=== PATIENT | female | born 1995 | race Caucasian/White ===

== ENCOUNTER 2020-07-16 14:51 | Emergency (ER) | payer MEDICAID, SELFPAY ==
[2020-07-16 16:51] VITALS: BP 130/84; PULSE 66; RESP 14; TEMP 36.6; O2SAT 100; BMI 34.9
--- NOTE | 2020-07-16 17:16 | ED.NEUROSD ---
HPI - Neuro Symptoms/Deficit General Chief Complaint: Neuro Symptoms/Deficit Stated Complaint: right facial numbness Time Seen by Provider: 07/16/20 16:30 Source: patient Mode of arrival: ambulatory Limitations: language barrier History of Present Illness HPI Narrative: patient with no significant past medical history except for migraines noticed headache on the right side for last 3 days with tingling and numbness feeling of left upper lip without any facial droop or focal weakness. Patient denied any nausea/ vomiting /fever no COVID exposure Onset (ago): day(s) (3) Related Data Allergies Allergy/AdvReac Type Severity Reaction Status Date / Time No Known Allergies Allergy Unverified 06/07/20 19:33 [No Known Allergies*] Review of Systems Review of Systems: REVIEW OF SYSTEMS: Pertinent positives and negatives are stated above in the history. GEN: no fevers, chills, fatigue HEENT: no nasal congestion, sore throat, ear pain NEURO: no dizziness, focal weakness PULM: no cough, shortness of breath CV: no chest pain, palpitations, LE edema ABD: no abdominal pain, nausea, vomiting, diarrhea : no dysuria, urgency, frequency SKIN: no rash ROS otherwise negative x 10 [facility] Past Medical History Medical History Kidney calculus Surgical History History of appendectomy Social History Social History Alcohol intake: never Smoking Status: Never smoker Smoked in Last 30 Days: No Use of substances other than those prescribed or required for medical reasons: No Physical Exam Vital Signs: Vital Signs: Vital Signs Temp Pulse Resp BP Pulse Ox 07/16/20 16:51 97.8 F 66 14 130/84 100 Body Mass Index 34.9 Appearance: Alert. Oriented X3. No acute distress. Eyes: Pupils equal, round and reactive to light. ENT: Pharynx normal. Neck: Normal inspection. Neck supple. CVS: Normal heart rate and rhythm. Pulses normal. Respiratory: No respiratory distress. Breath sounds normal. Abdomen: Soft and nontender. Skin: Skin warm and dry. Normal skin color. Normal skin turgor. Extremities: No lower extremity edema. Good range of movement Neuro: Oriented X 3. No motor deficit. No sensory deficit. Course Course Course Narrative: patient's symptoms likely from migraine feels better after Imitrex headache is almost gone will discharge patient home on Fioricet
--- NOTE | 2020-07-16 17:29 | PC.NURSE ---
pt was seen and medicated as charted for headache and associated sxs she is no outward distress and neuros are all intact at this time
== END 2020-07-16 18:45 | disposition home or self-care (01) ==
LOC: HO.ED 18:20
PROVIDERS: Emergency Provider Internal Medicine; PCP Student in an Organized Health Care Education/Training Program
DX: R20.0 Anesthesia of skin (principal)
CPT/HCPCS: 96372; 99283; 99284; J3030

== ENCOUNTER 2020-12-01 01:58 | Emergency (ER) | payer MEDICAID, SELFPAY ==
--- NOTE | ~2020-12-01 | CT_ITS ---
EXAMINATION: CT ABDOMEN AND PELVIS WITHOUT CONTRAST CLINICAL INFORMATION: Left flank pain COMPARISON: 07/12/2018 TECHNIQUE: Multidetector volumetric imaging was performed from the superior aspect of the liver through the pubic symphysis. Sagittal and coronal reformatted images were obtained on the technologist's workstation. This CT examination was performed using dose optimization techniques as appropriate, variously including the following: *Automated exposure control *Adjustment of mA and/or kV according to patient size (this includes techniques or standardized protocols for targeted exams where dose is matched to indication/reason for exam; i.e. extremities or head) *Use of iterative reconstruction technique DLP: 673 mGy-cm FINDINGS: LUNG BASES: The visualized lung bases are unremarkable. LIVER, GALLBLADDER, AND BILIARY TREE: The liver is normal in size, shape, and attenuation. No focal hepatic lesion or biliary ductal dilatation is identified. The gallbladder appears contracted. PANCREAS: Unremarkable. SPLEEN: Unremarkable. ADRENAL GLANDS: Unremarkable. KIDNEYS AND URETERS: There is a 9 mm calculus in the proximal left ureter with associated moderate hydronephrosis. There are a few calculi in the lower left kidney, some of which are faint, measuring up to approximately 5 mm. No right-sided hydronephrosis or calculus. BLADDER: Unremarkable. GASTROINTESTINAL TRACT: The small and large bowel are unremarkable. No free air is seen. ABDOMINAL WALL: No significant hernia is appreciated. LYMPH NODES: Normal. VASCULAR: Unremarkable. PELVIC VISCERA: Unremarkable. Trace free fluid is noted. OSSEOUS STRUCTURES: Unremarkable. CT/CT abdomen pelvis wo con IMPRESSION: 1. Proximal left ureteral calculus measuring 9 mm with moderate hydronephrosis. 2. Additional left lower pole renal calculi. 3. Trace nonspecific pelvic free fluid, which may be physiologic.
[2020-12-01 02:17] VITALS: BP 120/78; PULSE 79; RESP 16; TEMP 36.7; O2SAT 100; BMI 34.2
--- NOTE | 2020-12-01 02:25 | ED_ITS ---
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 This has been associated with nausea but no vomiting and chills but no fevers. She denies any history of constipation and states her last bowel movement was just prior to presentation. She has been trying to take ibuprofen and states she tries to avoid taking her Percocet. Otherwise, she denies any urinary pain/burning/frequency and her LMP-10/30/2020. Related Data Previous Rx's Medication Instructions Recorded nxatcyjdiw-djfvmbumeguql-lwnb 1 cap PO Q6H PRN #20 cap 07/16/20 [Fioricet] ketorolac 10 mg PO Q6H PRN 5 Days #20 tab 12/01/20 prednisone 20 mg PO DAILY 3 Days #3 tab 12/01/20 tamsulosin [Flomax] 0.4 mg PO BEDTIME 3 Days #3 cap 12/01/20 Allergies Allergy/AdvReac Type Severity Reaction Status Date / Time No Known Allergies Allergy Verified 12/01/20 02:17 [No Known Allergies*] Review of Systems Review of Systems: Pertinent positives and negatives as stated in HPI and 10 point review of systems is otherwise negative. [facility] Past Medical History Source: nursing notes reviewed Medical History Kidney calculus Surgical History History of appendectomy Social History Social History Alcohol intake: never Smoking Status: Never smoker Advance Directives: No Advance Directives Information Provided: No Physical Exam Vital Signs: Vital Signs: Last Vital Signs Temp 98.0 F 12/01/20 02:17 Pulse 82 12/01/20 04:31 Resp 16 12/01/20 04:31 BP 124/69 12/01/20 04:31 Pulse Ox 100 12/01/20 02:17 Body Mass Index 34.2 VITAL SIGNS: Reviewed. GENERAL: Well developed, well nourished, in no acute distress. OROPHARYNX: no oral lesions noted, posterior pharynx clear NECK: Supple, no adenopathy LUNGS: Normal breath sounds. No adventitious sounds or accessory muscle use. SpO2<100> CARDIOVASCULAR: Regular rate and rhythm without noted murmurs ABDOMEN: Soft, non-tender, non-distended with bowel sounds, no CVA tenderness SKIN: Inspection of the skin reveals no rashes NEUROLOGIC: Alert and oriented x 4. Course Course Course Narrative: This is a 25-year-old female with history and clinical presentation suggestive of musculoskeletal, constipation but will rule out renal colic or infection. Review of all investigations demonstrates 9 mm proximal renal stone with noted increase in creatinine from 0.58-1.19. On re-evaluation patient has received good pain relief from Tylenol/Toradol combination and case was discussed with Urology who will plan for surgery on Thursday and recommends discharge with Flomax and prednisone. All results and findings were discussed with patient at bedside and she was also informed of the plan for intervention on Thursday. MDM - Female Genitourinary Lab Data Result diagrams: 12/01/20 02:53 12/01/20 02:53 Labs: Lab Results 12/01/20 12/01/20 12/01/20 Range/Units 02:53 02:53 02:53 WBC 9.2 (4.8-10.8) X10*3/uL RBC 4.32 (4.20-5.50) X10*6/uL Hgb 12.4 (12.0-16.0) g/dl Hct 37.2 (37-47) % MCV 86.1 (80-98) fL MCH 28.7 (27.0-33.0) pg MCHC 33.3 (31.0-35.0) g/dl RDW 12.7 (11.0-16.0) % Plt Count 175 (160-400) X10*3/uL MPV 9.6 (9.4-12.3) fL Immature Gran % (Auto) 0.2 (0.0-0.4) % Neut % (Auto) 78.5 H (45-73) % Lymph % (Auto) 12.1 L (20-40) % [place] % (Auto) 7.5 (2-11) % Eos % (Auto) 1.5 (0-4) % Baso % (Auto) 0.2 (0-2) % Lymph # (Auto) 1.1 L (1.2-4.9) X10*3/uL [place] # (Auto) 0.7 (0.1-1.2) X10*3/uL Eos # (Auto) 0.1 (0.0-0.4) X10*3/uL Baso # (Auto) 0.0 (0.0-0.2) X10*3/uL Abs Immat Gran (auto) 0.02 (0.00-0.03) X10*3/uL Absolute Neuts (auto) 7.3 (2.0-8.3) X10*3/uL Absolute Nucleated RBC 0.000 (0.0-0.012) X10*3/uL Nucleated RBC % (auto) 0.0 (0.0-0.2) /100WBC Sodium 136 (135-145) mmol/L Potassium 4.7 (3.3-5.1) mmol/L Chloride 105 (96-108) mmol/L Carbon Dioxide 25 (22-29) mmol/L Anion Gap 11 L (12-20) BUN 14 (9-16) mg/dL Creatinine 1.19 (0.5-1.4) mg/dL Estim Creat Clear Calc 66.8 Estimated GFR 55 Random Glucose 106 (60-115) mg/dL Calcium 8.6 (8.4-10.2) mg/dL Total Bilirubin 0.3 (0.0-1.0) mg/dL AST 14 (5-31) U/L ALT 14 (0-31) U/L Alkaline Phosphatase 105 (39-117) U/L Total Protein 6.7 (6.5-8.0) g/dL Albumin 4.1 (3.5-5.0) g/dL Lipase 16 (8-78) U/L Urine Color YELLOW Urine Appearance CLEAR Urine pH 6.5 (5.0-8.0) Ur Specific [place] 1.020 (1.005-1.025) Urine Protein NEG (NEG-TRACE) MG/DL Urine Glucose (UA) NEG (NEG) MG/DL Urine Ketones 5 (NEG) MG/DL Urine Blood TRACE (NEG) Urine Nitrite NEG (NEG) Ur Leukocyte Esterase NEG (NEG) Urine RBC 1-4 (0) /HPF Urine WBC 1-4 (0-4) /HPF Ur Squamous Epith Cells TRACE /LPF Urine Bacteria TRACE /LPF Urine Mucus TRACE /LPF Urine Test (NEGATIVE) COVID-19 (JOHANA) (Negative) COVID-19 Clin Com 12/01/20 12/01/20 Range/Units 02:53 04:49 WBC (4.8-10.8) X10*3/uL RBC (4.20-5.50) X10*6/uL Hgb (12.0-16.0) g/dl Hct (37-47) % MCV (80-98) fL MCH (27.0-33.0) pg MCHC (31.0-35.0) g/dl RDW (11.0-16.0) % Plt Count (160-400) X10*3/uL MPV (9.4-12.3) fL Immature Gran % (Auto) (0.0-0.4) % Neut % (Auto) (45-73) % Lymph % (Auto) (20-40) % [place] % (Auto) (2-11) % Eos % (Auto) (0-4) % Baso % (Auto) (0-2) % Lymph # (Auto) (1.2-4.9) X10*3/uL [place] # (Auto) (0.1-1.2) X10*3/uL Eos # (Auto) (0.0-0.4) X10*3/uL Baso # (Auto) (0.0-0.2) X10*3/uL Abs Immat Gran (auto) (0.00-0.03) X10*3/uL Absolute Neuts (auto) (2.0-8.3) X10*3/uL Absolute Nucleated RBC (0.0-0.012) X10*3/uL Nucleated RBC % (auto) (0.0-0.2) /100WBC Sodium (135-145) mmol/L Potassium (3.3-5.1) mmol/L Chloride (96-108) mmol/L Carbon Dioxide (22-29) mmol/L Anion Gap (12-20) BUN (9-16) mg/dL Creatinine (0.5-1.4) mg/dL Estim Creat Clear Calc Estimated GFR Random Glucose (60-115) mg/dL Calcium (8.4-10.2) mg/dL Total Bilirubin (0.0-1.0) mg/dL AST (5-31) U/L ALT (0-31) U/L Alkaline Phosphatase (39-117) U/L Total Protein (6.5-8.0) g/dL Albumin (3.5-5.0) g/dL Lipase (8-78) U/L Urine Color Urine Appearance Urine pH (5.0-8.0) Ur Specific [place] (1.005-1.025) Urine Protein (NEG-TRACE) MG/DL Urine Glucose (UA) (NEG) MG/DL Urine Ketones (NEG) MG/DL Urine Blood (NEG) Urine Nitrite (NEG) Ur Leukocyte Esterase (NEG) Urine RBC (0) /HPF Urine WBC (0-4) /HPF Ur Squamous Epith Cells /LPF Urine Bacteria /LPF Urine Mucus /LPF Urine Test NEGATIVE (NEGATIVE) COVID-19 (JOHANA) Negative (Negative) COVID-19 Clin Com See Note Discharge Plan Discharge Clinical Impression: Ureterolithiasis Patient Disposition: Home, Self-Care Instructions: Ureteral Stones (ED) Additional Instructions: 1. Tylenol 1000 mg, por v?a oral, cada 6 horas seg?n sea necesario para controlar el dolor. No exceda los 4000 mg en 24 horas. 2. Incrementar la hidrataci?n de los fluidos especialmente con agua. 3. Tiene programada olivier intervenci?n quir?rgica el lunes por la ma?lilian y debe permanecer sin nada para comer o beber despu?s de la medianoche del lesli. Alguien lo llamar? el lunes por la ma?lilian, as? que debe contestar skelton tel?fono para recibir cualquiera de esas llamadas telef?nicas. No dude en volver al servicio de urgencias por cualquier empeoramiento iliana de delores s?ntomas. Prescriptions: New prednisone 20 mg tablet 20 mg PO DAILY 3 Days Qty: 3 RF: 0 tamsulosin [Flomax] 0.4 mg capsule 0.4 mg PO BEDTIME 3 Days Qty: 3 RF: 0 ketorolac 10 mg tablet 10 mg PO Q6H PRN (Reason: pain) 5 Days Qty: 20 RF: 0 No Action llkeqqnton-jyugnzqqetair-kffs [Fioricet] 50-300-40 mg capsule 1 cap PO Q6H PRN (Reason: pain) Qty: 20 RF: 0 Referrals: Ehsan Thakkar MD [Physician] - 2 days (Evaluation and intervention for 9 mm left ureteral stone.) Print Language: Irish
[2020-12-01 03:00] LABS: MANUAL DIFF FLAG NO
[2020-12-01 03:01] LABS: Basophils Percent Auto 0.2 % (0-2); Eosinophils Absolute Auto 0.1 X10*3/uL (0.0-0.4); Eosinophils Percent Auto 1.5 % (0-4); Hematocrit 37.2 % (37-47); Hemoglobin 12.4 g/dl (12.0-16.0); Imm Gran Abs Auto 0.02 X10*3/uL (0.00-0.03); Imm Gran Pct Auto 0.2 % (0.0-0.4); Lymphocytes Absolute Auto 1.1 X10*3/uL (1.2-4.9); Lymphocytes Percent Auto 12.1 % (20-40); Mean Corpuscular HGB Conc 33.3 g/dl (31.0-35.0); Mean Corpuscular Hemoglobin 28.7 pg (27.0-33.0); Mean Corpuscular Volume 86.1 fL (80-98); Mean Platelet Volume 9.6 fL (9.4-12.3); Monocytes Absolute Auto 0.7 X10*3/uL (0.1-1.2); Monocytes Percent Auto 7.5 % (2-11); Neutrophils Absolute Auto 7.3 X10*3/uL (2.0-8.3); Neutrophils Percent Auto 78.5 % (45-73); Platelet Count 175 X10*3/uL (160-400); Red Blood Count 4.32 X10*6/uL (4.20-5.50); Red Cell Distribution Width 12.7 % (11.0-16.0); White Blood Count 9.2 X10*3/uL (4.8-10.8)
[2020-12-01 03:07] LABS: Glucose Urine UA NEG (NEG); Leukocyte Esterase Urine NEG (NEG); Nitrite Urine NEG (NEG); PH 6.5 (5.0-8.0); Urine Blood TRACE (NEG); Urine Ketones 5 MG/DL (NEG); Urine Protein NEG (NEG-TRACE)
[2020-12-01 03:10] LABS: Appearance Urine CLEAR; Color Urine YELLOW
[2020-12-01 03:27] LABS: Alanine Aminotransferase 14 U/L (0-31); Albumin Level 4.1 g/dL (3.5-5.0); Alkaline Phosphatase 105 U/L (39-117); Anion Gap 11 (12-20); Aspartate Amino Transferase 14 U/L (5-31); Bilirubin Total 0.3 mg/dL (0.0-1.0); Blood Urea Nitrogen 14 mg/dL (9-16); Calcium 8.6 mg/dL (8.4-10.2); Carbon Dioxide 25 mmol/L (22-29); Chloride 105 mmol/L (96-108); Creatinine Clr Calc Pharmacy 66.8; Estimated Glomerular Filt Rate 55; Glucose Random 106 mg/dL (60-115); Lipase 16 U/L (8-78); Potassium 4.7 mmol/L (3.3-5.1); Sodium 136 mmol/L (135-145); Total Protein 6.7 g/dL (6.5-8.0)
[2020-12-01 03:46] LABS: UPreg QC Valid YES; Urine Pregnancy NEGATIVE (NEGATIVE)
[2020-12-01 03:50] LABS: Bacteria Urine TRACE /LPF; Mucus Urine TRACE /LPF; Squamous Epithelial Cell Urine TRACE /LPF
[2020-12-01 04:31] VITALS: BP 124/69; PULSE 82; RESP 16
[2020-12-01] MEDS: Ketorolac Tromethamine 15 MG/ML VIAL IVPUSH (04:45)
[2020-12-01] MEDS: Acetaminophen 325 MG TABLET 975 MG PO (04:46)
[2020-12-01] MEDS: 0.9 % Sodium Chloride 1,000 ML 999 ML IV (04:47)
[2020-12-01 05:20] LABS: COVID-19 Test Negative (Negative)
== END 2020-12-01 06:20 | disposition home or self-care (01) ==
PROVIDERS: Emergency Provider Student in an Organized Health Care Education/Training Program; PCP Student in an Organized Health Care Education/Training Program
DX: N13.2 Hydronephrosis with renal and ureteral calculous obstruction (principal); Z20.822 Contact with and (suspected) exposure to COVID-19; Z87.442 Personal history of urinary calculi
CPT/HCPCS: 36415; 74176; 80053; 81001; 81003; 81025; 83690; 85025; 87635; 96361; 96372; 96374; 99284; J1885

== ENCOUNTER 2020-12-03 14:56 | Day surgery (SDC) | payer MEDICAID, SELFPAY ==
[2020-12-03 15:10] VITALS: BMI 34.2
[2020-12-03 15:19] VITALS: BP 131/83; PULSE 77; RESP 16; TEMP 36.5; O2SAT 99
[2020-12-03] MEDS: Lactated Ringers 1,000 ML 100 ML IVCONT (15:27)
[2020-12-03 15:58] LABS: UPreg QC Valid YES; Urine Pregnancy NEGATIVE (NEGATIVE)
[2020-12-03] MEDS: levoFLOXacin 500 MG TABLET PO (17:07)
--- NOTE | 2020-12-03 17:16 | HO.ANESPROP2 ---
HPI - Anesthesia Eval Consult details Narrative: 25yo female patient for cysto, stent Left ureter PMFSH Family History Family history of problems with anesthesia: No Surgical History Surgical History (Updated 12/03/20 @ 17:52 by Sadaf Larose) History of appendectomy Kidney calculus History of Problems with Anesthesia: No Social History Social History Alcohol intake: never Smoking Status: Never smoker Use of substances other than those prescribed or required for medical reasons: No Advance Directives: No Advance Directives Information Provided: Yes Meds Allergies Allergy/AdvReac Type Severity Reaction Status Date / Time No Known Allergies Allergy Verified 12/01/20 02:17 [No Known Allergies*] Active Medications: Current Medications Generic Name Dose Route Start Last Admin Trade Name Freq PRN Reason Stop Dose Admin Lactated Ringer's 1,000 mls @ 100 mls/hr 12/03/20 15:30 12/03/20 15:27 Lr IVCONT 100 mls/hr .Q10H ROSANNA Administration Exam Exam Date and Time: December 03, 2020 1716 Height,Weight and Vital Signs: Height 5 ft Weight 79.379 kg Last Vital Signs Temp 97.7 F 12/03/20 15:19 Pulse 77 12/03/20 15:19 Resp 16 12/03/20 15:19 BP 131/83 12/03/20 15:19 Pulse Ox 99 12/03/20 15:19 Pertinent Lab Results Pertinent Lab Results: Laboratory Tests 12/03/20 15:35 Urine Test NEGATIVE Airway Mallampati Class: II TM Dist: >3cm Neck ROM: Full Heart: RRR Lungs: CTAB Assessment and Plan Assessment Anesthesia Assessment: Anesthesia Plan Discussed and Chart Reviewed Final Anesthetic Review NPO: Yes ASA Class: II Final Preanesthetic Review: No Changes in Pt Med Stat, Meds/Allgs Chart Reviewed, Consent Obtained/Reviewed and Anes Risks/Benef Reviewed Patient Risk: Low Procedure Risk: Low Assessment/Block/Sedation in SS: Assess/Block/Sedation-SS Anesthetic Plan Anesthetic Plan: MAC: (General backup) and Other Disposition: Standard PACU
--- NOTE | 2020-12-03 17:33 | HO.ANESPROP2 ---
[facility] Past Medical History Medical History Kidney calculus Surgical History Surgical History History of appendectomy Social History Social History Alcohol intake: never Smoking Status: Never smoker Use of substances other than those prescribed or required for medical reasons: No Advance Directives: No Advance Directives Information Provided: Yes Meds Allergies Allergy/AdvReac Type Severity Reaction Status Date / Time No Known Allergies Allergy Verified 12/01/20 02:17 [No Known Allergies*] Active Medications: Current Medications Generic Name Dose Route Start Last Admin Trade Name Freq PRN Reason Stop Dose Admin Lactated Ringer's 1,000 mls @ 100 mls/hr 12/03/20 15:30 12/03/20 15:27 Lr IVCONT 100 mls/hr .Q10H ROSANNA Administration Exam Exam Date and Time: December 03, 2020 1733 Height,Weight and Vital Signs: Height 5 ft Weight 79.379 kg Last Vital Signs Temp 97.7 F 12/03/20 15:19 Pulse 77 12/03/20 15:19 Resp 16 12/03/20 15:19 BP 131/83 12/03/20 15:19 Pulse Ox 99 12/03/20 15:19 Pertinent Lab Results Pertinent Lab Results: Laboratory Tests 12/03/20 15:35 Urine Test NEGATIVE Airway Mallampati Class: III TM Dist: >3cm Neck ROM: Full Heart: RRR Lungs: CTA
--- NOTE | 2020-12-03 18:02 | MHC.SHP ---
Pre-Procedural Eval Section B Chief Complaint: calculus of ureter Details of Present Illness: Seen at emergency room on Thursday evening Has 8 mm left UPJ stone Was tolerating oral medications and sent home Is still having some pain on the left side Plan was for retrograde with stent placement today and definitive stone procedure to follow Relevant Family History (Specify if Yes): No Relevant Social History: None Present Medications: see Short Stay Collaborative assessment Medical History: No relevant PMH History of Previous Operations: No relevant previous surgery Allergies: Allergies Allergy/AdvReac Type Severity Reaction Status Date / Time No Known Allergies Allergy Verified 12/01/20 02:17 [No Known Allergies*] Review of Systems Sugical H&P ROS: Negative: Constitution, Cardiovascular, Respiratory, Neurological, Psychiatric, Hem-Onc, Allergic/Immunologic, Gastrointestinal, Genitourinary, Musculoskeletal, Integumentary, Endocrine and Eyes/Ears/Nose/Throat Exam Surgical H&P Exam: Normal: HEENT, Normal: Heart, Normal: Lungs, Normal: Extremities, Normal: Abdomen, Normal: Skin and Normal: Neurological Plan Diagnosis/Plan: Unchanged (Left retrograde stent) I have reviewed the history and physical and performed a pertinent physical examination on my patient. No changes have occurred unless specified.
--- NOTE | 2020-12-03 18:05 | P.BOP_ITS ---
Brief Operative Note Date of Service: 12/03/20 Pre-op diagnosis: Left UPJ stone Post-op diagnosis: same Procedure: 1. Cystoscopy with left retrograde 2. left stent placement Implants: Six Romanian by 22 cm double-J stent left side Surgeon: Ehsan Thakkar MD Anesthesia: MAC Estimated blood loss (mL): 0 Pathology: none sent Condition: stable Disposition: same day
--- NOTE | 2020-12-03 18:05 | W.PM.OPN ---
Operative Note Operative Note Date of Service: 12/03/20 Narrative: PreOperative Diagnosis: Left UPJ stone Post Operative Diagnosis: Left UPJ stone Procedure: Left retrograde, left stent placement Surgeon: Dr Ehsan Thakkar Anesthesia: Sedation Indications for procedure: 25-year-old female. Seen in emergency room 2 nights ago. Was able to tolerate orals. Had stone on CT scanning 8 mm at left UPJ. Presents today for retrograde stent. Will be followed up with ESWL. Procedure: After informed consent was verified the patient was brought to the operating room and placed in a supine position. Anesthesia was administered per protocol. Patient was placed in modified dorsal lithotomy position and prepped and draped in a sterile fashion. Safety pause time-out performed. Antibiotics have been given. Twenty-two [place] cystoscope inserted per urethra. Left retrograde examination performed. Dye narrowing at UPJ suggestive UPJ obstruction. Sensor guidewire placed into renal pelvis without difficulty. Six [place] by 22 cm stent placed without difficulty. Good coil in renal pelvis and bladder. Bladder was emptied. Patient tolerated procedure well was extubated in the operating room transferred in stable condition to the recovery area Will plan on follow-up ESWL for stone management Pathology: None Drains: As above
[2020-12-03 18:15] VITALS: BP 112/80; PULSE 70; RESP 16; TEMP 36.4; O2SAT 98
[2020-12-03 18:20] VITALS: BP 125/82; PULSE 72; RESP 17; O2SAT 98
[2020-12-03 18:25] VITALS: BP 119/84; PULSE 69; RESP 16; O2SAT 99
[2020-12-03 18:30] VITALS: BP 118/77; PULSE 64; RESP 17; O2SAT 99
[2020-12-03] MEDS: Phenazopyridine HCL 100 MG TABLET PO (18:40)
[2020-12-03 18:44] VITALS: BP 119/82; RESP 16; TEMP 36.6; O2SAT 99
--- NOTE | 2020-12-03 19:24 | HO.POSTANES ---
Post Anesthesia Evaluation Post Anesthesia Evaluation Vital Signs: Vital Signs Temp Pulse Resp BP Pulse Ox 12/03/20 18:44 97.8 F 16 119/82 99 12/03/20 18:30 64 17 118/77 99 12/03/20 18:25 69 16 119/84 99 12/03/20 18:20 72 17 125/82 98 12/03/20 18:15 97.5 F 70 16 112/80 98 12/03/20 15:19 97.7 F 77 16 131/83 99 Anesthesia: General Mental Status: Awake Pain Control: Satisfactory Nausea/Vomiting: None Hydration: Adequate Anesthesia-Related Issues: No Anes. Related Issues
== END 2020-12-03 19:11 | disposition home or self-care (01) ==
PROVIDERS: Anesthesiology; PCP Student in an Organized Health Care Education/Training Program; Visit Provider Urology
PROC: (CPT 52332; principal; 2020-12-03 15:30)
DX: N20.1 Calculus of ureter (principal); Z87.442 Personal history of urinary calculi
CPT/HCPCS: 52332; 81025; C1758; C1769; C2617; J2250; J2405; J3010; Q9967

== ENCOUNTER 2020-12-26 07:27 | Day surgery (SDC) | payer MEDICAID, SELFPAY ==
--- NOTE | 2020-12-25 11:08 | P.CONAN_ITS ---
Documented by User: Dorothy Mckeon 12/25/20 11:09 HPI - Anesthesia Eval Consult details Narrative: 25yo F for L ESWL No prev ESWL on record. s/p ureteroscopy with GA-LMA 12/03/20 [facility] Active Problems Active Problems: All Active Problems (Updated 12/20/20 @ 13:07 by Kristina Castano) Kidney calculus (Acute) Past Medical History Medical History Hx of migraines Kidney stones Surgical History Surgical History History of appendectomy Kidney calculus S/P cystoscopy with ureteral stent placement Social History Social History Alcohol intake: never Smoking Status: Former smoker Use of substances other than those prescribed or required for medical reasons: No Advance Directives: No Advance Directives Information Provided: Yes Meds Allergies Allergy/AdvReac Type Severity Reaction Status Date / Time No Known Allergies Allergy Verified 12/20/20 13:07 [No Known Allergies*] Exam Exam Date and Time: December 25, 2020 1108 Assessment and Plan Assessment Anesthesia Assessment: Chart Reviewed Documented by User: Paula Gould 12/26/20 09:45 [facility] Past Medical History Medical History Hx of migraines Kidney stones Surgical History Surgical History History of appendectomy Kidney calculus S/P cystoscopy with ureteral stent placement Social History Social History Alcohol intake: never Smoking Status: Former smoker Use of substances other than those prescribed or required for medical reasons: No Advance Directives: No Advance Directives Information Provided: Yes Meds Allergies Allergy/AdvReac Type Severity Reaction Status Date / Time No Known Allergies Allergy Verified 12/20/20 13:07 [No Known Allergies*] Exam Airway Mallampati Class: II TM Dist: >3cm Neck ROM: Full Assessment and Plan Assessment Anesthesia Assessment: Anesthesia Plan Discussed and Chart Reviewed Final Anesthetic Review NPO: Yes ASA Class: II Final Preanesthetic Review: No Changes in Pt Med Stat, Meds/Allgs Chart Reviewed, Consent Obtained/Reviewed and Anes Risks/Benef Reviewed Patient Risk: Low Procedure Risk: Low Assessment/Block/Sedation in SS: Assess/Block/Sedation-SS Anesthetic Plan Anesthetic Plan: MAC: Disposition: Standard PACU
--- NOTE | ~2020-12-26 | XR_ITS ---
EXAMINATION: XR ABDOMEN KUB CLINICAL INDICATION: Stones COMPARISON: CT 12/01/2020 TECHNIQUE: AP view of the abdomen. FINDINGS: There is a left ureteral stent in place. 0.8 cm calcification overlying the lower pole of the left kidney, corresponding to the appearance on prior CT. No calcification seen along the course of the stent. Nonobstructive bowel gas pattern. The lung bases are clear. XR/XR KUB IMPRESSION: 0.8 cm left lower pole calculus. Left ureteral stent in place.
[2020-12-26 07:54] VITALS: BP 118/83; PULSE 89; RESP 16; TEMP 36.5; O2SAT 98; BMI 33.5
[2020-12-26 07:54] LABS: UPreg QC Valid YES; Urine Pregnancy NEGATIVE (NEGATIVE)
[2020-12-26] MEDS: levoFLOXacin 500 MG TABLET PO (07:57)
[2020-12-26] MEDS: Lactated Ringers 1,000 ML 100 ML IVCONT (08:11)
--- NOTE | 2020-12-26 10:15 | MHC.SHP ---
Pre-Procedural Eval Section B Chief Complaint: stone Details of Present Illness: left renal stone with stent Relevant Family History (Specify if Yes): No Relevant Social History: None Present Medications: see Short Stay Collaborative assessment Medical History: Significant History History of Previous Operations: Relevant previous surgery/procedure and date(s) Allergies: Allergies Allergy/AdvReac Type Severity Reaction Status Date / Time No Known Allergies Allergy Verified 12/20/20 13:07 [No Known Allergies*] Review of Systems Sugical H&P ROS: Negative: Constitution, Cardiovascular, Respiratory, Neurological, Psychiatric, Hem-Onc, Allergic/Immunologic, Gastrointestinal, Genitourinary, Musculoskeletal, Integumentary, Endocrine and Eyes/Ears/Nose/Throat Exam Surgical H&P Exam: Normal: HEENT, Normal: Heart, Normal: Lungs, Normal: Extremities, Normal: Abdomen, Normal: Skin and Normal: Neurological Plan Diagnosis/Plan: Unchanged (Left ESWL with cysto and stent removal) I have reviewed the history and physical and performed a pertinent physical examination on my patient. No changes have occurred unless specified.
--- NOTE | 2020-12-26 10:55 | W.PM.OPN ---
Operative Note Operative Note Date of Service: 12/26/20 Narrative: PreOperative Diagnosis: Left Renal stones Post Operative Diagnosis: Renal stones Procedure: Left ESWL - cysto and stent removal Surgeon: Dr Ehsan Thakkar Anesthesia: mac/sedation Indications for procedure: They understand ESWL may be a staged procedure and subsequent intervention may be required based on imaging after ESWL. They also understand there is a risk of bleeding, infection, damage to adjacent organs. Left 9mm lower pole stone Procedure: After informed consent was verified the patient was brought to the operating room and placed in a supine position. Anesthesia was performed per protocol. Safety pause time-out was performed. Imaging was in the room and laterality confirmed. ESWL was performed. The 1st 500 shocks were performed at 60 hertz. These were performed with increasing power. Once maximum power was reached the rate was increased to 180 hertz. A total of 2500 shocks were given. Fluoroscopy showed stone disintegration. After ESWL completed cystoscopy performed. Normal bladder. Stent seen, grasped and removed from left side. They tolerated procedure well and was transferred to the recovery area upon completion.
[2020-12-26 11:15] VITALS: BP 109/72; PULSE 90; RESP 16; TEMP 36.3; O2SAT 92
[2020-12-26 11:30] VITALS: BP 113/68; PULSE 71; RESP 13; O2SAT 100
[2020-12-26] MEDS: Phenazopyridine HCL 100 MG TABLET PO (11:41)
[2020-12-26] MEDS: Acetaminophen 325 MG TABLET 650 MG PO (11:41)
[2020-12-26 11:45] VITALS: BP 114/70; PULSE 72; RESP 20; TEMP 36.3; O2SAT 100
== END 2020-12-26 12:40 | disposition home or self-care (01) ==
PROVIDERS: Nurse Practitioner; PCP Student in an Organized Health Care Education/Training Program; Visit Provider Urology
PROC: (CPT 50590; principal; 2020-12-26 09:00)
DX: N20.0 Calculus of kidney (principal); Z87.442 Personal history of urinary calculi; Z46.6 Encounter for fitting and adjustment of urinary device; Z96.0 Presence of urogenital implants
CPT/HCPCS: 50590; 52310; 74018; 81025; J1885; J2405; J3010

== ENCOUNTER 2021-07-11 20:04 | Emergency (ER) | payer MEDICAID, SELFPAY ==
[2021-07-11 20:21] VITALS: BP 127/91; PULSE 84; RESP 16; TEMP 36.5; O2SAT 99; BMI 35.2
[2021-07-11 21:33] LABS: MANUAL DIFF FLAG NO
[2021-07-11 21:35] LABS: Basophils Percent Auto 0.4 % (0-2); Eosinophils Absolute Auto 0.2 X10*3/uL (0.0-0.4); Eosinophils Percent Auto 1.6 % (0-4); Hematocrit 40.1 % (37-47); Hemoglobin 13.6 g/dl (12.0-16.0); Imm Gran Abs Auto 0.03 X10*3/uL (0.00-0.03); Imm Gran Pct Auto 0.3 % (0.0-0.4); Lymphocytes Absolute Auto 2.5 X10*3/uL (1.2-4.9); Lymphocytes Percent Auto 24.1 % (20-40); Mean Corpuscular HGB Conc 33.9 g/dl (31.0-35.0); Mean Corpuscular Hemoglobin 28.8 pg (27.0-33.0); Mean Platelet Volume 9.4 fL (9.4-12.3); Monocytes Absolute Auto 0.7 X10*3/uL (0.1-1.2); Monocytes Percent Auto 6.3 % (2-11); Neutrophils Absolute Auto 6.9 X10*3/uL (2.0-8.3); Neutrophils Percent Auto 67.3 % (45-73); Platelet Count 224 X10*3/uL (160-400); Red Blood Count 4.72 X10*6/uL (4.20-5.50); Red Cell Distribution Width 12.8 % (11.0-16.0); White Blood Count 10.3 X10*3/uL (4.8-10.8)
[2021-07-11 21:51] LABS: Anion Gap 12 (12-20); Blood Urea Nitrogen 11 mg/dL (9-16); Calcium 10.1 mg/dL (8.4-10.2); Carbon Dioxide 26 mmol/L (22-29); Chloride 105 mmol/L (96-108); Estimated Glomerular Filt Rate > 60; Glucose Random 96 mg/dL (60-115); Potassium 4.4 mmol/L (3.3-5.1); Sodium 139 mmol/L (135-145)
--- NOTE | 2021-07-11 22:38 | ED.GENADULT ---
HPI - General Adult General Chief complaint: General Medical Stated complaint: High Blood pressure Time Seen by Provider: 07/11/21 22:28 Source: patient Mode of arrival: ambulatory Limitations: no limitations History of Present Illness HPI narrative: Patient comes to emergency room complaining of high blood pressure. Patient states this to a headache for 2 days. Patient has a wrist monitor at home which showed a blood pressure of 151/108. Patient states she has not taking any medication for the headache including Tylenol or ibuprofen. Patient denies nausea vomiting, no neck pain, no chest pain Related Data Previous Rx's Medication Instructions Recorded neksqxxefl-ualrtnpbpinyi-ppmcjfvz 1 cap PO Q6H PRN #20 cap 07/16/20 50 mg-300 mg-40 mg capsule (Fioricet) ketorolac 10 mg tablet 10 mg PO Q6H PRN 5 Days #20 tab 12/01/20 phenazopyridine 100 mg tablet 100 mg PO TID PRN 4 Days #12 tab 12/03/20 (Pyridium) tamsulosin 0.4 mg capsule 0.4 mg PO BEDTIME #14 cap 12/03/20 tamsulosin 0.4 mg capsule 0.4 mg PO BEDTIME 14 Days #14 cap 12/26/20 tramadol 50 mg tablet 50 mg PO Q6H PRN #14 tab 12/26/20 Allergies Allergy/AdvReac Type Severity Reaction Status Date / Time No Known Allergies Allergy Verified 12/20/20 13:07 [No Known Allergies*] Review of Systems Review of Systems: Constitutional : No Weight loss, No Fever, No Chills, No Night Sweats, No Fatigue, No Malaise ENT/Mouth : No Hearing loss, No Ear Pain, No Nasal Congestion, No Sinus Pain, No Hoarseness, No sore throat, No Rhinorrhea, No Swallowing Difficulty Eyes: No Eye Pain, No Swelling, No Redness, No Foreign Body, No Discharge, No Vision Changes Cardiovascular : No Chest Pain, No SOB, No Dyspnea on Exertion, No Orthopnea, No Edema, No Palpitations Respiratory : No Cough, No Sputum, No Wheezing, No Smoke Exposure, No Dyspnea Gastrointestinal : No Nausea, No Vomiting, No Diarrhea, No Constipation, No abdominal Pain, No Hematochezia, No Melena Genitourinary : no irregular bleeding, No Dysuria, No Urinary Frequency, No Hematuria, No Urinary Incontinence, No Urgency, No Flank Pain, No Urinary Flow Changes, No Hesitancy Musculoskeletal : No joint pain, No Myalgias, No Joint Swelling Skin : No Skin Lesions, No rash Neuro : No Weakness, No Numbness, No Paresthesias, No Loss of Consciousness, No Dizziness, complaining of a headache Psych : No Anxiety/Panic, No Depression, No SI/HI/AH/VH, No Social Issues, Heme/Lymph: No Bruising, No Bleeding,No Lymphadenopathy Endocrine : No Polyuria, No Polydipsia, No Temperature Intolerance [facility] Past Medical History Medical History Hx of migraines Kidney stones Surgical History History of appendectomy Kidney calculus S/P cystoscopy with ureteral stent placement Social History Social History Alcohol intake: never Advance Directives: No Advance Directives Information Provided: No Patient : No Physical Exam Vital Signs: Vital Signs: Last Vital Signs Temp 98.3 F 07/11/21 22:39 Pulse 84 07/11/21 22:39 Resp 16 07/11/21 22:39 BP 119/75 07/11/21 22:39 Pulse Ox 99 07/11/21 22:39 Body Mass Index 35.2 Const: Other: Appearance: Alert. Oriented X3. No acute distress. Well-appearing Eyes: Pupils equal, round and reactive to light. No photophobia ENT: Pharynx normal. Neck: Normal inspection. Neck supple. No lymph nodes noted. No crepitus CVS: Normal heart rate and rhythm. Pulses normal. Normal S1 and S2 Respiratory: No respiratory distress. Breath sounds normal. No Wheezing. No rales Abdomen: Soft and nontender. No rigidity. No distention. good BS x4 Skin: Skin warm and dry. Normal skin color. Normal skin turgor. Extremities: No lower extremity edema. No Lacerations. No Rash Neuro: Oriented X 3. No motor deficit. No sensory deficit. Moving all extermities. No slurred speech. Course Course Course Narrative: Patient's blood pressure in the emergency room 119/75. I discussed with the patient that she needs to have several blood pressure checks in different settings including her primary care physician's office. I recommended to the patient to check her blood pressure in a [facility] and to keep a log of her blood pressure. At this time, we will not start blood pressure medication, not indicated. I also discussed with the patient that blood pressure monitors that are applied in the wrist are not accurate. For headache, patient requested an injection, IM Toradol given. Patient declined any prescription for home. Medical Decision Making Lab Data Result diagrams: 07/11/21 21:28 07/11/21 21:28 Labs: Lab Results 07/11/21 07/11/21 Range/Units 21: 21:28 WBC 10.3 (4.8-10.8) X10*3/uL RBC 4.72 (4.20-5.50) X10*6/uL Hgb 13.6 (12.0-16.0) g/dl Hct 40.1 (37-47) % MCV 85.0 (80-98) fL MCH 28.8 (27.0-33.0) pg MCHC 33.9 (31.0-35.0) g/dl RDW 12.8 (11.0-16.0) % Plt Count 224 D (160-400) X10*3/uL MPV 9.4 (9.4-12.3) fL Immature Gran % (Auto) 0.3 (0.0-0.4) % Neut % (Auto) 67.3 (45-73) % Lymph % (Auto) 24.1 (20-40) % [place] % (Auto) 6.3 (2-11) % Eos % (Auto) 1.6 (0-4) % Baso % (Auto) 0.4 (0-2) % Lymph # (Auto) 2.5 (1.2-4.9) X10*3/uL [place] # (Auto) 0.7 (0.1-1.2) X10*3/uL Eos # (Auto) 0.2 (0.0-0.4) X10*3/uL Baso # (Auto) 0.0 (0.0-0.2) X10*3/uL Abs Immat Gran (auto) 0.03 (0.00-0.03) X10*3/uL Absolute Neuts (auto) 6.9 (2.0-8.3) X10*3/uL Absolute Nucleated RBC 0.000 (0.0-0.012) X10*3/uL Nucleated RBC % (auto) 0.0 (0.0-0.2) /100WBC Sodium 139 (135-145) mmol/L Potassium 4.4 (3.3-5.1) mmol/L Chloride 105 (96-108) mmol/L Carbon Dioxide 26 (22-29) mmol/L Anion Gap 12 (12-20) BUN 11 (9-16) mg/dL Creatinine 0.80 (0.5-1.4) mg/dL Estim Creat Clear Calc 100.0 Estimated GFR > 60 Random Glucose 96 (60-115) mg/dL Calcium 10.1 D (8.4-10.2) mg/dL Discharge Plan Discharge Clinical Impression: Headache Patient Disposition: Home, Self-Care Instructions: Acute Headache (ED) Additional Instructions: Please follow-up with your primary care physician tomorrow. If you have any worsening or new symptoms, please return to the emergency room or call 911 Prescriptions: No Action phenazopyridine [Pyridium] 100 mg tablet 100 mg PO TID PRN (Reason: spasm) 4 Days Qty: 12 RF: 0 tamsulosin 0.4 mg capsule 0.4 mg PO BEDTIME Qty: 14 RF: 0 tramadol 50 mg tablet 50 mg PO Q6H PRN (Reason: pain (scale score 4-6)) Qty: 14 RF: 0 tamsulosin 0.4 mg capsule 0.4 mg PO BEDTIME 14 Days Qty: 14 RF: 0 ginisyioye-pmomydyukolwy-npop [Fioricet] 50-300-40 mg capsule 1 cap PO Q6H PRN (Reason: pain) Qty: 20 RF: 0 ketorolac 10 mg tablet 10 mg PO Q6H PRN (Reason: pain) 5 Days Qty: 20 RF: 0
[2021-07-11 22:39] VITALS: BP 119/75; PULSE 84; RESP 16; TEMP 36.8; O2SAT 99
[2021-07-11] MEDS: Metoclopramide HCl 10 MG TABLET 5 MG PO (22:49)
[2021-07-11] MEDS: Ketorolac Tromethamine 60 MG/2 ML VIAL IM (22:49)
== END 2021-07-11 22:55 | disposition home or self-care (01) ==
PROVIDERS: Emergency Provider Emergency Medicine; PCP Student in an Organized Health Care Education/Training Program
DX: R51.9 Headache, unspecified (principal); Z79.899 Other long term (current) drug therapy
CPT/HCPCS: 36415; 80048; 85025; 96372; 99284; J1885

== ENCOUNTER 2022-02-05 14:30 | Outpatient (REF) | payer MEDICAID, SELFPAY ==
[2022-02-06 01:21] LABS: CT PCR NOT DETECTED (Not Detect.); NG PCR NOT DETECTED (Not Detect.)
[2022-02-06 09:19] LABS: BV Int Neg Control Negative (Negative); BV Int Pos Control Positive (Positive)
== END 2022-02-05 14:31 | disposition home or self-care (01) ==
LOC: HO.LAB 14:30
PROVIDERS: Visit Provider Advanced Practice Midwife
DX: Z01.411 Encounter for gynecological examination (general) (routine) with abnormal findings (principal); L29.2 Pruritus vulvae; R10.2 Pelvic and perineal pain; Z20.2 Contact with and (suspected) exposure to infections with a predominantly sexual mode of transmission; R32 Unspecified urinary incontinence; N92.6 Irregular menstruation, unspecified
CPT/HCPCS: 81003; 81025; 87480; 87491; 87510; 87591; 87660; 88142

== ENCOUNTER 2022-03-13 13:32 | Outpatient (REF) | payer MEDICAID, SELFPAY ==
--- NOTE | ~2022-03-13 | US_ITS ---
EXAMINATION: US PELVIS CLINICAL INFORMATION: Pelvic and perineal pain. COMPARISON: None TECHNIQUE: Ultrasound of the pelvis is performed using both transabdominal and transvaginal transducers along with Doppler. Transvaginal imaging is performed due to inadequate visualization transabdominally. FINDINGS: UTERUS: The uterus is retroverted, retroflexed and measures 7.0 cm in length, 3.9 mL in AP and 5.5 cm in transverse dimension. The double wall endometrial thickness is 1.2 cm. The uterus is smooth in contour and has normal myometrial echogenicity. No visible fibroid. ADNEXA: Both ovaries are visualized. There is normal color flow to the adnexa. There is no ovarian torsion. There is no pelvic ascites or fluid collection. Right ovary measures 2.8 x 2.4 x 2.0 cm and volume 7.0 mL. There is an anechoic corpus luteal cyst measuring 1.6 x 1.3 x 1.1 cm. Previously right ovary measured 2.6 x 2.8 x 2.3 cm. Left ovary measures 3.3 x 1.7 x 2.1 cm and volume 6.2 mL. The ovary appears unremarkable. Previously left ovary measured 2.4 x 2.6 x 2.1 cm. US/US pelvic and transvaginal IMPRESSION: Unremarkable retroverted uterus. Small corpus luteal cyst right ovary. Left ovary is unremarkable.
== END 2022-03-13 13:33 | disposition home or self-care (01) ==
LOC: HO.US 13:32
PROVIDERS: Visit Provider Obstetrics & Gynecology
DX: R10.2 Pelvic and perineal pain (principal)
CPT/HCPCS: 76830; 76856

== ENCOUNTER 2022-04-07 14:35 | Outpatient (REF) | payer MEDICAID, SELFPAY | END 2022-04-07 14:36 | disposition home or self-care (01) | LOC: HO.LAB 14:35 | PROVIDERS: Visit Provider Advanced Practice Midwife | DX: L29.2 Pruritus vulvae (principal); R10.2 Pelvic and perineal pain; N83.11 Corpus luteum cyst of right ovary; Z71.2 Person consulting for explanation of examination or test findings | CPT/HCPCS: 56605; 88305; 88312; 99212 ==

== ENCOUNTER → 2022-04-21 10:55 | Outpatient (BNVA) | payer MEDICAID, SELFPAY | PROVIDERS: Visit Provider Advanced Practice Midwife | DX: Z71.2 Person consulting for explanation of examination or test findings (principal); L28.0 Lichen simplex chronicus | CPT/HCPCS: 99212 ==

== ENCOUNTER 2022-08-22 14:30 | Outpatient (REF) | payer MEDICAID, SELFPAY ==
[2022-08-22 15:11] LABS: COVID-19 Test Positive (Negative)
== END 2022-08-22 14:31 | disposition home or self-care (01) ==
LOC: HO.LAB 14:30
PROVIDERS: Visit Provider Internal Medicine
DX: Z20.822 Contact with and (suspected) exposure to COVID-19 (principal)
CPT/HCPCS: 87635; C9803

== ENCOUNTER 2022-08-25 14:23 | Outpatient (REF) | payer MEDICAID, SELFPAY ==
[2022-08-26 02:27] LABS: COVID-19 Test Positive (Negative)
== END 2022-08-25 14:24 | disposition home or self-care (01) ==
LOC: HO.LAB 14:23
PROVIDERS: Visit Provider Internal Medicine
DX: Z20.822 Contact with and (suspected) exposure to COVID-19 (principal)
CPT/HCPCS: 87635; C9803

== ENCOUNTER 2022-11-18 05:11 | Emergency (ER) | payer MEDICAID, SELFPAY ==
--- NOTE | ~2022-11-18 | CT_ITS ---
EXAMINATION: CT ABDOMEN AND PELVIS WITHOUT CONTRAST CLINICAL INFORMATION: Left flank pain, question stone COMPARISON: 12/01/2020 TECHNIQUE: Multidetector volumetric imaging was performed from the superior aspect of the liver through the pubic symphysis. Sagittal and coronal reformatted images were obtained on the technologist's workstation. This CT examination was performed using dose optimization techniques as appropriate, variously including the following: *Automated exposure control *Adjustment of mA and/or kV according to patient size (this includes techniques or standardized protocols for targeted exams where dose is matched to indication/reason for exam; i.e. extremities or head) *Use of iterative reconstruction technique DLP: 648 mGy-cm FINDINGS: LUNG BASES: The visualized lung bases are unremarkable. LIVER, GALLBLADDER, AND BILIARY TREE: The liver is normal in size, shape, and attenuation. No focal hepatic lesion or biliary ductal dilatation is identified. The gallbladder is unremarkable. PANCREAS: Unremarkable. SPLEEN: Unremarkable. ADRENAL GLANDS: Unremarkable. KIDNEYS AND URETERS: There is a 6 mm calculus in the proximal left ureter with mild hydronephrosis. No right hydronephrosis. BLADDER: Mildly distended and grossly unremarkable. GASTROINTESTINAL TRACT: No evidence of bowel obstruction or significant wall thickening. No free fluid or free air is seen. ABDOMINAL WALL: No significant hernia is appreciated. LYMPH NODES: Normal. VASCULAR: Unremarkable. PELVIC VISCERA: Unremarkable. OSSEOUS STRUCTURES: Unremarkable. CT/CT abdomen pelvis wo IV con IMPRESSION: Proximal left ureteral calculus measuring 6 mm with mild hydronephrosis.
[2022-11-18 05:18] VITALS: BP 113/81; PULSE 84; RESP 16; TEMP 36.7; O2SAT 99; BMI 34.3
[2022-11-18 05:41] LABS: MANUAL DIFF FLAG NO
[2022-11-18 05:42] LABS: Basophils Percent Auto 0.3 % (0-2); Eosinophils Absolute Auto 0.2 X10*3/uL (0.0-0.4); Hematocrit 40.4 % (37.0-47.0); Hemoglobin 13.8 g/dl (12.0-16.0); Imm Gran Abs Auto 0.03 X10*3/uL (0.00-0.03); Imm Gran Pct Auto 0.3 % (0.0-0.4); Lymphocytes Absolute Auto 1.9 X10*3/uL (1.2-4.9); Lymphocytes Percent Auto 20.5 % (20-40); Mean Corpuscular HGB Conc 34.2 g/dl (31.0-35.0); Mean Corpuscular Hemoglobin 28.7 pg (27.0-33.0); Mean Platelet Volume 9.5 fL (9.4-12.3); Monocytes Absolute Auto 0.8 X10*3/uL (0.1-1.2); Monocytes Percent Auto 8.7 % (2-11); Neutrophils Absolute Auto 6.2 x10*3/uL (2.0-8.3); Neutrophils Percent Auto 68.2 % (45-73); Platelet Count 195 X10*3/uL (160-400); Red Blood Count 4.81 X10*6/uL (4.20-5.50); Red Cell Distribution Width 12.9 % (11.0-16.0)
[2022-11-18 05:44] LABS: Appearance Urine Clear; Color Urine Yellow; Glucose Urine UA Negative (Negative); Leukocyte Esterase Urine Negative (Negative); Nitrite Urine Negative (Negative); Specific Gravity - Urine 1.015 (1.005-1.025); UMIC TRIGGER UACC YES; Urine Blood Large (3+) (Negative); Urine Ketones Negative (Negative); Urine Protein Trace mg/dL (Neg-Trace)
[2022-11-18 05:45] LABS: UPreg QC Valid YES; Urine Pregnancy NEGATIVE (NEGATIVE)
[2022-11-18 05:46] LABS: Bacteria Urine None Seen (None Seen); Hyaline Casts Urine 0-2 /LPF (0-2); RBC Urine >20 /HPF (0-2); Squamous Epithelial Cell Urine 0-2 /HPF (0-2); WBC Urine 0-5 /HPF (0-5)
--- NOTE | 2022-11-18 05:49 | ED.ABDPAIN ---
HPI - Abdominal Pain General Chief Complaint: Abdominal Pain Stated Complaint: ? Kidney Stones Time Seen by Provider: 11/18/22 05:42 Source: patient Mode of arrival: ambulatory Limitations: no limitations History of Present Illness HPI narrative: Patient with history of kidney stone workup at 01:30 with left flank pain in left lower abdomen with that in the past no hematuria no fever no urinary symptoms patient feel nauseated . Related Data Previous Rx's Medication Instructions Recorded cppaafmpfo-nxuwobdnpbsit-exswstmp 1 cap PO Q6H PRN pain #20 caps 07/16/20 50 mg-300 mg-40 mg capsule (Fioricet) hydrocortisone valerate 0.2 % 1 appl topical BID 7 days #45 grams 04/21/22 topical cream oxycodone 5 mg tablet 5 mg PO Q6H PRN pain #20 tabs 11/18/22 tamsulosin 0.4 mg capsule (Flomax) 0.4 mg PO DAILY #10 caps 11/18/22 Allergies Allergy/AdvReac Type Severity Reaction Status Date / Time No Known Allergies Allergy Verified 10/09/22 10:09 [No Known Allergies*] Review of Systems Review of Systems Yes all other systems are reviewed and are negative [facility] Past Medical History Medical History Hx of migraines Kidney stones Surgical History History of appendectomy Kidney calculus S/P cystoscopy with ureteral stent placement Social History Social History Household Members: Spouse Household Members Other:: daughter Housing: Apartment Alcohol intake: never Patient Tobacco Use Status: Never used Tobacco Smoked in Last 30 Days: No Use of substances other than those prescribed or required for medical reasons: No Advance Directives: No Patient : No Sexual orientation: Straight/Heterosexual Gender identity: Female Physical Exam ED Vital Signs: Vital Signs - 24 hr 11/18/22 05:18 11/18/22 06:23 11/18/22 07:12 Temperature 98.0 F 98.0 F 98.0 F Pulse Rate 84 84 67 Respiratory Rate 16 16 16 Blood Pressure 113/81 113/81 125/70 Pulse Oximetry 99 99 100 Oxygen Delivery Method Room Air Room Air Room Air 11/18/22 07:21 Temperature Pulse Rate Respiratory Rate 16 Blood Pressure Pulse Oximetry Oxygen Delivery Method BMI result Body Mass Index 34.3 Appearance: Alert. Oriented X3. In moderate distress. Eyes: PERRLA, No Nystagmus ENT: Pharynx normal. Oral Mucosa moist Neck: Normal inspection. Neck supple. CVS: Normal heart rate and rhythm. Pulses normal. Respiratory: No respiratory distress. Equal air entry bilateral, no wheezing/rales/rhonchi Abdomen: Soft and nontender. Bowel sounds are present, no mass palpable, L CVA tenderness Skin: Skin warm and dry. Normal skin color. Normal skin turgor. Extremities: No lower extremity edema. No calf tenderness Neuro: Oriented X 3. No motor deficit. Medical Decision Making Medical Decision Making [facility] Narrative: Patient with 6 mm left proximal obstructive stone feeling much better after IV fluids and IV morphine and Toradol discussed with Dr. Thakkar will see the patient as outpatient Lab Data [facility] Lab Attestation statement: I reviewed the patient's lab results. 11/18/22 05:36 11/18/22 05:36 Labs: Lab Results 11/18/22 11/18/22 11/18/22 Range/Units 05:36 05:36 05:36 WBC 9.0 (4.8-10.8) X10*3/uL RBC 4.81 (4.20-5.50) X10*6/uL Hgb 13.8 (12.0-16.0) g/dl Hct 40.4 (37.0-47.0) % MCV 84.0 (80.0-98.0) fL MCH 28.7 (27.0-33.0) pg MCHC 34.2 (31.0-35.0) g/dl RDW 12.9 (11.0-16.0) % Plt Count 195 (160-400) X10*3/uL MPV 9.5 (9.4-12.3) fL Immature Gran % (Auto) 0.3 (0.0-0.4) % Neut % (Auto) 68.2 (45-73) % Lymph % (Auto) 20.5 (20-40) % [place] % (Auto) 8.7 (2-11) % Eos % (Auto) 2.0 (0-4) % Baso % (Auto) 0.3 (0-2) % Lymph # (Auto) 1.9 (1.2-4.9) X10*3/uL [place] # (Auto) 0.8 (0.1-1.2) X10*3/uL Eos # (Auto) 0.2 (0.0-0.4) X10*3/uL Baso # (Auto) 0.0 (0.0-0.2) X10*3/uL Abs Immat Gran (auto) 0.03 (0.00-0.03) X10*3/uL Absolute Neuts (auto) 6.2 (2.0-8.3) x10*3/uL Absolute Nucleated RBC 0.000 (0.0-0.012) X10*3/uL Nucleated RBC % (auto) 0.0 (0.0-0.2) /100WBC Sodium 137 (135-145) mmol/L Potassium 4.3 (3.3-5.1) mmol/L Chloride 107 (96-108) mmol/L Carbon Dioxide 23 (22-29) mmol/L Anion Gap 11 L (12-20) BUN 14 (9-16) mg/dL Creatinine 0.99 (0.5-1.4) mg/dL Estim Creat Clear Calc 79.1 Estimated GFR > 60 Random Glucose 89 (60-115) mg/dL Calcium 9.3 D (8.4-10.2) mg/dL Urine Color Yellow Urine Appearance Clear Urine pH 6.0 (5.0-9.0) Ur Specific [place] 1.015 (1.005-1.025) Urine Protein Trace (Neg-Trace) mg/dL Urine Glucose (UA) Negative (Negative) mg/dL Urine Ketones Negative (Negative) mg/dL Urine Blood Large (3+) H (Negative) Urine Nitrite Negative (Negative) Ur Leukocyte Esterase Negative (Negative) Urine RBC >20 H (0-2) /HPF Urine WBC 0-5 (0-5) /HPF Ur Squamous Epith Cells 0-2 (0-2) /HPF Urine Bacteria None Seen (None Seen) Hyaline Casts 0-2 (0-2) /LPF Urine Test (NEGATIVE) 11/18/22 Range/Units 05:36 WBC (4.8-10.8) X10*3/uL RBC (4.20-5.50) X10*6/uL Hgb (12.0-16.0) g/dl Hct (37.0-47.0) % MCV (80.0-98.0) fL MCH (27.0-33.0) pg MCHC (31.0-35.0) g/dl RDW (11.0-16.0) % Plt Count (160-400) X10*3/uL MPV (9.4-12.3) fL Immature Gran % (Auto) (0.0-0.4) % Neut % (Auto) (45-73) % Lymph % (Auto) (20-40) % [place] % (Auto) (2-11) % Eos % (Auto) (0-4) % Baso % (Auto) (0-2) % Lymph # (Auto) (1.2-4.9) X10*3/uL [place] # (Auto) (0.1-1.2) X10*3/uL Eos # (Auto) (0.0-0.4) X10*3/uL Baso # (Auto) (0.0-0.2) X10*3/uL Abs Immat Gran (auto) (0.00-0.03) X10*3/uL Absolute Neuts (auto) (2.0-8.3) x10*3/uL Absolute Nucleated RBC (0.0-0.012) X10*3/uL Nucleated RBC % (auto) (0.0-0.2) /100WBC Sodium (135-145) mmol/L Potassium (3.3-5.1) mmol/L Chloride (96-108) mmol/L Carbon Dioxide (22-29) mmol/L Anion Gap (12-20) BUN (9-16) mg/dL Creatinine (0.5-1.4) mg/dL Estim Creat Clear Calc Estimated GFR Random Glucose (60-115) mg/dL Calcium (8.4-10.2) mg/dL Urine Color Urine Appearance Urine pH (5.0-9.0) Ur Specific [place] (1.005-1.025) Urine Protein (Neg-Trace) mg/dL Urine Glucose (UA) (Negative) mg/dL Urine Ketones (Negative) mg/dL Urine Blood (Negative) Urine Nitrite (Negative) Ur Leukocyte Esterase (Negative) Urine RBC (0-2) /HPF Urine WBC (0-5) /HPF Ur Squamous Epith Cells (0-2) /HPF Urine Bacteria (None Seen) Hyaline Casts (0-2) /LPF Urine Test NEGATIVE (NEGATIVE) Medications Administered Discontinued Medications Generic Name Dose Route Start Last Admin Trade Name Freq PRN Reason Stop Dose Admin Sodium Chloride 1,000 mls @ 999 mls/hr 11/18/22 05:56 11/18/22 06:09 Ns IV 11/18/22 06:56 999 mls/hr .Q1H1M ONE Administration Ketorolac Tromethamine 30 mg 11/18/22 05:56 11/18/22 06:08 Ketorolac Tromethamine 30 Mg/Ml Vial IVPUSH 11/18/22 05:57 30 mg ONCE ONE Administration Morphine Sulfate 4 mg 11/18/22 05:56 11/18/22 06:08 Morphine Sulfate 4 Mg/Ml Cartridge IVPUSH 11/18/22 05:57 4 mg ONCE ONE Administration Protocol Morphine Sulfate 2 mg 11/18/22 06:50 11/18/22 07:21 Morphine Sulfate 2 Mg/Ml Cartridge IVPUSH 11/18/22 06:51 2 mg ONCE ONE Administration Protocol Ondansetron HCl 4 mg 11/18/22 05:56 11/18/22 06:08 Ondansetron Hcl 4 Mg/2 Ml Vial IVPUSH 11/18/22 05:57 4 mg ONCE ONE Administration Tamsulosin HCl 0.4 mg 11/18/22 06:45 11/18/22 07:21 Tamsulosin Hcl 0.4 Mg Capsule PO 11/18/22 06:46 0.4 mg ONCE ONE Administration Discharge Plan Discharge Clinical Impression: Kidney stone on left side Patient Disposition: Home, Self-Care Instructions: Renal Colic (ED) Additional Instructions: Drink plenty of fluids Pain medication as prescribed See urologist in 1-2 days for further management Prescriptions: New tamsulosin [Flomax] 0.4 mg capsule 0.4 mg PO DAILY Qty: 10 0RF oxycodone 5 mg tablet 5 mg PO Q6H PRN (Reason: pain) Qty: 20 0RF Rx Instructions: Partial Fill upon patient request. No Action fwtcysmpxy-rsyikmafadran-oefm [Fioricet] 50-300-40 mg capsule 1 cap PO Q6H PRN (Reason: pain) Qty: 20 0RF hydrocortisone valerate 0.2 % cream 1 appl topical BID 7 Days Qty: 45 0RF Rx Instructions: apply a thin coat to area Referrals: Drea Smith MD [Physician] - 1 day
--- NOTE | 2022-11-18 05:56 | PC.NURSE ---
Pt presenting to ER with flank and lower abdominal pain. Pt has hx of kidney stones and states this feels similar to previous episodes. Pt complaining of 6/10 pain at this time. 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 A&Ox4, GCS 15, no apparent distress or shortness of breath.
[2022-11-18 05:59] LABS: Anion Gap 11 (12-20); Blood Urea Nitrogen 14 mg/dL (9-16); Calcium 9.3 mg/dL (8.4-10.2); Carbon Dioxide 23 mmol/L (22-29); Chloride 107 mmol/L (96-108); Creatinine Clr Calc Pharmacy 79.1; Estimated Glomerular Filt Rate > 60; Glucose Random 89 mg/dL (60-115); Potassium 4.3 mmol/L (3.3-5.1); Sodium 137 mmol/L (135-145)
[2022-11-18] MEDS: Ketorolac Tromethamine 30 MG/ML VIAL IVPUSH (06:08)
[2022-11-18] MEDS: ondansetron HCL 4 MG/2 ML VIAL IVPUSH (06:08)
[2022-11-18] MEDS: Morphine Sulfate 4 MG/ML CARTRIDGE IVPUSH (06:08)
[2022-11-18] MEDS: 0.9 % Sodium Chloride 1,000 ML 999 ML IV (06:09)
[2022-11-18 06:23] VITALS: BP 113/81; PULSE 84; RESP 16; TEMP 36.7; O2SAT 99
[2022-11-18 07:12] VITALS: BP 125/70; PULSE 67; RESP 16; TEMP 36.7; O2SAT 100
[2022-11-18 07:21] VITALS: RESP 16
[2022-11-18] MEDS: Morphine Sulfate 2 MG/ML CARTRIDGE IVPUSH (07:21)
[2022-11-18] MEDS: Tamsulosin HCL 0.4 MG CAPSULE PO (07:21)
== END 2022-11-18 08:31 | disposition home or self-care (01) ==
PROVIDERS: Emergency Provider Internal Medicine; PCP Student in an Organized Health Care Education/Training Program
DX: N20.0 Calculus of kidney (principal); Z79.899 Other long term (current) drug therapy
CPT/HCPCS: 36415; 74176; 80048; 81001; 81025; 85025; 96374; 96375; 99284; 99285; J1885; J2270; J2405

== ENCOUNTER 2022-11-19 09:42 | Day surgery (SDC) | payer MEDICAID, SELFPAY ==
--- NOTE | ~2022-11-19 | XR_ITS ---
EXAMINATION: XR ABDOMEN KUB CLINICAL INDICATION: Pre-ESWL. COMPARISON: CT abdomen and pelvis dated 11/18/2022; KUB dated 12/26/2020. TECHNIQUE: 2 AP views of the abdomen and pelvis are submitted. FINDINGS: The bowel gas pattern is normal, with no evidence of ileus or obstruction. Again seen in the expected vicinity of the left ureteropelvic junction is a 6 mm calculus. No further urinary calculus is appreciated. The bones are unremarkable. XR/XR KUB IMPRESSION: A 6 mm calculus is redemonstrated at the left ureteropelvic junction. No further urinary calculus is presently appreciated.
[2022-11-19 10:12] VITALS: BMI 34.3
[2022-11-19 10:19] VITALS: BP 123/79; PULSE 85; RESP 16; TEMP 36.2; O2SAT 99
[2022-11-19 10:30] LABS: UPreg QC Valid YES; Urine Pregnancy NEGATIVE (NEGATIVE)
[2022-11-19] MEDS: Lactated Ringers 1,000 ML 999 ML IV (10:39)
--- NOTE | 2022-11-19 11:14 | MHC.SHP ---
Pre-Procedural Eval Section A Date of Service: 11/19/22 The History & Physical has been completed within 30 days and I have reviewed it.: Yes Section B Chief Complaint: Calculus of kidney, left Allergies: Allergies Allergy/AdvReac Type Severity Reaction Status Date / Time No Known Allergies Allergy Verified 11/18/22 14:49 [No Known Allergies*] Plan Diagnosis/Plan: Unchanged I have reviewed the history and physical and performed a pertinent physical examination on my patient. No changes have occurred unless specified. Left ESWL. Discussed risks to include but not limited to, blood in the urine, bruising to the skin, kidney hematoma, possible need for another procedure if a stone fragment obstructs the ureter while passing, possible need to repeat procedure if stone is not completely fragmented. Time Spent With Patient Time: Total time managing care of this patient today ____ minutes.
--- NOTE | 2022-11-19 11:19 | HO.ANESPROP2 ---
HPI - Anesthesia Eval Consult details Narrative: Left ESWL PMFSH Active Problems Active Problems: All Active Problems (Updated 12/20/20 @ 13:07 by Kristina Castano RN) Calculus of proximal left ureter (Acute) Lichen simplex chronicus (Acute) Kidney calculus (Acute) Past Medical History Medical History Hx of migraines Kidney stones Patient : No Family History Family history of problems with anesthesia: No Surgical History Surgical History History of appendectomy Kidney calculus S/P cystoscopy with ureteral stent placement History of Problems with Anesthesia: No Social History Social History Household Members: Spouse Household Members Other:: daughter Housing: Apartment Alcohol intake: never Patient Tobacco Use Status: Never used Tobacco Use of substances other than those prescribed or required for medical reasons: No Are you DNR?: No Advance Directives: No Advance Directives Information Provided: Yes Recently lost weight without trying: No Nutrition Risks: No Nutritional Risk Patient : No Sexual orientation: Straight/Heterosexual Gender identity: Female Meds Allergies Allergy/AdvReac Type Severity Reaction Status Date / Time No Known Allergies Allergy Verified 11/18/22 14:49 [No Known Allergies*] Active Medications: Current Medications Lactated Ringer's (Lr) 1,000 mls @ 999 mls/hr IV .Q1H1M ROSANNA Stop: 11/19/22 12:00 Last Admin: 11/19/22 10:39 Dose: 999 mls/hr Exam Exam Date and Time: November 19, 2022 1119 Height,Weight and Vital Signs: Height 5 ft Weight 79.832 kg Last Vital Signs Temp 97.1 F 11/19/22 10:19 Pulse 85 11/19/22 10:19 Resp 16 11/19/22 10:19 BP 123/79 11/19/22 10:19 Pulse Ox 99 11/19/22 10:19 O2 Del Method 11/19/22 10:19 Pertinent Lab Results Pertinent Lab Results: Laboratory Tests 11/19/22 10:05 Urine Test NEGATIVE Airway Mallampati Class: I TM Dist: <=3cm Neck ROM: Full Heart: ok Lungs: ok Assessment and Plan Assessment Anesthesia Assessment: Anesthesia Plan Discussed and Chart Reviewed Final Anesthetic Review Family History of Problems with Anesthesia: No History of Problems with Anesthesia: No NPO: Yes ASA Class: II Final Preanesthetic Review: No Changes in Pt Med Stat, Meds/Allgs Chart Reviewed, Consent Obtained/Reviewed and Anes Risks/Benef Reviewed Patient Risk: Low Procedure Risk: Low Anesthetic Plan Anesthetic Plan: GA and Agree w/ Assess. and Plan Disposition: Standard PACU
[2022-11-19 12:31] VITALS: BP 91/52; PULSE 86; RESP 16; TEMP 36.6; O2SAT 97
--- NOTE | 2022-11-19 12:33 | W.PM.OPN ---
Operative Note Operative Note Date of Service: 11/19/22 Narrative: PreOperative Diagnosis:? ? Left proximal ureteral/UPJ stone Post Operative Diagnosis:?Left proximal ureteral/UPJ stone Procedure:?Left? ESWL Surgeon:?Dr Drea Smith Anesthesia:? General Indications for procedure: The patient understands ESWL may be a staged procedure and subsequent intervention may be required based on imaging after ESWL.? They also understand? there is a risk of bleeding to the kidney, infection, damage to adjacent organs, and stone migration following the procedure. - Imaging KUB 8 mm Left UPJ/proximal ureteral stone Procedure: After informed consent was verified the patient was brought to the operating room and placed in a supine position.? Anesthesia was performed per protocol. Safety pause time-out was performed. Imaging was displayed in the room and laterality confirmed. ESWL was performed.?The stone was visualized on both fluoroscopy and ultrasound.? Shockwave lithotripsy was performed, the first 300 shocks at 60 hertz.? A pause for 3 minutes.? A total of 2500 shocks to a maximum of power of 18 with a maximum rate of 120 hertz.? Some fragmentation of the stone was appreciated. The patient tolerated the procedure well and was transferred to the recovery area upon completion. Complications: None
[2022-11-19 12:36] VITALS: BP 116/72; PULSE 70; RESP 18; O2SAT 98
[2022-11-19 12:41] VITALS: BP 119/78; PULSE 66; RESP 16; O2SAT 99
[2022-11-19 12:46] VITALS: BP 117/75; PULSE 70; RESP 17; TEMP 36.6; O2SAT 98
== END 2022-11-19 13:40 | disposition home or self-care (01) ==
PROVIDERS: Anesthesiology; PCP Student in an Organized Health Care Education/Training Program; Visit Provider Urology
PROC: (CPT 50590; principal; 2022-11-19 11:00)
DX: N20.1 Calculus of ureter (principal); Z87.442 Personal history of urinary calculi; Z79.899 Other long term (current) drug therapy
CPT/HCPCS: 50590; 74018; 81025; J0690; J1940; J2405; J3010

== ENCOUNTER 2022-12-31 16:42 | Outpatient (REF) | payer MEDICAID, SELFPAY ==
--- NOTE | ~2022-12-31 | XR_ITS ---
EXAMINATION: XR ABDOMEN KUB CLINICAL INDICATION: Calculus of kidney COMPARISON: KUB 11/19/[address] abdomen 11/10/2022 TECHNIQUE: AP view of the abdomen. FINDINGS: Previously noted 6 mm radiopaque calculi in the left kidney UPJ junction has moved into the lower pole calyx left kidney. No additional radiopaque calculi seen. There is mild to moderate stool in colon. No gross bony abnormality. No organomegaly. XR/XR KUB IMPRESSION: 6 mm radiopaque calculi in the left UV junction and the previous KUB has migrated into the lower pole calyx left kidney.
== END 2022-12-31 16:43 | disposition home or self-care (01) ==
LOC: HO.XRAY 16:42
PROVIDERS: PCP Student in an Organized Health Care Education/Training Program; Visit Provider Nurse Practitioner Family
DX: N20.0 Calculus of kidney (principal)
CPT/HCPCS: 74018

== ENCOUNTER → 2023-01-01 08:35 | Outpatient (BNVA) | payer MEDICAID, SELFPAY | PROVIDERS: PCP Student in an Organized Health Care Education/Training Program; Visit Provider Nurse Practitioner Family | DX: N20.0 Calculus of kidney (principal) | CPT/HCPCS: 99212 ==

== ENCOUNTER 2023-03-02 08:48 | Day surgery (SDC) | payer MEDICAID, SELFPAY ==
[2023-02-26 10:14] VITALS: BMI 34.4
--- NOTE | 2023-02-27 10:48 | HO.ANESPROP2 ---
Documented by User: Dorothy Mckeon NP 02/27/23 10:50 HPI - Anesthesia Eval Consult details Narrative: 27yo F for Left Cystoscopy, Ureteroroscopy, Retro, Laser possible stent PMFSH Active Problems Active Problems: All Active Problems (Updated 02/26/23 @ 10:09 by Marlin Hawthorne RN) Lichen simplex chronicus (Acute) Calculus of proximal left ureter (Acute) Kidney calculus (Acute) Past Medical History Medical History Hx of migraines Kidney stones Family History Family history of problems with anesthesia: No Surgical History Surgical History History of appendectomy Hx of lithotripsy Hx of lithotripsy Kidney calculus S/P cystoscopy with ureteral stent placement History of Problems with Anesthesia: No Social History Social History Household Members: Spouse Household Members Other:: daughter Housing: Apartment Alcohol intake: never Patient Tobacco Use Status: Never used Tobacco Use of substances other than those prescribed or required for medical reasons: No Are you DNR?: No Advance Directives: No Advance Directives Information Provided: Yes Sexual orientation: Straight/Heterosexual Gender identity: Female Meds Allergies Allergy/AdvReac Type Severity Reaction Status Date / Time No Known Allergies Allergy Verified 03/02/23 09:30 [No Known Allergies*] Exam Exam Date and Time: February 27, 2023 1048 Height,Weight and Vital Signs: Height 5 ft Weight 79.832 kg Pertinent Lab Results Pertinent Lab Results: Laboratory Tests 11/18/22 11/18/22 05:36 05:36 WBC 9.0 Hgb 13.8 Hct 40.4 Plt Count 195 Sodium 137 Potassium 4.3 Chloride 107 Carbon Dioxide 23 BUN 14 Creatinine 0.99 Assessment and Plan Assessment Anesthesia Assessment: Chart Reviewed Final Anesthetic Review Family History of Problems with Anesthesia: No History of Problems with Anesthesia: No Documented by User: Dinaa Noble MD 03/02/23 10:02 PMFSH Past Medical History Medical History Hx of migraines Kidney stones Surgical History Surgical History History of appendectomy Hx of lithotripsy Hx of lithotripsy Kidney calculus S/P cystoscopy with ureteral stent placement Social History Social History Household Members: Spouse Household Members Other:: daughter Housing: Apartment Alcohol intake: never Patient Tobacco Use Status: Never used Tobacco Use of substances other than those prescribed or required for medical reasons: No Are you DNR?: No Advance Directives: No Advance Directives Information Provided: Yes Sexual orientation: Straight/Heterosexual Gender identity: Female Meds Allergies Allergy/AdvReac Type Severity Reaction Status Date / Time No Known Allergies Allergy Verified 03/02/23 09:30 [No Known Allergies*] Exam Airway Mallampati Class: II TM Dist: >3cm Neck ROM: Full Heart: rrr Lungs: ctab Assessment and Plan Assessment Anesthesia Assessment: Anesthesia Plan Discussed Final Anesthetic Review NPO: Yes ASA Class: II Final Preanesthetic Review: No Changes in Pt Med Stat, Meds/Allgs Chart Reviewed, Consent Obtained/Reviewed and Anes Risks/Benef Reviewed Patient Risk: Low Procedure Risk: Low Anesthetic Plan Anesthetic Plan: GA Disposition: Standard PACU
[2023-03-02] VITALS (7 sets, daily range): BP systolic 119–142; BP diastolic 75–88; PULSE 69–89; RESP 15–16; TEMP 36.1–36.8; O2SAT 98–100; BMI 35.2
--- NOTE | ~2023-03-02 | FL_ITS ---
EXAMINATION: XR FLUOROSCOPY WITH IMAGES CLINICAL INFORMATION: Left retrograde. COMPARISON: None available. TECHNIQUE: FLUOROSCOPY SUPERVISED BY: Dr. Ehsan Thakkar. FLUOROSCOPIC IMAGES: 1. FINDINGS: Single image demonstrates the distal end of a presumed left ureteral stent. A small amount of contrast is present in the bladder. FL/FL guidance in OR IMPRESSION: Fluoroscopy provided for left retrograde pyelogram. Please see Dr. Ehsan Thakkar's procedure note for details.
[2023-03-02 09:37] LABS: UPreg QC Valid YES; Urine Pregnancy NEGATIVE (NEGATIVE)
[2023-03-02] MEDS: Lactated Ringers 1,000 ML 100 ML IVCONT (09:43)
--- NOTE | 2023-03-02 11:26 | MHC.SHP ---
Pre-Procedural Eval Section A Date of Service: 03/02/23 The patient is an INPATIENT: No Changes since office visit: No Cold of Flu in the past 2 weeks, No New Medical Problems, No Changes in Medication and No Patient answered all questions The History & Physical has been completed within 30 days and I have reviewed it.: Yes Section B Chief Complaint: Calculus of kidney Details of Present Illness: left renal stone Relevant Family History (Specify if Yes): No Relevant Social History: None Present Medications: see Short Stay Collaborative assessment Medical History: No relevant PMH History of Previous Operations: Relevant previous surgery/procedure and date(s) Allergies: Allergies Allergy/AdvReac Type Severity Reaction Status Date / Time No Known Allergies Allergy Verified 03/02/23 09:30 [No Known Allergies*] Review of Systems Sugical H&P ROS: Negative: Constitution, Cardiovascular, Respiratory, Neurological, Psychiatric, Hem-Onc, Allergic/Immunologic, Gastrointestinal, Genitourinary, Musculoskeletal, Integumentary, Endocrine and Eyes/Ears/Nose/Throat Exam Surgical H&P Exam: Normal: HEENT, Normal: Heart, Normal: Lungs, Normal: Extremities, Normal: Abdomen, Normal: Skin and Normal: Neurological Plan Diagnosis/Plan: Unchanged ( cystoscopy, left retrograde, left ureteroscopy with laser lithotripsy in stent placed) I have reviewed the history and physical and performed a pertinent physical examination on my patient. No changes have occurred unless specified. Time Spent With Patient Time: Total time managing care of this patient today ____ minutes.
--- NOTE | 2023-03-02 12:22 | P.OP_ITS ---
Operative Note Operative Note Date of Service: 03/02/23 Narrative: PreOperative Diagnosis: left lower pole stone Post Operative Diagnosis: left lower pole stone Procedure: - cystoscopy, left retrograde - left dilatation of ureteric orifice under fluoroscopy - left ureteroscopy, laser lithotripsy, stone basketing - left stent placement Surgeon: Dr Ehsan Thakkar Anesthesia: General Indications for procedure: prior ESWL for 8 mm stone. 6 mm fragment left lower pole causing pain. Recommendation for ureteroscopy Procedure: After informed consent was verified patient was brought to the operating placed in supine position. Anesthesia was administered per protocol. Patient was placed in modified dorsal lithotomy position and prepped and draped in a sterile fashion. Safety pause time-out and side of surgery confirmed. Antibiotics confirmed. 22 [place] cystoscope was inserted per urethra. Bladder was normal in its entirety. Both ureteric orifices were in normal position. The left ureteric orifice was cannulated and a retrograde examination was performed. no filling defects seen within ureteral or renal pelvis. A Sensor guidewire was placed up to the level of the renal pelvis under fluoroscopy. The rigid cystoscope was removed and the inner cannula of ureteric access sheath was used under fluoroscopy to dilate the ureteric orifice. The ureteric access sheath was placed and the inner cannula with access wire removed. The digital flexible ureteral scope was placed. in the renal pelvis was examined. The initial ureteral scope was not able to fully flex. Replacement ureteral scope was used. On full flexion stone was found in the bottom the lower pole. Using a ZeroTip basket the stone was grasped and moved placed in the upper pole for access. Using a 274 micron holmium laser fiber the stone was dusted in broken into 3 small fragments. The Zero tip basket was then used to remove fragments. At the completion of the stone procedure a Sensor wire was placed back into the renal pelvis. A 6 [place] by 22 cm double-J stent was placed into the renal pelvis and kelley dder under a combination of fluoroscopy and direct visualization. The symphisis pubis was used as a radiographic marker to release the stent and good coil was seen within the bladder confirming position The bladder was emptied. The patient tolerated the procedure well and was extubated in the operating room, and transferred in stable condition to the recovery area. Pathology: stones Drains: stent as above
[2023-03-02] MEDS: Phenazopyridine HCL 100 MG TABLET PO (12:48)
[2023-03-02] MEDS: oxyCODONE HCl Immed Release 5 MG TABLET PO (12:49)
--- NOTE | 2023-03-02 13:14 | PC.NURSE ---
discharge instructions completed with data sme servicesElizabeth.
[2023-03-05 20:53] LABS: Stone Source KIDNEY STONE
== END 2023-03-02 13:29 | disposition home or self-care (01) ==
PROVIDERS: Anesthesiology; PCP Student in an Organized Health Care Education/Training Program; Visit Provider Urology
PROC: (CPT 52356; principal; 2023-03-02 10:50)
DX: N20.0 Calculus of kidney (principal); Z87.442 Personal history of urinary calculi; G43.909 Migraine, unspecified, not intractable, without status migrainosus; Z79.899 Other long term (current) drug therapy
CPT/HCPCS: 52356; 81025; 82365; 88300; C1758; C1769; C1894; C2617; J0131; J1100; J1885; J1956; J2405; J3010; Q9967

== ENCOUNTER 2023-03-03 18:19 | Emergency (ER) | payer MEDICAID, SELFPAY ==
--- NOTE | ~2023-03-03 | CT_ITS ---
EXAMINATION: CT ABDOMEN AND PELVIS WITHOUT CONTRAST CLINICAL INFORMATION: Left-sided pain. History of stones and left stent placement yesterday COMPARISON: Previous CT of the abdomen and pelvis October 2022, KUB December 2022 and fluoroscopic exam from yesterday TECHNIQUE: Multidetector volumetric imaging was performed from the superior aspect of the liver through the pubic symphysis. Sagittal and coronal reformatted images were obtained on the technologist's workstation. This CT examination was performed using dose optimization techniques as appropriate, variously including the following: *Automated exposure control *Adjustment of mA and/or kV according to patient size (this includes techniques or standardized protocols for targeted exams where dose is matched to indication/reason for exam; i.e. extremities or head) *Use of iterative reconstruction technique DLP: 643 mGy-cm FINDINGS: LUNG BASES: The visualized lung bases are unremarkable. LIVER, GALLBLADDER, AND BILIARY TREE: The liver is normal in size, shape, and attenuation. No focal hepatic lesion or biliary ductal dilatation is present. The gallbladder is unremarkable with no evidence of radiopaque gallstones, gallbladder wall thickening, or obvious pericholecystic inflammatory changes. PANCREAS: Unremarkable. SPLEEN: Unremarkable. ADRENAL GLANDS: Unremarkable. KIDNEYS AND URETERS: Left: There are 4 small renal stones, largest measuring 3 mm. There is mild left hydronephrosis. There is a left internal ureteral stent. Proximal pigtail is in the left proximal ureter. Distal pigtail is in the bladder. No ureteral stone seen. No perinephric collection. The right kidney is normal. BLADDER: Not optimally distended. There may be mild diffuse bladder wall thickening. GASTROINTESTINAL TRACT: The small and large bowel are unremarkable. The appendix is not seen. No inflammatory changes in the right lower quadrant. ABDOMINAL WALL: No significant hernia is appreciated. LYMPH NODES: Normal. VASCULAR: Unremarkable. PELVIC VISCERA: Unremarkable. OSSEOUS STRUCTURES: Unremarkable. CT/CT abdomen pelvis wo IV con IMPRESSION: Left internal ureteral stent. Proximal pigtail is in the left proximal ureter and distal pigtail is in the bladder. Small left renal stones, largest measuring 3 mm. Mild left hydronephrosis. Fleischner guidelines were followed.
--- NOTE | 2023-03-03 19:09 | ED_ITS ---
HPI - Abdominal Pain General Chief Complaint: Abdominal Pain Stated Complaint: surgery here yesterday, pain from stent? 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 Patient reports that she had an outpatient procedure for a left radial stand yesterday with Dr. Thakkar Patient states that she was sent home with naproxen and tramadol but the pain has been 9/10 to the left flank pain Denies any fevers or chills She states her urologist was supposed to change her tramadol to oxycodone but has not done so Patient reports some blood in the urine No diarrhea, nausea or vomiting Related Data Previous Rx's Medication Instructions Recorded [id number] 1 cap PO Q6H PRN pain #20 caps 07/16/20 50 mg-300 mg-40 mg capsule (Fioricet) hydrocortisone valerate 0.2 % 1 appl topical BID 7 days #45 grams 04/21/22 topical cream pyridoxine (vitamin B6) 100 mg 100 mg PO DAILY 90 days #90 tabs 01/01/23 tablet naproxen 500 mg tablet 500 mg PO BID PRN pain 7 days #14 03/02/23 tabs phenazopyridine 100 mg tablet 100 mg PO TID PRN Spasm 4 days #12 03/02/23 (Pyridium) tabs tramadol 50 mg tablet 50 mg PO Q6H PRN pain (scale score 03/02/23 1-3) #8 tabs oxycodone 5 mg tablet 5 mg PO Q6H PRN severe pain (scale 03/03/23 score 7-10) #12 tabs tamsulosin 0.4 mg capsule 0.4 mg PO BEDTIME #90 caps 03/03/23 Allergies Allergy/AdvReac Type Severity Reaction Status Date / Time No Known Allergies Allergy Verified 03/02/23 09:30 [No Known Allergies*] Review of Systems Constitutional: Reports as per HPI, Denies chills, Denies fatigue, Denies fever(s) and Denies headache(s) Denies headache(s) Cardiovascular: Denies chest pain and Denies dyspnea Respiratory: Denies cough and Denies dyspnea Gastrointestinal: Reports abdominal pain, Denies constipation and Denies vomiting Genitourinary: Reports difficulty voiding and Reports flank pain Denies headache(s) and Denies focal weakness Endocrine: Denies fatigue PMFSH Past Medical History Medical History (Updated 03/03/23 @ 23:43 by Dc Ch) Hx of migraines Kidney stones Surgical History History of appendectomy Hx of lithotripsy Hx of lithotripsy Kidney calculus S/P cystoscopy with ureteral stent placement Social History Social History Household Members: Spouse Household Members Other:: daughter Housing: Apartment Alcohol intake: never Patient Tobacco Use Status: Never used Tobacco Smoked in Last 30 Days: No Use of substances other than those prescribed or required for medical reasons: No Advance Directives: No Advance Directives Information Provided: No Patient : No Sexual orientation: Straight/Heterosexual Gender identity: Female Physical Exam ED Vital Signs: Vital Signs - 24 hr 03/03/23 19:11 03/03/23 22:45 Temperature 98.8 F 99.2 F Pulse Rate 82 84 Respiratory Rate 16 17 Blood Pressure 125/73 121/63 Pulse Oximetry 99 98 Oxygen Delivery Method Room Air Room Air BMI result Body Mass Index 36.1 Const General: healthy appearing, comfortable, no acute distress, alert and awake Nutritional Appearance: well nourished Orientation/consciousness: patient oriented x3 HENMT Head: Yes normocephalic and Yes atraumatic Eyes Eyelids: Yes eyelids normal Conjunctivae: conjunctivae normal Sclerae: sclerae normal Corneas: corneas normal Pupils: Equal, round and reactive pupils present EOM: EOMs intact bilaterally Neck Neck: Yes full ROM Resp Effort & Inspection: normal respiratory effort, able to speak in complete sentences and not labored Cardio Rate: regular rate Rhythm: regular rhythm GI Inspection: No distended Palpation (GI): Soft to palpation, not firm, Tenderness to palpation present (GI) (Left flank) in the LLQ, no guarding and not rigid Auscultation: normoactive bowel sounds Skin General skin exam: no rashes or lesions noted and elasticity normal Neuro General: patient oriented x3 Cranial nerves: Yes Equal, round and reactive pupils present and Yes Bilaterally intact EOM present Cognition (Neuro): normal cognition Extrem Other: Moving all extremities well without any obvious deformities Course Course Course Narrative: RME: 27yo F w/PMHx renal stones S/P stent placement yesterday c/o L flank pain radiating to lower abdomen and dysuria. Denies fever, chills, nausea/vomiting Labs, CT, UA ordered Full HPI, ROS and PE to be performed by primary ED provider. Reevaluation(s) Reevaluation #1: CT scan shows proper placement of the ureteral stent. Still awaiting UA. Time: 22:59 Reevaluation #2: Patient's UA significant for protein and blood likely related to the recent surgery but no evidence of infection. Medical Decision Making Medical Decision Making MDM Narrative: Patient's pain may be related to postop pain from the stent. Triage provider ordered a CT scan of the abdomen pelvis to evaluate for continued hydronephrosis with the patient's renal function within normal limits. UA to evaluate for infection/pyelonephritis. Patient is nontoxic appearing and vital signs are stable. Will treat her pain with oxycodone Differential Diagnosis Postop pain Obstructive uropathy Pyelonephritis Flank pain Lab Data [facility] Lab Attestation statement: I reviewed the patient's lab results. 03/03/23 20:11 03/03/23 20:11 Labs: Lab Results 03/03/23 03/03/23 03/03/23 Range/Units 20:11 20:11 20:11 WBC 11.3 H (4.8-10.8) X10*3/uL RBC 4.65 (4.20-5.50) X10*6/uL Hgb 13.3 (12.0-16.0) g/dl Hct 40.0 (37.0-47.0) % MCV 86.0 (80.0-98.0) fL MCH 28.6 (27.0-33.0) pg MCHC 33.3 (31.0-35.0) g/dl RDW 13.2 (11.0-16.0) % Plt Count 210 (160-400) X10*3/uL MPV 9.2 L (9.4-12.3) fL Immature Gran % (Auto) 0.4 (0.0-0.4) % Neut % (Auto) 65.6 (45-73) % Lymph % (Auto) 27.3 (20-40) % [place] % (Auto) 5.8 (2-11) % Eos % (Auto) 0.6 (0-4) % Baso % (Auto) 0.3 (0-2) % Lymph # (Auto) 3.1 (1.2-4.9) X10*3/uL [place] # (Auto) 0.7 (0.1-1.2) X10*3/uL Eos # (Auto) 0.1 (0.0-0.4) X10*3/uL Baso # (Auto) 0.0 (0.0-0.2) X10*3/uL Abs Immat Gran (auto) 0.04 H (0.00-0.03) X10*3/uL Absolute Neuts (auto) 7.4 (2.0-8.3) x10*3/uL Absolute Nucleated RBC 0.000 (0.0-0.012) X10*3/uL Nucleated RBC % (auto) 0.0 (0.0-0.2) /100WBC PT 12.5 (10.0-13.1) SEC INR 1.1 (0.9-1.1) Sodium 140 (135-145) mmol/L Potassium 4.4 (3.3-5.1) mmol/L Chloride 109 H (96-108) mmol/L Carbon Dioxide 25 (22-29) mmol/L Anion Gap 10 L (12-20) BUN 11 (9-16) mg/dL Creatinine 0.79 (0.5-1.4) mg/dL Estim Creat Clear Calc 101.8 Estimated GFR > 60 Random Glucose 87 (60-115) mg/dL Calcium 9.3 (8.4-10.2) mg/dL Total Bilirubin 0.3 (0.0-1.0) mg/dL Direct Bilirubin 0.1 (0.0-0.5) mg/dL AST 15 (5-31) U/L ALT 14 (0-31) U/L Alkaline Phosphatase 78 (39-117) U/L Total Protein 7.1 (6.5-8.0) g/dL Albumin 4.1 (3.5-5.0) g/dL Lipase 21 (8-78) U/L Beta HCG, Quant mIU/mL Urine Color Urine Appearance Urine pH (5.0-9.0) Ur Specific [place] (1.005-1.025) Urine Protein (Neg-Trace) mg/dL Urine Glucose (UA) (Negative) mg/dL Urine Ketones (Negative) mg/dL Urine Blood (Negative) Urine Nitrite (Negative) Ur Leukocyte Esterase (Negative) Urine RBC (0-2) /HPF Urine WBC (0-5) /HPF Ur Squamous Epith Cells (0-2) /HPF Urine Bacteria (None Seen) Hyaline Casts (0-2) /LPF 03/03/23 03/03/23 Range/Units 20:11 22:47 WBC (4.8-10.8) X10*3/uL RBC (4.20-5.50) X10*6/uL Hgb (12.0-16.0) g/dl Hct (37.0-47.0) % MCV (80.0-98.0) fL MCH (27.0-33.0) pg MCHC (31.0-35.0) g/dl RDW (11.0-16.0) % Plt Count (160-400) X10*3/uL MPV (9.4-12.3) fL Immature Gran % (Auto) (0.0-0.4) % Neut % (Auto) (45-73) % Lymph % (Auto) (20-40) % [place] % (Auto) (2-11) % Eos % (Auto) (0-4) % Baso % (Auto) (0-2) % Lymph # (Auto) (1.2-4.9) X10*3/uL [place] # (Auto) (0.1-1.2) X10*3/uL Eos # (Auto) (0.0-0.4) X10*3/uL Baso # (Auto) (0.0-0.2) X10*3/uL Abs Immat Gran (auto) (0.00-0.03) X10*3/uL Absolute Neuts (auto) (2.0-8.3) x10*3/uL Absolute Nucleated RBC (0.0-0.012) X10*3/uL Nucleated RBC % (auto) (0.0-0.2) /100WBC PT (10.0-13.1) SEC INR (0.9-1.1) Sodium (135-145) mmol/L Potassium (3.3-5.1) mmol/L Chloride (96-108) mmol/L Carbon Dioxide (22-29) mmol/L Anion Gap (12-20) BUN (9-16) mg/dL Creatinine (0.5-1.4) mg/dL Estim Creat Clear Calc Estimated GFR Random Glucose (60-115) mg/dL Calcium (8.4-10.2) mg/dL Total Bilirubin (0.0-1.0) mg/dL Direct Bilirubin (0.0-0.5) mg/dL AST (5-31) U/L ALT (0-31) U/L Alkaline Phosphatase (39-117) U/L Total Protein (6.5-8.0) g/dL Albumin (3.5-5.0) g/dL Lipase (8-78) U/L Beta HCG, Quant < 2 mIU/mL Urine Color Red A Urine Appearance Cloudy Urine pH 6.5 (5.0-9.0) Ur Specific [place] 1.025 (1.005-1.025) Urine Protein 300 (3+) H (Neg-Trace) mg/dL Urine Glucose (UA) Negative (Negative) mg/dL Urine Ketones Negative (Negative) mg/dL Urine Blood Large (3+) H (Negative) Urine Nitrite See Note (Negative) Ur Leukocyte Esterase See Note (Negative) Urine RBC >20 H (0-2) /HPF Urine WBC 0-5 (0-5) /HPF Ur Squamous Epith Cells 0-2 (0-2) /HPF Urine Bacteria None Seen (None Seen) Hyaline Casts 0-2 (0-2) /LPF Medications Administered Discontinued Medications Generic Name Dose Route Start Last Admin Trade Name Freq PRN Reason Stop Dose Admin Oxycodone HCl 5 mg 03/03/23 22:44 03/03/23 22:57 Oxycodone Hcl Immed Release 5 Mg Tablet PO 03/03/23 22:45 5 mg ONCE ONE Administration Discharge Plan Discharge Clinical Impression: Left flank pain Patient Disposition: Home, Self-Care Instructions: Flank Pain (ED) Additional Instructions: Your blood work was reassuring. Your renal function was within normal limits By CT scan showed that your stent is in the appropriate place Take the oxycodone as needed for severe breakthrough pain Do not take this medication with tramadol Call Dr. Thakkar's office tomorrow Prescriptions: New oxycodone 5 mg tablet 5 mg PO Q6H PRN (Reason: severe pain (scale score 7-10)) Qty: 12 0RF Rx Instructions: Partial Fill upon patient request. No Action tamsulosin 0.4 mg capsule 0.4 mg PO BEDTIME Qty: 90 0RF Rx Instructions: per insurance 3 month supply needed [id number] [Fioricet] 50-300-40 mg capsule 1 cap PO Q6H PRN (Reason: pain) Qty: 20 0RF tramadol 50 mg tablet 50 mg PO Q6H PRN (Reason: pain (scale score 1-3)) Qty: 8 0RF phenazopyridine [Pyridium] 100 mg tablet 100 mg PO TID PRN (Reason: Spasm) 4 Days Qty: 12 0RF naproxen 500 mg tablet 500 mg PO BID PRN (Reason: pain) 7 Days Qty: 14 0RF hydrocortisone valerate 0.2 % cream 1 appl topical BID 7 Days Qty: 45 0RF Rx Instructions: apply a thin coat to area pyridoxine (vitamin B6) 100 mg tablet 100 mg PO DAILY 90 Days Qty: 90 1RF Referrals: Ehsan Thakkar MD [Physician] -
[2023-03-03 19:11] VITALS: BP 125/73; PULSE 82; RESP 16; TEMP 37.1; O2SAT 99; BMI 36.1
[2023-03-03 20:17] LABS: MANUAL DIFF FLAG NO
[2023-03-03 20:19] LABS: Basophils Percent Auto 0.3 % (0-2); Eosinophils Absolute Auto 0.1 X10*3/uL (0.0-0.4); Eosinophils Percent Auto 0.6 % (0-4); Hemoglobin 13.3 g/dl (12.0-16.0); Imm Gran Abs Auto 0.04 X10*3/uL (0.00-0.03); Imm Gran Pct Auto 0.4 % (0.0-0.4); Lymphocytes Absolute Auto 3.1 X10*3/uL (1.2-4.9); Lymphocytes Percent Auto 27.3 % (20-40); Mean Corpuscular HGB Conc 33.3 g/dl (31.0-35.0); Mean Corpuscular Hemoglobin 28.6 pg (27.0-33.0); Mean Platelet Volume 9.2 fL (9.4-12.3); Monocytes Absolute Auto 0.7 X10*3/uL (0.1-1.2); Monocytes Percent Auto 5.8 % (2-11); Neutrophils Absolute Auto 7.4 x10*3/uL (2.0-8.3); Neutrophils Percent Auto 65.6 % (45-73); Platelet Count 210 X10*3/uL (160-400); Red Blood Count 4.65 X10*6/uL (4.20-5.50); Red Cell Distribution Width 13.2 % (11.0-16.0); White Blood Count 11.3 X10*3/uL (4.8-10.8)
[2023-03-03 20:26] LABS: INTERNATIONAL NORM RATIO 1.1 (0.9-1.1); Prothrombin Time 12.5 SEC (10.0-13.1)
[2023-03-03 20:45] LABS: Alanine Aminotransferase 14 U/L (0-31); Albumin Level 4.1 g/dL (3.5-5.0); Alkaline Phosphatase 78 U/L (39-117); Anion Gap 10 (12-20); Aspartate Amino Transferase 15 U/L (5-31); Bilirubin Direct 0.1 mg/dL (0.0-0.5); Bilirubin Total 0.3 mg/dL (0.0-1.0); Blood Urea Nitrogen 11 mg/dL (9-16); Calcium 9.3 mg/dL (8.4-10.2); Carbon Dioxide 25 mmol/L (22-29); Chloride 109 mmol/L (96-108); Creatinine Clr Calc Pharmacy 101.8; Estimated Glomerular Filt Rate > 60; Glucose Random 87 mg/dL (60-115); Lipase 21 U/L (8-78); Potassium 4.4 mmol/L (3.3-5.1); Sodium 140 mmol/L (135-145); Total Protein 7.1 g/dL (6.5-8.0)
[2023-03-03 20:54] LABS: HCG Quantitative < 2 mIU/mL
[2023-03-03 22:45] VITALS: BP 121/63; PULSE 84; RESP 17; TEMP 37.3; O2SAT 98
[2023-03-03] MEDS: oxyCODONE HCl Immed Release 5 MG TABLET PO (22:57)
[2023-03-03 23:01] LABS: Appearance Urine Cloudy; Color Urine Red; PH 6.5 (5.0-9.0); Urine Protein 300 (3+) mg/dL (Neg-Trace)
[2023-03-03 23:02] LABS: Glucose Urine UA Negative (Negative); Specific Gravity - Urine 1.025 (1.005-1.025); Urine Blood Large (3+) (Negative); Urine Ketones Negative (Negative)
--- NOTE | 2023-03-03 23:04 | PC.NURSE ---
medicated with 5mg of oxycodone po
[2023-03-03 23:05] LABS: UMIC TRIGGER UACC YES
[2023-03-03 23:06] LABS: RBC Urine >20 /HPF (0-2); WBC Urine 0-5 /HPF (0-5)
[2023-03-03 23:07] LABS: Bacteria Urine None Seen (None Seen); Hyaline Casts Urine 0-2 /LPF (0-2); Squamous Epithelial Cell Urine 0-2 /HPF (0-2)
--- NOTE | 2023-03-03 23:53 | PC.NURSE ---
pt reassessed after to administration of pain medication, reported minimal relief
== END 2023-03-03 23:54 | disposition home or self-care (01) ==
PROVIDERS: Physician Assistant; Emergency Provider Emergency Medicine; PCP Student in an Organized Health Care Education/Training Program
DX: R10.9 Unspecified abdominal pain (principal); Z79.899 Other long term (current) drug therapy
CPT/HCPCS: 36415; 74176; 80048; 80076; 81001; 81003; 83690; 84702; 85025; 85610; 99284

== ENCOUNTER 2023-03-10 13:01 | Outpatient (AMB) | payer MEDICAID, SELFPAY ==
--- NOTE | 2023-03-10 13:09 | A.OFFVIS_ITS ---
Intake Intake Visit Reasons: stent removal Intake Note: Patient presents today for a CYSTO & Stent removal. * Meds: Vitamin B6, Tamsulosin * Antibiotic: None * Blood Thinner: None * Urinalysis test clear for Cysto Disposible Uro-G Cystoscope Cannula: * Lot: [id number] * Exp: 02/12/2025 Hospice Manager Required: Yes Hospice Manager Language: Belgian Accompanied by: Self / Same As Patient Allergies No Known Allergies [No Known Allergies*] Allergy (Verified 03/10/23 13:11) HPI HPI Comments History of Present Illness Details Stacia is a pleasant female. She is a patient of Dr. Hartman. She seen for the following urologic conditions - nephrolithiasis Belgian speaker Here for cystoscopy stent removal Will follow for stone evaluation Nephrolithiasis Imaging - 03/13 CT left stones Intervention - 03/13 left ureteroscopy Stone composition - 03/13 Calcium Monohydrogen Phosphate Di hydrate (Brushite) 80% Therapeutic plan - encourage fluids - minimize salt - surveillance imaging PFSH Medical History Hx of migraines Kidney stones Surgical History History of appendectomy Hx of lithotripsy Hx of lithotripsy Kidney calculus S/P cystoscopy with ureteral stent placement Social History Household Members: Spouse Household Members Other:: daughter Housing: Apartment Alcohol intake: never Patient Tobacco Use Status: Never used Tobacco Sexual orientation: Straight/Heterosexual Gender identity: Female Female Reproductive History Menstrual Age of Menarche: 11 Review of Systems Const Denies chills and Denies fever(s) Card Reports no additional complaints and Denies syncope Resp Denies cough GI Denies abdominal pain and Denies heartburn Reports as per HPI and Denies change in libido Neuro Denies syncope Psych Denies change in libido Endo Denies change in libido Physical Exam Const General: cooperative, healthy appearing, comfortable and no acute distress Orientation/consciousness: patient oriented x3 HEENT Face and sinus: Yes normal facial exam Mouth: moist mucous membranes Neck Neck: Yes normal visual inspection, Yes full ROM and Yes trachea midline Chest Chest palpation & inspection: normal inspection of the chest Resp Effort & Inspection: normal respiratory effort, able to speak in complete sentences and no respiratory distress GI Inspection: Yes normal to inspection Back/Spine/Pelvis Cervical Spine: normal cervical lordosis Thoracic/Lumbar Spine: thoracic and lumbar spine normal to inspection Skin General skin exam: no rashes or lesions noted Neuro General: patient oriented x3, gait normal, tone normal and moves all extremities Extrem General: Yes normal to inspection and Yes capillary refill normal Office Procedures Cystoscopy Consent Discussed risk and benefit or proposed procedure with the patient. Information consent for procedure given to the patient. Discussed technical aspects, risks, benefits and alternatives in full. Addressed all of the patient's questions and concerns regarding the procedure. The patient demonstrated knowledge and understanding. They wish to proceed with this procedure. Preparation The patient was prepped in the usual manner. A clinical research management associate was present and in the room. Genitalia was prepped with betadine solution in a sterile manner. Lidocaine Jelly 2% was placed into the urethra and 16Fr flexible Olympus cystoscope was inserted into the meatus after adequate lubrication. [id number] with stent removal Procedure code (CPT) selection complete Office Meds lidocaine HCl 2 % mucosal jelly in applicator Performing Provider: Ehsan Thakkar MD Performing Location: [facility] Administered by: Oralia Morrison RN on 03/10/23 13:28 Dose Route Admin Location Dispensed Lot Number Expiration Date [facility] Finance Consultant 10 mL intra-urethral 10 mL nitrofurantoin monohydrate/macrocrystals 100 mg capsule Performing Provider: Ehsan Thakkar MD Performing Location: [facility] Administered by: Oralia Morrison RN on 03/10/23 13:28 Dose Route Admin Location Dispensed Lot Number Expiration Date [facility] Finance Consultant 100 mg PO 1 cap naproxen 500 mg tablet Performing Provider: Ehsan Thakkar MD Performing Location: [facility] Administered by: Oralia Morrison RN on 03/10/23 13:28 Dose Route Admin Location Dispensed Lot Number Expiration Date [employer]ant 500 mg PO 1 tab Results AMB Urinalysis, Automated UA Leukoctes 70 Russell/uL Last Edit by CHANEL Fortune on 03/10/23 13:27 UA Nitrite Negative Last Edit by Christina Novoa January on 03/10/23 13:27 UA Urobilinogen 0.2 mg/dL Last Edit by CHAENL Fortune on 03/10/23 13:2 7 UA Protein 100 mg/dL Last Edit by Christina Novoa [facility] on 03/10/23 13:27 UA pH 6.0 Last Edit by Christina Novoa January on 03/10/23 13:27 UA Blood 200 Cory/uL Last Edit by Christina Novoa January on 03/10/23 13:27 3+ Christina Novoa 03/10/23 13:27 UA Specific [place] 1.025 Last Edit by CHANEL Forutne on 03/10/23 13: 27 UA Ketone Negative Last Edit by Christina Novoa [facility] on 03/10/23 13:27 UA Bilirubin 0 mg/dL Last Edit by Christina Novoa January on 03/10/23 13:27 UA Glucose 0 mg/dL Last Edit by Christina Novoa [facility] on 03/10/23 13:27 Results Reviewed Results Reviewed: Laboratory Last Values Urine pH (Auto) 6.0 03/10/23 13:24 Specific [place] (Auto) 1.025 03/10/23 13:24 Urine Protein (Auto) 100 mg/dL 03/10/23 13:24 Glucose (UA)(Auto) 0 mg/dL 03/10/23 13:24 Urine Ketones (Auto) Negative 03/10/23 13:24 Urine Blood (Auto) 200 Cory/uL 03/10/23 13:24 Urine Nitrite (Auto) Negative 03/10/23 13:24 Urine Bilirubin (Auto) 0 mg/dL 03/10/23 13:24 Urine Urobilinogen (Auto) 0.2 mg/dL 03/10/23 13:24 Leukocyte Esterase (Auto) 70 Russell/uL 03/10/23 13:24 Assessment & Plan Assessment & Plan (1) Kidney calculus: Code(s): N20.0 - Calculus of kidney Plan Imaging surveillance Orders: Orders AMB Cystoscopy 03/10/23 N20.0 - Calculus of kidney AMB Urinalysis Automated 03/10/23 Z13.9 - Encounter for screening, unspecified US renal BI 3 Months N20.0 - Calculus of kidney Patient Instructions: Imaging studies, laboratory and physical exam results were discussed and reviewed in detail. No major barriers to patient understanding were identified. An opportunity to ask questions regarding the treatment plan was provided. All questions were answered. The patient expressed understanding and agreement with the above treatment plan. The patient is aware they should contact our office by phone for worsening of their current condition or the appearance of new urologic symptoms. Compliance is encouraged with any medications and followup testing that is ordered. It is a privilege to participate in the urologic care of your patient. If you have any questions or concerns regarding treatment for the above conditions, or other urologic issues, please do not hesitate to contact me. The office telephone contact is [phone]. This note is constructed using voice recognition software. While every effort has been made to ensure accuracy desktop administrator errors may have been included. Yours sincerely, Dr Ehsan Thakkar MD, [facility] - Urology Providers of Expert, Compassionate Care for the Genitourinary System Coding Level of Care Code Est Pt Level 3 (35642) Diagnoses Kidney calculus N20.0 CPT Codes Cystoscopy - CPT: 59835-[id number] with stent removal ([id number])
== END 2023-03-10 14:10 | disposition home or self-care (01) ==
LOC: HO.HUSH 13:01
PROVIDERS: PCP Student in an Organized Health Care Education/Training Program; Visit Provider Urology
DX: N20.0 Calculus of kidney (principal); Z96.0 Presence of urogenital implants
CPT/HCPCS: 52310; 99213

== ENCOUNTER → 2023-03-10 13:01 | Outpatient (BNVA) | payer MEDICAID, SELFPAY | PROVIDERS: PCP Student in an Organized Health Care Education/Training Program; Visit Provider Urology | DX: Z48.816 Encounter for surgical aftercare following surgery on the genitourinary system (principal); N20.1 Calculus of ureter | CPT/HCPCS: 52310; 99212 ==

== ENCOUNTER 2023-05-22 11:32 | Outpatient (REF) | payer MEDICAID, SELFPAY ==
--- NOTE | ~2023-05-22 | US_ITS ---
EXAMINATION: US RETROPERITONEAL LIMITED (RENAL ONLY) CLINICAL INFORMATION: Calculus of kidney. COMPARISON: CT abdomen and pelvis 03/03/2023. TECHNIQUE: Real-time imaging of the kidneys. FINDINGS: RIGHT KIDNEY: 9.0 x 4.1 x 5.3 cm (SAG x AP x TRV). The kidney is normal in size, contour, and echogenicity. Renal cortical thickness is normal. No calculi or focal parenchymal lesions. No hydronephrosis. LEFT KIDNEY: 10.2 x 3.6 x 5.3 cm (SAG x AP x TRV). The kidney is normal in size, contour, and echogenicity. Renal cortical thickness is normal. No calculi or focal parenchymal lesions. No hydronephrosis. US/US renal BI IMPRESSION: No renal calculi or renal collecting system obstructive change.
== END 2023-05-22 11:33 | disposition home or self-care (01) ==
LOC: HO.US 11:32
PROVIDERS: PCP Student in an Organized Health Care Education/Training Program; Visit Provider Urology
DX: N20.0 Calculus of kidney (principal)
CPT/HCPCS: 76775

== ENCOUNTER 2023-06-09 21:42 | Emergency (ER) | payer MEDICAID, SELFPAY ==
[2023-06-09 21:51] VITALS: BP 121/84; PULSE 82; RESP 18; TEMP 36.6; O2SAT 98; BMI 35.2
--- NOTE | 2023-06-09 23:58 | ED_ITS ---
HPI - Allergic Reaction General Chief complaint: Allergic Reaction Stated complaint: Allergic reaction on left eye Time Seen by Provider: 06/09/23 23:53 Source: patient Mode of arrival: ambulatory Limitations: no limitations History of Present Illness HPI narrative: Patient with no history of any allergic reaction in the past noticed hives all over the body since yesterday no lip swelling or tongue swelling no difficulty breathing no wheezing Related Data Previous Rx's Medication Instructions Recorded icdvfwehhs-idyomheruqsem-kotzwpgl 1 cap PO Q6H PRN pain #20 caps 07/16/20 50 mg-300 mg-40 mg capsule (Fioricet) hydrocortisone valerate 0.2 % 1 appl topical BID 7 days #45 grams 04/21/22 topical cream pyridoxine (vitamin B6) 100 mg 100 mg PO DAILY 90 days #90 tabs 01/01/23 tablet naproxen 500 mg tablet 500 mg PO BID PRN pain 7 days #14 03/02/23 tabs phenazopyridine 100 mg tablet 100 mg PO TID PRN Spasm 4 days #12 03/02/23 (Pyridium) tabs tramadol 50 mg tablet 50 mg PO Q6H PRN pain (scale score 03/02/23 1-3) #8 tabs oxycodone 5 mg tablet 5 mg PO Q6H PRN severe pain (scale 03/03/23 score 7-10) #12 tabs tamsulosin 0.4 mg capsule 0.4 mg PO BEDTIME #90 caps 03/03/23 oxybutynin chloride 5 mg 5 mg PO DAILY #30 tabs 03/04/23 tablet,extended release 24 hr diphenhydramine HCl 25 mg capsule 50 mg (2 x 25 mg) PO TID PRN 06/10/23 (Benadryl) allergic reaction #30 caps prednisone 20 mg tablet 40 mg (2 x 20 mg) PO DAILY #10 tabs 06/10/23 Allergies Allergy/AdvReac Type Severity Reaction Status Date / Time No Known Allergies Allergy Verified 03/10/23 13:11 [No Known Allergies*] Review of Systems Review of Systems: Yes all other systems are reviewed and are negative PMFSH Past Medical History Medical History Hx of migraines Kidney stones Surgical History Hx of lithotripsy Hx of lithotripsy S/P cystoscopy with ureteral stent placement Kidney calculus History of appendectomy Social History Social History Household Members: Spouse Household Members Other:: daughter Housing: Apartment Alcohol intake: never Patient Tobacco Use Status: Never used Tobacco Smoked in Last 30 Days: No Use of substances other than those prescribed or required for medical reasons: No Advance Directives: No Advance Directives Information Provided: No Patient : No Sexual orientation: Straight/Heterosexual Gender identity: Female Physical Exam ED Vital Signs: Vital Signs - 24 hr 06/09/23 21:51 06/10/23 00:09 Temperature 97.9 F 98.2 F Pulse Rate 82 79 Respiratory Rate 18 18 Blood Pressure 121/84 132/79 Pulse Oximetry 98 97 Oxygen Delivery Method Room Air Room Air BMI result Body Mass Index 35.2 Appearance: Alert. Oriented X3. No acute distress. Eyes: PERRLA, No Nystagmus ENT: Pharynx normal. Oral Mucosa moist Neck: Normal inspection. Neck supple. No stridor CVS: Normal heart rate and rhythm. Pulses normal. Respiratory: No respiratory distress. Equal air entry bilateral, no wheezing/rales/rhonchi Abdomen: Soft and nontender. Bowel sounds are present, Skin: Skin warm and dry. Normal skin color. Normal skin turgor. Hives all over the upper extremities and lower extremity Extremities: No lower extremity edema. No calf tenderness Neuro: Oriented X 3. Medical Decision Making Medical Decision Making MDM Narrative: Patient with mild generalized allergic reaction to unknown agent will give her prednisone and Benadryl advised to follow-up with PCP Discharge Plan Discharge Clinical Impression: Allergic reaction Patient Disposition: Home, Self-Care Instructions: General Allergic Reaction (ED) Additional Instructions: Cause of allergic reaction is not clear Take Benadryl and prednisone as prescribed Follow-up with your PCP for further management La causa de la reacci?n al?rgica no est? mouna. [place] Benadryl y prednisona seg?n lo prescrito Raul un seguimiento con [facility] PCP para un control adicional Prescriptions: New diphenhydramine HCl [Benadryl] 25 mg capsule 50 mg PO TID PRN (Reason: allergic reaction) Qty: 30 0RF prednisone 20 mg tablet 40 mg PO DAILY Qty: 10 0RF No Action tamsulosin 0.4 mg capsule 0.4 mg PO BEDTIME Qty: 90 0RF Rx Instructions: per insurance 3 month supply needed oxybutynin chloride 5 mg tablet extended release 24hr 5 mg PO DAILY Qty: 30 0RF dvjwirztfn-uzttdzryjtuik-nhgz [Fioricet] 50-300-40 mg capsule 1 cap PO Q6H PRN (Reason: pain) Qty: 20 0RF tramadol 50 mg tablet 50 mg PO Q6H PRN (Reason: pain (scale score 1-3)) Qty: 8 0RF phenazopyridine [Pyridium] 100 mg tablet 100 mg PO TID PRN (Reason: Spasm) 4 Days Qty: 12 0RF naproxen 500 mg tablet 500 mg PO BID PRN (Reason: pain) 7 Days Qty: 14 0RF oxycodone 5 mg tablet 5 mg PO Q6H PRN (Reason: severe pain (scale score 7-10)) Qty: 12 0RF Rx Instructions: Partial Fill upon patient request. hydrocortisone valerate 0.2 % cream 1 appl topical BID 7 Days Qty: 45 0RF Rx Instructions: apply a thin coat to area pyridoxine (vitamin B6) 100 mg tablet 100 mg PO DAILY 90 Days Qty: 90 1RF Print Language: Cape Verdean
[2023-06-10 00:09] VITALS: BP 132/79; PULSE 79; RESP 18; TEMP 36.8; O2SAT 97
[2023-06-10] MEDS: diphenhydrAMINE HCL 25 MG CAPSULE 50 MG PO (00:20)
[2023-06-10] MEDS: predniSONE 20 MG TABLET 40 MG PO (00:21)
--- NOTE | 2023-06-10 00:29 | PC.NURSE ---
Reviewed discharge instructions with pt, pt verbalized understanding.no sign of distress.
== END 2023-06-10 00:30 | disposition home or self-care (01) ==
PROVIDERS: Emergency Provider Internal Medicine; PCP Student in an Organized Health Care Education/Training Program
DX: L50.9 Urticaria, unspecified (principal); T78.40XA Allergy, unspecified, initial encounter; X58.XXXA Exposure to other specified factors, initial encounter; Z79.899 Other long term (current) drug therapy
CPT/HCPCS: 99283; 99284

== ENCOUNTER 2024-02-23 15:58 | Outpatient (REF) | payer MEDICAID, SELFPAY | END 2024-02-23 15:59 | disposition home or self-care (01) | LOC: HO.HHCLNP 15:58 | PROVIDERS: Visit Provider Advanced Practice Midwife | DX: Z12.4 Encounter for screening for malignant neoplasm of cervix (principal) | CPT/HCPCS: 88142 ==

== ENCOUNTER 2024-03-08 09:29 | Outpatient (AMB) | payer MEDICAID, SELFPAY ==
[2024-03-08 09:32] VITALS: BP 118/74; BMI 36.8
--- NOTE | 2024-03-08 09:32 | MHC.OFFVIS ---
Vital Signs 03/08/24 09:32 Height 5 ft Weight 188 lb 6 oz BMI 36.8 BP 118/74 Blood Pressure Location Rt brachial Position Sitting Intake Visit Reasons: SEA[employer]ER annual exam/30mins Intake Note: Pt presents to the office today for her SE[employer] annual exam. Allergies No Known Allergies [No Known Allergies*] Allergy (Verified 03/08/24 09:34) Is last menstrual period known: Yes Last menstrual period: 03/03/24 HPI Comments Details: She is a premenopausal woman presenting for annual examination. Doing well with concerns: seen by [facility] at [facility] and had US at [facility], report not available, for the vaginal pain end of January, felt a mass in hervagina on the right, reports it's smaller now, occasional painful and pressure, no drainage. Pap was done-pending. Had US. She denies any abnormal discharge, fever flu-like symptoms, pelvic pain other than the localized area, or recent infections. She did have a history vaginal repair after her delivery. She tries to eat healthy and stays active with exercise. Regular monthly menses. Uses condoms for control Currently is sexually active. She denies vaginal itching and irritation. STI screening offered; she accepts. Denies family history of breast, ovarian or colon cancer. Last pap smear 2021, negative. [facility] Medical History (Updated 03/08/24 @ 10:12 by Sheryl Coburn CNM) Vaginal mass Hx of migraines Kidney stones Surgical History Hx of lithotripsy Hx of lithotripsy S/P cystoscopy with ureteral stent placement Kidney calculus History of appendectomy Social History Household Members: Spouse Household Members Other:: daughter Housing: Apartment Alcohol intake: never Patient Tobacco Use Status: Never used Tobacco Sexual orientation: Straight/Heterosexual Gender identity: Female Female Reproductive History Menstrual Age of Menarche: 11 Duration of menses: 6-7 days Date of last menstrual period: 03/03/24 control method: none Total pregnancies: 1 Full term: 1 Date of last pap smear: 02/24/24 History of abnormal pap smear: No History of STI: No Review of Systems Const All systems reviewed & are unremarkable except as noted in HPI and below Reports as per HPI Eyes Reports no additional complaints ENT Reports no additional complaints Card Reports no additional complaints Resp Reports no additional complaints GI Reports as per HPI and Reports no additional complaints Reports as per HPI Musc Reports no additional complaints Skin/Breast Reports as per HPI Neuro Reports no additional complaints Psych Reports no additional complaints Endo Reports no additional complaints Jax/Lymph Reports no additional complaints Aller/Immun Reports no additional complaints Physical Exam Vital Signs: Last Vital Signs BP 118/74 03/08/24 09:32 BMI result Body Mass Index 36.8 Const General: cooperative, healthy appearing, no acute distress, well developed and alert Orientation/consciousness: patient oriented x3 HEENT Head: Yes normal to inspection Eyes General: appearance normal, both eyes and all related structures Neck Neck: Yes normal visual inspection Thyroid: Thyroid normal Chest Chest palpation & inspection: normal inspection of the chest and other (no puckering, dimpling, peau de orange, retraction, discharge, masses) Breast/axilla inspection: normal inspection of the breasts Breast/axilla palpation: normal palpation of the breasts Resp Effort & Inspection: normal respiratory effort GI Inspection: Yes normal to inspection Palpation (GI): Soft to palpation Rectal Exam - Female: deferred General: Yes bladder normal to palpation External Female Exam: normal external appearance and normal appearance of the urethra Speculum Exam - Vagina: normal appearance of the vagina, normal palpation, normal vaginal discharge, mass (Right wall 3 cm X 1 cm, ropey, slightly tender. ) and other (Small rounded mass on left lateral vaginal wall) Speculum Exam - Cervix: normal appearance of the cervix and normal palpation Bimanual exam- vagina & uterus: normal bimanual exam, normal palpation, uterine size normal, bladder normal to palpation, normal palpation and non-tender Bimanual Exam- Adnexa, other: no masses Skin General skin exam: no rashes or lesions noted Rashes: no rashes Neuro General: patient oriented x3 Cognition (Neuro): normal cognition Extrem General: Yes normal to inspection Psych Attitude: cooperative Thought process: Normal thought process present Assessment & Plan Assessment & Plan (1) Encounter for well woman exam with routine gynecological exam: Code(s): Z01.419 - Encounter for gynecological examination (general) (routine) without abnormal findings Category: Medical (2) Vaginal mass: Code(s): N89.8 - Other specified noninflammatory disorders of vagina Plan Discussed: Current recommendations for pap smears per ASCCP guidelines. Breast awareness and periodic breast exams. Maintain a healthy lifestyle including a well balanced diet and routine exercise. Use condoms for STI and prevention. Sign a release read records from [facility] including notes ultrasounds, labs, Paps, [facility] ultrasound of the pelvis. Schedule MRI, we will need prior approval once approved will be able to schedule appointment, follow up in office for test results appointment. If pain increases, worsening symptoms to report to the office or ED immediately Patient verbalizes understanding and agrees to the plan of care. She was given opportunity to ask questions and all questions were answered to the best of my ability. RTO in one year for annual ob/gyn examination. This note is constructed using voice recognition software. While every effort has been made to ensure accuracy, quality process engineer errors may have been included. Orders: Orders Bacterial Vaginosis Panel Today Z01.419 - Encounter for gynecological examination (general) (routine) without abnormal findings MR pelvis wo/w con Today N89.8 - Other specified noninflammatory disorders of vagina CT NG by PCR Today Z01.419 - Encounter for gynecological examination (general) (routine) without abnormal findings Coding Level of Care Code Est Pt Prev Care 18-39y(47890) Diagnoses Encounter for well woman exam with routine gynecological exam Z01.419 Vaginal mass N89.8
== END 2024-03-08 10:13 | disposition home or self-care (01) ==
LOC: HO.HWS 09:29
PROVIDERS: PCP Student in an Organized Health Care Education/Training Program; Visit Provider Advanced Practice Midwife
DX: Z01.419 Encounter for gynecological examination (general) (routine) without abnormal findings (principal); N89.8 Other specified noninflammatory disorders of vagina
CPT/HCPCS: 99395

== ENCOUNTER 2024-03-08 09:29 | Outpatient (REF) | payer MEDICAID, SELFPAY ==
[2024-03-09 04:10] LABS: CT PCR NOT DETECTED (Not Detect.); NG PCR NOT DETECTED (Not Detect.)
[2024-03-09 09:00] LABS: Bacterial Vaginosis PCR NEGATIVE (Negative); Candida Group PCR NOT DETECTED (Not Detect); Candida glab krusei PCR NOT DETECTED (Not Detect); Trichomonas vaginalis PCR NOT DETECTED (Not Detect)
== END 2024-03-08 09:30 | disposition home or self-care (01) ==
LOC: HO.LNP 09:29
PROVIDERS: PCP Student in an Organized Health Care Education/Training Program; Visit Provider Advanced Practice Midwife
DX: Z01.419 Encounter for gynecological examination (general) (routine) without abnormal findings (principal); N89.8 Other specified noninflammatory disorders of vagina
CPT/HCPCS: 0352U; 0353U; 99395

== ENCOUNTER 2024-03-22 23:45 | Emergency (ER) | payer MEDICAID, SELFPAY ==
[2024-03-23 00:13] VITALS: BP 134/87; PULSE 79; RESP 16; TEMP 36.6; O2SAT 99; BMI 36.3
--- NOTE | 2024-03-23 02:44 | ED.LOWEXIN ---
HPI - Extremity Injury (Lower) General Chief Complaint: Extremity Injury, Lower Stated Complaint: Sliver in nail Time Seen by Provider: 03/23/24 02:47 Source: patient Mode of arrival: ambulatory Limitations: no limitations History of Present Illness ED Provider: Dr. Zina Tovar HPI Narrative: Patient comes to the emergency room complaining of a splinter that got embedded a few days ago under them 3rd finger beneath the fingernail. Patient denies any other injuries. Related Data Home Medications ?Medication ?Instructions ?Recorded ?Confirmed clobetasol 0.05 % topical ointment topical BID 03/08/24 omeprazole 20 mg capsule,delayed 20 mg PO DAILY 05/12/24 release advil PO 05/13/24 Allergies Allergy/AdvReac Type Severity Reaction Status Date / Time No Known Allergies Allergy Verified 05/12/24 14:22 [No Known Allergies*] Review of Systems Review of Systems: Constitutional : No Weight loss, No Fever, No Chills, No Night Sweats, No Fatigue, No Malaise ENT/Mouth : No Hearing loss, No Ear Pain, No Nasal Congestion, No Sinus Pain, No Hoarseness, No sore throat, No Rhinorrhea, No Swallowing Difficulty Eyes: No Eye Pain, No Swelling, No Redness, No Foreign Body, No Discharge, No Vision Changes Cardiovascular : No Chest Pain, No SOB, No Dyspnea on Exertion, No Orthopnea, No Edema, No Palpitations Respiratory : No Cough, No Sputum, No Wheezing, No Smoke Exposure, No Dyspnea Gastrointestinal : No Nausea, No Vomiting, No Diarrhea, No Constipation, No abdominal Pain, No Hematochezia, No Melena Genitourinary : no irregular bleeding, No Dysuria, No Urinary Frequency, No Hematuria, No Urinary Incontinence, No Urgency, No Flank Pain, No Urinary Flow Changes, No Hesitancy Musculoskeletal : No joint pain, No Myalgias, No Joint Swelling Skin : No Skin Lesions, No rash. Complaining of an embedded splinter under the 3rd fingernail of the right hand Neuro : No Weakness, No Numbness, No Paresthesias, No Loss of Consciousness, No Dizziness, No Headache Psych : No Anxiety/Panic, No Depression, No SI/HI/AH/VH, No Social Issues, Heme/Lymph: No Bruising, No Bleeding,No Lymphadenopathy Endocrine : No Polyuria, No Polydipsia, No Temperature Intolerance PMFSH Past Medical History Medical History Vaginal mass Hx of migraines Kidney stones Surgical History Hx of lithotripsy Hx of lithotripsy S/P cystoscopy with ureteral stent placement Kidney calculus History of appendectomy Family History Family History (Updated 05/12/24 @ 14:24 by Janet Figueroa [facility]) Mother Diabetes Father Hypertension Daughter No problems noted. Social History Social History (Reviewed 03/08/24 @ 09:35 by Izabella Celeste [facility]) Household Members: Spouse Household Members Other:: daughter Housing: Apartment Alcohol intake: never Patient Tobacco Use Status: Never used Tobacco Sexual orientation: Straight/Heterosexual Gender identity: Female Physical Exam Vital Signs: Vital Signs: Last Vital Signs Temp 97.6 F 03/23/24 03:52 Pulse 72 03/23/24 03:52 Resp 16 03/23/24 03:52 BP 120/68 03/23/24 03:52 Pulse Ox 99 03/23/24 03:52 O2 Del Method Room Air 03/23/24 03:52 BMI result Body Mass Index 36.3 Const: Other: Appearance: Alert. Oriented X3. No acute distress. Eyes: Pupils equal, round and reactive to light. ENT: Pharynx normal. Neck: Normal inspection. Neck supple. No lymph nodes noted. No crepitus CVS: Normal heart rate and rhythm. Pulses normal. Normal S1 and S2 Respiratory: No respiratory distress. Breath sounds normal. No Wheezing. No rales Abdomen: Soft and nontender. No rigidity. No distention. Skin: Skin warm and dry. Normal skin color. Normal skin turgor. Extremities: No lower extremity edema. No Lacerations. No Rash. Patient has a small splinter approximately 3 mm embedded ride under the fingernail on the 3rd finger on the right Neuro: Oriented X 3. No motor deficit. No sensory deficit. Moving all extremities. No slurred speech. CN 2 through 12 grossly intact Psych: calm, cooperative, normal affect Medications Administered Discontinued Medications Generic Name Dose Route Start Last Admin Trade Name Freq PRN Reason Stop Dose Admin Lidocaine HCl 5 ml 03/23/24 02:44 03/23/24 03:23 Lidocaine Hcl 1 % 20 Ml Vial INFILTRATI 03/23/24 02:45 5 ml ONCE ONE Administration Medical Decision Making Medical Decision Making [facility] Narrative: I discussed the physical exam with the patient, patient does have a splinter. -discussed with the patient that we will need to numb the finger, do a finger block to remove the splinter since it seems to be deep, patient agrees with plan. -entire finger was thoroughly cleaned/this infected with Betadine -patient received a digital block -with the tip of a 16 gauge syringe, the splinter was successfully removed Discharge Plan Discharge Clinical Impression: Splinter in skin Patient Disposition: Home, Self-Care Additional Instructions: Please follow-up with your primary care physician tomorrow. If you have any worsening or new symptoms, please return to the emergency room or call 911 Prescriptions: No Action clobetasol 0.05 % ointment topical BID omeprazole 20 mg capsule,delayed release(DR/EC) 20 mg PO DAILY advil PO Interventions: ED Discharge Assessment Last Done: 03/23/24 03:52 Discharge Date/Time: 03/23/24 03:53 Print Language: Urdu
[2024-03-23] MEDS: Lidocaine HCl 1 % 20 ML VIAL 5 ML INFILTRATI (03:23)
[2024-03-23 03:52] VITALS: BP 120/68; PULSE 72; RESP 16; TEMP 36.4; O2SAT 99
== END 2024-03-23 03:53 | disposition home or self-care (01) ==
PROVIDERS: Emergency Provider Emergency Medicine; PCP Student in an Organized Health Care Education/Training Program
DX: S60.452A Superficial foreign body of right middle finger, initial encounter (principal); W45.8XXA Other foreign body or object entering through skin, initial encounter; Y93.9 Activity, unspecified; Y92.9 Unspecified place or not applicable; Y99.9 Unspecified external cause status
CPT/HCPCS: 99284

== ENCOUNTER → 2024-05-12 13:46 | Outpatient (BNVA) | payer MEDICAID, SELFPAY | PROVIDERS: PCP Student in an Organized Health Care Education/Training Program; Visit Provider Physician Assistant Surgical ==

== ENCOUNTER 2024-05-28 13:50 | Outpatient (REF) | payer MEDICAID, SELFPAY ==
--- NOTE | ~2024-05-28 | MR_ITS ---
EXAMINATION: MRI PELVIS WITH AND WITHOUT CONTRAST CLINICAL INFORMATION: N89.8 - Other specified noninflammatory disorders of vagina COMPARISON: No pertinent priors currently available. TECHNIQUE: Multiple routine MRI sequences through the pelvis were obtained before and after the uneventful administration of 8 mL of Gadavist gadolinium-based IV contrast. FINDINGS: UTERUS: Anteverted and retroflexed uterus has a normal configuration and is normal in size. Endometrium is uniform and measures 0.6 cm in thickness. Junctional zone is normal in signal and thickness. No focal uterine mass seen. CERVIX: Unremarkable. VAGINA: Unremarkable. OVARIES: Ovaries are unremarkable. KIDNEYS AND VISUALIZED UPPER ABDOMEN: Two normally positioned kidneys are seen. No hydronephrosis. VISUALIZED GI TRACT: Unremarkable. BLADDER: Unremarkable. PELVIC FREE FLUID: Trace physiologic volume free fluid in the pelvis. LYMPH NODES: No pathologically enlarged lymph nodes. OSSEOUS STRUCTURES: No acute or suspicious osseous abnormalities. SOFT TISSUES: Unremarkable. MR/MR pelvis wo/w con IMPRESSION: Unremarkable MRI pelvis. Electronically signed by: Maday Kohli MD 06/13/2024 12:28 PM EDT
[2024-05-28] MEDS: gadobutroL 10 ML VIAL IVPUSH (14:27)
== END 2024-05-28 13:51 | disposition home or self-care (01) ==
LOC: HO.MRI 13:50
PROVIDERS: PCP Student in an Organized Health Care Education/Training Program; Visit Provider Advanced Practice Midwife
DX: N89.8 Other specified noninflammatory disorders of vagina (principal)
CPT/HCPCS: 72197; A9585

== ENCOUNTER 2024-06-24 13:31 | Outpatient (AMB) | payer MEDICAID, SELFPAY ==
--- NOTE | 2024-06-24 13:32 | MHC.OFFVIS ---
Vital Signs 06/24/24 13:34 BP 110/72 Intake Visit Reasons: MRI follow up Denial Management Representative Required: Yes Denial Management Representative Language: Lead Fire Protection Engineer Name: Janeth Information Interpreted: non-clinical & clinical Vamp Creaser: Vamp Creaser Present Allergies No Known Allergies [No Known Allergies*] Allergy (Verified 06/24/24 13:32) Is last menstrual period known: Yes Last menstrual period: 06/21/24 HPI Comments Details: Patient is here today for a follow up MRI results history of vaginal pain, she reports has resolved. PFSH Medical History Vaginal mass Hx of migraines Kidney stones Surgical History Hx of lithotripsy Hx of lithotripsy S/P cystoscopy with ureteral stent placement Kidney calculus History of appendectomy Family History (Updated 05/12/24 @ 14:24 by Janet Figueroa CMA) Mother Diabetes Father Hypertension Daughter No problems noted. Social History Household Members: Spouse Household Members Other:: daughter Housing: Apartment Alcohol intake: never Patient Tobacco Use Status: Never used Tobacco Sexual orientation: Straight/Heterosexual Gender identity: Female Female Reproductive History Menstrual Age of Menarche: 11 Date of last menstrual period: 06/21/24 Review of Systems Const All systems reviewed & are unremarkable except as noted in HPI and below Endo Reports no additional complaints Physical Exam Vital Signs: Last Vital Signs BP 110/72 06/24/24 13:34 Const General: cooperative, healthy appearing and no acute distress Psych Appearance: well kempt Attitude: cooperative Thought process: Normal thought process present Results Reviewed Results Reviewed: [address] [address] Magnetic Resonance Report Signed Patient: Stacia Agudelo MR#: [id number] : 1995 Acct:[id number] Age/Sex: 28 / F ADM Date: 05/28/24 Loc: HO.MRI Attending Dr: Sheryl Coburn CNM Ordering Physician: Sheryl Coburn CNM Date of Service: 05/28/24 Procedure(s): MR pelvis wo/w con Accession Number(s): [id number] cc: Sheryl Coburn CNM; Odalis Hartman MD~ EXAMINATION: MRI PELVIS WITH AND WITHOUT CONTRAST CLINICAL INFORMATION: N89.8 - Other specified noninflammatory disorders of vagina COMPARISON: No pertinent priors currently available. TECHNIQUE: Multiple routine MRI sequences through the pelvis were obtained before and after the uneventful administration of 8 mL of Gadavist gadolinium-based IV contrast. FINDINGS: UTERUS: Anteverted and retroflexed uterus has a normal configuration and is normal in size. Endometrium is uniform and measures 0.6 cm in thickness. Junctional zone is normal in signal and thickness. No focal uterine mass seen. CERVIX: Unremarkable. VAGINA: Unremarkable. OVARIES: Ovaries are unremarkable. KIDNEYS AND VISUALIZED UPPER ABDOMEN: Two normally positioned kidneys are seen. No hydronephrosis. VISUALIZED GI TRACT: Unremarkable. BLADDER: Unremarkable. PELVIC FREE FLUID: Trace physiologic volume free fluid in the pelvis. LYMPH NODES: No pathologically enlarged lymph nodes. OSSEOUS STRUCTURES: No acute or suspicious osseous abnormalities. SOFT TISSUES: Unremarkable. MR/MR pelvis wo/w con IMPRESSION: Unremarkable MRI pelvis. Electronically signed by: Maday Kohli MD 06/13/2024 12:28 PM EDT Dictated By: Maday Kohli MD Signed By: <Electronically signed by Maday Kohli MD in OV> 06/13/24 1228 DD/ 1409 TD/TT: 05/28/24 1428 Semiconductor Lab Technician: Assessment & Plan Assessment & Plan (1) Encounter to discuss test results: Code(s): Z71.2 - Person consulting for explanation of examination or test findings Plan Discussed: MRI results-unremarkable. If pain returns or has any concerns to call the office for sooner evaluation. All of her questions and concerns were addressed to the best of my ability and shared decision making. She is agreeable to the plan of care. Annual exam scheduled for 03/10/2025. This note is constructed using voice recognition software. While every effort has been made to ensure accuracy, weight loss counselor errors may have been included. Coding Level of Care Code Est Pt Level 3 (28598) Diagnoses Encounter to discuss test results Z71.2
[2024-06-24 13:34] VITALS: BP 110/72
== END 2024-06-24 13:53 | disposition home or self-care (01) ==
PROVIDERS: PCP Student in an Organized Health Care Education/Training Program; Visit Provider Advanced Practice Midwife
DX: Z71.2 Person consulting for explanation of examination or test findings (principal)
CPT/HCPCS: 99213

== ENCOUNTER → 2024-06-24 13:31 | Outpatient (BNVA) | payer MEDICAID, SELFPAY | PROVIDERS: PCP Student in an Organized Health Care Education/Training Program; Visit Provider Advanced Practice Midwife | DX: Z71.2 Person consulting for explanation of examination or test findings (principal); Z87.42 Personal history of other diseases of the female genital tract | CPT/HCPCS: 99212 ==

== ENCOUNTER 2024-11-03 11:59 | Outpatient (REF) | payer MEDICAID, SELFPAY ==
--- OUTSIDE RECORDS SUMMARY | 2024-11-03 12:21 | XMS_ITS | Encounter Summary ---
Demographics Address [address] [place] [address] [address] [place] [address] Home Phone Work Phone Email Address Preferred Language es Marital Status Latter Day Affiliation Unknown Race Other Race Ethnic Group or Author Organization [employer] Address [address] [place] [address] Care Team Providers Care Central Service Tech Name Role Phone Odalis Hartman MD Primary Care Provider [phone] Reason for Visit * Reason Onset Date Comments Nurse Triage 10/24/2024 Encounter Details Date Type Department Care Team ([facility] st Contact Info) Description 10/24/2024 Telephone [facility] [address] [place] [address] Odalis Hartman MD [address] [place] [address] Nurse Triage Social History Tobacco Use Types Packs/Day Years Used Date Smoking Tobacco: Never Smokeless Tobacco: Never Alcohol Use Standard Drinks/Week Comments Never 0 (1 standard drink = 0.6 oz pur e alcohol) Housing Stability Answer Date Recorded What is your housing situation today? I have michaelace durbin 04/12/[address] you li ve. Do you have problems with any of the following? None of the above 04/12/2024 Food Insecurity Answer Date Recorded Within the past 12 months, y ou worried that your food would run out before you got money to buy more: Never True 04/12/2024 Within the past 12 months,th e food you bought just didn't last and you didn't have enough money to get more: Never True Transportation Answer Date Recorded In the past 12 months, has l ack of transportation kept you from medical appts, meetings, work or from getting things needed for daily living? No 04/12/2024 Utilities Answer Date Recorded In the past 12 months, has t he electric, gas, oil or water company threatened to shut off services in your home? No 04/12/2024 Internet Access Answer Date Recorded Internet Access Q1 Yes 05/23/2024 Internet Access Q2 Not on file 05/23/2024 Comments No Sex and Gender Information Value Date Recorded Sex Assigned at Female 07/21/2022 10:34 AM EDT Legal Sex Female 10:34 AM EDT Gender Identity Female 07/21/2022 10:34 AM EDT Sexual Orientation Choose not to disclose 2021 10:34 AM EDT documented as of this encounter Miscellaneous Notes * Telephone Encounter - Sunita Salazar RN - 10/24/2024 4:26 PM EST [place] [id number] [place] [id number]. Pt reports episode of rapid heart beat/palpitations today. Pt reports HR was 178 at one time today and at rest HR is 105 at times. Pt denies any other symptoms of SOB, dizziness, weakness. Pt denies excess caffeine, energy drinks, stress or anxiety. Pt is not having palpitations at time of call. Pt is advised to make a diary of when these palpitations occur, HR number and any other sx felt at the time. Pt agrees to do this. Pt is advised if is concerned may come to [facility] open till 8pm this evening and provider can check heart rate and write any orders needed. Pt agrees to do this if needed. Home care is reviewed and Pt agreeswith disposition. Protocol Used: Heart Rate and Heartbeat Questions (Adult) Protocol-Based Disposition: Home Care Positive Triage Question: * Palpitations * All higher-acuity triage questions were negative Care Advice Discussed: * Reassurance and Education - Palpitations and Extra Heartbeats * Healthy Living Tips for People With Palpitations * Avoid Caffeine * Expected Course * Reasons To Call Back - Chest pain, lightheadedness or difficulty breathing occurs - Heart beating over 140 beats / minute - More than 3 extra or skipped beats / minute - You become worse * Telephone Encounter - Juanita Sands - 10/24/2024 2:48 PM EST Symptom: Heartbeat Symptoms (Fast, Slow, or Irregular) Outcome: Schedule an urgent appointment (within 1 hour) or talk to a nurse or provider soon Reason: Started within the past 3 days The caller accepted this outcome. documented in this encounter Plan of Treatment Not on file documented as of this encounter Visit Diagnoses Not on filedocumented in this encounter Care Teams Central Service Tech Relationship Specialty Start Date End Date Odalis Hartman MD [address] [place] [id number] PCP - General Family Medicine 07/06/18 documented as of this encounter
--- OUTSIDE RECORDS SUMMARY | 2024-11-03 12:21 | XMS_ITS | Encounter Summary ---
Author Organization [employer] Address [address] [place] [address] Care Team Providers Care Board Liner Operator Name Role Phone Odalis Hartman MD Primary Care Provider [phone] Reason for Visit * Reason Onset Date Comments Med Change Request 06/06/2024 Encounter Details Date Type Department Care Team ([facility] st Contact Info) Description 06/06/2024 Telephone [facility] [address] [place] [address] Odalis Hartman MD [address] [place] [address] Med Change Request Social History Tobacco Use Types Packs/Day Years Used Date Smoking Tobacco: Never Smokeless Tobacco: Never Alcohol Use Standard Drinks/Week Comments Never 0 (1 standard drink = 0.6 oz pur e alcohol) Housing Stability Answer Date Recorded What is your housing situation today? I have michael ramakrishna 04/12/[address] you li [...] t he electric, gas, oil or water [employer] threatened to shut off services in your [...] encounter Miscellaneous Notes * Telephone Encounter - Odalis Hartman MD - 06/14/2024 9:19 AM EDT SENT * Telephone Encounter - Natasha Camacho - 06/13/2024 1:16 PM EDT Tc from pt returning call regarding prior message. Contact pt at [phone] ([place]) * Telephone Encounter - Sukhjinder Mackenzie - 06/06/2024 12:07 PM EDT Tc from patient calling in regards to the Semaglutide-Weight Management (Wegovy) 0.25 MG/0.5ML solution auto-injector states it was suppose to be increased for .50 to .75 documented in this encounter Plan of Treatment Not on file documented as of this encounter Visit Diagnoses Not on filedocumented in this encounter Care Teams Board Liner Operator Relationship Specialty Start Date End Date Odalis Hartman MD [address] [place] [id number] PCP - General Family Medicine 07/06/18 documented as of this encounter
--- OUTSIDE RECORDS SUMMARY | 2024-11-03 12:21 | XMS_ITS | Clinical Summary ---
Author Organization [facility] it Address [address] [place] [address] Care Team Providers Care Buoy Tender Name Role Phone Unavailable Primary Care Provider Unavailabl e Surgical History Surgery Date Site/Laterality Comments APPENDECTOMY 2004 PROCEDURE: HISTORICAL APPENDECTOMY Medical History Medical History Date Comments History of kidney stones 2015 DX:Hist ory of kidney stones Family History Medical History Relation Name Comments Hypertension Father Nephrolithiasis Father Diabetes Maternal Grandmother No Known Problems Paternal Grandfather Stroke Paternal Grandmother Nephrolithiasis Sister Relation Name Status Comments Father Alive Maternal Grandfather Alive Maternal Grandmother Alive Mother Alive Paternal Grandfather Paternal Grandmother Alive Sister Alive Social History Tobacco Use Types Packs/Day Years Used Date Smoking Tobacco: Never Smokeless Tobacco: Never Alcohol Use Standard Drinks/Week Comments No 0 (1 standard drink = 0.6 oz pur e alcohol) Comments Unknown Sex and Gender Information Value Date Recorded Sex Assigned at Not on file Legal Sex Female 8:14 PM EST Gender Identity Not on file Sexual Orientation Not on file Obstetrics History Plan of Treatment Health Maintenance Due Date Last Done Comments DTaP,Tdap,and Td Vaccines (1 - Tdap) 2013 Hepatitis B Vaccines (1 of 3 - 19+ 3-dose series) 2013 Cervical Cancer Screening: P ap Smear 2015 COVID-19 Vaccine ( - 2023-2 5 season) 2024 Influenza Vaccine (#1) 2024 HIB Vaccines Aged Out No longer eligi ble based on patient's age to complete this topic HPV Vaccines Aged Out No longer eligi ble based on patient's age to complete this topic Hepatitis A Vaccines Aged Out No long er eligible based on patient's age to complete this topic IPV Vaccines Aged Out No longer eligi ble based on patient's age to complete this topic MMR Vaccines Aged Out No longer eligi ble based on patient's age to complete this topic Meningococcal ACWY Vaccine Aged Out N o longer eligible based on patient's age to complete this topic Meningococcal B Vacine Aged Out No lo nger eligible based on patient's age to complete this topic Pneumococcal Vaccine: Pediat rics (0 to 5 Years) and At-Risk Patients (6 to 64 Years) Aged Out No longer eligible b ased on patient's age to complete this topic RSV Immunization Patients Un kerry 20 months Aged Out No longer eligible b ased on patient's age to complete this topic Varicella Vaccines Aged Out No longer eligible based on patient's age to complete this topic
--- OUTSIDE RECORDS SUMMARY | 2024-11-03 12:21 | XMS_ITS | Encounter Summary ---
Author Organization [employer] Address [address] [place] [address] Care Team Providers Care Net Programmer Name Role Phone Odalis Hartman MD Primary Care Provider [phone] Reason for Visit * Reason Onset Date Comments Returning Call 04/12/2024 Encounter Details Date Type Department Care Team ([facility] st Contact Info) Description 04/12/2024 Telephone [facility] [address] [place] [address] Odalis Hartman MD [address] [place] [address] Returning Call Social History Tobacco Use Types Packs/Day Years [...] the past 12 months, has t he [employer], [employer], oil or water company threatened to shut off services in your home? No 04/12/2024 Comments No Sex and Gender Information Value Date Recorded Sex Assigned at Female 07/21/2022 10:34 AM EDT Legal Sex Female 10:34 AM EDT Gender Identity Female 07/21/2022 10:34 AM EDT Sexual Orientation Choose not to disclose 2021 10:34 AM EDT documented as of this encounter Miscellaneous Notes * Telephone Encounter - Gio Trell - 04/12/2024 1:12 PM EDT Tc from pt returning call regarding message below. CC Mayda Monet placed outbound call to patient to complete pre-visit planning. No answer at this time. Patient name and were not confirmed. CC left voicemail requesting return call. Direct contactinformation provided. documented in this encounter Plan of Treatment Not on file documented as of this encounter Visit Diagnoses Not on filedocumented in this encounter Care Teams Net Programmer Relationship Specialty Start Date End Date Odalis Hartman MD [address] [place] [id number] PCP - General Family Medicine 07/06/18 documented as of this encounter
--- OUTSIDE RECORDS SUMMARY | 2024-11-03 12:22 | XMS_ITS | Encounter Summary ---
Author Organization [employer] Address [address] [facility] [address] [facility] [address] [place] [address] Care Team Providers Care Outside Rigger Name Role Phone Oadlis Hartman MD Primary Care Provider [phone] Reason for Visit * Reason Onset Date Comments ER Follow-up 11/01/2024 Encounter Details Date Type Department Care Team ([facility] st Contact Info) Description 11/01/2024 Telephone C [facility] [address] [place] [address] Odalis Hartman MD [address] [place] [address] ER Follow-up Social History Tobacco Use Types Packs/Day Years Used Date Smoking Tobacco: Never Smokeless Tobacco: Never Alcohol Use Standard Drinks/Week Comments Never 0 (1 standard drink = 0.6 oz pur e alcohol) Housing Stability Answer Date Recorded What is your housing situation today? I have michael durbin 04/12/[address] you [...] t he electric, gas, oil or water [employer] threatened to shut off services in your [...] encounter Miscellaneous Notes * Telephone Encounter - Vale Desir RN - 11/01/2024 5:13 PM EST Images from the original note were not included. Per [facility] notes, all testing BW and EKG normal. Pt instructed to have PCP follow up for Holter Monitor Referral. Per patient last episode of palpitations yesterday. Per pt on watch had HR of 95 with irregular beats. Pt denies any CP, SOB , dizziness or COTTON. Pt advised of dispositoin, agrees to sick on site with team provider this week for follow up. Reviewed home care advise, ER precautions and reasons to callback. Protocol Used: Heart Rate and Heartbeat Questions (Adult) Protocol-Based Disposition: Callback or Video Visit by PCP Today Override (Final) Disposition: See in Office or Video Visit within 3 Days Override Reason: Already seen and questions Override Notes: Seen at [facility] [place] Future Appointments Date Time Provider Department Center 11/03/2024 11:30 AM Nikolas Carballo MD [facility] Insurance verified as active per Real Time Eligibility in [employer]. Positive Triage Question: * Heart rhythm alert (e.g., you have irregular heartbeat ) from personal wearable device (e.g., [employer] Watch) * All higher-acuity triage questions were negative Care Advice Discussed: * Reasons To Call Back - Chest pain, lightheadedness or difficulty breathing occurs - You become worse FW: Irregular pulse Received: Today Bárbara Stephens RN P [place] Triage Nurse Previous Messages Irregular pulse (Newest Message First) View All Conversations on this Encounter Bárbara Stephens RN routed conversation to [place] Triage Nurse6 hours ago (10:37 AM) Stacia Morales [facility] Med & Peds Nurses (supporting Odalis Hartman MD)6 hours ago(10:36 AM) XI Good morning. I use this medium because I can't contact hospital receptionist. Last week I spoke with a nurse regarding my high pulse and irregular pulse. I had a heartbeat of 178 and the blood pressure machine said it detected irregular heartbeats. She told me that they didn't have an appointment, I went to the emergency room. They did an echocardiogram but because of how short it is, they couldn't detect anything since it is not constant. The told me that I had to contact my doctor so they could sendme to a internet security specialist and put in a device that would monitor the heart for longer. I wanted to know how to contact you to talk about this. I appreciate your help in advance. documented in this encounter Plan of Treatment Not on file documented as of this encounter Visit Diagnoses Not on filedocumented in this encounter Care Teams Outside Rigger Relationship Specialty Start Date End Date Odalis Hartman MD [address] [place] [address] PCP - General Family Medicine 07/06/18 documented as of this encounter
--- OUTSIDE RECORDS SUMMARY | 2024-11-03 12:22 | XMS_ITS | Clinical Summary ---
Author Organization [email or web address] Address [address] [facility] 7t [place] [address] Care Team Providers Care Cashier Associate Name Role Phone Odalis Hartman MD Primary Care Provider [phone] Allergies No known active allergies Medications omeprazole OTC (PriLOSEC OTC) 20 MG EC tablet Take 1 tablet by mouth. 0 Active minocycline 100 MG capsuleIndicati ons:Perioral dermatitis TAKE 1 CAPSULE BY MOUTH TWICE A DAY 60 capsule 4 Active clobetasol (Temovate) 0.05 % ointment Apply topically 2 times daily. 30 g 4 Active omeprazole (PriLOSEC) [address] capsule TAKE 1 CAPSULE (20 MG) BY MOUTH ONCE PER DAY. DO NOT CRUSH OR CHEW. 90 capsule 4 Active Semaglutide-Ziyad ght Management (Wegovy) 0.5 MG/0.5ML solution auto-injector Inject 0.5 mg under the skin 1 (one) time per week. 0.5 mL 3 4 Active Tirzepatide-Ziyad ght Management (Zepbound) 2.5 MG/0.5ML solution auto-injector Inject 0.5 mL (2.5 mg) under the skin 1 (one) time per week. 2 mL 3 4 Active Active Problems Problem Noted Date Diagnosed Date Kidney stone 01/21/2023 Gastroesophageal reflux disease without esophagi tis 01/21/2023 Encounters Date Type Department Care Team Description 11/03/2024 11:30 AM EST Office Visit [facility] MED & PEDS [address] [place] [address] Nikolas Saleh MD Palpitation (Primary Dx) 11/03/2024 Travel 11/01/2024 Telephone [facility] CHC MED & PEDS [address] [place] [address] Odalis Hartman MD ER Follow-up 10/24/2024 Telephone [facility] MED & PEDS [address] [place], [place] [phone] Odalis Hartman MD Nurse Triage 09/07/2024 Orders Only [facility] MED & PEDS [address] [place], [place] [phone] Odalis Hartman MD 09/06/2024 Telephone [facility] MEDICINE [address] [place] [address] Odalis Hartman MD Medication Question from Last 3 Months Immunizations Name Administration Dates Next Due HPV 9-Valent 01/11/2018,09/23/2017,07/21/2017 Hep B, Unspecified 1994 MMR 1994 Social History Tobacco Use Types Packs/Day Years Used Date Smoking Tobacco: Never Smokeless Tobacco: Never Tobacco Cessation:Counseling Given: Not Answered Alcohol Use Standard Drinks/Week Comments Never 0 [...] not to disclose 2021 10:34 AM EDT Last Filed Vital Signs Vital Sign Reading Time Taken Comments Blood Pressure 112/70 11/03/2024 11:47 AM EST Pulse 70 11/03/2024 11:47 AM EST Temperature 37.1 ??C (98.7 ??F) 11/03/2024 11:[address] Respiratory Rate 16 11/03/2024 11:47 AM EST Oxygen Saturation 98% 04/19/2024 10:06 AM EDT Inhaled Oxygen Concentration - - Weight 75.3 kg (166 lb) 11/03/2024 11:47 AM EST Height 157.5 cm (5' 2 ) 11/03/2024 11:47 AM EST Body Mass Index 30.36 11/03/2024 11:47 AM EST Plan of Treatment Health Maintenance Due Date Last Done Comments Depression Screening 1994 HIV Screening 1994 Hepatitis B Vaccines (2 of 3 - 3-dose series) 1994 1994 Alcohol/Substance Use Screening 2006 DTaP/Tdap/Td Vaccines (1 - Tdap) 2013 COVID-19 Vaccine (3 - 2023-2 5 season) 2024 09/23/2021, 08/31/2021 Influenza Vaccine (#1) 2024 HPV/Cotest 2024 Family Planning (PISQ) 02/22/2025 02/23/2024 SDOH Screening 04/12/2025 04/12/2024 Tobacco Screening 04/19/2025 04/19/2024 Cervical Cancer Screening 02/22/2027 Pap Smear 02/22/2027 02/23/2024 Lipid Panel 01/22/2028 01/21/2023 Zoster Vaccines (1 of 2) 2044 RSV Patients and Patients Aged 60 years or older (1 - 1-dose 75+ series) 2069 HPV Vaccines Completed 01/11/2018, 09/23/2017, 07/21/2017 Hepatitis C Screening Completed 10/04/2019 HIB Vaccines Aged Out No longer eligi ble based on patient's age to complete this topic Hepatitis A Vaccines Aged Out No long er eligible based on patient's age to complete this topic IPV Vaccines Aged Out No longer eligi ble based on patient's age to complete this topic Meningococcal Vaccine Aged Out No shane florinda eligible based on patient's age to complete this topic Pneumococcal Vaccine: Pediatrics (0 to 5 Years) and At-Risk Patients (6 to 49) Years) Aged Out No longer eligible b ased on patient's age to complete this topic RSV under 20 months Aged Out No longe r eligible based on patient's age to complete this topic Rotavirus Vaccines Aged Out No longer eligible based on patient's age to complete this topic Procedures Procedure Name Priority Date/Time Associated Diagnosis Comments PAP SMEAR Routine 02/23/2024 1:44 PM EDT Cervical cancer screening LIPID PANEL, STANDARD Routine 01/21/2023 10:41 AM EDT Benign paroxysmal positional vertigo, unspecified laterality ZZZ HISTORICAL HEPATITIS C ANTIBODY Routine 10/04/2019 4:35 PM EST from Last 3 Months or Most Recently Relevant to Health Maintenance Results * Pap Smear (02/23/2024 1:44 PM EDT) Swab Cervix uteri structure / Unknown 02/23/2024 1:44 PM EDT 02/24/2024 9:15 AM EDT [facility] LABS - 03/20/2024 3:43 PM EDT ----- ------- Name: Stacia Agudelo ?Age/Sex: 28/F ? : 1995 Unit#: [id number] ?? Attend Dr: ENA LUNA CNM ?Re02/23/24 ?Status: DEP REF ? Location: HO.HHCLNP ? Disch: ? ----- ------- SPEC : [id number] ?RECD: 02/24/24 ? STATUS: ??SOUT ? REQ NUM: [id number] ? FERCHO: 02/23/24-9224 ? SUBM DR: ENA LUNA CNM ? ENTERED: ??02/24/24-1013 ?SP TYPE: Pap Smr ?OTHR DR: ? ORDERED: ??Pap Smear ? Interpretation ?? Satisfactory for evaluation. ?? Negative for intraepithelial lesion or malignancy. ?Clinical Information LMP: 01/25/2024 Previous PAP test: Unknown date/findings ? Material Received ?? ThinPrep-Cervical ----- ------- Signed (signature on file) Moon Sin Arvin 03/20/24 1543 ? ----- ------- ? END OF REPORT ? us Ena Luna [facility] LAB CYTOLOGY ORDERABLES F inal Result [facility] LABS [address] [place] [phone] * Lipid Panel, Standard (01/21/2023 10:41 AM EDT) Cholesterol, Total 158 <200 mg/dL [employer] [facility] HDL Cholesterol 58 > OR = 50 mg/dL [employer] [facility] Triglycerides 94 <150 mg/dL [employer] [facility] LDL Cholesterol 81 mg/dL (calc) [employer] [facility] Comment: Reference range: <100 Desirable range <100 mg/dL for primary prevention; ?? <70 mg/dL for patients with CHD or diabetic patients with > or = 2 CHD risk factors. LDL-C is now calculated using the Abelardo calculation, which is a validated novel method providing better accuracy than the Friedewald equation in the estimation of LDL-C. Edgar CRUZ et al. SUZANNE. 2013;310(19): 1895-0793 (http://education.[employer]/faq/SGB879) Chol/HDLC Ratio 2.7 <5.0 (calc) [employer] Non-HDL Cholesterol 100 <130 mg/dL (calc) [employer] Comment: For patients with diabetes plus 1 major ASCVD risk factor, treating to a non-HDL-C goal of <100 mg/dL (LDL-C of <70 mg/dL) is considered a therapeutic option. Blood Venous blood specimen / Unknown 01/21/2023 10:41 AM EDT 01/21/2023 10:42 AM EDT Narrative [facility] - 01/22/2023 7:34 AM EDT FASTING:YES FASTING: YES Odalis Hartman MD LAB BLOOD ORDERABLES Final Resul t Performing Organization Address [facility] [[email or web address]] de Phone Number [facility] [address], [facility] [place] [address] [employer] [facility] [address] [place] [address] * HEPATITIS C ANTIBODY (10/04/2019 4:35 PM EST) Pathologist [facility] HEPATITIS C ANTIBODY NONREACTIVE NONREACTIVE [facility] Comment: Antibodies to HCV not detected; does not exclude early acute HCV infection. 10/04/2019 4:35 PM EST us Sheryl Coburn HISTORICAL/NON ORDERABLE LABS Fi nal Result Performing Organization Address [facility]/ZIP Co de Phone Number [facility] [address] from Last 3 Months or Most Recently Relevant to Health Maintenance Insurance [facility] C3 Care Teams Cashier Associate Relationship Specialty Start Date End Date Odalis Hartman MD [address] [place] [phone] PCP - General Family Medicine 07/06/18
--- OUTSIDE RECORDS SUMMARY | 2024-11-03 12:22 | XMS_ITS | Encounter Summary ---
Author Organization [employer] Address [address] [facility] [place] [address] Care Team Providers Care Wire Cutter Name Role Phone Odalis Hartman MD Primary Care Provider [phone] Encounter Details Date Type Department Care Team (Latest Contact Info) Description 11/03/2024 Travel Social History Tobacco Use Types Packs/Day Years [...] AM EDT documented as of this encounter Plan of Treatment Not on file documented as of this encounter Visit Diagnoses Not on filedocumented in this encounter Care Teams Wire Cutter Relationship Specialty Start Date End Date Odalis Hartman MD [address] [place] [address] PCP - General Family Medicine 07/06/18 documented as of this encounter
--- OUTSIDE RECORDS SUMMARY | 2024-11-03 12:22 | XMS_ITS | Encounter Summary ---
Author Organization [employer] Address [address] [facility] 7t [place] [address] Care Team Providers Care Night Order Selector Name Role Phone Odalis Hartman MD Primary Care Provider [phone] Reason for Visit * Reason Comments Med Refill Encounter Details Date Type Department Care Team ([facility] Contact Info) Description 04/13/2023 Refill [facility] MED & PEDS [address] [place] [address] Marva Herrera MD [address] [place] [address] Perioral dermatitis Social History Tobacco Use Types Packs/Day Years Used Date Smoking Tobacco: Never Smokeless Tobacco: Never Alcohol Use Standard Drinks/Week Comments Never 0 (1 standard drink = 0.6 oz pur e alcohol) Comments No Sex and Gender Information Value Date Recorded Sex Assigned at Female 07/21/2022 10:34 AM EDT Legal Sex Female 10:34 AM EDT Gender Identity Female 07/21/2022 10:34 AM EDT Sexual Orientation Choose not to disclose 2021 10:34 AM EDT COVID-19 Exposure Response Date Recorded In the last 10 days, have yo u been in contact with someone who was confirmed or suspected to have Coronavirus/COVID-19? No / Unsure 03/17/2023 11:24 AM EDT documented as of this encounter Plan of Treatment Not on file documented as of this encounter Visit Diagnoses Diagnosis Perioral dermatitis Rosacea documented in this encounter Care Teams Night Order Selector Relationship Specialty Start Date End Date Odalis Hartman MD [address] [place] [address] PCP - General Family Medicine 07/06/18 documented as of this encounter
--- OUTSIDE RECORDS SUMMARY | 2024-11-03 12:22 | XMS_ITS | Encounter Summary ---
Demographics Address [address] [place] [address] [address] [place] [address] Home Phone Work Phone Email Address Preferred Language es Marital Status Protestant Affiliation Unknown Race Other Race Ethnic Group or Author Organization [employer] Address [address] [facility] [address] [place] [address] Care Team Providers Care It Project Coordinator Name Role Phone Odalis Hartman MD Primary Care Provider [phone] Encounter Details Date Type Department Care Team ([facility] st Contact Info) Description 11/03/2024 11:30 AM EST Office Visit [facility] MED & PEDS [address] [place], [place] [phone] Nikolas Saleh MD [address] [place] [address] Palpitation (Primary Dx) Social History Tobacco Use Types Packs/Day Years [...] the past 12 months, has t he [employer], gas, oil or water [employer] threatened to shut off services in your [...] AM EDT documented as of this encounter Last Filed Vital Signs Vital Sign Reading Time Taken Comments Blood Pressure 112/70 11/03/2024 11:47 AM EST Pulse 70 11/03/2024 11:47 AM EST Temperature 37.1 ??C (98.7 ??F) 11/03/2024 11:[address] Respiratory Rate 16 11/03/2024 11:47 AM EST Oxygen Saturation - - Inhaled Oxygen Concentration - - Weight 75.3 kg (166 lb) 11/03/2024 11:47 AM EST Height 157.5 cm (5' 2 ) 11/03/2024 11:47 AM EST Body Mass Index 30.36 11/03/2024 11:47 AM EST documented in this encounter Plan of Treatment Scheduled Orders Name Type Priority Associated Diagnoses Orde r Schedule TSH W/Reflex to FT4 Lab Routine Palpitation Expected: 11/03/2024 (Approximate), Expires: 11/03/2025 Basic Metabolic Panel Lab Routine Palpitation Expected: 11/03/2024 (Approximate), Expires: 11/03/2025 documented as of this encounter Visit Diagnoses Diagnosis Palpitation- Primary Palpitations documented in this encounter Care Teams It Project Coordinator Relationship Specialty Start Date End Date Odalis Hartman MD [address] [place] [address] PCP - General Family Medicine 07/06/18 documented as of this encounter
[2024-11-03 14:36] LABS: Anion Gap 9 (12-20); Blood Urea Nitrogen 9 mg/dL (9-16); Carbon Dioxide 25 mmol/L (22-29); Chloride 109 mmol/L (96-108); Estimated Glomerular Filt Rate > 60; Glucose Random 86 mg/dL (60-115); Potassium 3.9 mmol/L (3.3-5.1); Sodium 139 mmol/L (135-145)
[2024-11-03 14:54] LABS: TSH reflex Free T4 0.95 uIU/mL (0.32-4.0)
== END 2024-11-03 12:00 | disposition home or self-care (01) ==
LOC: HO.CHCLDS 11:59
PROVIDERS: Visit Provider Internal Medicine
DX: R00.2 Palpitations (principal)
CPT/HCPCS: 36415; 80048; 84443

== ENCOUNTER → 2024-11-08 11:04 | Outpatient (REF) | payer MEDICAID, SELFPAY ==
--- OUTSIDE RECORDS SUMMARY | 2024-11-08 12:14 | XMS_ITS | Clinical Summary ---
Author Organization [facility] it Address [address] [place] [address] Care Team Providers Care Learning Support Specialist Name Role Phone Unavailable Primary Care Provider [...]
--- OUTSIDE RECORDS SUMMARY | 2024-11-08 12:14 | XMS_ITS | Encounter Summary ---
Author Organization [employer] Address [address] [facility] [address] [place] [address] Care Team Providers Care Concrete Craftsman Name Role Phone Odalis Hartman MD Primary Care Provider [phone] Encounter Details Date Type Department Care Team [...] on filedocumented in this encounter Care Teams Concrete Craftsman Relationship Specialty Start Date End Date Odalis Hartman MD [address] [place] [address] PCP - General Family Medicine 07/06/18 documented as of this encounter
--- OUTSIDE RECORDS SUMMARY | 2024-11-08 12:14 | XMS_ITS | Encounter Summary ---
Author Organization [employer] Address [address] [facility] [address] [place] [address] Care Team Providers Care [place] Actor Name Role Phone Odalis Hartman MD Primary Care Provider [phone] Reason for Visit * Reason Onset Date Comments Returning Call 04/12/2024 Encounter Details Date Type Department Care Team ([facility] st Contact Info) Description 04/12/2024 Telephone [facility] MEDICINE [address] [place] [address] Odalis Hartman MD [address] [place] [address] Returning Call Social History Tobacco Use Types [...] the past 12 months, has t he [employer], [employer], oil or water company threatened to shut [...] on filedocumented in this encounter Care Teams [place] Actor Relationship Specialty Start Date End Date Odalis Hartman MD [address] [place] [address] PCP - General Family Medicine 07/06/18 documented as of this encounter
--- OUTSIDE RECORDS SUMMARY | 2024-11-08 12:14 | XMS_ITS | Encounter Summary ---
Demographics Address [address] [place] [address] [address] [place] [address] Home Phone Work Phone Email Address Preferred Language es Marital Status Nondenominational Affiliation Unknown Race Other Race Ethnic Group or Author Organization [employer] Address [address] [facility] [address] [place] [address] Care Team Providers Care Job Analyst Name Role Phone Odalis Hartman MD Primary Care Provider [phone] Reason for Visit * Reason Onset Date Comments Nurse Triage 10/24/2024 Encounter Details Date Type Department Care Team ([facility] st Contact Info) Description 10/24/2024 Telephone C [facility] [address] [place] [address] Odalis Hartman MD [address] [place] [address] Nurse Triage Social History Tobacco Use Types [...] 4:26 PM [place] [id number] [place] [id number]. Pt reports episode of rapid heart beat/palpitations [...] advised if is concerned may come to [facility] open till 8pm this evening and [...] on filedocumented in this encounter Care Teams Job Analyst Relationship Specialty Start Date End Date Odalis Hartman MD [address] [place] [phone] PCP - General Family Medicine 07/06/18 documented as of this encounter
--- OUTSIDE RECORDS SUMMARY | 2024-11-08 12:14 | XMS_ITS | Encounter Summary ---
Demographics Address [address] [place] [address] [address] [place] [address] Home Phone Work Phone Email Address Preferred Language es Marital Status Roman Catholic Affiliation Unknown Race Other Race Ethnic Group or Author Organization [employer] Address [address] [facility] 7t [place] [address] Care Team Providers Care Rn Procedure Name Role Phone Odalis Hartman MD Primary Care Provider [phone] Reason for Referral * Cardiology (Routine) - Authorized Specialty Diagnoses / Procedures Referred By Contac t Referred To Contact Cardiology Diagnoses Palpitation Procedures Holter monitor - 24 hour Nikolas Saleh MD [address] [place] [address] Phone: tel: fax: [address] Phone: tel: fax: Referral ID Status Reason Start Date Expiration Date V isits Requested Visits Authorized [id number] Authorized 11/03/2024 11/03/2025 1 1 Encounter Details Date Type Department Care Team (Late st Contact Info) Description 11/03/2024 11:30 AM EST Office Visit [facility] MED & PEDS [address] [place] [address] Nikolas Saleh MD [address] [place] [address] Palpitation (Primary Dx) Social History Tobacco Use [...] 11:47 AM EST documented in this encounter Progress Notes * Nikolas Carballo MD - 11/03/2024 11:30 AM EST Subjective Patient ID: Stacia Mackenzie is a 29 y.o. female who presents for No chief complaint on file.. Palpitations This is a chronic problem. Associated symptoms include an irregular heartbeat. Pertinent negatives include no coughing, malaise/fatigue, nausea or weakness. Review of Systems Constitutional: Negative for malaise/fatigue. Respiratory: Negative for cough. Cardiovascular: Positive for palpitations. Gastrointestinal: Negative for nausea. Neurological: Negative for weakness. Objective Physical Exam Constitutional: Appearance: Normal appearance. Cardiovascular: Rate and Rhythm: Normal rate and regular rhythm. Heart sounds: No murmur heard. Pulmonary: Effort: Pulmonary effort is normal. No respiratory distress. Breath sounds: No stridor. No wheezing or rhonchi. Neurological: General: No focal deficit present. Mental Status: She is alert and oriented to person, place, and time. Psychiatric: Mood and Affect: Mood normal. Behavior: Behavior normal. Assessment/Plan Problem List Items Addressed This Visit None Visit Diagnoses Palpitation - Primary Will order holter test and blood work to r/o secondary causes, also in the future will have to lookinto the possibility of zepbound causing her symptoms Relevant Orders TSH W/Reflex to FT4 Basic Metabolic Panel Holter monitor - 24 hour documented in this encounter Plan of Treatment Scheduled Orders Name Type Priority Associated Diagnoses Orde r Schedule Holter monitor - 24 hour Cardiac Services Routine Palpitation Expected: 11/03/2024 (Approximate), Expires: 11/03/2026 documented as of this encounter Procedures Procedure Name Priority Date/Time Associated Diagnosis Comments TSH W/REFLEX TO FT4 Routine 11/03/2024 1 2:02 PM EST Palpitation BASIC METABOLIC PANEL Routine 11/03/2024 12:02 PM EST Palpitation documented in this encounter Results * (ABNORMAL) Basic Metabolic Panel (11/03/2024 12:02 PM EST) Sodium 139 135 - 145 mmol/L [facility] Potassium 3.9 3.3 - 5.1 mmol/L [facility] Chloride 109(H) 96 - 108 mmol/L [facility] Carbon Dioxide 25 22 - 29 mmol/L [facility] Anion Gap 9(L) 12 - 20 [facility] Urea Nitrogen (BUN) 9 9 - 16 mg/dL [facility] Creatinine, Serum 0.75 0.5 - 1.4 mg/dL [facility] Estimated Glomerular Filt Rate >60 [facility] Comment:Chronic Kidney Disea se: Estimated GFR < 60 mL/min/1.55f6Ppgmer Kidney Disease: Estimated GFR < 15 mL/min/1.73m2 Glucose 86 60 - 115 mg/dL [facility] Calcium 9.0 8.4 - 10.2 mg/dL [facility] Blood Venous blood specimen / Unknown 11/03/2024 12:02 PM EST 11/03/2024 2:05 PM EST Nikolas Carballo MD LAB BLOOD ORDERABL ES Final Result Performing Organization Address [facility]/ZIP Co de Phone Number [facility] [address] [place] [phone] * TSH W/Reflex to FT4 (11/03/2024 12:02 PM EST) TSH reflex Free T4 0.95 0.32 - 4.0 uIU/mL [facility] Blood Venous blood specimen / Unknown 11/03/2024 12:02 PM EST 11/03/2024 2:05 PM EST us Nikolas Carballo MD LAB BLOOD ORDERABL ES Final Result Performing Organization Address [facility]/ZIP Co de Phone Number [facility] [address] [place] [phone] documented in this encounter Visit Diagnoses Diagnosis Palpitation- Primary Palpitations documented in this encounter Care Teams Rn Procedure Relationship Specialty Start Date End Date Odalis Hartman MD [address] [place] [phone] PCP - General Family Medicine 07/06/18 documented as of this encounter
--- OUTSIDE RECORDS SUMMARY | 2024-11-08 12:14 | XMS_ITS | Clinical Summary ---
Author Organization [employer] Address [address] [facility] 7t [place] [address] Care Team Providers Care Staining Machine Operator Name Role Phone Odalis Hartman MD Primary Care Provider [phone] Allergies No known active allergies Medications omeprazole [...] Description 11/03/2024 11:30 AM EST Office Visit [facility] MED & PEDS [address] [place] [address] Nikolas Saleh MD Palpitation (Primary Dx) 11/03/2024 Travel 11/01/2024 Telephone [facility] MED & PEDS [address] [place] [address] Odalis Hartman MD ER Follow-up 10/24/2024 Telephone [facility] MED & PEDS [address] [place], [place] [phone] Odalis Hartman MD Nurse Triage 09/07/2024 Orders Only [facility] MED & PEDS [address] [place], [place] [phone] Odalis Hartman MD 09/06/2024 Telephone [facility] MEDICINE [address] [place] [address] Odalis Hartman MD Medication Question from Last [...] Procedure Name Priority Date/Time Associated Diagnosis Comments BASIC METABOLIC PANEL Routine 11/03/2024 12:02 PM EST Palpitation TSH W/REFLEX TO FT4 Routine 11/03/2024 1 2:02 PM EST Palpitation PAP SMEAR Routine 02/23/2024 1:44 PM EDT Cervical cancer screening LIPID PANEL, STANDARD Routine 01/21/2023 10:41 AM EDT Benign paroxysmal positional vertigo, unspecified laterality ZZZ HISTORICAL HEPATITIS C ANTIBODY Routine 10/04/2019 4:35 PM EST from Last 3 Months or Most Recently Relevant to Health Maintenance Results * TSH W/Reflex to FT4 (11/03/2024 12:02 PM EST) TSH reflex Free T4 0.95 0.32 - 4.0 uIU/mL [facility] Blood Venous blood specimen / Unknown 11/03/2024 12:02 PM EST 11/03/2024 2:05 PM EST Nikolas Carballo MD LAB BLOOD ORDERABL ES Final Result [facility] [address] [place] [phone] [phone] * (ABNORMAL) Basic Metabolic Panel (11/03/2024 12:02 PM EST) Sodium 139 135 - 145 mmol/L [facility] Potassium 3.9 3.3 - 5.1 mmol/L [facility] Chloride 109(H) 96 - 108 mmol/L [facility] Carbon Dioxide 25 22 - 29 mmol/L [facility] Anion Gap 9(L) 12 - 20 [facility] Urea Nitrogen (BUN) 9 9 - 16 mg/dL [facility] Creatinine, Serum 0.75 0.5 - 1.4 mg/dL [facility] Estimated Glomerular Filt Rate >60 [facility] Comment:Chronic Kidney Disea se: Estimated GFR < 60 mL/min/1.33z3Gyhlvi Kidney Disease: Estimated GFR < 15 mL/min/1.73m2 Glucose 86 60 - 115 mg/dL [facility] Calcium 9.0 8.4 - 10.2 mg/dL [facility] Blood Venous blood specimen / Unknown 11/03/2024 12:02 PM EST 11/03/2024 2:05 PM EST us Nikolas Carballo MD LAB BLOOD ORDERABL ES Final Result Performing Organization Address [facility] de Phone Number [facility] [address] [place] [phone] * Pap Smear (02/23/2024 1:44 PM EDT) Swab Cervix uteri structure / Unknown 02/23/2024 1:44 PM EDT 02/24/2024 9:15 AM EDT Narrative [facility] - 03/20/2024 3:43 PM EDT ----- ------- Name: Stacia Agudelo ?Age/Sex: 28/F ? : 1995 Unit#: [id number] ?? Attend Dr: ENA LUNA CNM ?Re02/23/24 ?Status: DEP REF ? [facility] ? Disch: ? ----- ------- SPEC : [id number] ?RECD: 02/24/24 ? STATUS: ??SOUT ? REQ NUM: [id number] ? FERCHO: 02/23/24-1343 ? SUBM DR: ENA LUNA CNM ? ENTERED: ??02/24/24-1013 ?SP TYPE: Pap Smr ?OTHR : ? ORDERED: ??Pap Smear ? Interpretation ?? Satisfactory for evaluation. ?? Negative for intraepithelial lesion or malignancy. ?Clinical Information LMP: 01/25/2024 Previous PAP test: Unknown date/findings ? Material Received ?? ThinPrep-Cervical ----- ------- Signed (signature on file) Moon January Sheridan 03/20/24 1543 ? ----- ------- ? END OF REPORT ? us Ena Luna [facility] CYTOLOGY ORDERABLES F inal Result [facility] [address] [place] [address] [phone] * Lipid Panel, Standard (01/21/2023 10:41 AM EDT) Cholesterol, Total 158 <200 mg/dL [facility] HDL Cholesterol 58 > OR = 50 mg/dL [employer] [place] [facility] Triglycerides 94 <150 mg/dL [employer] [place] [facility] LDL Cholesterol 81 mg/dL (calc) [employer] [place] [facility] Comment: Reference range: <100 Desirable range <100 mg/dL for primary prevention; ?? <70 mg/dL for patients with CHD or diabetic patients with > or = 2 CHD risk factors. LDL-C is now calculated using the Abelardo calculation, which is a validated novel method providing better accuracy than the Friedewald equation in the estimation of LDL-C. Edgar CRUZ et al. SUZANNE. 2013;310(19): 3362-7151 (http://education.[employer]/faq/NXD885) Chol/HDLC Ratio 2.7 <5.0 (calc) [employer] [place] [facility] Non-HDL Cholesterol 100 <130 mg/dL (calc) [employer] [place] [facility] Comment: For patients with diabetes plus 1 major ASCVD risk factor, treating to a non-HDL-C goal of <100 mg/dL (LDL-C of <70 mg/dL) is considered a therapeutic option. Blood Venous blood specimen / Unknown 01/21/2023 10:41 AM EDT 01/21/2023 10:42 AM EDT Narrative [facility] - 01/22/2023 7:34 AM EDT FASTING:YES FASTING: YES Odalis Hartman MD LAB BLOOD ORDERABLES Final Resul t [facility] [address], [place] [phone] [employer] [place] [facility] [address] [place] [phone] * HEPATITIS C ANTIBODY (10/04/2019 4:35 PM EST) Pathologist [facility] HEPATITIS C ANTIBODY NONREACTIVE NONREACTIVE [facility] Comment: Antibodies to HCV not detected; does not exclude early acute HCV infection. 10/04/2019 4:35 PM EST Sheryl Coburn HISTORICAL/NON ORDERABLE LABS Fi nal Result [facility] [address] from Last 3 Months or Most Recently Relevant to Health Maintenance Insurance C3 Care Teams Staining Machine Operator Relationship Specialty Start Date End Date Odalis Hartman MD [address] [place] [address] PCP - General Family Medicine 07/06/18
--- OUTSIDE RECORDS SUMMARY | 2024-11-08 12:14 | XMS_ITS | Encounter Summary ---
Author Organization [employer] Address [address] 7t [place] [address] Care Team Providers Care Guard Entrance Registrar Name Role Phone Odalis Hartman MD Primary Care Provider [phone] Reason for Visit * Reason Onset Date Comments Med Change Request 06/06/2024 Encounter Details Date Type Department Care Team ([facility] st Contact Info) Description 06/06/2024 Telephone [facility] [address] [place] [address] Odalis Hartman MD [address] [place] [address] Med Change Request Social History Tobacco Use [...] t he electric, gas, oil or water [employer] threatened to shut off services in your [...] call regarding prior message. Contact pt at [phone] (kazakh) * Telephone Encounter - Sukhjinder Mackenzie - 06/06/2024 12:07 PM EDT Tc from patient calling in regards to the Semaglutide-Weight Management (Wegovy) 0.25 MG/0.5ML solution auto-injector states it was suppose to be increased for .50 to .75 documented in this encounter Plan of Treatment Not on file documented as of this encounter Visit Diagnoses Not on filedocumented in this encounter Care Teams Guard Entrance Registrar Relationship Specialty Start Date End Date Odalis Hartman MD [address] [place] [phone] PCP - General Family Medicine 07/06/18 documented as of this encounter
--- OUTSIDE RECORDS SUMMARY | 2024-11-08 12:14 | XMS_ITS | Encounter Summary ---
Author Organization [employer] Address [address] [facility] 7t [place] [address] Care Team Providers Care Chip Tester Name Role Phone Odalis Hartman MD Primary Care Provider Reason for Visit * Reason Comments Med Refill Encounter Details Date Type Department Care Team ([facility] Contact Info) Description 04/13/2023 Refill [facility] MED & PEDS [address] [place] [address] Marva Herrera MD [address] [place] [address] Perioral dermatitis Social History Tobacco Use Types [...] Rosacea documented in this encounter Care Teams Chip Tester Relationship Specialty Start Date End Date Odalis Hartman MD [address] [place] [phone] PCP - General Family Medicine 07/06/18 documented as of this encounter
--- OUTSIDE RECORDS SUMMARY | 2024-11-08 12:14 | XMS_ITS | Encounter Summary ---
Author Organization [employer] Address [address] [facility] [address] [facility] [address] 7[address] [place] [address] Care Team Providers Care Stitching Machine Setter Name Role Phone Odalis Hartman MD Primary Care Provider [phone] Reason for Visit * Reason Onset Date Comments ER Follow-up 11/01/2024 Encounter Details Date Type Department Care Team ([facility] st Contact Info) Description 11/01/2024 Telephone [facility] MED [facility] PEDS [address] [place] [address] Odalis Hartman MD [address] [place] [address] ER Follow-up Social History Tobacco Use Types [...] t he electric, gas, oil or water [employer] threatened to shut off services in your [...] the original note were not included. Per [facility] notes, all testing BW and EKG normal. [...] seen and questions Override Notes: Seen at [facility] ED Future Appointments Date Time Provider Department Center 11/03/2024 11:30 AM Nikolas Carballo MD [facility] Insurance verified as active per Real Time Eligibility in [employer]. Positive Triage Question: * Heart rhythm alert (e.g., you have irregular heartbeat ) from personal wearable device (e.g., [employer] Watch) * All higher-acuity triage questions were [...] Nurse6 hours ago (10:37 AM) Stacia Morales [facility] Med & Peds Nurses (supporting Odalis Hartman MD)6 hours ago(10:36 AM) XI Good morning. I use this medium because I can't contact outpatient receptionist. Last week I spoke with a [...] doctor so they could sendme to a unix system administrator and put in a device that would monitor the heart for longer. I wanted to know how to contact you to talk about this. I appreciate your help in advance. documented in this encounter Plan of Treatment Not on file documented as of this encounter Visit Diagnoses Not on filedocumented in this encounter Care Teams Stitching Machine Setter Relationship Specialty Start Date End Date Odalis Hartman MD [address] [place] [phone] PCP - General Family Medicine 07/06/18 documented as of this encounter
== END ==
LOC: HO.CARD 11:04
PROVIDERS: Visit Provider Internal Medicine
DX: R00.2 Palpitations (principal)
CPT/HCPCS: 93225

== ENCOUNTER → 2024-11-08 11:41 | Outpatient (BNV) | payer MEDICAID, SELFPAY | PROVIDERS: Visit Provider Internal Medicine | DX: R00.0 Tachycardia, unspecified (principal) | CPT/HCPCS: 93227 ==

== ENCOUNTER 2024-12-04 00:24 | Emergency (ER) | payer MEDICAID, SELFPAY ==
[2024-12-04 00:29] VITALS: BP 106/78; PULSE 126; RESP 16; TEMP 36.6; O2SAT 99; BMI 30.6
--- NOTE | 2024-12-04 00:34 | ECG_ITS ---
Test Reason : TACHY Blood Pressure : */* mmHG Vent. Rate : 122 BPM Atrial Rate : 122 BPM P-R Int : 130 ms QRS Dur : 64 ms QT Int : 276 ms P-R-T Axes : 69 67 -18 degrees QTcB Int : 393 ms Sinus tachycardia T wave abnormality, consider inferior ischemia Nonspecific ST and T wave abnormality Abnormal ECG No previous ECGs available Referred By: Generic ED Physician Electronically Signed By: TAYLOR ROMANO
[2024-12-04 00:54] LABS: Basophils Percent Auto 0.3 % (0-2); Eosinophils Absolute Auto 0.1 X10*3/uL (0.0-0.4); Eosinophils Percent Auto 0.5 % (0-4); Hematocrit 43.3 % (37.0-47.0); Hemoglobin 15.2 g/dl (12.0-16.0); Imm Gran Abs Auto 0.03 X10*3/uL (0.00-0.03); Imm Gran Pct Auto 0.3 % (0.0-0.4); Lymphocytes Absolute Auto 0.5 X10*3/uL (1.2-4.9); Lymphocytes Percent Auto 4.7 % (20-40); MANUAL DIFF FLAG NO; Mean Corpuscular HGB Conc 35.1 g/dl (31.0-35.0); Mean Corpuscular Volume 85.4 fL (80.0-98.0); Mean Platelet Volume 9.6 fL (9.4-12.3); Monocytes Absolute Auto 0.5 X10*3/uL (0.1-1.2); Monocytes Percent Auto 4.7 % (2-11); Neutrophils Absolute Auto 9.6 x10*3/uL (2.0-8.3); Neutrophils Percent Auto 89.5 % (45-73); Platelet Count 201 X10*3/uL (160-400); Red Blood Count 5.07 X10*6/uL (4.20-5.50); Red Cell Distribution Width 13.2 % (11.0-16.0); White Blood Count 10.7 X10*3/uL (4.8-10.8)
--- NOTE | 2024-12-04 00:55 | ED.ABDPAIN ---
HPI - Abdominal Pain General Chief Complaint: Abdominal Pain Stated Complaint: v/d/n Time Seen by Provider: 12/04/24 00:54 History of Present Illness ED Provider: Saman Minor MD HPI narrative: upper abd pain, n,v,d x 1 day. no sick contacts. Shes attributes sx to water she drank that was sitting out for a while. no fever, no gi bleeding. Related Data Home Medications ?Medication ?Instructions ?Recorded ?Confirmed clobetasol 0.05 % topical ointment topical BID 03/08/24 omeprazole 20 mg capsule,delayed 20 mg PO DAILY 05/12/24 release advil PO 05/13/24 Previous Rx's ?Medication ?Instructions ?Recorded ondansetron HCl 4 mg tablet 4 mg PO Q8H PRN nausea and 12/04/24 vomiting 3 days #7 tabs Allergies Allergy/AdvReac Type Severity Reaction Status Date / Time No Known Allergies Allergy Verified 12/04/24 00:31 [No Known Allergies*] PMFSH Past Medical History Medical History Vaginal mass Hx of migraines Kidney stones Surgical History Hx of lithotripsy Hx of lithotripsy S/P cystoscopy with ureteral stent placement Kidney calculus History of appendectomy Family History Family History (Updated 05/12/24 @ 14:24 by Janet Figueroa CMA) Mother Diabetes Father Hypertension Daughter No problems noted. Social History Social History Household Members: Spouse Household Members Other:: daughter Housing: Apartment Alcohol intake: never Patient Tobacco Use Status: Never used Tobacco Smoked in Last 30 Days: No Use of substances other than those prescribed or required for medical reasons: No Advance Directives: No Do you have a plan to hurt others: No Plan Patient : No Sexual orientation: Straight/Heterosexual Gender identity: Female Physical Exam ED Vital Signs: Vital Signs - 24 hr 12/04/24 00:29 12/04/24 02:00 12/04/24 02:00 Temperature 97.8 F 97.4 F 97.4 F Pulse Rate 126 H 104 H 104 H Respiratory Rate 16 18 18 Blood Pressure 106/78 108/67 108/67 Pulse Oximetry 99 99 99 Oxygen Delivery Method Room Air Room Air Room Air BMI result Body Mass Index 30.6 Const General: cooperative, healthy appearing, comfortable and no acute distress Resp Effort & Inspection: normal respiratory effort Auscultation: clear to auscultation bilaterally GI Inspection: Yes normal to inspection Percussion: Yes normal to percussion Auscultation: normal bowel sounds Const Constitutional General: cooperative, healthy appearing, comfortable and no acute distress Resp Effort & Inspection: normal respiratory effort Auscultation: clear to auscultation bilaterally GI Inspection (GI): normal to inspection Percussion: normal to percussion Auscultation: normal bowel sounds Medical Decision Making Medical Decision Making MDM Narrative: 29 F with non bloody nvd x <24 hrs. abd soft. no fever. no immunocompromise or recent abx. no indication for imaging. zofran, fluids, improved sx. suspect mild AGE poss viral. Lab Data 12/04/24 00:50 12/04/24 00:50 Labs: Lab Results 12/04/24 Range/Units 00:50 WBC 10.7 (4.8-10.8) X10*3/uL RBC 5.07 (4.20-5.50) X10*6/uL Hgb 15.2 (12.0-16.0) g/dl Hct 43.3 (37.0-47.0) % MCV 85.4 (80.0-98.0) fL MCH 30.0 (27.0-33.0) pg MCHC 35.1 H (31.0-35.0) g/dl RDW 13.2 (11.0-16.0) % Plt Count 201 (160-400) X10*3/uL MPV 9.6 (9.4-12.3) fL Immature Gran % (Auto) 0.3 (0.0-0.4) % Neut % (Auto) 89.5 H (45-73) % Lymph % (Auto) 4.7 L (20-40) % Mills % (Auto) 4.7 (2-11) % Eos % (Auto) 0.5 (0-4) % Baso % (Auto) 0.3 (0-2) % Lymph # (Auto) 0.5 L (1.2-4.9) X10*3/uL Mills # (Auto) 0.5 (0.1-1.2) X10*3/uL Eos # (Auto) 0.1 (0.0-0.4) X10*3/uL Baso # (Auto) 0.0 (0.0-0.2) X10*3/uL Abs Immat Gran (auto) 0.03 (0.00-0.03) X10*3/uL Absolute Neuts (auto) 9.6 H (2.0-8.3) x10*3/uL Absolute Nucleated RBC 0.000 (0.0-0.012) X10*3/uL Nucleated RBC % (auto) 0.0 (0.0-0.2) /100WBC Sodium 140 (135-145) mmol/L Potassium 4.2 (3.3-5.1) mmol/L Chloride 110 H (96-108) mmol/L Carbon Dioxide 21 L (22-29) mmol/L Anion Gap 13 (12-20) BUN 19 H (9-16) mg/dL Creatinine 0.82 (0.5-1.4) mg/dL Estim Creat Clear Calc 88.1 Estimated GFR > 60 Random Glucose 103 (60-115) mg/dL Calcium 9.4 (8.4-10.2) mg/dL Magnesium 1.8 (1.6-2.6) mg/dL Total Bilirubin 0.5 (0.0-1.0) mg/dL AST 26 (5-31) U/L ALT 21 (0-31) U/L Alkaline Phosphatase 63 (39-117) U/L Total Protein 8.1 H (6.5-8.0) g/dL Albumin 4.5 (3.5-5.0) g/dL Lipase 12 (8-78) U/L Medications Administered Discontinued Medications Generic Name Dose Route Start Last Admin Trade Name Freq PRN Reason Stop Dose Admin Dicyclomine HCl 10 mg 12/04/24 00:55 12/04/24 01:08 Dicyclomine Hcl 10 Mg Capsule PO 12/04/24 00:56 10 mg ONCE ONE Administration Sodium Chloride 1,000 mls @ 999 mls/hr 12/04/24 01:00 12/04/24 01:08 Ns IV 12/04/24 02:00 999 mls/hr .Q1H1M ROSANNA Administration Ondansetron HCl 4 mg 12/04/24 00:55 12/04/24 01:08 Ondansetron Hcl 4 Mg/2 Ml Vial IVPUSH 12/04/24 00:56 4 mg ONCE ONE Administration Discharge Plan Discharge Clinical Impression: Abdominal pain Patient Disposition: Home, Self-Care Instructions: Abdominal Pain (ED) Additional Instructions: DISCHARGE DIAGNOSES: Abdominal pain nausea vomiting and diarrhea of unclear cause HISTORY OF PRESENTATION: abdominal pain nausea vomiting diarrhea EMERGENCY DEPARTMENT COURSE,TESTS, TREATMENTS: While in the ED today you received intravenous fluid and intravenous nausea medicine, ondansetron. DISCHARGE MEDICATIONS: Ondansetron, nausea medicine prescribed your pharmacy FOLLOW-UP: Call your primary or general physician soon as possible to discuss your symptoms, your ED visit and to discuss follow up plans drink plenty of fluids avoid heavy spicy or greasy food for the next few days escalate your diet slowly start with things like soup or broth and toast INSTRUCTIONS & RETURN PRECAUTIONS: If any symptoms change first call your primary physician, if it is after-hours your primary doctors office should have a provider telephone interceptor operator you can speak with. If the symptoms are severe or very concerning to you then call 911 or return to the ED. Saman Minor MD Emergency Physician [facility] Prescriptions: New ondansetron HCl 4 mg tablet 4 mg PO Q8H PRN (Reason: nausea and vomiting) 3 Days Qty: 7 0RF No Action clobetasol 0.05 % ointment topical BID omeprazole 20 mg capsule,delayed release(DR/EC) 20 mg PO DAILY advil PO Interventions: ED Discharge Assessment Last Done: 12/04/24 02:00 Discharge Date/Time: 12/04/24 02:04 Print Language: Hebrew
[2024-12-04] MEDS: Dicyclomine HCl 10 MG CAPSULE PO (01:08)
[2024-12-04] MEDS: ondansetron HCL 4 MG/2 ML VIAL IVPUSH (01:08)
[2024-12-04] MEDS: 0.9 % Sodium Chloride 1,000 ML 999 ML IV (01:08)
[2024-12-04 01:10] LABS: Alanine Aminotransferase 21 U/L (0-31); Albumin Level 4.5 g/dL (3.5-5.0); Alkaline Phosphatase 63 U/L (39-117); Anion Gap 13 (12-20); Aspartate Amino Transferase 26 U/L (5-31); Bilirubin Total 0.5 mg/dL (0.0-1.0); Blood Urea Nitrogen 19 mg/dL (9-16); Calcium 9.4 mg/dL (8.4-10.2); Carbon Dioxide 21 mmol/L (22-29); Chloride 110 mmol/L (96-108); Creatinine Clr Calc Pharmacy 88.1; Estimated Glomerular Filt Rate > 60; Glucose Random 103 mg/dL (60-115); Lipase 12 U/L (8-78); Magnesium 1.8 mg/dL (1.6-2.6); Potassium 4.2 mmol/L (3.3-5.1); Sodium 140 mmol/L (135-145); Total Protein 8.1 g/dL (6.5-8.0)
--- NOTE | 2024-12-04 01:13 | PC.NURSE ---
Pt medicated per [facility] Plan of care ongoing.
[2024-12-04 02:00] VITALS: BP 108/67; PULSE 104; RESP 18; TEMP 36.3; O2SAT 99
== END 2024-12-04 02:04 | disposition home or self-care (01) ==
PROVIDERS: Emergency Provider Emergency Medicine; PCP Student in an Organized Health Care Education/Training Program
DX: R10.9 Unspecified abdominal pain (principal); R11.2 Nausea with vomiting, unspecified; R19.7 Diarrhea, unspecified; R00.0 Tachycardia, unspecified; Z79.899 Other long term (current) drug therapy
CPT/HCPCS: 36415; 80053; 83690; 83735; 85025; 93005; 96374; 99284; J2405

== ENCOUNTER → 2024-12-04 00:34 | Outpatient (BNV) | payer MEDICAID, SELFPAY | PROVIDERS: Emergency Provider Emergency Medicine; PCP Student in an Organized Health Care Education/Training Program; Visit Provider Internal Medicine | DX: R00.0 Tachycardia, unspecified (principal) | CPT/HCPCS: 93010 ==

== ENCOUNTER 2025-07-09 19:39 | Emergency (ER) | payer MEDICAID, SELFPAY ==
--- OUTSIDE RECORDS SUMMARY | 2025-07-04 10:45 | XMS_ITS | Encounter Summary ---
Author Organization [employer] Address [address] [facility] [address] [place] [address] Care Team Providers Care Road Sign Installer Name Role Phone Odalis Hartman MD Primary Care Provider [phone] Reason for Visit * Reason Comments Weight Check Encounter Details Date Type Department Care Team ([facility] Contact Info) Description 07/04/2025 10:45 AM EDT Telemedicine [facility] [address], [place] [id number] Odalis Hartman MD [address] [place] [address] Obesity without serious comorbidity in pediatric patient, unspecified obesity class, unspecified obesity type (Primary Dx) Social History Tobacco Use Types [...] Sign Reading Time Taken Comments Blood Pressure - - Pulse - - Temperature - - Respiratory Rate - - Oxygen Saturation - - Inhaled Oxygen Concentration - - Weight 59.9 kg (132 lb) 07/04/2025 10:21 AM EDT Height 152.4 cm (5') 07/04/2025 10:21 AM EDT Body Mass Index 25.78 07/04/2025 10:21 AM EDT documented in this encounter Progress Notes * Odalis Hartman MD - 07/04/2025 10:45 AM EDT Subjective Patient ID: Stacia Mackenzie is a 30 y.o. female who presents for Weight Check. Is here for weight follow up She is presently 132 lbs She is doing well No new Concenrns Review of Systems Constitutional: Negative. Respiratory: Negative. Negative for shortness of breath. Cardiovascular: Negative for chest pain and palpitations. Gastrointestinal: Negative. Genitourinary: Negative. Musculoskeletal: Negative for neck pain. Neurological: Negative for headaches. Objective Physical Exam Psychiatric: Mood and Affect: Mood normal. Behavior: Behavior normal. Thought Content: Thought content normal. Judgment: Judgment normal. Assessment/Plan Diagnoses and all orders for this visit: Obesity without serious comorbidity in pediatric patient, unspecified obesity class, unspecified obesity type Comments: Cont Zepbound at the same dose of 5mg Pt complaint with Vit D and Multivitamin intake Patient currently on pharmacotherapy to assist with management of her weight. Starting weight: 183 lb Current weight: 132 lb Review continue lifestyle modifications. Patient was titrated up to treatment dose. Tolerated titration well. Patient was transitioned to Zepbound given change in preferred agent by patient???s insurance and medication efficacy. Reviewed mechanism of action with patient. Discussed side effects with patient: nausea, vomiting, diarrhea & risk of pancreatitis. No contraindications identified: , hx of pancreatitis, hx of medullary thyroid cancer or MEN 2. Discussed calorie deficit, recommended reduction of 20-30% of maintenance calories; master control operator referral offered. Recommended to decrease soda and sugary beverage consumption. Recommended at least 20 g per meal of protein to assist with satiety. Recommended at least 150 min/week of moderate intensity exercise. Other orders - ibuprofen 800 MG tablet; Take 1 tablet (800 mg) by mouth 3 times daily. documented in this encounter Plan of Treatment Not on file documented as of this encounter Visit Diagnoses Diagnosis Obesity without serious comorbidity in pediatric patient, unspecified obesity class, unspecified obesity type- Primary documented in this encounter Care Teams Road Sign Installer Relationship Specialty Start Date End Date Odalis Hartman MD [address] [place] [id number] PCP - General Family Medicine 07/06/18 documented as of this encounter
--- NOTE | ~2025-07-09 | US_ITS ---
CLINICAL HISTORY: L sided pain; Free Pelvic Fluid on CT; R o Torsion US pelvis transabdominal and transvaginal with Doppler Comparison: None provided Findings: Transabdominal scanning performed for overall anatomy. Transvaginal scanning performed for additional detail. Retroverted uterus is 8 cm length. Normal myometrium. Endometrium 14 mm thickness. Right ovary 3.7 x 2 x 2.2 cm. Corpus luteal cyst measures up to 2.1 cm. Left ovary 3.1 x 1.8 x 2.4 cm. Normal color Doppler with arterial/venous spectral tracing of both ovaries. Moderate free fluid. IMPRESSION: 1. Unremarkable pelvic ultrasound with Doppler. No evidence of ovarian torsion. This document has been electronically signed by: Nixon Elkins MD, PHD on 07/10/2025 04:05:51
--- NOTE | ~2025-07-09 | CT_ITS ---
CLINICAL HISTORY: Left Flank Pain; Hx Kidney Stones CT abdomen and pelvis with contrast Comparison: CT/REG/SR - CT ABDOMEN PELVIS WITHOUT IV CONTRAST - 03/03/23 21:06 EDT Findings: The lung bases are clear. Asymmetric left breast tissue. There is a small accessory splenule. Liver, gallbladder, pancreas, and adrenal glands are within normal limits. No hydronephrosis. Symmetric contrast enhancement of the kidneys. No urolithiasis. No bowel obstruction, pneumoperitoneum, or pneumatosis. Appendix is not visualized. Mildly hyperdense fluid in the pelvis, possibly from a ruptured hemorrhagic ovarian cyst. Corpus luteum right ovary. Urinary bladder is underdistended. No acute fracture. IMPRESSION: Mildly hyperdense pelvic fluid, possibly from a ruptured hemorrhagic ovarian cyst. No hydronephrosis or urolithiasis. Asymmetric left breast tissue. Recommend mammogram for further evaluation. This document has been electronically signed by: Jeremie Lee MD on 07/10/2025 01:19:53
--- NOTE | 2025-07-09 19:43 | ED_ITS ---
HPI - General Adult General Chief complaint: Back Pain/Injury Stated complaint: Pain lt side back Time Seen by Provider: 07/09/25 22:05 Source: patient Mode of arrival: ambulatory Limitations: no limitations History of Present Illness ED Provider: Richard LOZADA HPI narrative: The patient is a 30-year-old female presenting to the ED for evaluation of left flank pain which began 10 days ago. Patient reports a extensive history of kidney stones, previously requiring lithotripsy and stenting. The patient reports no kidney stones in the past few years. Patient reports when the pain began it was not similar to her previous presentations of kidney stones, denies associated fever/chills, nausea, vomiting, dysuria, hematuria, hematochezia, melena, diarrhea, constipation, irregular vaginal bleeding, vaginal discharge, chest pain, shortness of breath, or cough. The patient denies any recent fall, car accident, or other blunt trauma, denies any recent sick contacts. The patient reports she attempted taking Motrin and Tylenol without relief, also took Flexeril to evaluate if it was possibly musculoskeletal in nature. Patient reports no improvement in symptoms, thus prompting ED evaluation. The patient reports history of appendectomy and previously described ureteral stents, denies other surgical abdominal history. Related Data Home Medications ?Medication ?Instructions ?Recorded ?Confirmed clobetasol 0.05 % topical ointment topical BID 4 omeprazole 20 mg capsule,delayed 20 mg PO DAILY release advil PO 05/13/24 Previous Rx's ?Medication ?Instructions ?Recorded ondansetron HCl 4 mg tablet 4 mg PO Q8H PRN nausea and 12/04/24 vomiting 3 days #7 tabs Allergies Allergy/AdvReac Type Severity Reaction Status Date / Time No Known Allergies (No Known Allergy Verified 07/09/25 19:46 Allergies*) Review of Systems 2 Review of Systems: Yes all other systems are reviewed and are negative PMFSH Past Medical History Medical History Vaginal mass Hx of migraines Kidney stones Surgical History Hx of lithotripsy Hx of lithotripsy S/P cystoscopy with ureteral stent placement Kidney calculus History of appendectomy Family History Family History (Updated 05/12/24 @ 14:24 by Janet Figueroa [facility]) Mother Diabetes Father Hypertension Daughter No problems noted. Social History Social History Household Members: Spouse Household Members Other:: daughter Housing: Apartment Alcohol intake: never Patient Tobacco Use Status: Never used Tobacco Advance Directives: No Advance Directives Information Provided: No Sexual orientation: Straight/Heterosexual Gender identity: Female Physical Exam ED Vital Signs: Vital Signs - 24 hr 07/09/25 19:44 07/10/25 03:04 Temperature 97.4 F 98.2 F Pulse Rate 82 71 Respiratory Rate 20 16 Blood Pressure 123/72 108/63 Pulse Oximetry 100 98 Oxygen Delivery Method Room Air Room Air BMI result Body Mass Index 25.8 CONSTITUTIONAL: The patient appears non-toxic, well nourished and in no acute distress. Vital signs as documented. HEAD: Atraumatic, normocephalic. EYES: EOMs grossly intact, pupils equal, conjunctiva clear, no exudate. ENT: Nares patent, no discharge. Airway patent, no audible stridor, visible mucosa is pink and moist without noted lesions. NECK: Trachea is midline, no obvious masses or gross abnormalities. CHEST: Symmetric movement, normal appearance. LUNGS: LS present and CTAB, no w/r/r. Non-labored work of breathing. CARDIAC: Regular Rhythm, S1/S2 appreciated, no murmurs, rubs or gallops. ABDOMEN: Abdomen soft x4 quadrants, there is mild tenderness to palpation of the left lower quadrant, negative rebound, negative guarding, no palpable masses or organomegaly. : Deferred. EXTREMITIES: Normal tone, moves all extremities spontaneously without reported pain. No obvious acute injury or deformity noted. NEURO: Alert and oriented x3, CN II-XII appear grossly intact. Cerebellar Functioning grossly intact. No obvious sensory or motor deficits. Speech clear and appropriate. PSYCH: normal affect, appropriate eye contact, fluid speech, with appropriate response to questioning. No reported suicidality or homicidality. SKIN: Warm, dry, color appropriate, normal turgor. No rashes noted. Course Course Course Narrative: This is a rapid medical exam performed by Víctor Toribio NP: Additional HPI, ROS, PE not included below will be deferred to primary provider. Patient is a 30y/o f presenting to the ED with c/o L back and flank pain for the past 10 days. Using ibuprofen, tylenol, flexeril without relief. Plan: labs, UA Medications Administered Discontinued Medications Generic Name Dose Route Start Last Admin Trade Name Basia PRN Reason Stop Dose Admin Acetaminophen 975 mg 07/10/25 03:05 07/10/25 03:31 Acetaminophen 325 Mg Tablet PO 07/10/25 03:06 975 mg ONCE ONE Administration Sodium Chloride 1,000 mls @ 999 mls/hr 07/09/25 23:30 07/10/25 00:56 Ns IV 07/10/25 00:30 Infused .Q1H1M ROSANNA Infusion Iohexol 100 ml 07/10/25 00:11 07/10/25 00:13 Iohexol 350 Mg/Ml 100 Ml Infus..Btl IV 07/10/25 00:12 85 ml ONCE ONE Administration Ketorolac Tromethamine 15 mg 07/09/25 23:30 07/09/25 23:59 Ketorolac Tromethamine 15 Mg/Ml Vial IVPUSH 07/09/25 23:31 15 mg ONCE ONE Administration Morphine Sulfate 4 mg 07/10/25 01:53 07/10/25 02:06 Morphine Sulfate 4 Mg/Ml Cartridge IVPUSH 07/10/25 01:54 4 mg ONCE ONE Administration Protocol Ondansetron HCl 4 mg 07/10/25 03:06 07/10/25 03:31 Ondansetron Hcl 4 Mg/2 Ml Vial IVPUSH 07/10/25 03:07 4 mg ONCE ONE Administration Medical Decision Making Medical Decision Making MDM Narrative: 11:35 PM 07/09/2025 (Tierney LOZADA): The patient is a 30-year-old female presenting to the ED for evaluation of left flank pain which began 10 days ago. Patient reports a extensive history of kidney stones, previously requiring lithotripsy and stenting. The patient reports no kidney stones in the past few years. Patient reports when the pain began it was not similar to her previous presentations of kidney stones, denies associated fever/chills, nausea, vomiting, dysuria, hematuria, hematochezia, melena, diarrhea, constipation, irregular vaginal bleeding, vaginal discharge, chest pain, shortness of breath, or cough. The patient denies any recent fall, car accident, or other blunt trauma, denies any recent sick contacts. The patient reports she attempted taking Motrin and Tylenol without relief, also took Flexeril to evaluate if it was possibly musculoskeletal in nature. Patient reports no improvement in symptoms, thus prompting ED evaluation. The patient reports history of appendectomy and previously described ureteral stents, denies other surgical abdominal history. The patient's exam reveals no CVAT, there is mild left lower quadrant tenderness without rebound or guarding. The patient's laboratory evaluation is reassuring, no leukocytosis, anemia, electrolyte abnormality, or YOVANA. The patient's LFTs are unremarkable. The patient's urinalysis shows no hematuria or infection. The patient's presentation does not appear consistent with her history of kidney stones, however given her tenderness we will obtain CT imaging to ensure no acute intra-abdominal pathology. Patient will be treated with IV fluid hydration and Toradol. Pending reassuring CT patient will be reassessed and we will likely be discharged with supportive care and outpatient follow up. 1:41 AM 07/10/2025 (Tierney LOZADA): The patient's CT has resulted and shows mildly hyperdense pelvic fluid possibly from a ruptured hemorrhagic ovarian cyst, there is no evidence of hydronephrosis or urolithiasis. There is also note made of asymmetric left breast tissue with the recommendation for nonemergent mammogram. We will send the patient for ultrasound to rule out ovarian pathology. 4:17 AM 07/10/2025 (Tierney LOZADA): Patient's ultrasound shows no evidence of ovarian torsion, no other acute pathology. The patient's pain over the past week is likely secondary to a ovarian cyst which recently ruptured causing increased pain. Admission/Observation Consideration of admission/observation: Escalation of care including admission/observation considered Lab Data MDM Lab Attestation statement: I reviewed the patient's lab results. 07/09/25 20:25 07/09/25 20:25 Labs: Lab Results 07/09/25 Range/Units 20:25 WBC 7.9 (4.8-10.8) X10*3/uL RBC 4.32 (4.20-5.50) X10*6/uL Hgb 12.6 (12.0-16.0) g/dl Hct 37.2 (37.0-47.0) % MCV 86.1 (80.0-98.0) fL MCH 29.2 (27.0-33.0) pg MCHC 33.9 (31.0-35.0) g/dl RDW 13.6 (11.0-16.0) % Plt Count 182 (160-400) X10*3/uL MPV 9.9 (9.4-12.3) fL Immature Gran % (Auto) 0.3 (0.0-0.4) % Neut % (Auto) 63.2 (45-73) % Lymph % (Auto) 27.3 (20-40) % [place] % (Auto) 5.8 (2-11) % Eos % (Auto) 3.0 (0-4) % Baso % (Auto) 0.4 (0-2) % Lymph # (Auto) 2.2 (1.2-4.9) X10*3/uL [place] # (Auto) 0.5 (0.1-1.2) X10*3/uL Eos # (Auto) 0.2 (0.0-0.4) X10*3/uL Baso # (Auto) 0.0 (0.0-0.2) X10*3/uL Abs Immat Gran (auto) 0.02 (0.00-0.03) X10*3/uL Absolute Neuts (auto) 5.0 (2.0-8.3) x10*3/uL Absolute Nucleated RBC 0.000 (0.0-0.012) X10*3/uL Nucleated RBC % (auto) 0.0 (0.0-0.2) /100WBC Sodium 138 (135-145) mmol/L Potassium 4.0 (3.3-5.1) mmol/L Chloride 110 H (96-108) mmol/L Carbon Dioxide 20 L (22-29) mmol/L Anion Gap 12 (12-20) BUN 7 L (9-16) mg/dL Creatinine 0.69 (0.5-1.4) mg/dL Estim Creat Clear Calc 95.5 Estimated GFR > 60 Random Glucose 92 (60-115) mg/dL Calcium 9.0 (8.4-10.2) mg/dL Total Bilirubin 0.3 (0.0-1.0) mg/dL AST 21 (5-31) U/L ALT 16 (0-31) U/L Alkaline Phosphatase 61 (39-117) U/L Total Protein 6.7 (6.5-8.0) g/dL Albumin 4.2 (3.5-5.0) g/dL Beta HCG, Quant < 2 mIU/mL Urine Color Yellow Urine Appearance Cloudy Urine pH 7.0 (5.0-9.0) Ur Specific [place] 1.020 (1.005-1.025) Urine Protein Negative (Neg-Trace) mg/dL Urine Glucose (UA) Negative (Negative) mg/dL Urine Ketones Negative (Negative) mg/dL Urine Blood Negative (Negative) Urine Nitrite Negative (Negative) Ur Leukocyte Esterase Negative (Negative) Radiology Impression Discussion of test interpretation with radiology: I have reviewed the radiologist's reading. Radiologist Impression: CT abdomen and pelvis with contrast Comparison: CT/REG/SR - CT ABDOMEN PELVIS WITHOUT IV CONTRAST - 03/03/23 21:06 EDT Findings: The lung bases are clear. Asymmetric left breast tissue. There is a small accessory splenule. Liver, gallbladder, pancreas, and adrenal glands are within normal limits. No hydronephrosis. Symmetric contrast enhancement of the kidneys. No urolithiasis. No bowel obstruction, pneumoperitoneum, or pneumatosis. Appendix is not visualized. Mildly hyperdense fluid in the pelvis, possibly from a ruptured hemorrhagic ovarian cyst. Corpus luteum right ovary. Urinary bladder is underdistended. No acute fracture. IMPRESSION: Mildly hyperdense pelvic fluid, possibly from a ruptured hemorrhagic ovarian cyst. No hydronephrosis or urolithiasis. Asymmetric left breast tissue. Recommend mammogram for further evaluation. This document has been electronically signed by: Jeremie Lee MD on 07/10/2025 01:19:53 US pelvis transabdominal and transvaginal with Doppler Comparison: None provided Findings: Transabdominal scanning performed for overall anatomy. Transvaginal scanning performed for additional detail. Retroverted uterus is 8 cm length. Normal myometrium. Endometrium 14 mm thickness. Right ovary 3.7 x 2 x 2.2 cm. Corpus luteal cyst measures up to 2.1 cm. Left ovary 3.1 x 1.8 x 2.4 cm. Normal color Doppler with arterial/venous spectral tracing of both ovaries. Moderate free fluid. IMPRESSION: 1. Unremarkable pelvic ultrasound with Doppler. No evidence of ovarian torsion. This document has been electronically signed by: Nixon Elkins MD, PHD on 07/10/2025 04:05:51 Prescription Management I considered prescription management with: Pain Medication and Antibiotic Discharge Plan Discharge Clinical Impression: Rupture of ovarian cyst Patient Disposition: Home, Self-Care Instructions: Ovarian Cyst (ED) Additional Instructions: Svitlana por elegir el Departamento de Urgencias del [facility] [place] para lombardi atenci?n m?dica hoy. Afortunadamente, lombardi evaluaci?n de laboratorio, tomograf?a computarizada, an?lisis de orina, ecograf?a y examen de hoy son tranquilizadores. En nisa momento, no hay indicaci?n de ingreso hospitalario ni de observaci?n continua en urgencias, y es seguro darle de terrance. Lombardi tomograf?a computarizada y an?lisis de orina no mostraron evidencia de c?lculos renales ni infecci?n renal o del tracto urinario. Lombardi evaluaci?n de laboratorio no muestra evidencia de infecci?n sist?brit. Lombardi ecograf?a no muestra evidencia de torsi?n ov?scar. Sin embargo, lombardi tomograf?a computarizada s? mostr? evidencia de l?quido en la pelvis, compatible con un quiste ov?rico probablemente roto recientemente. El dolor que flynn tenido jim la ?ltima semana podr?a deberse a un quiste ov?rico que se flynn roto recientemente y le flynn causado un aumento del dolor. El l?quido del quiste roto ser? reabsorbido por lombardi cuerpo en los pr?ximos d?as. Debe continuar tomando dosis alternas (escalonadas) de ibuprofeno 600 mg y Tylenol 1000 mg cada 4 horas seg?n sea necesario para cualquier dolor adicional. Mant?ngase sara hidratado y descanse lo suficiente. Consulte con lombardi m?dico de cabecera o ginec?logo para olivier reevaluaci?n, un manejo adicional de delores s?ntomas y atenci?n preventiva continua. Si no tiene un m?dico de cabecera, llame a [facility] al [phone] para asignarle un nuevo m?dico de cabecera. Mientras espera asignarle un nuevo m?dico de cabecera, puede llamar a nuestra Cl?chuck de Atenci?n Sin Erin Previa al [phone] para necesidades que no ana cristina de emergencia. Regrese al servicio de urgencias si presenta un cambio grave o repentino en delores s?ntomas, fiebre superior a 38 ?C que no mejora con Tylenol o ibuprofeno, v?mitos recurrentes o cualquier otro s?ntoma o inquietud nuevo o que empeore. Thank you for choosing [facility]'s Emergency Department for your care today. Thankfully your laboratory evaluation, CT, urinalysis, ultrasound, and exam today are reassuring. At this time there is no indication for admission to the hospital or continued ED observation, and it is safe to discharge you home. Your CT and urinalysis showed no evidence of a kidney stone or infection of your kidney/urinary tract. Your laboratory evaluation shows no evidence of a systemic infection. Your ultrasound shows no evidence of a ovarian torsion. Your CT did however show evidence of fluid in your pelvis consistent with a likely recently ruptured ovarian cyst. Your pain over the past week may have been due to a ovarian cyst which has recently ruptured and caused increased pain. The fluid from your ruptured cyst we will be reabsorbed by your body over the next few days. You should continue taking alternating (staggered) doses of ibuprofen 600mg and Tylenol 1000mg every 4 hours as needed for any additional pain. Please stay well hydrated and get plenty of rest. Please follow up with your primary care physician and/or OBGYN for re- evaluation, additional management of your symptoms, and continued preventative care. If you do not have a primary care physician, please call the [facility] at [phone] to establish a new primary care physician. While waiting to establish your new primary care physician, you can call our Walk-in Care [facility] at [phone] for non-emergency needs. Please return to the emergency department if you develop a severe or sudden change in your symptoms, a fever over 100.4 that does not improve with Tylenol or Ibuprofen, recurrent vomiting, or any other new or worsening symptoms or concerns. Prescriptions: No Action ondansetron HCl 4 mg tablet 4 mg PO Q8H PRN (Reason: nausea and vomiting) 3 Days Qty: 7 0RF clobetasol 0.05 % ointment topical BID omeprazole 20 mg capsule,delayed release(DR/EC) 20 mg PO DAILY advil PO Referrals: Odalis Hartman MD [Primary Care Provider, Internal Medicine] Clinical Impression: Rupture of ovarian cyst Stand Alone Forms: Work/School Release Print Language: Tajik
[2025-07-09 19:44] VITALS: BP 123/72; PULSE 82; RESP 20; TEMP 36.3; O2SAT 100; BMI 25.8
[2025-07-09 20:35] LABS: MANUAL DIFF FLAG NO
[2025-07-09 20:38] LABS: Appearance Urine Cloudy; Glucose Urine UA Negative (Negative); PH 7.0 (5.0-9.0); Specific Gravity - Urine 1.020 (1.005-1.025)
[2025-07-09 20:47] LABS: Hematocrit 37.2 % (37.0-47.0); Hemoglobin 12.6 g/dl (12.0-16.0); Imm Gran Abs Auto 0.02 X10*3/uL (0.00-0.03); Imm Gran Pct Auto 0.3 % (0.0-0.4); Lymphocytes Absolute Auto 2.2 X10*3/uL (1.2-4.9); Mean Corpuscular HGB Conc 33.9 g/dl (31.0-35.0); Mean Corpuscular Hemoglobin 29.2 pg (27.0-33.0); Mean Corpuscular Volume 86.1 fL (80.0-98.0); NRBC Abs Auto 0.000 X10*3/uL (0.0-0.012); NRBC Pct Auto 0.0 /100WBC (0.0-0.2); Platelet Count 182 X10*3/uL (160-400); Red Blood Count 4.32 X10*6/uL (4.20-5.50); White Blood Count 7.9 X10*3/uL (4.8-10.8)
--- OUTSIDE RECORDS SUMMARY | 2025-07-09 21:07 | XMS_ITS | Encounter Summary ---
Author Organization [employer] Address [address] [facility] [address] [place] [address] Care Team Providers Care Electrician Helper Automotive Name Role Phone Odalis Hartman MD Primary Care Provider Reason for Visit * Reason Onset Date Comments Nurse Triage 10/24/2024 Encounter Details Date Type Department Care Team ([facility] Contact Info) Description 10/24/2024 Telephone C [facility] [address] [place] [address] Odalis Hartman MD [address] [place] [address] Nurse Triage Social History Tobacco Use Types [...] t he electric, gas, oil or water [employer] [facility] threatened to shut off services in your [...] 4:26 PM [place] [id number] [place] [id number]. Pt reports episode of rapid heart beat/palpitations [...] advised if is concerned may come to [facility] open till 8pm this evening and [...] on filedocumented in this encounter Care Teams Electrician Helper Automotive Relationship Specialty Start Date End Date Odalis Hartman MD [address] [place] [id number] PCP - General Family Medicine 07/06/18 documented as of this encounter
--- OUTSIDE RECORDS SUMMARY | 2025-07-09 21:07 | XMS_ITS | Encounter Summary ---
Author Organization [email or web address] Address [address] [facility] [address] [place] [address] Care Team Providers Care Non Food Receiving Clerk Name Role Phone Odalis Hartman MD Primary Care Provider [phone] Reason for Visit * Reason Onset Date Comments PA 11/28/2024 Encounter Details Date Type Department Care Team ([facility] Contact Info) Description 11/28/2024 Telephone C [facility] [address] [place], [place] [phone] Odalis Hartman MD [address] [place] [address] PA Social History Tobacco Use Types Packs/Day Years [...] the past 12 months, has t he [email or web address], oil or water [employer] threatened to shut off services in your [...] encounter Miscellaneous Notes * Telephone Encounter - Juanita Sands - 11/28/2024 9:38 AM EDT Tc from pt calling to inform a PA is needed for medication Tirzepatide-Weight Management (Zepbound)2.5 MG/0.5ML solution auto-injector . Also would like to know if pcp can increase dose. documented in this encounter Plan of Treatment Not on file documented as of this encounter Visit Diagnoses Not on filedocumented in this encounter Care Teams Non Food Receiving Clerk Relationship Specialty Start Date End Date Odalis Hartman MD [address] [place] [id number] PCP - General Family Medicine 07/06/18 documented as of this encounter
--- OUTSIDE RECORDS SUMMARY | 2025-07-09 21:07 | XMS_ITS | Encounter Summary ---
Author Organization [employer] Address [address] [facility] [address] [place] [address] Care Team Providers Care Prepress Stripper Name Role Phone Odalis Hartman MD Primary Care Provider [phone] Reason for Visit * Reason Onset Date Comments Prior Authorization 06/28/2025 Encounter Details Date Type Department Care Team ([facility] st Contact Info) Description 06/28/2025 Telephone [facility] [address] [place] [address] Odalis Hartman MD [address] [place] [address] Prior Authorization Social History Tobacco Use Types Packs/Day Years [...] the past 12 months, has t he [employer], gas, oil or water company threatened to [...] encounter Miscellaneous Notes * Telephone Encounter - Julia Ledesma LPN - 07/05/2025 1:39 PM EDT Pa generated and faxed to ----- Message from Odalis Hartman MD sent at 07/04/2025 10:27 AM EDT ----- Cont Zepbound at 5mg * Telephone Encounter - Gio Cai - 06/28/2025 9:38 AM EDT Tc from pt requesting a call back verify status on PA for Zepbound. Please contact pt at [phone]. (English Speaker) documented in this encounter Plan of Treatment Not on file documented as of this encounter Visit Diagnoses Not on filedocumented in this encounter Care Teams Prepress Stripper Relationship Specialty Start Date End Date Odalis Hartman MD [address] [place] [id number] PCP - General Family Medicine 07/06/18 documented as of this encounter
--- OUTSIDE RECORDS SUMMARY | 2025-07-09 21:07 | XMS_ITS | Encounter Summary ---
Author Organization [email or web address] Address [address] [place] [address] 7t [place] [address] Care Team Providers Care Lumber Driver Name Role Phone Odalis Hartman MD Primary Care Provider [phone] Reason for Visit * Reason Comments Med Refill Encounter Details Date Type Department Care Team ([facility] Contact Info) Description 04/13/2023 Refill [facility] CHC MED & PEDS [address] [place], [place] [phone] Marva Herrera MD [address] [place] [address] Perioral dermatitis Social History Tobacco Use Types [...] Rosacea documented in this encounter Care Teams Lumber Driver Relationship Specialty Start Date End Date Odalis Hartman MD [address] [place] [address] PCP - General Family Medicine 07/06/18 documented as of this encounter
--- OUTSIDE RECORDS SUMMARY | 2025-07-09 21:07 | XMS_ITS | Encounter Summary ---
Demographics Address [address] [place] [address] [address] [place] [address] Home Phone Work Phone Email Address Preferred Language es Marital Status Pentecostalism Affiliation Unknown Race Other Race Ethnic Group Unknown Author Organization [employer] Address [address] [place] [address] Care Team Providers Care Etiquette Coach Name Role Phone Odalis Hartman MD Primary Care Provider [phone] Encounter Details Date Type Department Care Team ([facility] Contact Info) Description 07/05/2025 Orders Only [facility] CHC MED & PEDS [address] [place] [address] Odalis Hartman MD [address] [place] [address] Social History Tobacco Use Types Packs/Day Years [...] on filedocumented in this encounter Care Teams Etiquette Coach Relationship Specialty Start Date End Date Odalis Hartman MD [address] [place] [address] PCP - General Family Medicine 07/06/18 documented as of this encounter
--- OUTSIDE RECORDS SUMMARY | 2025-07-09 21:07 | XMS_ITS ---
Author Name [facility] Organization Unknown Care Team Organization Name Specialty Phone Email Start Date End Da te [facility] ([facility])
--- OUTSIDE RECORDS SUMMARY | 2025-07-09 21:07 | XMS_ITS | Encounter Summary ---
Author Organization [employer] Address [address] 7[address] [place] [address] Care Team Providers Care Night Clerk Auditor Name Role Phone Odalis Hartman MD Primary Care Provider [phone] Encounter Details Date Type Department Care Team (Latest Contact Info) Description 07/04/2025 Travel Social History Tobacco Use Types Packs/Day [...] on filedocumented in this encounter Care Teams Night Clerk Auditor Relationship Specialty Start Date End Date Odalis Hartman MD [address] [place] [address] PCP - General Family Medicine 07/06/18 documented as of this encounter
--- OUTSIDE RECORDS SUMMARY | 2025-07-09 21:07 | XMS_ITS | Clinical Summary ---
Author Organization [employer] Address [address] [place] [address] 7t [place] [address] Care Team Providers Care Instruction Assistant Principal Name Role Phone Odalis Hartman MD Primary Care Provider [phone] Allergies No known active allergies Medications omeprazole OTC (PriLOSEC OTC) 20 MG EC tablet Take 1 tablet by mouth. 09/11/20 20 Active minocycline 100 MG capsuleIndicat ions:Perioral dermatitis TAKE 1 CAPSULE BY MOUTH TWICE A DAY 60 capsule 01/06/20 24 Active clobetasol (Temovate) 0.05 % ointment Apply topically 2 times daily. 30 g 02/23/20 24 Active omeprazole (PriLOSEC) [address] capsule TAKE 1 CAPSULE (20 MG) BY MOUTH ONCE PER DAY. DO NOT CRUSH OR CHEW. 90 capsule 06/13/20 24 Active ibuprofen 800 MG tablet Take 1 tablet (800 mg) by mouth 3 times daily. 90 tablet 07/04/20 25 025 Active Tirzepatide-We ight Management (Zepbound) 5 MG/0.5ML solution auto-injector Inject 0.5 mL (5 mg) under the skin every 7 (seven) days. 2 mL 2 07/05/20 25 Active Tirzepatide-We ight Management (Zepbound) 2.5 MG/0.5ML solution auto-injector Inject 0.5 mL (2.5 mg) under the skin 1 (one) time per week. 2 mL 3 09/07/20 24 025 Discontinued Zepbound 5 MG/0.5ML solution auto-injector INJECT 5 MG UNDER THE SKIN ONE TIME PER WEEK 2 mL 2 03/29/20 25 025 Discontinued(Re order (will not trigger notification to Pharmacy)) Active Problems Problem Noted Date Diagnosed Date Kidney stone 01/21/2023 Gastroesophageal reflux disease without esophagi tis 01/21/2023 Encounters Date Type Department Care Team Description 07/05/[address] [facility] CHC MED & PEDS [address] [place] [address] Odalis Hartman MD 07/04/2025 10:[address] [facility] CHC MED & PEDS [address] [place] [address] Odalis Hartman MD Obesity without serious comorbidity in pediatric patient, unspecified obesity class, unspecified obesity type (Primary Dx) 07/04/2025 Travel 06/28/[address] [facility] MEDICINE [address] [place] [address] Odalis Hartman MD Prior Authorization from Last 3 Months Immunizations Immunization Administration Dates Next Due HPV 9-Valent 01/11/2018,09/23/2017,07/21/2017 [...] Sign Reading Time Taken Comments Blood Pressure 108/80 12/13/2024 10:58 AM EDT Pulse 82 12/13/2024 10:58 AM EDT Temperature 36.7 C (98 F) 12/13/2024 10:58 AM EDT Respiratory Rate 18 12/13/2024 10:58 AM EDT Oxygen Saturation 98% 04/19/2024 10:06 AM EDT Inhaled Oxygen Concentration - - Weight 59.9 kg (132 lb) 07/04/2025 10:21 AM EDT Height 152.4 cm (5') 07/04/2025 10:21 AM EDT Body Mass Index 25.78 07/04/2025 10:21 AM EDT Plan of Treatment Health Maintenance Due Date Last Done Comments Depression Screening 1995 HIV Screening 1994 Disability Screening 1994 Hepatitis B Vaccines (2 of 3 - 3-dose series) 1994 1994 Alcohol/Substance Use Screening 2006 Family Planning (PISQ) 2009 DTaP/Tdap/Td Vaccines (1 - Tdap) 2013 HPV/Cotest 2024 SDOH Screening 04/12/2025 04/12/2024 COVID-19 Vaccine (3 - 2024-2 6 season) 2025 09/23/2021, 08/31/2021 Influenza Vaccine (#1) 2025 Tobacco Screening 12/13/2025 12/13/2024 Cervical Cancer Screening 02/22/2027 Pap Smear 02/22/2027 [...] age to complete this topic Meningococcal B Vaccine Aged Out No l onger eligible based on patient's age to complete this topic Meningococcal Vaccine Aged Out No shane florinda eligible based on patient's age to complete this topic Pneumococcal Vaccine: Pediatrics (0 to 5 Years) and At-Risk Patients (6 to 49) Years Aged Out No longer eligible b ased [...] EDT Benign paroxysmal positional vertigo, unspecified laterality JessicaZZ HISTORICAL HEPATITIS C ANTIBODY Routine 10/04/2019 4:35 PM EST from Last 3 Months or Most Recently Relevant to Health Maintenance Results * Pap Smear (02/23/2024 1:44 PM EDT) Swab Cervix uteri structure / Unknown 02/23/2024 1:44 PM EDT 02/24/2024 9:15 AM EDT [facility] - 03/20/2024 3:43 PM EDT ----- ------- Name: Stacia Agudelo Age/Sex: 28/F : 1995 Unit#: [id number] Attend Dr: DACIA LUNA Re02/23/24 Status: DEP REF Location: [facility] Disch: ----- ------- SPEC : [id number] RECD: 02/24/24 STATUS: SOPHIE CONNELLY NUM: [id number] FERCHO: 02/23/24-[address] [facility] [address]: DACIA LUNA [facility] ENTERED: 02/24/24-1013 SP TYPE: Pap Smr GAURAV DR: ORDERED: Pap Smear Interpretation Satisfactory for evaluation. Negative for intraepithelial lesion or malignancy. Clinical Information LMP: 01/25/2024 Previous PAP test: Unknown date/findings Material Received ThinPrep-Cervical ----- ------- Signed (signature on file) Moon Sheridan 03/20/24 1543 ----- ------- END OF REPORT Dacia STARKEY LAB CYTOLOGY ORDERABLES F inal Result [facility] [address] [place] [address] [phone] * Lipid Panel, Standard (01/21/2023 10:41 AM EDT) Cholesterol, Total 158 <200 mg/dL [facility] HDL Cholesterol 58 > OR = 50 mg/dL [facility] Triglycerides 94 <150 mg/dL [facility] LDL Cholesterol 81 mg/dL (calc) [facility] [employer] Comment: Reference range: <100 Desirable range <100 mg/dL for primary prevention; <70 mg/dL for patients with CHD or diabetic patients with > or = 2 CHD risk factors. LDL-C is now calculated using the Edgar-Jones calculation, which is a validated novel method providing better accuracy than the Friedewald equation in the estimation of LDL-C. Edgar SS et al. SUZANNE. 2013;310(19): 7094-6210 (http://education.SpringSource/faq/EKR857) Chol/HDLC Ratio 2.7 <5.0 (calc) [facility] Non-HDL Cholesterol 100 <130 mg/dL (calc) [facility] Comment: For patients with diabetes plus 1 major ASCVD risk factor, treating to a non-HDL-C goal of <100 mg/dL (LDL-C of <70 mg/dL) is considered a therapeutic option. Blood Venous blood specimen / Unknown 01/21/2023 10:41 AM EDT 01/21/2023 10:42 AM EDT Narrative [facility] - 01/22/2023 7:34 AM EDT FASTING:YES FASTING: YES Odalis Hartman MD LAB BLOOD ORDERABLES Final Resul t [facility] [address], [place] [address] [facility] [address] [place] [address] * HEPATITIS C ANTIBODY (10/04/2019 4:35 PM EST) HEPATITIS C ANTIBODY NONREACTIVE NONREACTIVE [facility] Comment: Antibodies to HCV not detected; does not exclude early acute HCV infection. 10/04/2019 4:35 PM EST us Sheryl Coburn HISTORICAL/NON ORDERABLE LABS Fi nal Result [facility] Anywhere [address] from Last 3 Months or Most Recently Relevant to Health Maintenance Insurance [facility] C3 Care Teams Instruction Assistant Principal Relationship Specialty Start Date End Date Odalis Hartman MD [address] [place] [address] PCP - General Family Medicine 07/06/18
--- OUTSIDE RECORDS SUMMARY | 2025-07-09 21:07 | XMS_ITS | Encounter Summary ---
Author Organization [employer] Address [address] 7t [place] [address] Care Team Providers Care Communication Professor Name Role Phone Odalis Hartman MD Primary Care Provider [phone] Reason for Visit * Reason Onset Date Comments Med Change Request 06/06/2024 Encounter Details Date Type Department Care Team ([facility] st Contact Info) Description 06/06/2024 Telephone [facility] MEDICINE [address] [place] [address] Odalis Hartman MD [address] [place] [address] Med Change Request Social History Tobacco Use Types Packs/Day Years Used Date Smoking Tobacco: Never Smokeless Tobacco: Never Alcohol Use Standard Drinks/Week Comments Never 0 (1 standard drink = 0.6 oz pur e alcohol) Housing Stability Answer Date Recorded What is your housing situation today? I have michale ramakrishna 04/12/[address] you [...] the past 12 months, has t he [place], gas, oil or water company threatened to [...] call regarding prior message. Contact pt at [phone] (bermudian) * Telephone Encounter - Sukhjinder Mackenzie - 06/06/2024 12:07 PM EDT Tc from patient calling in regards to the Semaglutide-Weight Management (Wegovy) 0.25 MG/0.5ML solution auto-injector states it was suppose to be increased for .50 to .75 documented in this encounter Plan of Treatment Not on file documented as of this encounter Visit Diagnoses Not on filedocumented in this encounter Care Teams Communication Professor Relationship Specialty Start Date End Date Odalis Hartman MD [address] [place] [address] PCP - General Family Medicine 07/06/18 documented as of this encounter
--- OUTSIDE RECORDS SUMMARY | 2025-07-09 21:07 | XMS_ITS | Encounter Summary ---
Author Organization [employer] Address [address] [place] [address] Care Team Providers Care Family Practice Doctor Name Role Phone Odalis Hartman MD Primary Care Provider [phone] Reason for Visit * Reason Onset Date Comments Returning Call 04/12/2024 Encounter Details Date Type Department Care Team ([facility] Contact Info) Description 04/12/2024 Telephone [facility] MEDICINE [address] [place] [address] Odalis Hartman MD [address] [place] [address] Returning Call Social History Tobacco Use Types [...] t he electric, gas, oil or water [employer] threatened to shut off services in your [...] on filedocumented in this encounter Care Teams Family Practice Doctor Relationship Specialty Start Date End Date Odalis Hartman MD [address] [place] [address] PCP - General Family Medicine 07/06/18 documented as of this encounter
[2025-07-09 21:14] LABS: Alanine Aminotransferase 16 U/L (0-31); Albumin Level 4.2 g/dL (3.5-5.0); Alkaline Phosphatase 61 U/L (39-117); Anion Gap 12 (12-20); Aspartate Amino Transferase 21 U/L (5-31); Blood Urea Nitrogen 7 mg/dL (9-16); Calcium 9.0 mg/dL (8.4-10.2); Carbon Dioxide 20 mmol/L (22-29); Chloride 110 mmol/L (96-108); Creatinine Clr Calc Pharmacy 95.5; Estimated Glomerular Filt Rate > 60; Potassium 4.0 mmol/L (3.3-5.1); Sodium 138 mmol/L (135-145); Total Protein 6.7 g/dL (6.5-8.0)
[2025-07-10] MEDS: iohexoL 350 MG/ML 100 ML INFUS..BTL IV (00:13)
--- NOTE | 2025-07-10 01:54 | PC.NURSE ---
patient reports pain remains 5/10 after receiving toradol ivp per nov. KIERRA Ramos made aware and per Richard LOZADA verbal order, 4mg IVP Morphine ordered.
[2025-07-10 03:04] VITALS: BP 108/63; PULSE 71; RESP 16; TEMP 36.8; O2SAT 98
[2025-07-10 04:45] VITALS: BP 108/73; PULSE 74; RESP 16; TEMP 36.8; O2SAT 98
== END 2025-07-10 04:46 | disposition home or self-care (01) ==
PROVIDERS: Registered Nurse Emergency; Emergency Provider Student in an Organized Health Care Education/Training Program; PCP Student in an Organized Health Care Education/Training Program
DX: N83.299 Other ovarian cyst, unspecified side (principal); R10.A2 Flank pain, left side; Z87.442 Personal history of urinary calculi
CPT/HCPCS: 36415; 74177; 76830; 76856; 80053; 81003; 84702; 85025; 93975; 96361; 96374; 96375; 99285; J1885; J2270; J2405; Q9967

== ENCOUNTER → 2025-07-10 | Outpatient (BNV) | payer MEDICAID, SELFPAY | PROVIDERS: Emergency Provider Student in an Organized Health Care Education/Training Program; PCP Student in an Organized Health Care Education/Training Program; Visit Provider Radiology Diagnostic Radiology | DX: R10.22 Pelvic and perineal pain left side (principal) | CPT/HCPCS: 93975 ==

== ENCOUNTER 2025-07-20 13:41 | Outpatient (REF) | payer MEDICAID, SELFPAY ==
--- OUTSIDE RECORDS SUMMARY | 2025-07-20 17:24 | XMS_ITS | Encounter Summary ---
Author Organization [employer] Address [address] [place] [address] [address] [place] [address] Care Team Providers Care Shredder Picker Name Role Phone Odalis Hartman MD Primary Care Provider [phone] Lexy Benitez CNP Primary Care Provider [phone] Reason for Visit * Reason Onset Date Comments Nurse Triage 10/24/2024 Encounter Details Date Type Department Care Team ([facility] st Contact Info) Description 10/24/2024 Telephone [facility] MED & PEDS [address] [place] [address] Odalis Hartman MD [address] [place] [address] Nurse Triage Social History Tobacco Use Types [...] 4:26 PM EST [place] [id number] and [place] [id number]. Pt reports episode of rapid heart beat/palpitations [...] advised if is concerned may come to [facility] open till 8pm this evening and provider [...] on filedocumented in this encounter Care Teams Shredder Picker Relationship Specialty Start Date End Date Odalis Hartman MD [address] [place] [id number] PCP - General Family Medicine 07/06/18 07/18/25 Lexy Benitez CNP [address] [place] [id number] PCP - General Family Medicine 07/19/25 documented as of this encounter
--- OUTSIDE RECORDS SUMMARY | 2025-07-20 17:24 | XMS_ITS | Encounter Summary ---
Author Organization [employer] Address [address] [place] [address] Care Team Providers Care Geothermal Technician Name Role Phone Odalis Hartman MD Primary Care Provider [phone] Lexy Benitez CNP Primary Care Provider [phone] Reason for Visit * Reason Onset Date Comments Med Change Request 06/06/2024 Encounter Details Date Type Department Care Team ([facility] st Contact Info) Description 06/06/2024 Telephone [facility] [address] [place] [address] Odalis Hartman MD [address] [place] [address] Med Change Request Social History Tobacco Use [...] call regarding prior message. Contact pt at [phone] (burundian) * Telephone Encounter - Sukhjinder Mackenzie - 06/06/2024 12:07 PM EDT Tc from patient calling in regards to the Semaglutide-Weight Management (Wegovy) 0.25 MG/0.5ML solution auto-injector states it was suppose to be increased for .50 to .75 documented in this encounter Plan of Treatment Not on file documented as of this encounter Visit Diagnoses Not on filedocumented in this encounter Care Teams Geothermal Technician Relationship Specialty Start Date End Date Odalis Hartman MD [address] [place] [id number] PCP - General Family Medicine 07/06/18 07/18/25 Lexy Benitez CNP [address] [place] [id number] PCP - General Family Medicine 07/19/25 documented as of this encounter
--- OUTSIDE RECORDS SUMMARY | 2025-07-20 17:24 | XMS_ITS | Encounter Summary ---
Author Organization [employer] Address [address] [facility] [address] [place] [address] Care Team Providers Care Unix Engineer Name Role Phone Odalis Hartman MD Primary Care Provider [phone] Lexy Benitez CNP Primary Care Provider [phone] Reason for Visit * Reason Onset Date Comments PA 11/28/2024 Encounter Details Date Type Department Care Team ([facility] st Contact Info) Description 11/28/2024 Telephone [facility] CH[facility] MED & PEDS [address] [place] [address] Odalis Hartman MD [address] [place] [address] PA Social History Tobacco Use Types Packs/Day [...] on filedocumented in this encounter Care Teams Unix Engineer Relationship Specialty Start Date End Date Odalis Hartman MD [address] [place] [id number] PCP - General Family Medicine 07/06/18 07/18/25 Lexy Benitez CNP [address] [place] [id number] PCP - General Family Medicine 07/19/25 documented as of this encounter
--- OUTSIDE RECORDS SUMMARY | 2025-07-20 17:24 | XMS_ITS | Encounter Summary ---
Author Organization [employer] Address [address] [place] [address] Care Team Providers Care Sales Service Professional Name Role Phone Odalis Hartman MD Primary Care Provider [phone] Lexy Benitez CNP Primary Care Provider [phone] Reason for Visit * Reason Onset Date Comments Returning Call 04/12/2024 Encounter Details Date Type Department Care Team ([facility] st Contact Info) Description 04/12/2024 Telephone [facility] [address] [place] [address] Odalis Hartman MD [address] [place], [place] [id number] Returning Call Social History Tobacco Use Types [...] Miscellaneous Notes * Telephone Encounter - Gio Cai - 04/12/2024 1:12 PM EDT Tc from [...] on filedocumented in this encounter Care Teams Sales Service Professional Relationship Specialty Start Date End Date Odalis Hartman MD [address] [place] [address] PCP - General Family Medicine 07/06/18 07/18/25 Lexy Benitez CNP [address] [place] [address] PCP - General Family Medicine 07/19/25 documented as of this encounter"
--- OUTSIDE RECORDS SUMMARY | 2025-07-20 17:24 | XMS_ITS | Clinical Summary ---
Author Organization [employer] Address [address] [place] [address] Care Team Providers Care Video Camera Operator Name Role Phone Emmanuel Rahanthony FRANCIS Primary Care Provider [phone] Allergies No known active allergies Medications omeprazole [...] days. 2 mL 2 07/05/20 25 Active meloxicam (Mobic) 7.5 MG tablet Take 1 tablet (7.5 mg) by mouth Once per day. 30 tablet 11 07/12/20 25 026 Active Tirzepatide-We ight Management (Zepbound) 2.5 MG/0.5ML solution auto-injector Inject 0.5 mL (2.5 mg) under the skin 1 (one) time per week. 2 mL 3 12/18/20 24 025 Discontinued Zepbound 5 MG/0.5ML solution auto-injector INJECT 5 MG UNDER THE SKIN ONE TIME PER WEEK 2 mL 2 03/29/20 25 025 Discontinued(Re order (will not trigger notification to Pharmacy)) Active Problems Problem Noted Date Diagnosed Date Kidney stone 01/21/2023 Gastroesophageal reflux disease without esophagi tis 01/21/2023 Encounters Date Type Department Care Team Description 07/12/2025 9:30 AM EDT Office Visit [facility] [address] [place] [address] Odalis Hartman MD Cyst of left ovary (Primary Dx) 07/11/2025 Telephone [facility] [address] [place] [address] Odalis Hartman MD ED visit 07/11/2025 Travel 07/10/2025 Orders Only [facility] [address] [place] [address] Odalis Hartman MD Mass of left breast, unspecified quadrant (Primary Dx) 07/10/2025 Results Follow-Up [facility] [address] [place] [address] Odalis Hartman MD US Pelvis Transvaginal, CT Abdomen Pelvis w/ Contrast 07/09/2025 Orders Only GENERIC EXTERNAL DATA DEPARTMENT Provider, Generic External Data 07/05/2025 Orders Only [facility] [address] [place] [address] Odalis Hartman MD 07/04/2025 10:45 AM EDT Telemedicine [facility] [address] [place] [address] Odalis Hartman MD Obesity without serious comorbidity in pediatric patient, unspecified obesity class, unspecified obesity type (Primary Dx) 07/04/2025 Travel 06/28/2025 Telephone [facility] [address] [place] [address] Odalis Hartman MD Prior Authorization from Last [...] Sign Reading Time Taken Comments Blood Pressure 119/71 07/12/2025 9:52 AM EDT Pulse 82 07/12/2025 9:52 AM EDT Temperature 36.6 C (97.8 F) 07/12/2025 9:52 AM EDT Respiratory Rate 16 07/12/2025 9:52 AM EDT Oxygen Saturation 98% 04/19/2024 10:06 AM EDT Inhaled Oxygen Concentration - - Weight 61.2 kg (135 lb) 07/12/2025 9:52 AM EDT Height 152.4 cm (5') 07/12/2025 9:52 AM EDT Body Mass Index 26.37 07/12/2025 9:52 AM EDT Plan of Treatment Health Maintenance Due Date Last Done Comments Depression Screening 1995 HIV Screening 1995 Hepatitis B Vaccines (2 of 3 - 3-dose series) 1994 1994 Family Planning (PISQ) 2009 DTaP/Tdap/Td Vaccines (1 - Tdap) 2013 HPV/Cotest 2024 SDOH Screening 04/12/2025 04/12/2024 Influenza Vaccine (#1) 2026 Postp oned from 05/22/2025 (Patient Refused) Alcohol/Substance Use Screening 07/12/2026 07/12/2025 COVID-19 Vaccine (3 - 2024-2 6 season) 2026 09/23/2021, 08/31/2021 Postponed from 05/22/2025 (Patient Refused) Disability Screening 07/12/2026 07/12/2025 Tobacco Screening 07/12/2026 07/12/2025 Cervical Cancer Screening 02/22/2027 Pap Smear 02/22/2027 [...] Procedure Name Priority Date/Time Associated Diagnosis Comments US PELVIC OVARIAN DOPPLER Routine 07/10/2025 4:05 AM EDT US PELVIS TRANSVAGINAL Routine 4:[address] ABDOMEN PELVIS W CONTRAST Routine 07/10/2025 1:19 AM EDT HCG, TOTAL, QN Routine 07/09/2025 8:25 PM EDT COMPREHENSIVE METABOLIC PANEL Routine 07/09/2025 8:25 PM EDT CBC WITH AUTO DIFFERENTIAL Routine 07/09/2025 8:25 PM EDT URINALYSIS WITH REFLEX MICROSCOPIC Routine 07/09/2025 8:25 PM EDT PAP SMEAR Routine 02/23/2024 1:44 PM EDT Cervical cancer screening LIPID PANEL, STANDARD Routine 01/21/2023 10:41 AM EDT Benign paroxysmal positional vertigo, unspecified laterality ZZZ HISTORICAL HEPATITIS C ANTIBODY Routine 10/04/2019 4:35 PM EST from Last 3 Months or Most Recently Relevant to Health Maintenance Results * US PELVIC OVARIAN DOPPLER (07/10/2025 4:05 AM EDT) Anatomical Region Laterality Modality Abdomen Ultrasound 07/10/2025 4:05 AM EDT Narrative 07/13/2025 11:15 AM EDT [address] [address] Ultrasound Report Signed Patient: Stacia Agudelo MR#: [id number] : 1995 Acct:[id number] Age/Sex: 30 / F ADM Date: 07/09/25 Loc: HO.ED Attending Dr: Ordering Physician: Richard Vaughn PA-C Date of Service: 07/10/25 Procedure(s): US pelvic ovarian doppler Accession Number(s): [id number] cc: Richard Vaughn PA-C; Odalis Hartman MD Reason for Exam: Left Sided Pain; Free Fluid on CT CLINICAL HISTORY: L sided pain; Free Pelvic Fluid on CT; R o Torsion US pelvis transabdominal and transvaginal with Doppler Comparison: None provided Findings: Transabdominal scanning performed for overall anatomy. Transvaginal scanning performed for additional detail. Retroverted uterus is 8 cm length. Normal myometrium. Endometrium 14 mm thickness. Right ovary 3.7 x 2 x 2.2 cm. Corpus luteal cyst measures up to 2.1 cm. Left ovary 3.1 x 1.8 x 2.4 cm. Normal color Doppler with arterial/venous spectral tracing of both ovaries. Moderate free fluid. IMPRESSION: 1. Unremarkable pelvic ultrasound with Doppler. No evidence of ovarian torsion. This document has been electronically signed by: Nixon Elkins MD, PHD on 07/10/2025 04:05:51 Dictated By: Nixon Elkins MD Signed By: <Electronically signed by Nixon Elkins MD in OV> 07/13/25 1114 DD/ TD/TT: 07/10/25404 Agile Project Manager: Procedure Note Donotuseinterpreter, Image - 07/13/2025 [place] [address] Ultrasound Report Signed Patient: Stacia Agudelo GMR#: [id number] : 1995Acct:[id number] Age/Sex: 30 / FADM Date: 07/09/25 Loc: .ED Attending Dr: Ordering Physician: Richard Vaughn PA-C Date of Service: 07/10/25 Procedure(s): US pelvic ovarian doppler Accession Number(s): [id number] cc: Richard Vaughn PA-C; Odalis Hartman MD Reason for Exam: Left Sided Pain; Free Fluid on CT CLINICAL HISTORY: L sided pain; Free Pelvic Fluid on CT; R o Torsion US pelvis transabdominal and transvaginal with Doppler Comparison: None provided Findings: Transabdominal scanning performed for overall anatomy. Transvaginal scanning performed for additional detail. Retroverted uterus is 8 cm length. Normal myometrium. Endometrium 14 mm thickness. Right ovary 3.7 x 2 x 2.2 cm. Corpus luteal cyst measures up to 2.1 cm. Left ovary 3.1 x 1.8 x 2.4 cm. Normal color Doppler with arterial/venous spectral tracing of both ovaries. Moderate free fluid. IMPRESSION: 1. Unremarkable pelvic ultrasound with Doppler. No evidence of ovarian torsion. This document has been electronically signed by: Nixon Elkins MD, PHD on 07/10/2025 04:05:51 Dictated By: Nixon Elkins MD Signed By: <Electronically signed by Nixon Elkins MD in OV> 07/13/25 1114 DD/ TD/TT: 07/10/25404 Agile Project Manager: us [facility] External Provider IMG US PROCEDURES Edited Result - Final * US Pelvis Transvaginal (07/10/2025 4:05 AM EDT) Anatomical Region Laterality Modality Pelvis Ultrasound 07/10/2025 4:05 AM EDT Narrative 07/10/2025 4:07 AM EDT [place] [address] Ultrasound Report Signed Patient: Stacia Agudelo MR#: [id number] : 1995 Acct:[id number] Age/Sex: 30 / F ADM Date: 07/09/25 Loc: HO.ED Attending Dr: Ordering Physician: Richard Vaughn PA-C Date of Service: 07/10/25 Procedure(s): US pelvic and transvaginal Accession Number(s): [id number] cc: Richard Vaughn PA-C; Odalis Hartman MD Reason for Exam: L sided pain; Free Pelvic Fluid on CT; R/o Torsion CLINICAL HISTORY: L sided pain; Free Pelvic Fluid on CT; R o Torsion US pelvis transabdominal and transvaginal with Doppler Comparison: None provided Findings: Transabdominal scanning performed for overall anatomy. Transvaginal scanning performed for additional detail. Retroverted uterus is 8 cm length. Normal myometrium. Endometrium 14 mm thickness. Right ovary 3.7 x 2 x 2.2 cm. Corpus luteal cyst measures up to 2.1 cm. Left ovary 3.1 x 1.8 x 2.4 cm. Normal color Doppler with arterial/venous spectral tracing of both ovaries. Moderate free fluid. IMPRESSION: 1. Unremarkable pelvic ultrasound with Doppler. No evidence of ovarian torsion. This document has been electronically signed by: Nixon Elkins MD, PHD on 07/10/2025 04:05:51 Dictated By: Nixon Elkins MD Signed By: <Electronically signed by Nixon Elkins MD in OV> 07/10/25405 DD/ 4 TD/TT: 07/10/25404 Agile Project Manager: Procedure Note Donotuseinterpreter, Image - 07/10/2025 [place] [address] Ultrasound Report Signed Patient: Stacia Agudelo GMR#: [id number] : 1995Acct:[id number] Age/Sex: 30 FADM Date: 07/09/25 Loc: HO.ED Attending Dr: Ordering Physician: Richard Vaughn PA-C Date of Service: 07/10/25 Procedure(s): US pelvic and transvaginal Accession Number(s): [id number] cc: Richard Vaughn PA-C; Odalis Hartman MD Reason for Exam: L sided pain; Free Pelvic Fluid on CT; R/o Torsion CLINICAL HISTORY: L sided pain; Free Pelvic Fluid on CT; R o Torsion US pelvis transabdominal and transvaginal with Doppler Comparison: None provided Findings: Transabdominal scanning performed for overall anatomy. Transvaginal scanning performed for additional detail. Retroverted uterus is 8 cm length. Normal myometrium. Endometrium 14 mm thickness. Right ovary 3.7 x 2 x 2.2 cm. Corpus luteal cyst measures up to 2.1 cm. Left ovary 3.1 x 1.8 x 2.4 cm. Normal color Doppler with arterial/venous spectral tracing of both ovaries. Moderate free fluid. IMPRESSION: 1. Unremarkable pelvic ultrasound with Doppler. No evidence of ovarian torsion. This document has been electronically signed by: Nixon Elkins MD, PHD on 07/10/2025 04:05:51 Dictated By: Nixon Elkins MD Signed By: <Electronically signed by Nixon Elkins MD in OV> 07/10/25405 DD/ 4 TD/TT: 07/10/25404 Agile Project Manager: us [facility] External Provider IMG US PROCEDURES Final Result * CT Abdomen Pelvis w/ Contrast (07/10/2025 1:19 AM EDT) Anatomical Region Laterality Modality Body, Pelvis, Abdomen Computed T omography 07/10/2025 1:19 AM EDT Narrative 07/10/2025 1:21 AM EDT [place] [address] CT Scan Report Signed Patient: Stacia Agudelo MR#: [id number] : 1995 Acct:[id number] Age/Sex: 30 / F ADM Date: 07/09/25 Loc: HO.ED Attending Dr: Ordering Physician: Richard Vaughn PA-C Date of Service: 07/10/25 Procedure(s): CT abdomen pelvis w IV con Accession Number(s): [id number] cc: Richard Vaughn PA-C; Odalis Hartman MD Report Number: [id number]: Total DLP = 468.00 mGy-cm Reason for Exam: Left Flank Pain; Hx Kidney Stones CLINICAL HISTORY: Left Flank Pain; Hx Kidney Stones CT abdomen and pelvis with contrast Comparison: CT/REG/SR - CT ABDOMEN PELVIS WITHOUT IV CONTRAST - 03/03/23 21:06 EDT Findings: The lung bases are clear. Asymmetric left breast tissue. There is a small accessory splenule. Liver, gallbladder, pancreas, and adrenal glands are within normal limits. No hydronephrosis. Symmetric contrast enhancement of the kidneys. No urolithiasis. No bowel obstruction, pneumoperitoneum, or pneumatosis. Appendix is not visualized. Mildly hyperdense fluid in the pelvis, possibly from a ruptured hemorrhagic ovarian cyst. Corpus luteum right ovary. Urinary bladder is underdistended. No acute fracture. IMPRESSION: Mildly hyperdense pelvic fluid, possibly from a ruptured hemorrhagic ovarian cyst. No hydronephrosis or urolithiasis. Asymmetric left breast tissue. Recommend mammogram for further evaluation. This document has been electronically signed by: Jeremie Lee MD on 07/10/2025 01:19:53 Dictated By: Jeremie Lee MD Signed By: <Electronically signed by Jeremie Lee MD in OV> 07/10/250 DD/ 8 TD/TT: 07/10/25118 Agile Project Manager: Procedure Note Donotuseinterpreter, Image - 07/10/[address] [place] [address] [address] Scan Report Signed Patient: Stacia Agudelo GMR#: [id number] : 1995Acct:[id number] Age/Sex: 30 FADM Date: 07/09/25 Loc: HO.ED Attending Dr: Ordering Physician: Richard Vaughn PA-C Date of Service: 07/10/25 Procedure(s): CT abdomen pelvis w IV con Accession Number(s): [id number] cc: Richard Vaughn PA-C; Odalis Hartman MD Report Number: [id number]: Total DLP = 468.00 mGy-cm Reason for Exam: Left Flank Pain; Hx Kidney Stones CLINICAL HISTORY: Left Flank Pain; Hx Kidney Stones CT abdomen and pelvis with contrast Comparison: CT/REG/SR - CT ABDOMEN PELVIS WITHOUT IV CONTRAST - 03/03/23 21:06 EDT Findings: The lung bases are clear. Asymmetric left breast tissue. There is a small accessory splenule. Liver, gallbladder, pancreas, and adrenal glands are within normal limits. No hydronephrosis. Symmetric contrast enhancement of the kidneys. No urolithiasis. No bowel obstruction, pneumoperitoneum, or pneumatosis. Appendix is not visualized. Mildly hyperdense fluid in the pelvis, possibly from a ruptured hemorrhagic ovarian cyst. Corpus luteum right ovary. Urinary bladder is underdistended. No acute fracture. IMPRESSION: Mildly hyperdense pelvic fluid, possibly from a ruptured hemorrhagic ovarian cyst. No hydronephrosis or urolithiasis. Asymmetric left breast tissue. Recommend mammogram for further evaluation. This document has been electronically signed by: Jeremie Lee MD on 07/10/2025 01:19:53 Dictated By: Jeremie Lee MD Signed By: <Electronically signed by Jeremie Lee MD in OV> 07/10/25119 DD/ 8 TD/TT: 07/10/25118 Agile Project Manager: [facility] External Provider IMG CT PROCEDURES Edited Result - Final * CBC auto differential (07/09/2025 8:25 PM EDT) White Blood Count 7.9 4.8 - 10.8 X10*3/uL [facility] Red Blood Count 4.32 4.20 - 5.50 X10*6/uL [facility] Hemoglobin 12.6 12.0 - 16.0 g/dl [facility] Hematocrit 37.2 37.0 - 47.0 % [facility] Mean Corpuscular Volume 86.1 80.0 - 98.0 fL [facility] Mean Corpuscular Hemoglobin 29.2 27.0 - 33.0 pg [facility] Mean Corpuscular HGB Conc 33.9 31.0 - 35.0 g/dl [facility] Red Cell Distribution Width 13.6 11.0 - 16.0 % [facility] Platelet Count 182 160 - 400 X10*3/uL [facility] Mean Platelet Volume 9.9 9.4 - 12.3 fL [facility] Neutrophils Percent Auto 63.2 45 - 73 % [facility] Imm Gran Pct Auto 0.3 0.0 - 0.4 % [facility] Lymphocytes Percent Auto 27.3 20 - 40 % [facility] Monocytes Percent Auto 5.8 2 - 11 % [facility] Eosinophils Percent Auto 3.0 0 - 4 % [facility] Basophils Percent Auto 0.4 0 - 2 % [facility] NRBC Pct Auto 0.0 0.0 - 0.2 /100WBC [facility] Neutrophils Absolute Auto 5.0 2.0 - 8.3 x10*3/uL [facility] Imm Gran Abs Auto 0.02 0.00 - 0.03 X10*3/uL [facility] Lymphocytes Absolute Auto 2.2 1.2 - 4.9 X10*3/uL [facility] Monocytes Absolute Auto 0.5 0.1 - 1.2 X10*3/uL [facility] Eosinophils Absolute Auto 0.2 0.0 - 0.4 X10*3/uL [facility] Basophils Absolute Auto 0.0 0.0 - 0.2 X10*3/uL [facility] NRBC Abs Auto 0.000 0.0 - 0.012 X10*3/uL [facility] 07/09/2025 8:25 PM EDT 07/09/2025 8:29 PM EDT us Generic External Data Provider LAB BLOOD ORDERAB LES Final Result [facility] [address] [place] [phone] * Urinalysis w/reflex microscopic (07/09/2025 8:25 PM EDT) Color Urine Yellow [facility] Appearance Urine Cloudy [facility] PH 7.0 5.0 - 9.0 [facility] Glucose Urine UA Negative Negative mg/dL [facility] Urine Blood Negative Negative [facility] Specific [place] - Urine 1.020 1.005 - 1.025 [facility] Urine Protein Negative Neg-Trace mg/dL [facility] Urine Ketones Negative Negative mg/dL [facility] Nitrite Urine Negative Negative [facility] Leukocyte Esterase Urine Negative Negative [facility] 07/09/2025 8:25 PM EDT 07/09/2025 8:29 PM EDT Narrative [facility] - 07/09/2025 8:38 PM EDT Urine, Clean Catch Generic External Data Provider LAB URINE ORDERAB LES Final Result Performing Organization Address [facility] Co de Phone Number [facility] [address] [place] [phone] * hCG, Total, Quantitative (07/09/2025 8:25 PM EDT) Pathologist [facility] HCG Quantitative <2 mIU/mL [facility] Comment:Weeks post LMP Appro ximate hCG(Last Menstrual Period) Range (mIU/ml)3 - 4 weeks 9 - 1304 - 5 weeks 75 - 2,6005 - 6 weeks 850 - 20,8006 - 7 weeks 4000 - 100,2007 - 12 weeks 11,500 - 289,78480 - 16 weeks 18,300 - 137,57096 - 29 weeks (2nd trimester) 1,400 - 53,76488 - 41 weeks (3rd trimester) 940 - 60,000The Vences B- hCG assay is used for the early detection ofpregnancy; it cannot be used to diagnose any conditionunrelated to . If a B-hCG level is not supportedby the clinical evidence, results should be confirmed by analternative method (qualitative urine hCG, for example). 07/09/2025 8:25 PM EDT 07/09/2025 8:29 PM EDT Generic External Data Provider LAB BLOOD ORDERAB LES Final Result Performing Organization Address City/[facility] Co de Phone Number [facility] [address] [place] [address] [phone] * (ABNORMAL) Comprehensive Metabolic Panel (07/09/2025 8:25 PM EDT) Pathologist [facility] Sodium 138 135 - 145 mmol/L [facility] Potassium 4.0 3.3 - 5.1 mmol/L [facility] Chloride 110(H) 96 - 108 mmol/L [facility] Carbon Dioxide 20(L) 22 - 29 mmol/L [facility] Anion Gap 12 12 - 20 [facility] Urea Nitrogen (BUN) 7(L) 9 - 16 mg/dL [facility] Creatinine, Serum 0.69 0.5 - 1.4 mg/dL [facility] Creatinine Clr Calc Pharmacy 95.5 [facility] Comment:Provided height and weight: 152.4 cm,59.874 kg.eGFR (calculated from the MDRD study equation) and eCrCl(calculated from the Cockcroft-Gault equation) are based ondifferent parameters and may not yield comparable results.If eCrCl result is absurd, please check patient'sheight/weight. Estimated Glomerular Filt Rate >60 [facility] Comment:Chronic Kidney Disea se: Estimated GFR < 60 mL/min/1.94a6Sraqzb Kidney Disease: Estimated GFR < 15 mL/min/1.73m2 Glucose 92 60 - 115 mg/dL [facility] Calcium 9.0 8.4 - 10.2 mg/dL [facility] Bilirubin, Total 0.3 0.0 - 1.0 mg/dL [facility] Aspartate Amino Transferase 21 5 - 31 U/L [facility] Alanine Aminotransferase 16 0 - 31 U/L [facility] Total Protein 6.7 6.5 - 8.0 g/dL [facility] Albumin Level 4.2 3.5 - 5.0 g/dL [facility] Alkaline Phosphatase 61 39 - 117 U/L [facility] 07/09/2025 8:25 PM EDT 07/09/2025 8:29 PM EDT us Generic External Data Provider LAB BLOOD ORDERAB LES Final Result [facility] [address] [place] [phone] [phone] * Pap Smear (02/23/2024 1:44 PM EDT) Swab Cervix uteri structure / Unknown 02/23/2024 1:44 PM EDT 02/24/2024 9:15 AM EDT Narrative [facility] - 03/20/2024 3:43 PM EDT ----- ------- Name: Stacia Agudelo Age/Sex: 28/F : 1995 Unit#: [id number] Attend Dr: ENA LUNA CNM Re02/23/24 Status: DEP REF Location: HO.HHCLNP Disch: ----- ------- SPEC : [id number] RECD: 02/24/24-914 STATUS: SOPHIE CONNELLY NUM: [id number] FERCHO: 02/23/24-[address]: ENA LUNA CNM ENTERED: 02/24/24-1013 SP TYPE: Pap Sung NOLASCO DR: ORDERED: Pap Smear Interpretation Satisfactory for evaluation. Negative for intraepithelial lesion or malignancy. Clinical Information LMP: 01/25/2024 Previous PAP test: Unknown date/findings Material Received ThinPrep-Cervical ----- ------- Signed (signature on file) Moon Sheridan 03/20/24 1543 ----- ------- END OF REPORT us Ena Luna [facility] LAB CYTOLOGY ORDERABLES F inal Result [facility] [address] [place] [phone] * Lipid Panel, Standard (01/21/2023 10:41 AM EDT) Cholesterol, Total 158 <200 mg/dL [facility] HDL Cholesterol 58 > OR = 50 mg/dL [facility] Triglycerides 94 <150 mg/dL [facility] LDL Cholesterol 81 mg/dL (calc) [facility] Comment: Reference range: <100 Desirable range <100 mg/dL for primary prevention; <70 mg/dL for patients with CHD or diabetic patients with > or = 2 CHD risk factors. LDL-C is now calculated using the Edgar-Karen calculation, which is a validated novel method providing better accuracy than the Friedewald equation in the estimation of LDL-C. Edgar CRUZ et al. SUZANNE. 2013;310(19): 8443-9844 (http://education.Sparks.Spot formerly PlacePop/faq/BAB361) Chol/HDLC Ratio 2.7 <5.0 (calc) [facility] Non-HDL Cholesterol 100 <130 mg/dL (calc) [facility] Comment: For patients with diabetes plus 1 major ASCVD risk factor, treating to a non-HDL-C goal of <100 mg/dL (LDL-C of <70 mg/dL) is considered a therapeutic option. Blood Venous blood specimen / Unknown 01/21/2023 10:41 AM EDT 01/21/2023 10:42 AM EDT Narrative [facility] - 01/22/2023 7:34 AM EDT FASTING:YES FASTING: YES us Odalis Hartman MD LAB BLOOD ORDERABLES Final Resul t [facility] [address], [place] [address] [facility] [address] [place] [phone] * HEPATITIS C ANTIBODY (10/04/2019 4:35 PM EST) [facility] HEPATITIS C ANTIBODY NONREACTIVE NONREACTIVE [facility] Comment: Antibodies to HCV not detected; does not exclude early acute HCV infection. 10/04/2019 4:35 PM EST us Sheryl Coburn HISTORICAL/NON ORDERABLE LABS Fi nal Result [facility] [address] from Last 3 Months or Most Recently Relevant to Health Maintenance Insurance [facility] C3 Care Teams Video Camera Operator Relationship Specialty Start Date End Date Lexy Benitez CNP [address] [place] [phone] PCP - General Family Medicine 07/19/25
--- OUTSIDE RECORDS SUMMARY | 2025-07-20 17:24 | XMS_ITS | Encounter Summary ---
Author Organization [employer] Address [address] [place] [address] [address] [place] [address] Care Team Providers Care Fit Model Name Role Phone Odalis Hartman MD Primary Care Provider [phone] Lexy Benitez CNP Primary Care Provider [phone] Reason for Visit * Reason Comments Med Refill Encounter Details Date Type Department Care Team ([facility] st Contact Info) Description 04/13/2023 Refill [facility] [address] [place] [address] Marva Herrera MD [address] [place] [address] Perioral dermatitis Social History Tobacco Use Types [...] Rosacea documented in this encounter Care Teams Fit Model Relationship Specialty Start Date End Date Odalis Hartman MD [address] [place] [phone] PCP - General Family Medicine 07/06/18 07/18/25 Lexy Benitez CNP [address] [place] [phone] PCP - General Family Medicine 07/19/25 documented as of this encounter
[2025-07-21 01:43] LABS: Bacterial Vaginosis PCR NEGATIVE (Negative); Candida Group PCR NOT DETECTED (Not Detect); Candida glab krusei PCR DETECTED (Not Detect); Trichomonas vaginalis PCR NOT DETECTED (Not Detect)
[2025-07-21 02:14] LABS: CT PCR NOT DETECTED (Not Detect.); NG PCR NOT DETECTED (Not Detect.)
== END 2025-07-20 13:42 | disposition home or self-care (01) ==
LOC: HO.LNP 13:41
PROVIDERS: PCP Student in an Organized Health Care Education/Training Program; Visit Provider Advanced Practice Midwife
DX: N83.10 Corpus luteum cyst of ovary, unspecified side (principal); R10.20 Pelvic and perineal pain unspecified side; Z32.02 Encounter for pregnancy test, result negative
CPT/HCPCS: 81003; 81025; 81515; 87491; 87591; 99212

== ENCOUNTER 2025-07-20 13:41 | Outpatient (AMB) | payer MEDICAID, SELFPAY ==
--- NOTE | 2025-07-20 13:52 | A.OFFVIS_ITS ---
Vital Signs 07/20/25 13:53 Height 5 ft Weight 132 lb BMI 25.8 BP 100/66 Intake Visit Reasons: ER follow up Ground Host/Hostess Required: Yes Ground Host/Hostess Language: Studio [employer] Builder Name: Maisha [id number] Information Interpreted: non-clinical & clinical Allergies No Known Allergies (No Known Allergies*) Allergy (Verified 07/20/25 13:52) Is last menstrual period known: Yes Last menstrual period: 07/16/25 HPI Comments Details: For a follow up pelvic pain recent visit in the ED revealed the ruptured ovarian, she reports her discomfort is improving. Admits to having pain with intimacy and pain worse with her cycle, usually feeling pain throughout the month prior to this finding. Current condom use, prefers not to be any control. UPT is negative today. Currently has her menses. PFS Medical History Vaginal mass Hx of migraines Kidney stones Surgical History Hx of lithotripsy Hx of lithotripsy S/P cystoscopy with ureteral stent placement Kidney calculus History of appendectomy Family History Mother Diabetes Father Hypertension Daughter No problems noted. Social History Household Members: Spouse Household Members Other:: daughter Housing: Apartment Alcohol intake: never Patient Tobacco Use Status: Never used Tobacco Sexual orientation: Straight/Heterosexual Gender identity: Female Female Reproductive History Menstrual Age of Menarche: 11 Date of last menstrual period: 07/16/25 Review of Systems Const All systems reviewed & are unremarkable except as noted in HPI and below Physical Exam Vital Signs: Last Vital Signs BP 100/66 07/20/25 13:53 BMI result Body Mass Index 25.8 Const General: cooperative, healthy appearing and no acute distress Orientation/consciousness: patient oriented x3 GI Inspection: Yes normal to inspection Palpation (GI): Soft to palpation and Other GI palpation findings present (Nontender) Rectal Exam - Female: visual inspection normal General: Yes bladder normal to palpation External Female Exam: normal appearance of the urethra Speculum Exam - Vagina: normal appearance of the vagina, normal palpation, normal vaginal discharge and vaginal bleeding Speculum Exam - Cervix: normal appearance of the cervix and normal palpation Bimanual exam- vagina & uterus: normal bimanual exam, normal palpation, uterine size normal, bladder normal to palpation, normal palpation, uterine shape normal and non-tender Bimanual Exam- Adnexa, other: normal adnexae and tender (Slight) on the right OB/external & speculum: vaginal bleeding Neuro General: patient oriented x3 Results AMB Urinalysis, Automated UA Leukoctes 0.5 Russell/uL Last Edit by Carrol Saleh January on 07/20/25 14:2 4 UA Nitrite Negative Last Edit by Carrol Saleh [facility] on 07/20/25 14:24 UA Urobilinogen 0 mg/dL Last Edit by Carrol Saleh January on 07/20/25 14:2 4 UA Protein 0.5 mg/dL Last Edit by Carrol Saleh [facility] on 07/20/25 14:24 UA pH 5.5 Last Edit by Carrol Saleh January on 07/20/25 14:24 UA Blood 3 Cory/uL Last Edit by Carrol Saleh [facility] on 07/20/25 14:24 UA Specific [place] 1.025 Last Edit by Carrol Saleh January on 07/20/25 14:24 UA Ketone Negative Last Edit by Carrol Saleh January on 07/20/25 14:24 UA Bilirubin 0 mg/dL Last Edit by Carrol Saleh January on 07/20/25 14:24 UA Glucose 0 mg/dL Last Edit by Carrol Saleh [facility] on 07/20/25 14:24 AMB Test Urine AMB Test Urine Negative Last Edit by Carrol Saleh [facility] on 07/20/25 14:24 Results Reviewed Results Reviewed: [address] [address] Ultrasound Report Signed Patient: Stacia Agudelo MR#: [id number] : 1995 Acct:[id number] Age/Sex: 30 / F ADM Date: 07/09/25 Loc: HO.ED Attending Dr: Ordering Physician: Richard Vaughn PA-C Date of Service: 07/10/25 Procedure(s): US pelvic ovarian doppler Accession Number(s): [id number] cc: Richard Vaughn PA-C; Odalis Hartman MD~ Reason for Exam: Left Sided Pain; Free Fluid on CT CLINICAL HISTORY: L sided pain; Free Pelvic Fluid on CT; R o Torsion US pelvis transabdominal and transvaginal with Doppler Comparison: None provided Findings: Transabdominal scanning performed for overall anatomy. Transvaginal scanning performed for additional detail. Retroverted uterus is 8 cm length. Normal myometrium. Endometrium 14 mm thickness. Right ovary 3.7 x 2 x 2.2 cm. Corpus luteal cyst measures up to 2.1 cm. Left ovary 3.1 x 1.8 x 2.4 cm. Normal color Doppler with arterial/venous spectral tracing of both ovaries. Moderate free fluid. IMPRESSION: 1. Unremarkable pelvic ultrasound with Doppler. No evidence of ovarian torsion. This document has been electronically signed by: Nixon Elkins MD, PHD on 07/10/2025 04:05:51 Dictated By: Nixon Elkins MD Signed By: <Electronically signed by Nixon Elkins MD in OV> 07/13/25 1114 DD/ 4 TD/TT: 07/10/25404 Financial Management Analyst: [place] [id number] CT Scan Report Signed Patient: Stacia Agudelo MR#: [id number] : 1995 Acct:[id number] Age/Sex: 30 / F ADM Date: 07/09/25 Loc: HO.ED Attending Dr: Ordering Physician: Richard Vaughn PA-C Date of Service: 07/10/25 Procedure(s): CT abdomen pelvis w IV con Accession Number(s): [id number] cc: Richard Vaughn PA-C; Odalis Hartman MD~ Report Number: [id number]: Total DLP = 468.00 mGy-cm Reason for Exam: Left Flank Pain; Hx Kidney Stones CLINICAL HISTORY: Left Flank Pain; Hx Kidney Stones CT abdomen and pelvis with contrast Comparison: CT/REG/SR - CT ABDOMEN PELVIS WITHOUT IV CONTRAST - 03/03/23 21:06 EDT Findings: The lung bases are clear. Asymmetric left breast tissue. There is a small accessory splenule. Liver, gallbladder, pancreas, and adrenal glands are within normal limits. No hydronephrosis. Symmetric contrast enhancement of the kidneys. No urolithiasis. No bowel obstruction, pneumoperitoneum, or pneumatosis. Appendix is not visualized. Mildly hyperdense fluid in the pelvis, possibly from a ruptured hemorrhagic ovarian cyst. Corpus luteum right ovary. Urinary bladder is underdistended. No acute fracture. IMPRESSION: Mildly hyperdense pelvic fluid, possibly from a ruptured hemorrhagic ovarian cyst. No hydronephrosis or urolithiasis. Asymmetric left breast tissue. Recommend mammogram for further evaluation. This document has been electronically signed by: Jeremie Lee MD on 07/10/2025 01:19:53 Dictated By: Jeremie Lee MD Signed By: <Electronically signed by Jeremie Lee MD in OV> 07/10/25119 DD/ 8 TD/TT: 07/10/25118 Financial Management Analyst: Assessment & Plan Assessment & Plan (1) Corpus luteum cyst: Code(s): N83.10 - Corpus luteum cyst of ovary, unspecified side Plan: Discussed CT scan in ultrasound was reports. Suggested of ruptured ovarian cyst with residual corpus luteum cyst. Most cyst will resolve on their own with time. No indication for further studies with the imaging. Advised to call the office sooner if there is any changes, if any sudden increase in pain or severity to report to the emergency room for immediate care. The patient expressed understanding and agreement with the plan of care. All of her questions and concerns were addressed to the best of my ability. (2) Pelvic pain: Code(s): R10.2 - Pelvic and perineal pain Plan GC chlamydia and BV panel obtained. UPT is negative, urinalysis 1+ leukocyte. [id number] self-help remedies reviewed for comfort measures. Discussed possibility of endometriosis and diagnosis or workup to include surgical evaluation through laparoscopic study, presumptive measures to suppress cycling, patient prefers to think about her options at this time. Has a annual exam scheduled in August. Advised to call if any increase in pelvic pain to be seen sooner. Orders: Orders CT NG by PCR Vag/Cerv Today R10.2 - Pelvic and perineal pain AMB Urinalysis Automated Today R10.2 - Pelvic and perineal pain Bacterial Vaginosis Panel Today R10.2 - Pelvic and perineal pain AMB HCG Urine Test Today R10.2 - Pelvic and perineal pain Coding Level of Care Code Est Pt Level 3 (20240) Diagnoses Corpus luteum cyst N83.10 Pelvic pain R10.2
[2025-07-20 13:53] VITALS: BP 100/66; BMI 25.8
--- OUTSIDE RECORDS SUMMARY | 2025-07-20 16:41 | XMS_ITS | Clinical Summary ---
Author Organization [facility] [id number] [facility] ity Address [address] [place] [address] Care Team Providers Care Exhaust And Muffler Repairer Name Role Phone Unavailable Primary Care Provider [...] Cervical Cancer Screening: P ap Smear 2015 HPV Vaccines (1 - 3-dose SCD M series) 2021 Depression Screening 09/21/2024 COVID-19 Vaccine ( - 2023-2 5 season) 2025 Influenza Vaccine (#1) 2025 RSV Immunization Adult Patie nts (1 - 1-dose 75+ series) 2069 HIB Vaccines Aged Out No longer eligi [...] 5 Years) and At-Risk Patients (6 to 49 Years) Aged Out No longer eligible b ased on patient's age to complete this topic RSV Immunization Patients Un kerry 20 months Aged Out No longer eligible b ased on patient's age to complete this topic Varicella Vaccines Aged Out No longer eligible based on patient's age to complete this topic
== END 2025-07-20 14:39 | disposition home or self-care (01) ==
LOC: HO.HWS 13:41
PROVIDERS: PCP Student in an Organized Health Care Education/Training Program; Visit Provider Advanced Practice Midwife
DX: N83.10 Corpus luteum cyst of ovary, unspecified side (principal); R10.20 Pelvic and perineal pain unspecified side
CPT/HCPCS: 99213

== ENCOUNTER 2025-07-20 14:22 | Outpatient (REF) | payer MEDICAID, SELFPAY | END 2025-07-20 14:23 | disposition home or self-care (01) | LOC: HO.LAB 14:22 | PROVIDERS: Visit Provider Advanced Practice Midwife | DX: Z13.89 Encounter for screening for other disorder (principal) ==

== ENCOUNTER 2025-07-30 21:51 | Emergency (ER) | payer MEDICAID, SELFPAY ==
--- NOTE | ~2025-07-30 | US_ITS ---
CLINICAL HISTORY: Left Pelvic LLQ Pain Tenderness, Nausea US pelvis transabdominal and transvaginal with Doppler Comparison: US/SR - US PELVIC AND TRANSVAGINAL - 07/10/25 02:10 EDT Findings: Transabdominal scanning performed for overall anatomy. Transvaginal scanning performed for additional detail. Uterus measures 8 x 3.4 x 4.6 cm. There is no uterine mass. Endometrium is within normal limits measuring 10 mm in thickness. Right ovary measures 3.4 x 2.2 x 2.4 cm. There is an incidental 2 cm dominant follicle in the right ovary. There is no right adnexal mass or fluid collection. There is normal color Doppler and arterial/venous spectral tracings within the right ovary. Left ovary measures 3.1 x 1.4 x 1.6 cm. There are small left ovarian follicles. There is no left adnexal mass or fluid collection. There is normal color Doppler and arterial/venous spectral tracings within the left ovary. There is no free fluid in the pelvis. IMPRESSION: Unremarkable pelvic ultrasound. This document has been electronically signed by: Gregg Novoa MD on 07/31/2025 04:18:56
--- NOTE | ~2025-07-30 | CT_ITS ---
EXAMINATION: CT ABDOMEN AND PELVIS WITH CONTRAST CLINICAL INFORMATION: Left lower quadrant/left upper quadrant abdominal pain and tenderness. COMPARISON: July 10, 2025. TECHNIQUE: Multidetector volumetric images were obtained from the superior aspect of the liver through the pubic symphysis following administration 85 mL of Omnipaque 350 intravenous contrast. Sagittal and coronal reformatted images were obtained on the technologist's workstation. Oral contrast: No This CT examination was performed using dose optimization techniques as appropriate, variously including the following: *Automated exposure control *Adjustment of mA and/or kV according to patient size (this includes techniques or standardized protocols for targeted exams where dose is matched to indication/reason for exam; i.e. extremities or head) *Use of iterative reconstruction technique DLP: 411 mGy-cm FINDINGS: LUNG BASES: No acute airspace disease. Subsegmental atelectasis versus scarring, both lung bases.. LIVER, GALLBLADDER, AND BILIARY TREE: Liver measures 15 cm. No solid or cystic mass. Main portal veins and hepatic veins are patent.. Small focal fatty infiltration adjacent to the falciform ligament Gallbladder is nondistended. No pericholecystic fluid collection or gallbladder wall thickening. No intrahepatic or extrahepatic biliary ductal dilatation. PANCREAS: No solid or cystic mass. No main pancreatic ductal dilatation. No peripancreatic fluid collection. SPLEEN: 10 cm. No solid or cystic lesion. 1.5 cm accessory spleen, splenic hilum.. ADRENAL GLANDS: No nodular lesions. KIDNEYS AND URETERS: No hydronephrosis. No enhancing renal mass. Normal enhancement of the renal parenchyma. No gross nephrolithiasis. Ureters are not dilated. BLADDER: Fluid-filled. GASTROINTESTINAL TRACT: Abundant stool. No intestinal obstruction pattern. No pneumatosis intestinalis. No intestinal wall thickening. No ascites. No pneumoperitoneum. No peripheral enhancing fluid collection, peritoneal cavity. I do not see the appendix, though no pericecal/mesocolon fluid collection or edema pattern . ABDOMINAL WALL: No umbilical hernia. LYMPH NODES: No mesenteric or retroperitoneal lymphadenopathy. VASCULAR: Trace of pericardial effusion. No aneurysm or dissection, abdominal aorta. No gross calcified plaque. PELVIC VISCERA: Uterus is seen in retroversion flexion position to the right of the pelvis. Prominent pelvic vessels. 2 cm dominant follicle both adnexa. OSSEOUS STRUCTURES: No acute fracture or listhesis. No lytic or blastic lesions. CT/CT abdomen pelvis w IV con IMPRESSION: Uterus is in retroversion flexion position to the right and prominent pelvic vessels. Trace of pericardial effusion. Fleischner guidelines were followed. Electronically signed by: Juan Diego Maurer MD 07/31/2025 08:31 AM RIGOBERTO SU
[2025-07-30 22:03] VITALS: BP 120/65; PULSE 72; RESP 18; TEMP 36.7; O2SAT 100; BMI 25.3
[2025-07-30 22:17] LABS: Hematocrit 38.8 % (37.0-47.0); Hemoglobin 13.2 g/dl (12.0-16.0); Imm Gran Abs Auto 0.01 X10*3/uL (0.00-0.03); Imm Gran Pct Auto 0.1 % (0.0-0.4); Lymphocytes Absolute Auto 2.7 X10*3/uL (1.2-4.9); MANUAL DIFF FLAG NO; Mean Corpuscular HGB Conc 34.0 g/dl (31.0-35.0); Mean Corpuscular Hemoglobin 29.4 pg (27.0-33.0); Mean Corpuscular Volume 86.4 fL (80.0-98.0); NRBC Abs Auto 0.000 X10*3/uL (0.0-0.012); NRBC Pct Auto 0.0 /100WBC (0.0-0.2); Platelet Count 198 X10*3/uL (160-400); Red Blood Count 4.49 X10*6/uL (4.20-5.50); White Blood Count 7.5 X10*3/uL (4.8-10.8)
[2025-07-30 22:36] LABS: Alanine Aminotransferase 14 U/L (0-31); Albumin Level 4.6 g/dL (3.5-5.0); Alkaline Phosphatase 59 U/L (39-117); Anion Gap 11 (12-20); Aspartate Amino Transferase 20 U/L (5-31); Blood Urea Nitrogen 12 mg/dL (9-16); Calcium 9.4 mg/dL (8.4-10.2); Carbon Dioxide 25 mmol/L (22-29); Chloride 107 mmol/L (96-108); Creatinine Clr Calc Pharmacy 77.8; Estimated Glomerular Filt Rate > 60; Potassium 4.1 mmol/L (3.3-5.1); Sodium 139 mmol/L (135-145); Total Protein 7.3 g/dL (6.5-8.0)
--- OUTSIDE RECORDS SUMMARY | 2025-07-30 23:40 | XMS_ITS | Clinical Summary ---
Author Organization [employer] Address [address] [facility] 7t [place] [address] Care Team Providers Care Numberer And Wirer Name Role Phone Emmanuel Rahanthony FRANCIS Primary Care Provider [phone] Allergies No known active allergies Medications omeprazole [...] Encounters Date Type Department Care Team Description 07/20/2025 Orders Only GENERIC EXTERNAL DATA DEPARTMENT Provider, Generic External Data 07/12/2025 9:30 AM EDT Office Visit [facility] [address] [place] [address] Odalis Hartman MD Cyst of left ovary (Primary Dx) 07/11/2025 Telephone [facility] [address] [place] [address] Odalis Hartman MD ED visit 07/11/2025 Travel 07/10/2025 Orders Only [facility] [address] [place] [address] Odalis Hartman MD Mass of left breast, unspecified quadrant (Primary Dx) 07/10/2025 Results Follow-Up [facility] [address] [place] [address] Odalis Hartman MD US Pelvis Transvaginal, CT Abdomen Pelvis w/ Contrast 07/09/2025 Orders Only GENERIC EXTERNAL DATA DEPARTMENT Provider, Generic External Data 07/05/2025 Orders Only [facility] [address] [place] [address] Odalis Hartman MD 07/04/2025 10:45 AM EDT Telemedicine [facility] [address] [place] [address] Odalis Hartman MD Obesity without serious comorbidity in pediatric patient, unspecified obesity class, unspecified obesity type (Primary Dx) 07/04/2025 Travel 06/28/[address] [address] Odalis Hartman MD Prior Authorization from Last [...] Procedure Name Priority Date/Time Associated Diagnosis Comments CHLAMYDIA/N. GONORRHOEAE RNA, TMA, UROGENITAL Routine 07/20/2025 1:41 PM EDT BACTERIAL VAGINOSIS PANEL Routine 07/20/2025 1:41 PM EDT US PELVIC OVARIAN DOPPLER Routine 07/10/2025 4:05 [...] Recently Relevant to Health Maintenance Results * (ABNORMAL) Bacterial Vaginosis (07/20/2025 1:41 PM EDT) TRICHOMONAS VAGINALIS DETECTION BY PCR NOT DETECTED Not Detect [facility] BACTERIAL VAGINOSIS DETECTION BY PCR NEGATIVE Negative [facility] Comment:The BV organism targ ets of the Xpert Xpress MVP test can becommensal in women; Xpert Xpress MVP positive results forbacterial vaginosis should be considered in conjunction withother clinical and patient information to determine thedisease status. Organisms that are not detected by the XpertXpress MVP test have also been reported to be associatedwith BV and aerobic vaginitis.The Xpert Xpress MVP test performance has not been evaluatedin patients under the age of 14. NORIS GROUP DETECTION BY PCR NOT DETECTED Not Detect [facility] Noris glab krusei PCR DETECTED(A) Not Detect [facility] 07/20/2025 1:41 PM EDT 07/20/2025 3:52 PM EDT us Generic External Data Provider LAB MICROBIOLOGY - GENERAL ORDERABLES Final Result [facility] [address] [place] [phone] * Chlamydia/N. Gonorrhoeae RNA, TMA, Urogenitial (07/20/2025 1:41 PM EDT) CT PCR NOT DETECTED Not Detect. [facility] Comment:A not detected test result does not exclude the possibilityof infection because test results can be affected byimproper specimen collection, concurrent antibiotic therapy,or the number of organisms in the specimen which may bebelow the sensitivity of the test. As with many diagnostictests, results from the Xpert CT/NG assay should beinterpreted in conjunction with other laboratory andclinical data available to the clinician.Xpert CT/NG performance has not been evaluated in patientsless than 14 years of age. The assay should not be used forthe evaluationof suspected sexual abuse or for other medico-legalindications. Additional testing is recommended in anycircumstance when false positive or false negative resultscould lead to adverse medical, social or psychologicalconsequences. NG PCR NOT DETECTED Not Detect. [facility] Comment:A not detected test result does not exclude the possibilityof infection because test results can be affected byimproper specimen collection, concurrent antibiotic therapy,or the number of organisms in the specimen which may bebelow the sensitivity of the test. As with many diagnostictests, results from the Xpert CT/NG assay should beinterpreted in conjunction with other laboratory andclinical data available to the clinician.Xpert CT/NG performance has not been evaluated in patientsless than 14 years of age. The assay should not be used forthe evaluationof suspected sexual abuse or for other medico-legalindications. Additional testing is recommended in anycircumstance when false positive or false negative resultscould lead to adverse medical, social or psychologicalconsequences. 07/20/2025 1:41 PM EDT 07/20/2025 3:52 PM EDT us Generic External Data Provider LAB MICROBIOLOGY - GENERAL ORDERABLES Final Result Performing Organization Address City/State/[facility] Co de Phone Number [facility] [address] [place] [address] [phone] * US PELVIC OVARIAN DOPPLER (07/10/2025 4:05 AM EDT) Anatomical Region Laterality Modality Abdomen Ultrasound 07/10/2025 4:05 AM EDT Narrative 07/13/2025 11:15 AM EDT [place] [address] Ultrasound Report Signed Patient: Stacia Agudelo MR#: [id number] : 1995 Acct:[id number] Age/Sex: 30 / F ADM Date: 07/09/25 Loc: .ED Attending Dr: Ordering Physician: Richard Vaughn PA-C Date of Service: 07/10/25 Procedure(s): US pelvic ovarian doppler Accession Number(s): [id number] cc: Richard Vaughn PA-C; Odalis Hartman MD [...] Elkins MD in OV> 07/13/25 1114 DD/ 4 TD/TT: 07/10/25404 Medical Artist: Procedure Note Donotuseinterpreter, Image - 07/13/2025 [place] [address] Ultrasound Report Signed Patient: Stacia Agudelo GMR#: [id number] : 1995Acct:[id number] Age/Sex: Date: 07/09/25 Loc: .ED Attending Dr: Ordering Physician: Richard Vaughn PA-C Date of Service: 07/10/25 Procedure(s): US pelvic ovarian doppler Accession Number(s): [id number] cc: Richard Vaughn PA-C; Odalis Hartman MD [...] Elkins MD in OV> 07/13/25 1114 DD/ 0405 TD/TT: 07/10/255 Medical Artist: us [facility] External Provider IMG US PROCEDURES Edited Result - Final * US Pelvis Transvaginal (07/10/2025 4:05 AM EDT) Anatomical Region Laterality Modality Pelvis Ultrasound 07/10/2025 4:05 AM EDT Narrative 07/10/2025 4:07 AM EDT [place] [address] Ultrasound Report Signed Patient: Stacia Agudelo MR#: [id number] : 1995 Acct:[id number] Age/Sex: 30 / F ADM Date: 07/09/25 Loc: HO.ED Attending Dr: Ordering Physician: Richard Vaughn PA-C Date of Service: 07/10/25 Procedure(s): US pelvic and transvaginal Accession Number(s): [id number] cc: Richard Vaughn PA-C; Odalis Hartman MD [...] in OV> 07/10/25405 DD/ 4 TD/TT: 07/10/25404 Medical Artist: Procedure Note Donotuseinterpreter, Image - 07/10/2025 [place] [address] Ultrasound Report Signed Patient: Stacia Agudelo GMR#: [id number] : 1995Acct:[id number] Age/Sex: Date: 07/09/25 Loc: .ED Attending Dr: Ordering Physician: Richard Vaughn PA-C Date of Service: 07/10/25 Procedure(s): US pelvic and transvaginal Accession Number(s): [id number] cc: Richard Vaughn PA-C; Odalis Hartman MD [...] in OV> 07/10/25405 DD/ 4 TD/TT: 07/10/25404 Medical Artist: us [facility] External Provider IMG US PROCEDURES Final Result * CT Abdomen Pelvis w/ Contrast (07/10/2025 1:19 AM EDT) Anatomical Region Laterality Modality Body, Pelvis, Abdomen Computed T omography 07/10/2025 1:19 AM EDT Narrative 07/10/2025 1:21 AM EDT [place] [address] CT Scan Report Signed Patient: Stacia Agudelo MR#: [id number] : 1995 Acct:[id number] Age/Sex: 30 / F ADM Date: 07/09/25 Loc: HO.ED Attending Dr: Ordering Physician: Richard Vaughn PA-C Date of Service: 07/10/25 Procedure(s): CT abdomen pelvis w IV con Accession Number(s): [id number] cc: Richard Vaughn PA-C; Odalis Hartman MD Report Number: [id number]: Total DLP = 468.00 mGy-cm Reason for [...] signed by Jeremie Lee MD in OV> 07/10/25 012 DD/ 8 TD/TT: 07/10/25118 Medical Artist: Procedure Note Donotuseinterpreter, Image - 07/10/[address] [address] [address] Scan Report Signed Patient: Stacia Agudelo GMR#: [id number] : 1995Acct:[id number] Age/Sex: 30 / FADM Date: 07/09/25 Loc: HO.ED Attending Dr: Ordering Physician: Richard Vaughn PA-C Date of Service: 07/10/25 Procedure(s): CT abdomen pelvis w IV con Accession Number(s): [id number] cc: Richard Vaughn PA-C; Odalis Hartman MD Report Number: [id number]: Total DLP = 468.00 mGy-cm Reason for [...] signed by Jeremie Lee MD in OV> 07/10/25 0120 DD/ 8 TD/TT: 07/10/25118 Medical Artist: us [facility] External Provider IMG CT PROCEDURES Edited Result - Final * CBC auto differential (07/09/2025 8:25 PM EDT) White Blood Count 7.9 4.8 - 10.8 X10*3/uL [facility] Red Blood Count 4.32 4.20 - 5.50 X10*6/uL [facility] Hemoglobin 12.6 12.0 - 16.0 g/dl [facility] Hematocrit 37.2 37.0 - 47.0 % [facility] Mean Corpuscular Volume 86.1 80.0 - 98.0 fL [facility] Mean Corpuscular Hemoglobin 29.2 27.0 - 33.0 pg [facility] Mean Corpuscular HGB Conc 33.9 31.0 - 35.0 g/dl [facility] Red Cell Distribution Width 13.6 11.0 - 16.0 % [facility] Platelet Count 182 160 - 400 X10*3/uL [facility] Mean Platelet Volume 9.9 9.4 - 12.3 fL [facility] Neutrophils Percent Auto 63.2 45 - 73 % [facility] Imm Gran Pct Auto 0.3 0.0 - 0.4 % [facility] Lymphocytes Percent Auto 27.3 20 - 40 % [facility] Monocytes Percent Auto 5.8 2 - 11 % [facility] Eosinophils Percent Auto 3.0 0 - 4 % [facility] Basophils Percent Auto 0.4 0 - 2 % [facility] NRBC Pct Auto 0.0 0.0 - 0.2 /100WBC [facility] Neutrophils Absolute Auto 5.0 2.0 - 8.3 x10*3/uL [facility] Imm Gran Abs Auto 0.02 0.00 - 0.03 X10*3/uL [facility] Lymphocytes Absolute Auto 2.2 1.2 - 4.9 X10*3/uL [facility] Monocytes Absolute Auto 0.5 0.1 - 1.2 X10*3/uL [facility] Eosinophils Absolute Auto 0.2 0.0 - 0.4 X10*3/uL [facility] Basophils Absolute Auto 0.0 0.0 - 0.2 X10*3/uL [facility] NRBC Abs Auto 0.000 0.0 - 0.012 X10*3/uL [facility] 07/09/2025 8:25 PM EDT 07/09/2025 8:29 PM EDT Generic External Data Provider LAB BLOOD ORDERAB LES Final Result Performing Organization Address [facility]/ZIP Co de Phone Number [facility] [address] [place] [phone] * Urinalysis w/reflex microscopic (07/09/2025 8:25 PM EDT) Color Urine Yellow [facility] Appearance Urine Cloudy [facility] PH 7.0 5.0 - 9.0 [facility] Glucose Urine UA Negative Negative mg/dL [facility] Urine Blood Negative Negative [facility] Specific Castana - Urine 1.020 1.005 - 1.025 [facility] Urine Protein Negative Neg-Trace mg/dL [facility] Urine Ketones Negative Negative mg/dL [facility] Nitrite Urine Negative Negative [facility] Leukocyte Esterase Urine Negative Negative [facility] 07/09/2025 8:25 PM EDT 07/09/2025 8:29 PM EDT Narrative [facility] - 07/09/2025 8:38 PM EDT Urine, Clean Catch us Generic External Data Provider LAB URINE ORDERAB LES Final Result Performing Organization Address [facility]/ZIP Co de Phone Number [facility] [address] [place] [phone] * hCG, Total, Quantitative (07/09/2025 8:25 PM EDT) HCG Quantitative <2 mIU/mL [facility] Comment:Weeks post LMP Appro ximate hCG(Last Menstrual Period) Range (mIU/ml)3 - 4 weeks 9 - 1304 - 5 weeks 75 - 2,6005 - 6 weeks 850 - 20,8006 - 7 weeks 4000 - 100,2007 - 12 weeks 11,500 - 289,64324 - 16 weeks 18,300 - 137,97374 - 29 weeks (2nd trimester) 1,400 - 53,78159 - 41 weeks (3rd trimester) 940 - [...] Provider LAB BLOOD ORDERAB LES Final Result [facility] [address] [place] [phone] * (ABNORMAL) Comprehensive Metabolic Panel (07/09/2025 8:25 PM EDT) Pathologist [facility] Sodium 138 135 - 145 mmol/L [facility] Potassium 4.0 3.3 - 5.1 mmol/L [facility] Chloride 110(H) 96 - 108 mmol/L [facility] Carbon Dioxide 20(L) 22 - 29 mmol/L [facility] Anion Gap 12 12 - 20 [facility] Urea Nitrogen (BUN) 7(L) 9 - 16 mg/dL [facility] Creatinine, Serum 0.69 0.5 - 1.4 mg/dL [facility] Creatinine Clr Calc Pharmacy 95.5 [facility] Comment:Provided height and weight: 152.4 cm,59.874 kg.eGFR (calculated from the MDRD study equation) and eCrCl(calculated from the Cockcroft-Gault equation) are based ondifferent parameters and may not yield comparable results.If eCrCl result is absurd, please check patient'sheight/weight. Estimated Glomerular Filt Rate >60 [facility] Comment:Chronic Kidney Disea se: Estimated GFR < 60 mL/min/1.55h4Iwurpo Kidney Disease: Estimated GFR < 15 mL/min/1.73m2 Glucose 92 60 - 115 mg/dL [facility] Calcium 9.0 8.4 - 10.2 mg/dL [facility] Bilirubin, Total 0.3 0.0 - 1.0 mg/dL [facility] Aspartate Amino Transferase 21 5 - 31 U/L [facility] Alanine Aminotransferase 16 0 - 31 U/L [facility] Total Protein 6.7 6.5 - 8.0 g/dL [facility] Albumin Level 4.2 3.5 - 5.0 g/dL [facility] Alkaline Phosphatase 61 39 - 117 U/L [facility] 07/09/2025 8:25 PM EDT 07/09/2025 8:29 PM EDT us Generic External Data Provider LAB BLOOD ORDERAB LES Final Result Performing Organization Address City/State/[facility] Co de Phone Number [facility] [address] [place] [phone] * Pap Smear (02/23/2024 1:44 PM EDT) Swab Cervix uteri structure / Unknown 02/23/2024 1:44 PM EDT 02/24/2024 9:15 AM EDT Narrative [facility] - 03/20/2024 3:43 PM EDT ----- ------- Name: Stacia Agudelo Age/Sex: 28/F : 1995 Unit#: [id number] Attend Dr: ENA LUNA CNM Re02/23/24 Status: DEP [facility] ----- ------- SPEC : [id number] RECD: 02/24/24 STATUS: SOPHIE CONNELLY NUM: [id number] FERCHO: 02/23/24-[address]: ENA LUNA CNM ENTERED: 02/24/24-1013 SP TYPE: Pap Smr OTHR DR: ORDERED: Pap Smear Interpretation Satisfactory for evaluation. Negative for intraepithelial lesion or malignancy. Clinical Information LMP: 01/25/2024 Previous PAP test: Unknown date/findings Material Received ThinPrep-Cervical ----- ------- Signed (signature on file) Moon Sheridan 03/20/24 1543 ----- ------- END OF REPORT Ena [facility] LAB CYTOLOGY ORDERABLES F inal Result Performing Organization Address City/[facility]/ZIP Co de Phone Number [facility] [address] [place] [phone] * Lipid Panel, Standard (01/21/2023 10:41 AM EDT) Cholesterol, Total 158 <200 mg/dL [facility] [place] [facility] HDL Cholesterol 58 > OR = 50 mg/dL [facility] [place] [facility] Triglycerides 94 <150 mg/dL [facility] [place] [facility] LDL Cholesterol 81 mg/dL (calc) [facility] Comment: Reference range: <100 Desirable range <100 mg/dL for primary prevention; <70 mg/dL for patients with CHD or diabetic patients with > or = 2 CHD risk factors. LDL-C is now calculated using the Edgar-Karen calculation, which is a validated novel method providing better accuracy than the Friedewald equation in the estimation of LDL-C. Edgar CRUZ et al. SUZANNE. 2013;310(19): 6116-8101 (http://education.[employer]/faq/SPF208) Chol/HDLC Ratio 2.7 <5.0 (calc) [facility] [place] [facility] Non-HDL Cholesterol 100 <130 mg/dL (calc) [facility] [place] [facility] Comment: For patients with diabetes plus 1 major ASCVD risk factor, treating to a non-HDL-C goal of <100 mg/dL (LDL-C of <70 mg/dL) is considered a therapeutic option. Blood Venous blood specimen / Unknown 01/21/2023 10:41 AM EDT 01/21/2023 10:42 AM EDT Narrative [facility] - 01/22/2023 7:34 AM EDT FASTING:YES FASTING: YES Odalis Hartman MD LAB BLOOD ORDERABLES Final Resul t [facility] [address], [place] [address] [facility] [place] [facility] [address] [place] [address] * HEPATITIS C ANTIBODY (10/04/2019 4:35 PM EST) HEPATITIS C ANTIBODY NONREACTIVE NONREACTIVE [facility] Comment: Antibodies to HCV not detected; does not exclude early acute HCV infection. 10/04/2019 4:35 PM EST us Sheryl Coburn HISTORICAL/NON ORDERABLE LABS Fi nal Result [facility] [address] from Last 3 Months or Most Recently Relevant to Health Maintenance Insurance [facility] C3 Care Teams Numberer And Wirer Relationship Specialty Start Date End Date Lexy Benitez CNP [address] [place] [phone] PCP - General Family Medicine 07/19/25
--- OUTSIDE RECORDS SUMMARY | 2025-07-30 23:40 | XMS_ITS | Encounter Summary ---
Author Organization [employer] Address [address] [facility] [place] [address] Care Team Providers Care Printed Circuit Boards Inspector Name Role Phone Odalis Hartman MD Primary Care Provider [phone] Lexy Benitez CNP Primary Care Provider [phone] Reason for Visit * Reason Onset Date Comments Med Change Request 06/06/2024 Encounter Details Date Type Department Care Team ([facility] st Contact Info) Description 06/06/2024 Telephone [facility] [address] [place] [address] Odalis Hartman MD [address] [place] [address] Med Change Request Social History Tobacco Use [...] call regarding prior message. Contact pt at [phone] (singaporean) * Telephone Encounter - Sukhjinder Mackenzie - 06/06/2024 12:07 PM EDT Tc from patient calling in regards to the Semaglutide-Weight Management (Wegovy) 0.25 MG/0.5ML solution auto-injector states it was suppose to be increased for .50 to .75 documented in this encounter Plan of Treatment Not on file documented as of this encounter Visit Diagnoses Not on filedocumented in this encounter Care Teams Printed Circuit Boards Inspector Relationship Specialty Start Date End Date Odalis Hartman MD [address] [place] [address] PCP - General Family Medicine 07/06/18 07/18/25 Lexy Benitez CNP [address] [place] [address] PCP - General Family Medicine 07/19/25 documented as of this encounter
--- OUTSIDE RECORDS SUMMARY | 2025-07-30 23:40 | XMS_ITS | Encounter Summary ---
Author Organization [employer] Address [address] [place] [address] 7t [place] [address] Care Team Providers Care Preform Machine Operator Name Role Phone Odalis Hartman MD Primary Care Provider [phone] Lexy Benitez CNP Primary Care Provider [phone] Reason for Visit * Reason Onset Date Comments Nurse Triage 10/24/2024 Encounter Details Date Type Department Care Team ([facility] st Contact Info) Description 10/24/2024 Telephone [facility] [address] [place] [address] Odalis Hartman MD [address] [place] [address] Nurse Triage Social History Tobacco Use Types [...] 4:26 PM EST [place] [id number] and [place] [id number]. Pt reports episode of rapid heart beat/palpitations [...] advised if is concerned may come to [facility] open till 8pm this evening [...] on filedocumented in this encounter Care Teams Preform Machine Operator Relationship Specialty Start Date End Date Odalis Hartman MD [address] [place] [address] PCP - General Family Medicine 07/06/18 07/18/25 Lexy Benitez CNP [address] [place] [address] PCP - General Family Medicine 07/19/25 documented as of this encounter
--- OUTSIDE RECORDS SUMMARY | 2025-07-30 23:40 | XMS_ITS | Encounter Summary ---
Author Organization [employer] Address [address] [place] [address] 7t [place] [address] Care Team Providers Care Progressive Die Maker Name Role Phone Odalis Hartman MD Primary Care Provider Lexy Benitez CNP Primary Care Provider [phone] Reason for Visit * Reason Comments Med Refill Encounter Details Date Type Department Care Team ([facility] st Contact Info) Description 04/13/2023 Refill [facility] [address] [place] [address] Marva Herrera MD [address] [place] [address] Perioral dermatitis Social History Tobacco Use Types [...] Rosacea documented in this encounter Care Teams Progressive Die Maker Relationship Specialty Start Date End Date Odalis Hartman MD [address] [place] [address] PCP - General Family Medicine 07/06/18 07/18/25 Lexy Benitez CNP [address] [place] [address] PCP - General Family Medicine 07/19/25 documented as of this encounter
--- OUTSIDE RECORDS SUMMARY | 2025-07-30 23:40 | XMS_ITS | Encounter Summary ---
Author Organization [employer] Address [address] [place] [address] Care Team Providers Care Manager Metal Name Role Phone Odalis Hartman MD Primary Care Provider [phone] Lexy Benitez CNP Primary Care Provider [phone] Reason for Visit * Reason Onset Date Comments Returning Call 04/12/2024 Encounter Details Date Type Department Care Team ([facility] st Contact Info) Description 04/12/2024 Telephone [facility] [address] [place] [address] Odalis Hartman MD [address] [place], [place] [phone] Returning Call Social History Tobacco Use Types [...] on filedocumented in this encounter Care Teams Manager Metal Relationship Specialty Start Date End Date Odalis Hartman MD [address] [place] [address] PCP - General Family Medicine 07/06/18 07/18/25 Lexy Benitez CNP [address] [place] [address] PCP - General Family Medicine 07/19/25 documented as of this encounter
--- OUTSIDE RECORDS SUMMARY | 2025-07-30 23:40 | XMS_ITS | Clinical Summary ---
Author Organization [facility] ity Address [address] [place] [address] Care Team Providers Care Gear Hobber Operator Name Role Phone Unavailable Primary Care Provider [...]
--- OUTSIDE RECORDS SUMMARY | 2025-07-30 23:40 | XMS_ITS | Encounter Summary ---
Author Organization [employer] Address [address] [facility] [address] [place] [address] Care Team Providers Care Tubing Mill Operator Name Role Phone Odalis Hartman MD Primary Care Provider [phone] Lexy Benitez CNP Primary Care Provider [phone] Reason for Visit * Reason Onset Date Comments PA 11/28/2024 Encounter Details Date Type Department Care Team ([facility] st Contact Info) Description 11/28/2024 Telephone [facility] [address] [place] [address] Odalis Hartman MD [address] [place] [address] PA Social History Tobacco Use Types Packs/Day [...] on filedocumented in this encounter Care Teams Tubing Mill Operator Relationship Specialty Start Date End Date Odalis Hartman MD [address] [place] [id number] PCP - General Family Medicine 07/06/18 07/18/25 Lexy Benitez CNP [address] [place] [id number] PCP - General Family Medicine 07/19/25 documented as of this encounter
[2025-07-30 23:42] LABS: Appearance Urine Clear; Glucose Urine UA Negative (Negative); PH 7.0 (5.0-9.0); Specific Gravity - Urine 1.025 (1.005-1.025)
[2025-07-31 02:30] LABS: Delay - Chemistry DELAY
--- NOTE | 2025-07-31 02:34 | ED_ITS ---
HPI - Abdominal Pain General Chief Complaint: Abdominal Pain Stated Complaint: left abd abd kidney pain Time Seen by Provider: 07/31/25 02:13 Source: patient and family Mode of arrival: ambulatory Limitations: language barrier (Frame Sample And Pattern Supervisor iPad utilized) History of Present Illness ED Provider: Richard LOZADA HPI narrative: he patient is a 30-year-old female presenting to the ED for evaluation of left flank pain which began 4 days ago with mild nausea without vomiting. Patient reports an extensive history of kidney stones, previously requiring lithotripsy and stenting. The patient reports no kidney stones in the past few years. Patient reports she experienced similar pain approximately 1 month ago which subsequently resolved, but then returned 4 days ago. Patient reports pain is similar in nature to her previous kidney stones, however denies associated however denies associated fever/chills, vomiting, dysuria, hematuria, hematochezia, melena, diarrhea, constipation, irregular vaginal bleeding, vaginal discharge, chest pain, shortness of breath, or cough. The patient denies any recent fall or other blunt trauma, denies any recent sick contacts. The patient reports history of appendectomy and previously described ureteral stents, denies other surgical abdominal history. Related Data Home Medications ?Medication ?Instructions ?Recorded ?Confirmed clobetasol 0.05 % topical ointment topical BID 4 omeprazole 20 mg capsule,delayed 20 mg PO DAILY release advil PO 05/13/24 tirzepatide (weight loss) 5 mg/0.5 5 mg subcut QWEEK 1 030/25 mL subcutaneous pen injector (Zepbound) Allergies Allergy/AdvReac Type Severity Reaction Status Date / Time No Known Allergies (No Known Allergy Verified 07/30/25 22:07 Allergies*) Review of Systems Review of Systems Yes all other systems are reviewed and are negative PMFSH Past Medical History Medical History Vaginal mass Hx of migraines Kidney stones Surgical History Hx of lithotripsy Hx of lithotripsy S/P cystoscopy with ureteral stent placement Kidney calculus History of appendectomy Family History Family History Mother Diabetes Father Hypertension Daughter No problems noted. Social History Social History Household Members: Spouse Household Members Other:: daughter Housing: Apartment Alcohol intake: never Patient Tobacco Use Status: Never used Tobacco Smoked in Last 30 Days: No Use of substances other than those prescribed or required for medical reasons: No Advance Directives: No Advance Directives Information Provided: No Patient : No Sexual orientation: Straight/Heterosexual Gender identity: Female Physical Exam ED Vital Signs: Vital Signs - 24 hr 07/30/25 22:03 07/31/25 02:56 07/31/25 07:41 Temperature 98.0 F 97.8 F 97.9 F Pulse Rate 72 61 76 Respiratory Rate 18 14 18 Blood Pressure 120/65 100/67 101/64 Pulse Oximetry 100 97 98 Oxygen Delivery Method Room Air Room Air Room Air BMI result Body Mass Index 25.3 CONSTITUTIONAL: The patient appears non-toxic, well nourished and in no acute distress. Vital signs as documented. HEAD: Atraumatic, normocephalic. EYES: EOMs grossly intact, pupils equal, conjunctiva clear, no exudate. ENT: Nares patent, no discharge. Airway patent, no audible stridor, visible mucosa is pink and moist without noted lesions. NECK: Trachea is midline, no obvious masses or gross abnormalities. CHEST: Symmetric movement, normal appearance. LUNGS: LS present and CTAB, no w/r/r. Non-labored work of breathing. CARDIAC: Regular Rhythm, S1/S2 appreciated, no murmurs, rubs or gallops. ABDOMEN: Abdomen soft x4 quadrants, positive tenderness to the left lower quadrant, negative rebound, no palpable masses or organomegaly. Negative CVAT bilaterally. : Deferred. EXTREMITIES: Normal tone, moves all extremities spontaneously without reported pain. No obvious acute injury or deformity noted. NEURO: Alert and oriented x3, CN II-XII appear grossly intact. Cerebellar Functioning grossly intact. No obvious sensory or motor deficits. Speech clear and appropriate. PSYCH: normal affect, appropriate eye contact, fluid speech, with appropriate response to questioning. No reported suicidality or homicidality. SKIN: Warm, dry, color appropriate, normal turgor. No rashes noted. Course Course Course Narrative: KIERRA Ford 07/31/25 [id number] I received patient in sign-out pending CT abdomen/pelvis and disposition. In summary, this is a 30-year-old female who presented to the ED last night for evaluation of left flank pain x4 days, associated nausea without vomiting. Seen recently approximately 1 month ago for same, diagnosed with a ruptured ovarian cyst. On exam, her abdomen is soft, mildly tender to left lower abdomen without rebound or guarding. No palpable masses. No CVAT bilaterally. CBC without leukocytosis or left shift. No anemia. H&H stable. Her urine does not reveal infection or blood. Her test is negative. Her pelvic ultrasound is quite unremarkable. There are no ovarian masses, cysts. Normal Doppler flow to bilateral ovaries. The CT of her abdomen shows uterus in retroversion flexion to the right with prominent pelvic vessels. These findings are concerning for pelvic congestion syndrome. Patient has received various interventions today including GI cocktail, Toradol, morphine. There is no acute management warrante at this time. I have advised NSAIDs at home along with heating pads. Advised PCP and quality management coordinator follow-up. Patient has remained stable throughout ED visit today. Discussed worrisome signs and symptoms and when to return to the ED. All questions answered at this time. Patient is agreeable with disposition and stable for discharge. Medical Decision Making Medical Decision Making MDM Narrative: 2:34 AM 07/31/2025 (Tierney LOZADA): The patient is a 30-year-old female presenting to the ED for evaluation of left flank pain which began 4 days ago with mild nausea without vomiting. Patient reports an extensive history of kidney stones, previously requiring lithotripsy and stenting. The patient reports no kidney stones in the past few years. Patient reports she experienced similar pain approximately 1 month ago which subsequently resolved, but then returned 4 days ago. Patient reports pain is similar in nature to her previous kidney stones, however denies associated however denies associated fever/chills, vomiting, dysuria, hematuria, hematochezia, melena, diarrhea, constipation, irregular vaginal bleeding, vaginal discharge, chest pain, shortness of breath, or cough. The patient denies any recent fall or other blunt trauma, denies any recent sick contacts. The patient reports history of appendectomy and previously described ureteral stents, denies other surgical abdominal history. The patient's exam reveals no CVAT, there is mild left lower quadrant tenderness without rebound or guarding. The patient's laboratory evaluation is reassuring, no leukocytosis, anemia, electrolyte abnormality, or YOVANA. The patient's LFTs are unremarkable. The patient's urinalysis shows no hematuria or infection. The patient's presentation does not appear consistent with her history of kidney stones, chart review reveals previous visit 1 month ago showed free fluid on pelvic ultrasound, question of ruptured ovarian cyst. Patient will be treated with IV fluid hydration, Zofran, and Toradol. We will obtain ultrasound to evaluate for acute ovarian pathology, if no evidence of acute ovarian pathology we will consider CT imaging if no improvement in symptoms. 4:42 AM 07/31/2025 (Tierney LOZADA): Patient's pain has not been affected by Toradol or morphine. The patient's ultrasound is unremarkable. Given the patient's left upper quadrant complaint and no relief at all from Toradol or morphine, patient may be suffering from gastritis, we will treat with GI cocktail and reassess. 6:10 AM 07/31/2025 (Tierney LOZADA): The patient reports no relief from GI cocktail. Despite reassuring laboratory workup, and unremarkable CT abdomen during similar presentation 1 month ago, we will obtain repeat CT abdomen and pelvis to rule out acute intra-abdominal pathology. Admission/Observation Consideration of admission/observation: Escalation of care including admission/observation considered Lab Data MDM Lab Attestation statement: I reviewed the patient's lab results. 07/30/25 22:11 07/30/25 22:11 Labs: Lab Results 07/30/25 07/30/25 07/31/25 Range/Units 22:11 23:28 02:29 WBC 7.5 (4.8-10.8) X10*3/uL RBC 4.49 (4.20-5.50) X10*6/uL Hgb 13.2 (12.0-16.0) g/dl Hct 38.8 (37.0-47.0) % MCV 86.4 (80.0-98.0) fL MCH 29.4 (27.0-33.0) pg MCHC 34.0 (31.0-35.0) g/dl RDW 12.8 (11.0-16.0) % Plt Count 198 (160-400) X10*3/uL MPV 9.5 (9.4-12.3) fL Immature Gran % (Auto) 0.1 (0.0-0.4) % Neut % (Auto) 54.0 (45-73) % Lymph % (Auto) 35.5 (20-40) % Hunt % (Auto) 8.1 (2-11) % Eos % (Auto) 1.9 (0-4) % Baso % (Auto) 0.4 (0-2) % Lymph # (Auto) 2.7 (1.2-4.9) X10*3/uL Hunt # (Auto) 0.6 (0.1-1.2) X10*3/uL Eos # (Auto) 0.1 (0.0-0.4) X10*3/uL Baso # (Auto) 0.0 (0.0-0.2) X10*3/uL Abs Immat Gran (auto) 0.01 (0.00-0.03) X10*3/uL Absolute Neuts (auto) 4.1 (2.0-8.3) x10*3/uL Absolute Nucleated RBC 0.000 (0.0-0.012) X10*3/uL Nucleated RBC % (auto) 0.0 (0.0-0.2) /100WBC Sodium 139 (135-145) mmol/L Potassium 4.1 (3.3-5.1) mmol/L Chloride 107 (96-108) mmol/L Carbon Dioxide 25 (22-29) mmol/L Anion Gap 11 L (12-20) BUN 12 (9-16) mg/dL Creatinine 0.84 (0.5-1.4) mg/dL Estim Creat Clear Calc 77.8 Estimated GFR > 60 Random Glucose 90 (60-115) mg/dL Calcium 9.4 (8.4-10.2) mg/dL Magnesium 2.0 (1.6-2.6) mg/dL Total Bilirubin 0.4 (0.0-1.0) mg/dL Direct Bilirubin 0.1 (0.0-0.5) mg/dL AST 20 (5-31) U/L ALT 14 (0-31) U/L Alkaline Phosphatase 59 (39-117) U/L Total Protein 7.3 (6.5-8.0) g/dL Albumin 4.6 (3.5-5.0) g/dL Lipase 24 (8-78) U/L Beta HCG, Quant < 2 mIU/mL Specimen Comment DELAY Urine Color Yellow Urine Appearance Clear Urine pH 7.0 (5.0-9.0) Ur Specific [place] 1.025 (1.005-1.025) Urine Protein Trace (Neg-Trace) mg/dL Urine Glucose (UA) Negative (Negative) mg/dL Urine Ketones Negative (Negative) mg/dL Urine Blood Negative (Negative) Urine Nitrite Negative (Negative) Ur Leukocyte Esterase Negative (Negative) Radiology Impression Discussion of test interpretation with radiology: I have reviewed the radiologist's reading. Radiologist Impression: US pelvis transabdominal and transvaginal with Doppler Comparison: US/SR - US PELVIC AND TRANSVAGINAL - 07/10/25 02:10 EDT Findings: Transabdominal scanning performed for overall anatomy. Transvaginal scanning performed for additional detail. Uterus measures 8 x 3.4 x 4.6 cm. There is no uterine mass. Endometrium is within normal limits measuring 10 mm in thickness. Right ovary measures 3.4 x 2.2 x 2.4 cm. There is an incidental 2 cm dominant follicle in the right ovary. There is no right adnexal mass or fluid collection. There is normal color Doppler and arterial/venous spectral tracings within the right ovary. Left ovary measures 3.1 x 1.4 x 1.6 cm. There are small left ovarian follicles. There is no left adnexal mass or fluid collection. There is normal color Doppler and arterial/venous spectral tracings within the left ovary. There is no free fluid in the pelvis. IMPRESSION: Unremarkable pelvic ultrasound. This document has been electronically signed by: Gregg Novoa MD on 07/31/2025 04:18:56 External Record Review External record reviewed: Outpatient record and Prior outpatient labs Prescription Management I considered prescription management with: Pain Medication Medications Administered Discontinued Medications Generic Name Dose Route Start Last Admin Trade Name Freq PRN Reason Stop Dose Admin Al Hydroxide/Mg Hydroxide 30 ml 07/31/25 04:43 07/31/25 04:59 Magnesium Hydrox/Alum Hydrox 30 Ml Oral.Susp PO 07/31/25 04:44 30 ml ONCE ONE Administration Dicyclomine HCl 10 mg 07/31/25 06:14 07/31/25 06:40 Dicyclomine Hcl 10 Mg Capsule PO 07/31/25 06:15 10 mg ONCE ONE Administration Famotidine 20 mg 07/31/25 04:43 07/31/25 04:59 Famotidine 20 Mg Tablet PO 07/31/25 04:44 20 mg ONCE ONE Administration Sodium Chloride 1,000 mls @ 999 mls/hr 07/31/25 02:45 07/31/25 04:59 Ns IV 07/31/25 03:45 Infused .Q1H1M ROSANNA Infusion Iohexol 100 ml 07/31/25 07:48 07/31/25 07:52 Iohexol 350 Mg/Ml 100 Ml Infus..Btl IV 07/31/25 07:49 85 ml ONCE ONE Administration Ketorolac Tromethamine 15 mg 07/31/25 02:32 07/31/25 02:52 Ketorolac Tromethamine 15 Mg/Ml Vial IVPUSH 07/31/25 02:33 15 mg ONCE ONE Administration Lidocaine HCl 15 ml 07/31/25 04:43 07/31/25 04:59 Lidocaine Hcl Viscous 2 % 15 Ml Solution PO 07/31/25 04:44 15 ml ONCE ONE Administration Morphine Sulfate 4 mg 07/31/25 03:55 07/31/25 04:03 Morphine Sulfate 4 Mg/Ml Cartridge IVPUSH 07/31/25 03:56 4 mg ONCE ONE Administration Protocol Ondansetron HCl 4 mg 07/31/25 02:32 07/31/25 02:52 Ondansetron Hcl 4 Mg/2 Ml Vial IVPUSH 07/31/25 02:33 4 mg ONCE ONE Administration Discharge Plan Discharge Clinical Impression: Abdominal pain Patient Disposition: Home, Self-Care Instructions: Abdominal Pain (ED) Additional Instructions: You were evaluated in the ED today for your abdominal pain. Your blood work is reassuring. Your urine is negative for infection and . The ultrasound of your pelvis is normal - no ovarian cysts, masses. normal blood flow to ovaries. The CT scan of your abdomen shows: CT abdomen pelvis w IV con IMPRESSION: Uterus is in retroversion flexion position to the right and prominent pelvic vessels. This may be related to pelvic congestion syndrome which can result in chronic pelvic pain. There is no acute management for this. Treatment for this is with NSAIDs such as motrin. Try heating packs. Follow up with your PCP and OBGYN. Return with any new/ worsening symptoms. In the case of an emergency call 911. Prescriptions: No Action clobetasol 0.05 % ointment topical BID omeprazole 20 mg capsule,delayed release(DR/EC) 20 mg PO DAILY advil PO Zepbound 5 mg/0.5 mL pen injector 5 mg subcut QWEEK Ref[place]: [facility] [place] [facility] [place]] Marva Herrera MD [Primary Care Provider, Medical] Print Language: Albanian
[2025-07-31 02:56] VITALS: BP 100/67; PULSE 61; RESP 14; TEMP 36.6; O2SAT 97
[2025-07-31] MEDS: Lidocaine HCl Viscous 2 % 15 ML SOLUTION PO (04:59)
[2025-07-31] MEDS: Magnesium Hydrox/Alum Hydrox 30 ML ORAL.SUSP PO (04:59)
[2025-07-31 07:41] VITALS: BP 101/64; PULSE 76; RESP 18; TEMP 36.6; O2SAT 98
[2025-07-31] MEDS: iohexoL 350 MG/ML 100 ML INFUS..BTL IV (07:52)
[2025-07-31 09:10] VITALS: BP 101/64; PULSE 76; RESP 18; TEMP 36.6; O2SAT 98
== END 2025-07-31 09:10 | disposition home or self-care (01) ==
PROVIDERS: Physician Assistant; Emergency Provider Emergency Medicine; PCP Internal Medicine
DX: R10.A2 Flank pain, left side (principal); R11.0 Nausea; R10.23 Pelvic and perineal pain bilateral; Z79.899 Other long term (current) drug therapy
CPT/HCPCS: 36415; 74177; 76830; 76856; 80053; 81003; 82248; 83690; 83735; 84702; 85025; 93975; 96361; 96374; 96375; 99285; J1885; J2270; J2405; Q9967

== ENCOUNTER → 2025-07-31 02:32 | Outpatient (BNV) | payer MEDICAID, SELFPAY | PROVIDERS: Emergency Provider Emergency Medicine; PCP Internal Medicine; Visit Provider Radiology Diagnostic Radiology | DX: R10.32 Left lower quadrant pain (principal); R10.12 Left upper quadrant pain; R11.0 Nausea; N83.201 Unspecified ovarian cyst, right side | CPT/HCPCS: 74177; 76830; 76856 ==

== ENCOUNTER 2025-08-02 08:06 | Outpatient (AMB) | payer MEDICAID, SELFPAY ==
--- NOTE | 2025-08-02 08:09 | A.OFFVIS_ITS ---
Vital Signs 08/02/25 08:12 Height 5 ft Weight 130 lb 4 oz BMI 25.4 BP 100/64 Blood Pressure Location Lt brachial Position Sitting Intake Visit Reasons: ER follow up Starch And Prosize Mixer Required: No Allergies No Known Allergies (No Known Allergies*) Allergy (Verified 08/02/25 08:14) Medication List - Last Reconciled 08/02/25 by Imani Welch LPN [advil PO] clobetasol 0.05% topical BID meloxicam 7.5 mg PO DAILY omeprazole 20 mg PO DAILY tirzepatide (weight loss) (Zepbound) 5 mg subcut QWEEK Is last menstrual period known: Yes Last menstrual period: 07/17/25 Post menopausal: No Patient : No Do you need a note to return to daycare/school/sports/work: No HPI Comments Details: Patient is here today for a follow up pelvic ultrasound seen in the ED 07/31/2025 for left back pain radiating to front left pelvis. [facility] Medical History (Updated 08/02/25 @ 13:30 by Sheryl Coburn CNM) History of renal calculi Flank pain Hematuria Vaginal mass Hx of migraines Kidney stones Surgical History Hx of lithotripsy Hx of lithotripsy S/P cystoscopy with ureteral stent placement Kidney calculus History of appendectomy Family History Mother Diabetes Father Hypertension Daughter No problems noted. Social History Household Members: Spouse Household Members Other:: daughter Housing: Apartment Alcohol intake: never Patient Tobacco Use Status: Never used Tobacco Patient : No Sexual orientation: Straight/Heterosexual Gender identity: Female Female Reproductive History Menstrual Age of Menarche: 11 Date of last menstrual period: 07/17/25 control method: condoms Total pregnancies: 1 Full term: 1 Number of Living Children: 1 Date of last pap smear: 02/24/24 History of abnormal pap smear: No History of STI: No Review of Systems Const All systems reviewed & are unremarkable except as noted in HPI and below Physical Exam Vital Signs: Last Vital Signs BP 100/64 08/02/25 08:12 BMI result Body Mass Index 25.4 Const General: cooperative, healthy appearing and no acute distress Orientation/consciousness: patient oriented x3 GI Inspection: Yes normal to inspection Palpation (GI): Soft to palpation and Other GI palpation findings present (Nontender) Rectal Exam - Female: visual inspection normal General: Yes bladder normal to palpation and Yes no CVA tenderness External Female Exam: normal appearance of the urethra Speculum Exam - Vagina: normal appearance of the vagina, normal palpation and normal vaginal discharge Speculum Exam - Cervix: normal appearance of the cervix and normal palpation Bimanual exam- vagina & uterus: normal bimanual exam, normal palpation, uterine size normal, bladder normal to palpation, normal palpation, uterine shape normal and non-tender Bimanual Exam- Adnexa, other: normal adnexae and tender (Slight) on the left Back/Spine/Pelvis Back: no CVA tenderness Neuro General: patient oriented x3 Results AMB Urinalysis Dipstick UR Leukocytes Negative Last Edit by Ann Gray LPN on 08/02/25 09:04 UR Nitrite Negative Last Edit by Ann Gray LPN on 08/02/25 09:04 UR Urobilinogen 4 Last Edit by Ann Gray LPN on 08/02/25 09:04 UR Protein Trace Last Edit by Ann Gray LPN on 08/02/25 09:04 UR Ph 5.5 Last Edit by Ann Gray LPN on 08/02/25 09:04 UR Blood Small Last Edit by Ann Gray LPN on 08/02/25 09:04 UR Specific [place] 1.030 Last Edit by Ann Gray LPN on 08/02/25 09:04 UR Ketone Moderate Last Edit by Ann Gray LPN on 08/02/25 09:04 UR Bilirubin Moderate Last Edit by Ann Gray LPN on 08/02/25 09:04 UR Glucose Negative Last Edit by Ann Gray LPN on 08/02/25 09:04 Results Reviewed Results Reviewed: Laboratory Last Values Urine pH (Clinic) 5.5 08/02/25 08:56 Specific [place] (Clinic) 1.030 08/02/25 08:56 Ur Protein (Clinic) Trace 08/02/25 08:56 Ur Ketones (Clinic) Moderate 08/02/25 08:56 Urine Blood (Clinic) Small 08/02/25 08:56 Urine Nitrite Negative 08/02/25 08:56 Urine Bilirubin (Clinic) Moderate 08/02/25 08:56 Urobilinogen (Clinic) 4 08/02/25 08:56 Leukocyte Esterase (Clinic) Negative 08/02/25 08:56 Urine Glucose (Clinic) Negative 08/02/25 08:[address] [address] [address] Scan Report Signed Patient: Stacia Agudelo MR#: [id number] : 1995 Acct:[id number] Age/Sex: 30 / F ADM Date: 07/30/25 Loc: HO.ED Attending Dr: Ordering Physician: Richard Vaughn PA-C Date of Service: 07/31/25 Procedure(s): CT abdomen pelvis w IV con Accession Number(s): [id number] cc: Marva Herrera MD; Richard Vaughn PA-C~ Report Number: [id number]: Total DLP = 411.00 mGy-cm Reason for Exam: LLQ/LUQ Abd Pain/Tenderness EXAMINATION: CT ABDOMEN AND PELVIS WITH CONTRAST CLINICAL INFORMATION: Left lower quadrant/left upper quadrant abdominal pain and tenderness. COMPARISON: July 10, 2025. TECHNIQUE: Multidetector volumetric images were obtained from the superior aspect of the liver through the pubic symphysis following administration 85 mL of Omnipaque 350 intravenous contrast. Sagittal and coronal reformatted images were obtained on the technologist's workstation. Oral contrast: No This CT examination was performed using dose optimization techniques as appropriate, variously including the following: *Automated exposure control *Adjustment of mA and/or kV according to patient size (this includes techniques or standardized protocols for targeted exams where dose is matched to indication/reason for exam; i.e. extremities or head) *Use of iterative reconstruction technique DLP: 411 mGy-cm FINDINGS: LUNG BASES: No acute airspace disease. Subsegmental atelectasis versus scarring, both lung bases.. LIVER, GALLBLADDER, AND BILIARY TREE: Liver measures 15 cm. No solid or cystic mass. Main portal veins and hepatic veins are patent.. Small focal fatty infiltration adjacent to the falciform ligament Gallbladder is nondistended. No pericholecystic fluid collection or gallbladder wall thickening. No intrahepatic or extrahepatic biliary ductal dilatation. PANCREAS: No solid or cystic mass. No main pancreatic ductal dilatation. No peripancreatic fluid collection. SPLEEN: 10 cm. No solid or cystic lesion. 1.5 cm accessory spleen, splenic hilum.. ADRENAL GLANDS: No nodular lesions. KIDNEYS AND URETERS: No hydronephrosis. No enhancing renal mass. Normal enhancement of the renal parenchyma. No gross nephrolithiasis. Ureters are not dilated. BLADDER: Fluid-filled. GASTROINTESTINAL TRACT: Abundant stool. No intestinal obstruction pattern. No pneumatosis intestinalis. No intestinal wall thickening. No ascites. No pneumoperitoneum. No peripheral enhancing fluid collection, peritoneal cavity. I do not see the appendix, though no pericecal/mesocolon fluid collection or edema pattern . ABDOMINAL WALL: No umbilical hernia. LYMPH NODES: No mesenteric or retroperitoneal lymphadenopathy. VASCULAR: Trace of pericardial effusion. No aneurysm or dissection, abdominal aorta. No gross calcified plaque. PELVIC VISCERA: Uterus is seen in retroversion flexion position to the right of the pelvis. Prominent pelvic vessels. 2 cm dominant follicle both adnexa. OSSEOUS STRUCTURES: No acute fracture or listhesis. No lytic or blastic lesions. CT/CT abdomen pelvis w IV con IMPRESSION: Uterus is in retroversion flexion position to the right and prominent pelvic vessels. Trace of pericardial effusion. Fleischner guidelines were followed. Electronically signed by: Juan Diego Maurer MD 07/31/2025 08:31 AM [facility] Dictated By: Juan Diego Castillo MD Signed By: <Electronically signed by Juan Diego Wyman MD in OV> 07/31/25 0831 DD/ 0744 TD/TT: 07/31/25 0757 Financial Investment Adviser: Assessment & Plan Assessment & Plan (1) Hematuria: Code(s): R31.9 - Hematuria, unspecified Category: Medical Qualifiers: Hematuria type: other microscopic Qualified Code(s): R31.29 - Other microscopic hematuria Plan: Plan UA clean-catch, C&S. Referral placed to urology for further evaluation. The patient expressed understanding and agreement with the plan of care. All of her questions and concerns were addressed to the best of my ability. (2) Flank pain: Code(s): R10.9 - Unspecified abdominal pain Category: Medical Plan: Referral as noted above. (3) History of renal calculi: Code(s): Z87.442 - Personal history of urinary calculi Category: Medical Plan Referral as noted above. The patient expressed understanding and agreement with the plan of care. All of her questions and concerns were addressed to the best of my ability. Pediatric Dental Hygienist annual scheduled August 2025. Call if any other concerns. This note is constructed using voice recognition software. While every effort has been made to ensure accuracy, carbon paper interleafer errors may have been included. Orders: Orders AMB Urinalysis Dipstick Today R10.9 - Unspecified abdominal pain Urine Culture Today R10.9 - Unspecified abdominal pain Referrals Urology Referral R10.9 - Unspecified abdominal pain, R31.9 - Hematuria, unspecified, Z87.442 - Personal history of urinary calculi Medications: New terconazole 0.8% insert at bedtime for 3 days 1 appful vaginal BEDTIME PRN 20 grams 0RF infection 3 days Coding Level of Care Code Est Pt Level 3 (96233) Diagnoses Other microscopic hematuria R31.29 Hematuria type: other microscopic Flank pain R10.9 History of renal calculi Z87.442
--- OUTSIDE RECORDS SUMMARY | 2025-08-02 08:10 | XMS_ITS | Encounter Summary ---
Author Organization [employer] Address [address] [place] [address] Care Team Providers Care Sharepoint Application Architect Name Role Phone Emmanuel Rahanthony FRANCIS Primary Care Provider [phone] Encounter Details Date Type Department Care Team ([facility] st Contact Info) Description 07/30/2025 Orders Only GENERIC EXTERNAL DATA DEPARTMENT Provider, Generic External Data Social History Tobacco Use Types Packs/Day Years [...] on file documented as of this encounter Procedures Procedure Name Priority Date/Time Associated Diagnosis Comments CT ABDOMEN PELVIS W CONTRAST Routine 07/31/2025 7:44 AM EST US PELVIS TRANSVAGINAL Routine 07/31/2025 4:18 AM EST URINALYSIS WITH REFLEX MICROSCOPIC Routine 07/30/2025 11:28 PM EST documented in this encounter Results * CT Abdomen Pelvis w/ Contrast (07/31/2025 7:44 AM EST) Anatomical Region Laterality Modality Body, Pelvis, Abdomen Computed T omography 07/31/2025 7:44 AM EST Narrative 07/31/2025 8:35 AM EST [place] [address] CT Scan Report Signed Patient: Stacia Agudelo MR#: [id number] : 1995 Acct:[id number] Age/Sex: 30 / F ADM Date: 07/30/25 Loc: .ED Attending Dr: Ordering Physician: Richard Vaughn PA-C Date of Service: 07/31/25 Procedure(s): CT abdomen pelvis w IV con Accession Number(s): [id number] cc: Marva Herrera MD; Richard Vaughn PA-C Report Number: [id number]: Total DLP = 411.00 mGy-cm Reason for Exam: LLQ/LUQ Abd Pain/Tenderness EXAMINATION: CT ABDOMEN AND PELVIS WITH CONTRAST CLINICAL INFORMATION: Left lower quadrant/left upper quadrant abdominal pain and tenderness. COMPARISON: July 10, 2025. TECHNIQUE: Multidetector volumetric images were obtained from the superior aspect of the liver through the pubic symphysis following administration 85 mL of Omnipaque 350 intravenous contrast. Sagittal and coronal reformatted images were obtained on the technologist's workstation. Oral contrast: No This CT examination was performed using dose optimization techniques as appropriate, variously including the following: *Automated exposure control *Adjustment of mA and/or kV according to patient size (this includes techniques or standardized protocols for targeted exams where dose is matched to indication/reason for exam; i.e. extremities or head) *Use of iterative reconstruction technique DLP: 411 mGy-cm FINDINGS: LUNG BASES: No acute airspace disease. Subsegmental atelectasis versus scarring, both lung bases.. LIVER, GALLBLADDER, AND BILIARY TREE: Liver measures 15 cm. No solid or cystic mass. Main portal veins and hepatic veins are patent.. Small focal fatty infiltration adjacent to the falciform ligament Gallbladder is nondistended. No pericholecystic fluid collection or gallbladder wall thickening. No intrahepatic or extrahepatic biliary ductal dilatation. PANCREAS: No solid or cystic mass. No main pancreatic ductal dilatation. No peripancreatic fluid collection. SPLEEN: 10 cm. No solid or cystic lesion. 1.5 cm accessory spleen, splenic hilum.. ADRENAL GLANDS: No nodular lesions. KIDNEYS AND URETERS: No hydronephrosis. No enhancing renal mass. Normal enhancement of the renal parenchyma. No gross nephrolithiasis. Ureters are not dilated. BLADDER: Fluid-filled. GASTROINTESTINAL TRACT: Abundant stool. No intestinal obstruction pattern. No pneumatosis intestinalis. No intestinal wall thickening. No ascites. No pneumoperitoneum. No peripheral enhancing fluid collection, peritoneal cavity. I do not see the appendix, though no pericecal/mesocolon fluid collection or edema pattern . ABDOMINAL WALL: No umbilical hernia. LYMPH NODES: No mesenteric or retroperitoneal lymphadenopathy. VASCULAR: Trace of pericardial effusion. No aneurysm or dissection, abdominal aorta. No gross calcified plaque. PELVIC VISCERA: Uterus is seen in retroversion flexion position to the right of the pelvis. Prominent pelvic vessels. 2 cm dominant follicle both adnexa. OSSEOUS STRUCTURES: No acute fracture or listhesis. No lytic or blastic lesions. CT/CT abdomen pelvis w IV con IMPRESSION: Uterus is in retroversion flexion position to the right and prominent pelvic vessels. Trace of pericardial effusion. Fleischner guidelines were followed. Electronically signed by: Juan Diego Maurer MD 07/31/2025 08:31 AM [facility] Dictated By: Juan Diego Castillo MD Signed By: <Electronically signed by Juan Diego Wyman MD in OV> 07/31/25 0831 DD/ 0744 TD/TT: 07/31/25 0757 Industrial Education Teacher: Procedure Note Donotkirstyinterpreter, Image - 07/31/[address] [address] [address] Scan Report Signed Patient: Stacia Agudelo GMR#: [id number] : 1995Acct:[id number] Age/Sex: 30 FADM Date: 07/30/25 Loc: HO.ED Attending Dr: Ordering Physician: Richard Vaughn PA-C Date of Service: 07/31/25 Procedure(s): CT abdomen pelvis w IV con Accession Number(s): [id number] cc: Marva Herrera MD; Richard Vaughn PA-C Report Number: [id number]: Total DLP = 411.00 mGy-cm Reason for Exam: LLQ/LUQ Abd Pain/Tenderness EXAMINATION: CT ABDOMEN AND PELVIS WITH CONTRAST CLINICAL INFORMATION: Left lower quadrant/left upper quadrant abdominal pain and tenderness. COMPARISON: July 10, 2025. TECHNIQUE: Multidetector volumetric images were obtained from the superior aspect of the liver through the pubic symphysis following administration 85 mL of Omnipaque 350 intravenous contrast. Sagittal and coronal reformatted images were obtained on the technologist's workstation. Oral contrast: No This CT examination was performed using dose optimization techniques as appropriate, variously including the following: *Automated exposure control *Adjustment of mA and/or kV according to patient size (this includes techniques or standardized protocols for targeted exams where dose is matched to indication/reason for exam; i.e. extremities or head) *Use of iterative reconstruction technique DLP: 411 mGy-cm FINDINGS: LUNG BASES: No acute airspace disease. Subsegmental atelectasis versus scarring, both lung bases.. LIVER, GALLBLADDER, AND BILIARY TREE: Liver measures 15 cm. No solid or cystic mass. Main portal veins and hepatic veins are patent.. Small focal fatty infiltration adjacent to the falciform ligament Gallbladder is nondistended. No pericholecystic fluid collection or gallbladder wall thickening. No intrahepatic or extrahepatic biliary ductal dilatation. PANCREAS: No solid or cystic mass. No main pancreatic ductal dilatation. No peripancreatic fluid collection. SPLEEN: 10 cm. No solid or cystic lesion. 1.5 cm accessory spleen, splenic hilum.. ADRENAL GLANDS: No nodular lesions. KIDNEYS AND URETERS: No hydronephrosis. No enhancing renal mass. Normal enhancement of the renal parenchyma. No gross nephrolithiasis. Ureters are not dilated. BLADDER: Fluid-filled. GASTROINTESTINAL TRACT: Abundant stool. No intestinal obstruction pattern. No pneumatosis intestinalis. No intestinal wall thickening. No ascites. No pneumoperitoneum. No peripheral enhancing fluid collection, peritoneal cavity. I do not see the appendix, though no pericecal/mesocolon fluid collection or edema pattern . ABDOMINAL WALL: No umbilical hernia. LYMPH NODES: No mesenteric or retroperitoneal lymphadenopathy. VASCULAR: Trace of pericardial effusion. No aneurysm or dissection, abdominal aorta. No gross calcified plaque. PELVIC VISCERA: Uterus is seen in retroversion flexion position to the right of the pelvis. Prominent pelvic vessels. 2 cm dominant follicle both adnexa. OSSEOUS STRUCTURES: No acute fracture or listhesis. No lytic or blastic lesions. CT/CT abdomen pelvis w IV con IMPRESSION: Uterus is in retroversion flexion position to the right and prominent pelvic vessels. Trace of pericardial effusion. Fleischner guidelines were followed. Electronically signed by: Juan Diego Maurer MD 07/31/2025 08:31 AM EST Dictated By: Juan Diego Castillo MD Signed By: <Electronically signed by Juan Diego Wyman MDin OV> 07/31/25 0831 DD/ 0744 TD/TT: 07/31/25 0757 Industrial Education Teacher: [facility] External Provider IMG CT PROCEDURES Edited Result - Final * US Pelvis Transvaginal (07/31/2025 4:18 AM EST) Anatomical Region Laterality Modality Pelvis Ultrasound 07/31/2025 4:18 AM EST Narrative 07/31/2025 4:20 AM EST [address] [address] Ultrasound Report Signed Patient: Stacia Agudelo MR#: [id number] : 1995 Acct:[id number] Age/Sex: 30 / F ADM Date: 07/30/25 Loc: HO.ED Attending Dr: Ordering Physician: Richard Vaughn PA-C Date of Service: 07/31/25 Procedure(s): US pelvic and transvaginal Accession Number(s): [id number] cc: Marva Herrera MD; Richard Vaughn PA-C Reason for Exam: Left Pelvic/LLQ Pain/Tenderness, Nausea CLINICAL HISTORY: Left Pelvic LLQ Pain Tenderness, Nausea US pelvis transabdominal and transvaginal with Doppler Comparison: US/SR - US PELVIC AND TRANSVAGINAL - 07/10/25 02:10 EDT Findings: Transabdominal scanning performed for overall anatomy. Transvaginal scanning performed for additional detail. Uterus measures 8 x 3.4 x 4.6 cm. There is no uterine mass. Endometrium is within normal limits measuring 10 mm in thickness. Right ovary measures 3.4 x 2.2 x 2.4 cm. There is an incidental 2 cm dominant follicle in the right ovary. There is no right adnexal mass or fluid collection. There is normal color Doppler and arterial/venous spectral tracings within the right ovary. Left ovary measures 3.1 x 1.4 x 1.6 cm. There are small left ovarian follicles. There is no left adnexal mass or fluid collection. There is normal color Doppler and arterial/venous spectral tracings within the left ovary. There is no free fluid in the pelvis. IMPRESSION: Unremarkable pelvic ultrasound. This document has been electronically signed by: Gregg Novoa MD on 07/31/2025 04:18:56 Dictated By: Gregg Novoa MD Signed By: <Electronically signed by Gregg Novoa MD in OV> 07/31/250 DD/ 7 TD/TT: 07/31/25417 Industrial Education Teacher: Procedure Note Donotuseinterpreter, Image - 07/31/[address] [address] Ultrasound Report Signed Patient: Stacia Agudelo GMR#: [id number] : 1995Acct:[id number] Age/Sex: 30 / FADM Date: 07/30/25 Loc: HO.ED Attending Dr: Ordering Physician: Richard Vaughn PA-C Date of Service: 07/31/25 Procedure(s): US pelvic and transvaginal Accession Number(s): [id number] cc: Marva Herrera MD; Richard Vaughn PA-C Reason for Exam: Left Pelvic/LLQ Pain/Tenderness, Nausea CLINICAL HISTORY: Left Pelvic LLQ Pain Tenderness, Nausea US pelvis transabdominal and transvaginal with Doppler Comparison: US/SR - US PELVIC AND TRANSVAGINAL - 07/10/25 02:10 EDT Findings: Transabdominal scanning performed for overall anatomy. Transvaginal scanning performed for additional detail. Uterus measures 8 x 3.4 x 4.6 cm. There is no uterine mass. Endometrium is within normal limits measuring 10 mm in thickness. Right ovary measures 3.4 x 2.2 x 2.4 cm. There is an incidental 2 cm dominant follicle in the right ovary. There is no right adnexal mass or fluid collection. There is normal color Doppler and arterial/venous spectral tracings within the right ovary. Left ovary measures 3.1 x 1.4 x 1.6 cm. There are small left ovarian follicles. There is no left adnexal mass or fluid collection. There is normal color Doppler and arterial/venous spectral tracings within the left ovary. There is no free fluid in the pelvis. IMPRESSION: Unremarkable pelvic ultrasound. This document has been electronically signed by: Gregg Novoa MD on 07/31/2025 04:18:56 Dictated By: Gregg Novoa MD Signed By: <Electronically signed by Gregg Novoa MD in OV> 07/31/25 0420 DD/ 7 TD/TT: 07/31/25417 Industrial Education Teacher: [facility] External Provider IMG US PROCEDURES Edited Result - Final * Urinalysis w/reflex microscopic (07/30/2025 11:28 PM EST) Color Urine Yellow [facility] Appearance Urine Clear [facility] PH 7.0 5.0 - 9.0 [facility] Glucose Urine UA Negative Negative mg/dL [facility] Urine Blood Negative Negative [facility] Specific [place] - Urine 1.025 1.005 - 1.025 [facility] Urine Protein Trace Neg-Trace mg/dL [facility] Urine Ketones Negative Negative mg/dL [facility] Nitrite Urine Negative Negative [facility] Leukocyte Esterase Urine Negative Negative [facility] 07/30/2025 11:2 8 PM EST 07/30/2025 11:31 PM EST Narrative [facility] - 07/30/2025 11:51 PM EST Urine, Clean Catch us Generic External Data Provider LAB URINE ORDERAB LES Final Result [facility] [address] [place] [address] [phone] documented in this encounter Visit Diagnoses Not on filedocumented in this encounter Care Teams Sharepoint Application Architect Relationship Specialty Start Date End Date Lexy Benitez CNP [address] [place] [id number] PCP - General Family Medicine 07/19/25 documented as of this encounter
--- OUTSIDE RECORDS SUMMARY | 2025-08-02 08:10 | XMS_ITS | Clinical Summary ---
Author Organization [email or web address] [facility] ity Address [address] [place] [address] Care Team Providers Care Sdv Pilot/Navigator/Dds Operator Name Role Phone Unavailable Primary Care [...] Depression Screening 09/21/2024 COVID-19 Vaccine ( - 2024-2 6 season) 2025 Influenza Vaccine (#1) 2025 RSV [...]
--- OUTSIDE RECORDS SUMMARY | 2025-08-02 08:10 | XMS_ITS | Encounter Summary ---
Author Organization [employer] Address [address] [place] [address] Care Team Providers Care Restaurant Assistant Name Role Phone Odalis Hartman MD Primary Care Provider [phone] Lexy Benitez CNP Primary Care Provider [phone] Reason for Visit * Reason Onset Date Comments PA 11/28/2024 Encounter Details Date Type Department Care Team ([facility] st Contact Info) Description 11/28/2024 Telephone [facility] PEDS [address] [place] [address] Odalis Hartman MD [address] [place] [address] PA Social History Tobacco Use Types Packs/Day [...] on filedocumented in this encounter Care Teams Restaurant Assistant Relationship Specialty Start Date End Date Odalis Hartman MD [address] [place] [phone] PCP - General Family Medicine 07/06/18 07/18/25 Lexy Benitez CNP [address] [place] [phone] PCP - General Family Medicine 07/19/25 documented as of this encounter
--- OUTSIDE RECORDS SUMMARY | 2025-08-02 08:10 | XMS_ITS | Encounter Summary ---
Author Organization [employer] Address [address] 7t [place] [address] Care Team Providers Care Physical Biochemist Name Role Phone Odalis Hartman MD Primary Care Provider [phone] Lexy Benitez CNP Primary Care Provider [phone] Reason for Visit * Reason Onset Date Comments Returning Call 04/12/2024 Encounter Details Date Type Department Care Team ([facility] st Contact Info) Description 04/12/2024 Telephone [facility] MEDICINE [address] [place] [address] Odalis Hartman MD [address] [place], [place] [phone] Returning Call Social History Tobacco Use Types [...] on filedocumented in this encounter Care Teams Physical Biochemist Relationship Specialty Start Date End Date Odalis Hartman MD [address] [place] [address] PCP - General Family Medicine 07/06/18 07/18/25 Lexy Benitez CNP [address] [place] [address] PCP - General Family Medicine 07/19/25 documented as of this encounter
--- OUTSIDE RECORDS SUMMARY | 2025-08-02 08:11 | XMS_ITS | Encounter Summary ---
Author Organization [employer] Address [address] [place] [address] 7t [place] [address] Care Team Providers Care Multimedia Producer Name Role Phone Odalis Hartman MD Primary Care Provider [phone] Lexy Benitez CNP Primary Care Provider [phone] Reason for Visit * Reason Onset Date Comments Nurse Triage 10/24/2024 Encounter Details Date Type Department Care Team ([facility] st Contact Info) Description 10/24/2024 Telephone [facility] MED & PEDS [address] [place] [address] Odalis Hartman MD [address] [place] [address] Nurse Triage Social History Tobacco Use Types [...] 4:26 PM EST [place] [id number] [place] [id number]. Pt reports episode of rapid heart beat/palpitations [...] advised if is concerned may come to [facility] open till 8pm this evening and provider [...] on filedocumented in this encounter Care Teams Multimedia Producer Relationship Specialty Start Date End Date Odalis Hartman MD [address] [place] [phone] PCP - General Family Medicine 07/06/18 07/18/25 Lexy Benitez CNP [address] [place] [address] PCP - General Family Medicine 07/19/25 documented as of this encounter
--- OUTSIDE RECORDS SUMMARY | 2025-08-02 08:11 | XMS_ITS | Encounter Summary ---
Author Organization [employer] Address [address] [place] [address] 7t [place] [address] Care Team Providers Care Graduate Teaching Assistant Name Role Phone Odalis Hartman MD Primary Care Provider [phone] Lexy Benitez CNP Primary Care Provider [phone] Reason for Visit * Reason Comments Med Refill Encounter Details Date Type Department Care Team ([facility] st Contact Info) Description 04/13/2023 Refill [facility] MED & PEDS [address] [place] [address] Marva Herrera MD [address] [place] [address] Perioral dermatitis Social History Tobacco Use Types [...] Rosacea documented in this encounter Care Teams Graduate Teaching Assistant Relationship Specialty Start Date End Date Odalis Hartman MD [address] [place] [address] PCP - General Family Medicine 07/06/18 07/18/25 Lexy Benitez CNP [address] [place] [address] PCP - General Family Medicine 07/19/25 documented as of this encounter
--- OUTSIDE RECORDS SUMMARY | 2025-08-02 08:11 | XMS_ITS | Clinical Summary ---
Author Organization [employer] Address [address] [facility] 7t [place] [address] Care Team Providers Care Plant Electrician Name Role Phone Emmanuel Rahanthony FRANCIS Primary Care Provider [phone] Allergies No known active allergies Medications omeprazole [...] Encounters Date Type Department Care Team Description 07/30/2025 Orders Only GENERIC EXTERNAL DATA DEPARTMENT Provider, Generic External Data 07/20/2025 Orders Only GENERIC EXTERNAL DATA DEPARTMENT Provider, Generic External Data 07/12/2025 9:30 AM EDT Office Visit [facility] MED & PEDS [address] [place] [address] Odalis Hartman MD Cyst of left ovary (Primary Dx) 07/11/2025 Telephone [facility] MED & PEDS [address] [place] [address] Odalis Hartman MD ED visit 07/11/2025 Travel 07/10/2025 Orders Only [facility] MED & PEDS [address] [place] [address] Odalis Hartman MD Mass of left breast, unspecified quadrant (Primary Dx) 07/10/2025 Results Follow-Up [facility] MED & PEDS [address] [place] [address] Odalis Hartman MD US Pelvis Transvaginal, CT Abdomen Pelvis w/ Contrast 07/09/2025 Orders Only GENERIC EXTERNAL DATA DEPARTMENT Provider, Generic External Data 07/05/2025 Orders Only [facility] MED & PEDS [address] [place] [address] Odalis Hartman MD 07/04/2025 10:45 AM EDT Telemedicine [facility] MED & PEDS [address] [place] [address] Odalis Hartman MD Obesity without serious comorbidity in pediatric patient, unspecified obesity class, unspecified obesity type (Primary Dx) 07/04/2025 Travel 06/28/[address] [address] Odalis Hartman MD Prior Authorization from Last [...] 7:44 AM EST US PELVIS TRANSVAGINAL Routine 4:18 AM EST URINALYSIS WITH REFLEX MICROSCOPIC Routine 07/30/2025 11:28 PM EST CHLAMYDIA/N. GONORRHOEAE RNA, TMA, UROGENITAL Routine 07/20/2025 [...] Recently Relevant to Health Maintenance Results * CT Abdomen Pelvis w/ Contrast (07/31/2025 7:44 AM EST) Only the most recent of2 resultswithin the time period is included. Anatomical Region Laterality Modality Body, Pelvis, Abdomen Computed T omography 07/31/2025 7:44 AM EST Narrative 07/31/2025 8:35 AM EST [place] [address] CT Scan Report Signed Patient: Stacia Agudelo MR#: [id number] : 1995 Acct:[id number] Age/Sex: 30 / F ADM Date: 07/30/25 Loc: HO.ED Attending Dr: Ordering Physician: Richard Vaughn PA-C Date of Service: 07/31/25 Procedure(s): CT abdomen pelvis w IV con Accession Number(s): [id number] cc: Marva Herrera MD; Richard Vaughn PA-C Report Number: [id number]: Total DLP = 411.00 mGy-cm Reason for [...] 07/31/25 0831 DD/ 0744 TD/TT: 07/31/25 0757 [employer]: Procedure Note Donotuseinterpreter, Image - 07/31/[address] [address] [address] Scan Report Signed Patient: Stacia Agudelo GMR#: [id number] : 1995Acct:[id number] Age/Sex: 30 / FADM Date: 07/30/25 Loc: HO.ED Attending Dr: Ordering Physician: Richard Vaughn PA-C Date of Service: 07/31/25 Procedure(s): CT abdomen pelvis w IV con Accession Number(s): [id number] cc: Marva Herrera MD; Richard Vaughn PA-C Report Number: [id number]: Total DLP = 411.00 mGy-cm Reason for [...] 07/31/25 0831 DD/ 0744 TD/TT: 07/31/25 0757 [employer]: [facility] External Provider IMG CT PROCEDURES Edited Result - Final * US Pelvis Transvaginal (07/31/2025 4:18 AM EST) Only the most recent of2 resultswithin the time period is included. Anatomical Region Laterality Modality Pelvis Ultrasound 07/31/2025 4:18 AM EST Narrative 07/31/2025 4:20 AM EST [address] [address] Ultrasound Report Signed Patient: Stacia Agudelo MR#: [id number] : 1995 Acct:[id number] Age/Sex: 30 / F ADM Date: 07/30/25 Loc: HO.ED Attending Dr: Ordering Physician: Richard Vaughn PA-C Date of Service: 07/31/25 Procedure(s): US pelvic and transvaginal Accession Number(s): [id number] cc: Marva Herrera MD; Richard Vaughn PA-C [...] OV> 07/31/25 0420 DD/ 7 TD/TT: 07/31/254[address] [employer]: Procedure Note Donotuseinterpreter, Image - 07/31/2025 [place] [address] Ultrasound Report Signed Patient: Stacia Agudelo GMR#: [id number] : 1995Acct:[id number] Age/Sex: 30 / FADM Date: 07/30/25 Loc: HO.ED Attending Dr: Ordering Physician: Richard Vaughn PA-C Date of Service: 07/31/25 Procedure(s): US pelvic and transvaginal Accession Number(s): [id number] cc: Marva Herrera MD; Richard Vaughn PA-C [...] OV> 07/31/25 0420 DD/ 7 TD/TT: 07/31/25417 [employer]: us [facility] External Provider IMG US PROCEDURES Edited Result - Final * Urinalysis w/reflex microscopic (07/30/2025 11:28 PM EST) Only the most recent of2 resultswithin the time period is included. Color Urine Yellow [facility] Appearance Urine Clear [facility] PH 7.0 5.0 - 9.0 [facility] Glucose Urine UA Negative Negative mg/dL [facility] Urine Blood Negative Negative [facility] Specific [place] - Urine 1.025 1.005 - 1.025 [facility] Urine Protein Trace Neg-Trace mg/dL [facility] Urine Ketones Negative Negative mg/dL [facility] Nitrite Urine Negative Negative [facility] Leukocyte Esterase Urine Negative Negative [facility] 07/30/2025 11:2 8 PM EST 07/30/2025 11:31 PM EST Narrative [facility] - 07/30/2025 11:51 PM EST Urine, Clean Catch Generic External Data Provider LAB URINE ORDERAB LES Final Result Performing Organization Address [facility] Co de Phone Number [facility] [address] [place] [phone] * (ABNORMAL) Bacterial Vaginosis (07/20/2025 1:41 PM EDT) TRICHOMONAS VAGINALIS DETECTION BY PCR NOT DETECTED Not Detect [facility] BACTERIAL VAGINOSIS DETECTION BY PCR NEGATIVE Negative [facility] Comment:The BV organism targ ets of [...] DETECTION BY PCR NOT DETECTED Not Detect [facility] Noris glab krusei PCR DETECTED(A) Not Detect [facility] 07/20/2025 1:41 PM EDT 07/20/2025 3:52 PM EDT Generic External Data Provider LAB MICROBIOLOGY - GENERAL ORDERABLES Final Result Performing Organization Address [facility]/ZIP Co de Phone Number [facility] [address] [place] [phone] * Chlamydia/N. Gonorrhoeae RNA, TMA, Urogenitial (07/20/2025 1:41 PM EDT) CT PCR NOT DETECTED Not Detect. [facility] Comment:A not detected test result does [...] psychologicalconsequences. NG PCR NOT DETECTED Not Detect. [facility] Comment:A not detected test result does [...] LAB MICROBIOLOGY - GENERAL ORDERABLES Final Result [facility] [address] [place] [phone] * US PELVIC OVARIAN DOPPLER (07/10/2025 4:05 AM EDT) Anatomical Region Laterality Modality Abdomen Ultrasound 07/10/2025 4:05 AM EDT Narrative 07/13/2025 11:15 AM EDT [address] [address] Ultrasound Report Signed Patient: Stacia Agudelo MR#: [id number] : 1995 Acct:[id number] Age/Sex: 30 / F ADM Date: 07/09/25 Loc: HO.ED Attending Dr: Ordering Physician: Richard Vaughn PA-C Date of Service: 07/10/25 Procedure(s): US pelvic ovarian doppler Accession Number(s): [id number] cc: Richard Vaughn PA-C; Odalis Hartman MD [...] in OV> 07/13/25 1114 DD/ 0405 TD/TT: 07/10/25 040 [employer]: Procedure Note Donotuseinterpreter, Image - 07/13/[address] [address] Ultrasound Report Signed Patient: Stacia Agudelo GMR#: [id number] : 1995Acct:[id number] Age/Sex: 30 / FADM Date: 07/09/25 Loc: HO.ED Attending Dr: Ordering Physician: Richard Vaughn PA-C Date of Service: 07/10/25 Procedure(s): US pelvic ovarian doppler Accession Number(s): [id number] cc: Richard Vaughn PA-C; Odalis Hartman MD [...] in OV> 07/13/25 1114 DD/ TD/TT: 07/10/25404 [employer]: us [facility] External Provider IMG US PROCEDURES Edited Result - Final * CBC auto differential (07/09/2025 8:25 PM EDT) White Blood Count 7.9 4.8 - 10.8 X10*3/uL [facility] Red Blood Count 4.32 4.20 - 5.50 X10*6/uL [facility] Hemoglobin 12.6 12.0 - 16.0 g/dl [facility] Hematocrit 37.2 37.0 - 47.0 % [facility] Mean Corpuscular Volume 86.1 80.0 - 98.0 fL [facility] Mean Corpuscular Hemoglobin 29.2 27.0 - 33.0 pg [facility] Mean Corpuscular HGB Conc 33.9 31.0 - 35.0 g/dl [facility] Red Cell Distribution Width 13.6 11.0 - 16.0 % [facility] Platelet Count 182 160 - 400 X10*3/uL [facility] Mean Platelet Volume 9.9 9.4 - 12.3 fL [facility] Neutrophils Percent Auto 63.2 45 - 73 % [facility] Imm Gran Pct Auto 0.3 0.0 - 0.4 % [facility] Lymphocytes Percent Auto 27.3 20 - 40 % [facility] Monocytes Percent Auto 5.8 2 - 11 % [facility] Eosinophils Percent Auto 3.0 0 - 4 % [facility] Basophils Percent Auto 0.4 0 - 2 % [facility] NRBC Pct Auto 0.0 0.0 - 0.2 /100WBC [facility] Neutrophils Absolute Auto 5.0 2.0 - 8.3 x10*3/uL [facility] Imm Gran Abs Auto 0.02 0.00 - 0.03 X10*3/uL [facility] Lymphocytes Absolute Auto 2.2 1.2 - 4.9 X10*3/uL [facility] Monocytes Absolute Auto 0.5 0.1 - 1.2 X10*3/uL [facility] Eosinophils Absolute Auto 0.2 0.0 - 0.4 X10*3/uL [facility] Basophils Absolute Auto 0.0 0.0 - 0.2 X10*3/uL [facility] NRBC Abs Auto 0.000 0.0 - 0.012 X10*3/uL [facility] 07/09/2025 8:25 PM EDT 07/09/2025 8:29 PM EDT us Generic External Data Provider LAB BLOOD ORDERAB LES Final Result [facility] [address] [place] [address] [phone] * hCG, Total, Quantitative (07/09/2025 8:25 PM EDT) HCG Quantitative <2 mIU/mL [facility] Comment:Weeks post LMP Appr oximate hCG(Last Menstrual Period) Range (mIU/ml)3 - 4 weeks 9 - 1304 - 5 weeks 75 - 2,6005 - 6 weeks 850 - 20,8006 - 7 weeks 4000 - 100,2007 - 12 weeks 11,500 - 289,88466 - 16 weeks 18,300 - 137,53941 - 29 weeks (2nd trimester) 1,400 - 53,32844 - 41 weeks (3rd trimester) 940 - [...] Provider LAB BLOOD ORDERAB LES Final Result [facility] [address] [place] [phone] * (ABNORMAL) Comprehensive Metabolic Panel (07/09/2025 8:25 PM EDT) Sodium 138 135 - 145 mmol/L [facility] Potassium 4.0 3.3 - 5.1 mmol/L [facility] Chloride 110(H) 96 - 108 mmol/L [facility] Carbon Dioxide 20(L) 22 - 29 mmol/L [facility] Anion Gap 12 12 - 20 [facility] Urea Nitrogen (BUN) 7(L) 9 - 16 mg/dL [facility] Creatinine, Serum 0.69 0.5 - 1.4 mg/dL [facility] Creatinine Clr Calc Pharmacy 95.5 [facility] Comment:Provided height and weight: 152.4 cm,59.874 kg.eGFR (calculated from the MDRD study equation) and eCrCl(calculated from the Cockcroft-Gault equation) are based ondifferent parameters and may not yield comparable results.If eCrCl result is absurd, please check patient'sheight/weight. Estimated Glomerular Filt Rate >60 [facility] Comment:Chronic Kidney Disea se: Estimated GFR < 60 mL/min/1.53d7Mkcbzg Kidney Disease: Estimated GFR < 15 mL/min/1.73m2 Glucose 92 60 - 115 mg/dL [facility] Calcium 9.0 8.4 - 10.2 mg/dL [facility] Bilirubin, Total 0.3 0.0 - 1.0 mg/dL [facility] Aspartate Amino Transferase 21 5 - 31 U/L [facility] Alanine Aminotransferase 16 0 - 31 U/L [facility] Total Protein 6.7 6.5 - 8.0 g/dL [facility] Albumin Level 4.2 3.5 - 5.0 g/dL [facility] Alkaline Phosphatase 61 39 - 117 U/L [facility] 07/09/2025 8:2 5 PM EDT 07/09/2025 8:29 PM EDT us Generic External Data Provider LAB BLOOD ORDERAB LES Final Result [facility] [address] [place] [phone] * Pap Smear (02/23/2024 1:44 PM EDT) Swab Cervix uteri structure / Unknown 02/23/2024 1:44 PM EDT 02/24/2024 9:15 AM EDT Narrative [facility] - 03/20/2024 3:43 PM EDT ----- ------- Name: Stacia Agudelo Age/Sex: 28/F : 1995 Unit#: [id number] Attend Dr: ENA LUNA Re02/23/24 Status: DEP REF Location: [facility] Disch: ----- ------- SPEC : [id number] RECD: 02/24/24 STATUS: SOPHIE CONNELLY NUM: [id number] FERCHO: 02/23/24-134 [facility] DR: ENA LUNA [facility] ENTERED: 02/24/24-1013 SP TYPE: Pap Smr GAURAV DR: ORDERED: Pap Smear Interpretation Satisfactory for evaluation. Negative for intraepithelial lesion or malignancy. Clinical Information LMP: 01/25/2024 Previous PAP test: Unknown date/findings Material Received ThinPrep-Cervical ----- ------- Signed (signature on file) Moon Sheridan 03/20/24 1543 ----- ------- END OF REPORT Ena [facility] LAB CYTOLOGY ORDERABLES F inal Result [facility] [address] [place] [phone] [phone] * Lipid Panel, Standard (01/21/2023 10:41 AM EDT) Cholesterol, Total 158 <200 mg/dL [facility] HDL Cholesterol 58 > OR = 50 mg/dL [facility] Triglycerides 94 <150 mg/dL [facility] LDL Cholesterol 81 mg/dL (calc) [facility] Comment: Reference range: <100 Desirable range <100 mg/dL for primary prevention; <70 mg/dL for patients with CHD or diabetic patients with > or = 2 CHD risk factors. LDL-C is now calculated using the Edgar-Jones calculation, which is a validated novel method providing better accuracy than the Friedewald equation in the estimation of LDL-C. Edgar SS et al. SUZANNE. 2013;310(19): 7503-6967 (http://education.Movie Mouth/faq/YOD613) Chol/HDLC Ratio 2.7 <5.0 (calc) [facility] Non-HDL Cholesterol 100 <130 mg/dL (calc) [facility] Comment: For patients with diabetes plus 1 major ASCVD risk factor, treating to a non-HDL-C goal of <100 mg/dL (LDL-C of <70 mg/dL) is considered a therapeutic option. Blood Venous blood specimen / Unknown 01/21/2023 10:41 AM EDT 01/21/2023 10:42 AM EDT Narrative [facility] - 01/22/2023 7:34 AM EDT FASTING:YES FASTING: YES Odalis Hartman MD LAB BLOOD ORDERABLES Final Resul t [facility] [address], [place] [address] [facility] [address] [place] [phone] * HEPATITIS C ANTIBODY (10/04/2019 4:35 PM EST) HEPATITIS C ANTIBODY NONREACTIVE NONREACTIVE [facility] Comment: Antibodies to HCV not detected; does not exclude early acute HCV infection. 10/04/2019 4:35 PM EST us Sheryl Coburn HISTORICAL/NON ORDERABLE LABS Fi nal Result [facility] [address] from Last 3 Months or Most Recently Relevant to Health Maintenance Insurance [facility] C3 Care Teams Plant Electrician Relationship Specialty Start Date End Date Lexy Benitez CNP [address] [place] [address] [facility] [place] [address] PCP - General Family Medicine 07/19/25
--- OUTSIDE RECORDS SUMMARY | 2025-08-02 08:11 | XMS_ITS | Encounter Summary ---
Author Organization [employer] Address [address] [place] [address] Care Team Providers Care Electromechanical Equipment Tester Name Role Phone Odalis Hartman MD Primary Care Provider [phone] Lexy Benitez CNP Primary Care Provider [phone] Reason for Visit * Reason Onset Date Comments Med Change Request 06/06/2024 Encounter Details Date Type Department Care Team ([facility] st Contact Info) Description 06/06/2024 Telephone [facility] [address] [place] [address] Odalis Hartman MD [address] [place] [address] Med Change Request Social History Tobacco Use [...] call regarding prior message. Contact pt at [phone] (pitcairn islander) * Telephone Encounter - Sukhjinder Mackenzie - 06/06/2024 12:07 PM EDT Tc from patient calling in regards to the Semaglutide-Weight Management (Wegovy) 0.25 MG/0.5ML solution auto-injector states it was suppose to be increased for .50 to .75 documented in this encounter Plan of Treatment Not on file documented as of this encounter Visit Diagnoses Not on filedocumented in this encounter Care Teams Electromechanical Equipment Tester Relationship Specialty Start Date End Date Odalis Hartman MD [address] [place] [phone] PCP - General Family Medicine 07/06/18 07/18/25 Lexy Benitez CNP [address] [place] [phone] PCP - General Family Medicine 07/19/25 documented as of this encounter
[2025-08-02 08:12] VITALS: BP 100/64; BMI 25.4
== END 2025-08-02 08:57 | disposition home or self-care (01) ==
LOC: HO.HWS 08:07
PROVIDERS: PCP Internal Medicine; Visit Provider Advanced Practice Midwife
DX: R31.29 Other microscopic hematuria (principal); R10.9 Unspecified abdominal pain; Z87.442 Personal history of urinary calculi
CPT/HCPCS: 99213

== ENCOUNTER 2025-08-02 08:06 | Outpatient (REF) | payer MEDICAID, SELFPAY ==
--- OUTSIDE RECORDS SUMMARY | 2025-07-30 22:19 | XMS_ITS | Continuity of Care Document ---
Author Organization [facility] ter Address [address] [place] [phone]- Care Team Providers Care Telephone Coin Box Collector Name Role Phone Odalis Hartman MD Primary Care Physician [phone] Encounter [facility] Date(s): 07/30/25 - 07/30/[address] [address]- Discharge Disposition: A-D/C Walkout Attending Physician: Not on Staff, Attending MD Admitting Physician: Not on Staff, Admitting MD Referring Physician: Not on Staff, Referring MD Encounter Type: Disch ES Allergies, Adverse Reactions, Alerts No Known Allergies Medications metFORMIN 500 mg oral tablet, extended release 1 tablet = 500 mg, By Mouth, 2 times a day, Take 1 tablet daily at dinner x 5 days, then increase to 1 tablet twice daily with breakfast and dinner, for gestational diabetes, # 60 tablet, 1 Refills, Maintenance, 01/17/20 9:54:00 AM EDT, ER Tablet, [id number] Start Date: 01/17/20 Status: Ordered Medication Dispense Status: Completed Quantity: 60.0 Unit: tablet Total Allowed Fills: 2 Fills Dispensed: 0 Mental Status Mental Status Assessment Assessment Assessment Component Result Effecti ve Date Nate coma score total 15 07/30/25 Problem List Condition Confirmation Course Effective Dates Status Health St atus Informant Kidney stones Confirmed Active Obese class I Confirmed Active Vital Signs Most recent to oldest [Reference Range]: 1 Height 152.4 cm (07/30/25 8:38 PM) Oxygen Saturation [94-100 %] 100 % (07/30/25 8:38 PM) Pulse Rate [55-90 bpm] 76 bpm (07/30/25 8:38 PM) Blood Pressure [90-138/55-84 mm Hg] 113/ 74mm Hg (07/30/25 8:38 PM) Respiratory Rate [16-30 br/min] 16 br/mi n (07/30/25 8:38 PM) Temperature [96.8-100.4 DegF] 97.7 DegF (07/30/25 8:38 PM) Mode of Delivery (Oxygen) Room air (07/30/25 8:38 PM) Blood pressure sites Arm, left (07/30/25 8:38 PM) Temperature Route Oral (07/30/25 8:38 PM) Dry Weight 57.28 kg (07/30/25 8:38 PM) Dry Weight Obtained Via Patient/family s tated (07/30/25 8:38 PM) Social History Social History Type Response Sex Sex Representation Female (finding) Patient Care team information Care Team Personnel Name: Odalis Hartman MD Position: [facility] Outreach Member Role: PCP Address: [address] [place] [address] Telecom: Insurance Providers Guarantor name: Counts include 234 beds at the [facility] Plan Information #: 1 Payer: [employer] Payer Identifier: CHARLY Member Number: [id number] Group Number: CHARLY Subscriber Identifier: [id number] Relationship to Subscriber: self Coverage Type: MEDICAID Coverage Verification Date: CHARLY Telecom: CHARLY Address:
== END 2025-08-02 08:07 | disposition home or self-care (01) ==
LOC: HO.LNP 08:06
PROVIDERS: PCP Internal Medicine; Visit Provider Advanced Practice Midwife
DX: R31.29 Other microscopic hematuria (principal); R10.9 Unspecified abdominal pain; Z87.442 Personal history of urinary calculi
CPT/HCPCS: 81002; 87086; 99212

== ENCOUNTER 2025-08-08 16:11 | Outpatient (REF) | payer MEDICAID, SELFPAY ==
--- OUTSIDE RECORDS SUMMARY | 2025-08-08 15:30 | XMS_ITS | Encounter Summary ---
Demographics Address [address] [place] [address] [address] [place] [address] Home Phone Work Phone Email Address Preferred Language es Marital Status Latter Day Affiliation Unknown Race Other Race Ethnic Group Unknown Author Organization [employer] Address [address] [place] [address] 7t [place] [address] Care Team Providers Care Adventure Education Teacher Name Role Phone Lexy Benitez CNP Primary Care Provider [phone] Reason for Referral * Imaging (Routine) - Authorized Specialty Diagnoses / Procedures Referred By Eugenio whitaker Referred To Contact Cardiology Diagnoses Palpitation Procedures Transthoracic Echo (TTE) Complete Lexy Benitez CNP [address] [place] [address] Phone: tel: fax: [address] Phone: tel: fax: Referral ID Status Reason Start Date Expiration Date Visits Requested Visits Authorized [id number] Authorized Perform Procedure 5 08/08/2026 1 1 Encounter Details Date Type Department Care Team (Late st Contact Info) Description 08/08/2025 3:30 PM EST Office Visit [facility] MED & PEDS [address] [place], [place] [phone] Lexy Benitez CNP [address] [place], [place] [phone] Palpitation (Primary Dx); Overweight (BMI 25.0-29.9); Pericardial effusion Social History Tobacco Use Types Packs/Day Years Used Date Smoking Tobacco: Never Smokeless Tobacco: Never Alcohol Use Standard Drinks/Week Comments Never 0 (1 standard drink = 0.6 oz pur e alcohol) Depression Answer Date Recorded Patient Health Questionnaire-9 Score 2 08/08/2025 Patient Health Questionnaire-9 Score 2 08/08/2025 Last PHQ-9: Questionnaire Data Not on file 1 10/08/2024 Housing Stability Answer Date Recorded What is your housing situation today? I have michael durbin 08/08/[address] you li ve. Do you have problems with any of the following? None of the above 08/08/2025 Food Insecurity Answer Date Recorded Within the past 12 months, y ou worried that your food would run out before you got money to buy more: Never True 08/08/2025 Within the past 12 months,th e food you bought just didn't last and you didn't have enough money to get more: Never True Transportation Answer Date Recorded In the past 12 months, has l ack of transportation kept you from medical appts, meetings, work or from getting things needed for daily living? No 08/08/2025 Utilities Answer Date Recorded In the past 12 months, has t he electric, gas, oil or water company threatened to shut off services in your home? No 08/08/2025 Depression Answer Date Recorded Patient Health Questionnaire-2 Score 0 08/08/2025 Internet Access Answer Date Recorded Internet Access Q1 Yes 08/08/2025 Internet Access Q2 Not on file 08/08/2025 Comments No Sex and Gender Information Value Date Recorded Sex Assigned at Female 07/21/2022 10:34 AM EDT Legal Sex Female 10:34 AM EDT Gender Identity Female 07/21/2022 10:34 AM EDT Sexual Orientation Choose not to disclose 2021 10:34 AM EDT documented as of this encounter Last Filed Vital Signs Vital Sign Reading Time Taken Comments Blood Pressure 114/76 08/08/2025 3:40 PM EST Pulse 106 08/08/2025 3:40 PM EST Temperature 36.2 C (97.1 F) 08/08/2025 3:40 PM EST Respiratory Rate 14 08/08/2025 3:40 PM EST Oxygen Saturation 98% 08/08/2025 3:40 PM EST Inhaled Oxygen Concentration - - Weight 57.9 kg (127 lb 9.6 oz) 08/08/2025 3:40 P M EST Height 152.4 cm (5') 08/08/2025 3:40 PM EST Body Mass Index 24.92 08/08/2025 3:40 PM EST documented in this encounter Functional Status * Over the past 2 weeks, how often have you been bothered by any of the following problems? Question Answer Date of Assessment Author Patient Health Questionnaire -2 Score 0 08/08/2025 4:10 PM EST Meza-ColonCecily [place] * Little interest or pleasure in doing things Answer Date of Assessment Author Not at all 08/08/2025 4:10 PM EST Meza-Co shaneLatosha [place] * Feeling down, depressed, or hopeless Answer Date of Assessment Author Not at all 08/08/2025 4:10 PM EST Meza-Co Latosha lynn [place] * Trouble falling or staying asleep, or sleeping too much Answer Date of Assessment Author Several days 08/08/2025 4:10 PM EST Meza-Co Latosha lynn [place] * Feeling tired or having little energy Answer Date of Assessment Author Several days 08/08/2025 4:10 PM EST Meza-Co Latosha lynn [place] * Poor appetite or overeating Answer Date of Assessment Author Not at all 08/08/2025 4:10 PM EST Meza-Co Latosha lynn [place] * Feeling bad about yourself - or that you are a failure or have let yourself or your family down Answer Date of Assessment Author Not at all 08/08/2025 4:10 PM EST Meza-Co Latosha lynn [place] * Trouble concentrating on things, such as reading the newspaper or watching television Answer Date of Assessment Author Not at all 08/08/2025 4:10 PM EST Meza-Co Latosha lynn [place] * Moving or speaking so slowly that other people could have noticed? Or the opposite - being so fidgety or restless that you have been moving around a lot more than usual. Answer Date of Assessment Author Not at all 08/08/2025 4:10 PM EST Meza-Co Latosha lynn [place] * Thoughts that you would be better off or hurting yourself in some way Answer Date of Assessment Author Not at all 08/08/2025 4:10 PM EST Meza-Co Latosha lynn [place] * Patient Health Questionnaire-9 Score Answer Date of Assessment Author 2 08/08/2025 4:10 PM EST RoyerCo Latosha lynn [place] * Over the last 2 weeks, how often have you been bothered by any of the following problems? Question Answer Date of Assessment Author Feeling nervous, anxious, or on edge 0 08/08/2025 4:11 PM EST Cecily Neumann MA Not being able to stop or control worrying 0 08/08/2025 4:11 PM EST Cecily Neumann MA Worrying too much about different things 0 08/08/2025 4:11 PM EST Cecily Neumann MA Trouble relaxing 0 08/08/2025 4:11 PM EST Latosha Robb MA Being so restless that it is hard to sit still 0 08/08/2025 4:11 PM EST Cecily Neumann MA Becoming easily annoyed or irritable 1 08/08/2025 4:11 PM EST Cecily Neumann MA Feeling afraid as if somethi ng awful might happen 0 08/08/2025 4:11 PM EST Cecily Neumann MA NAV-7 Total Score 1 08/08/2025 4:11 PM Latosha Bolivar MA * How difficult have these problems made it for you to do your work, take care of things at home, or get along with other people? Answer Date of Assessment Author Not difficult at all 08/08/2025 4:10 PM EST Latosha Livingston MA documented as of this encounter Progress Notes * Lexy Benitez CNP - 08/08/2025 3:30 PM EST Subjective Patient ID: Stacia Mackenzie is a 30 y.o. female with PMH of GERD and kidney stones who presents for ED f/u. HPI Pt was seen at [facility] ED 07/31/25 for abdominal pain with mild nausea without vomiting. Labs unremarkable. CT abdominal CT/CT abdomen pelvis w IV con IMPRESSION: Uterus is in retroversion flexion position to the right and prominent pelvic vessels. Trace of pericardial effusion. Per ED note CT abdominal/pelvis suggested pelvic congestion syndrome, she was advised conservative treatment and f/u with OBGYN and PCP. [facility] [place] [facility] [place] for 07/31/25 ED f/u. She had U/A completed showing microscopic hematuria, she was referred to urology for further evaluation. She has Annual scheduled for 08/2025. - Following up after recent ED visit; concerned about ???fluid near the heart?? reported on CT, described to her as pericardial effusion - Episode approximately 2-3 weeks ago of severe trembling, marked dizziness, feeling like ???leaving the body,?? and very fast pounding heartbeat; felt worse than prior episodes - Similar episodes occurred about 3 times across the past 5 years - Prior Holter monitor reportedly normal - Frequent fatigue; unsure if related to Zepbound - Intermittent dizziness without clear trigger; sometimes requires staying in bed - Recent strong pelvic pain; told pelvic congestion and a ruptured ovarian cyst - Blood in urine noted recently - Known history of kidney stones - Headmaster/Mistress reportedly sent referral to urology; asking to verify referral - Using Zepbound weekly for weight loss; on current dose for about 3-4 months; no side effects; weight stable; asking about dose increase and whether medication continues at maintenance once goal weight is reached Review of Systems Objective Vitals: 08/08/25 1540 BP: 114/76 Pulse: 106 Resp: 14 Temp: 97.1 ??F (36.2 ??C) SpO2: 98% Physical Exam Constitutional: Appearance: Normal appearance. She is normal weight. Cardiovascular: Rate and Rhythm: Normal rate and regular rhythm. Pulses: Normal pulses. Heart sounds: Normal heart sounds. No murmur heard. No friction rub. No gallop. Pulmonary: Effort: Pulmonary effort is normal. No respiratory distress. Breath sounds: Normal breath sounds. No wheezing or rales. Neurological: General: No focal deficit present. Mental Status: She is alert and oriented to person, place, and time. Psychiatric: Mood and Affect: Mood normal. Behavior: Behavior normal. Thought Content: Thought content normal. Judgment: Judgment normal. Assessment/Plan Diagnoses and all orders for this visit: Palpitation - Transthoracic Echo (TTE) Complete; Future - TSH W/Reflex to FT4; Future Overweight (BMI 25.0-29.9) - Tirzepatide-Weight Management (Zepbound) 7.5 MG/0.5ML solution auto-injector; Inject 0.5 mL (7.5 mg) under the skin 1 (one) time per week. Pericardial effusion Assessment - Trace pericardial effusion on CT; described as likely benign in absence of other symptoms. - Palpitations/tachycardia with dizziness; cardiac etiology to be evaluated with echocardiogram differential includes anxiety and thyroid disease - Fatigue attributed to Zepbound usage Plan - Order an echocardiogram to evaluate for structural cardiac abnormalities and assess for potentialcauses of palpitations and pericardial effusion. - Check thyroid function with laboratory testing to investigate possible hypothyroidism as a contributor to palpitations, dizziness, and fatigue. - Recommend initiation of a daily multivitamin to address fatigue associated with Zepbound therapy. - Advise laboratory work for thyroid testing can be performed today or at convenience; fasting is not required. - Hospital will contact to arrange scheduling of the echocardiogram. - Advise to follow up with truck car and bus cleaner regarding the urology referral; if no appointment is received within a couple of weeks, confirm with truck car and bus cleaner or request referral to be placed. - Schedule a follow-up appointment in approximately two months to review echocardiogram and laboratory results, and reassess weight and medication regimen. - Increase Zepbound dose from 5 mg to 7.5 mg weekly for weight management as pt has been on currentdose x 2 months and has experienced plateau in weight loss; monitor for any adverse effects and report if any occur. - Maintain Zepbound at a maintenance dose once target weight is achieved to prevent weight regain; avoid abrupt discontinuation. - Recheck weight at follow-up to assess response to increased Zepbound dose and determine ongoing management. - Will communicate thyroid laboratory results once available and provide further recommendations asindicated. documented in this encounter Plan of Treatment Upcoming Encounters Date Type Department Care Team (Late st Contact Info) Description 10/12/2025 9:45 AM EST Office Visit [facility] MED & PEDS [address] [place] [address] Lexy Benitez CNP [address] [place] [address] Scheduled Orders Name Type Priority Associated Diagnoses Order Schedule Transthoracic Echo (TTE) Complete Echocardiography Routine Palpitation Expected: 08/08/2025 (Approximate), Expires: 08/08/2027 documented as of this encounter Procedures Procedure Name Priority Date/Time Associated Diagnosis Comments TSH W/REFLEX TO FT4 Routine 08/08/2025 4 :12 PM EST Palpitation documented in this encounter Results * TSH W/Reflex to FT4 (08/08/2025 4:12 PM EST) TSH reflex Free T4 2.20 0.32 - 4.0 uIU/mL [facility] Blood Venous blood specimen / Unknown 08/08/2025 4:12 PM EST 08/08/2025 5:55 PM EST Lexy Benitez CNP LAB BLOOD ORDERABLES Dayana l Result [facility] [address] [place] [address] [phone] documented in this encounter Visit Diagnoses Diagnosis Palpitation- Primary Palpitations Overweight (BMI 25.0-29.9) Overweight Pericardial effusion Unspecified disease of pericardium documented in this encounter Additional Health Concerns Assessment Noted Time PHQ-9 Depression Total Score: 2 08/08/20 4:10 PM EST documented as of this encounter Care Teams Adventure Education Teacher Relationship Specialty Start Date End Date Lexy Benitez CNP [address] [place] [address] PCP - General Family Medicine 07/19/25 documented as of this encounter
--- OUTSIDE RECORDS SUMMARY | 2025-08-09 13:22 | XMS_ITS | Encounter Summary ---
Author Organization [employer] Address [address] [place] [address] Care Team Providers Care Wheat Inspector Name Role Phone Odalis Hartman MD Primary Care Provider [phone] Lexy Benitez CNP Primary Care Provider [phone] Reason for Visit * Reason Onset Date Comments Returning Call 04/12/2024 Encounter Details Date Type Department Care Team ([facility] st Contact Info) Description 04/12/2024 Telephone [facility] MEDICINE [address] [place] [address] Odalis Hartman MD [address] [place], [place] [phone] Returning Call Social History Tobacco Use Types [...] Description 10/12/2025 9:45 AM EST Office Visit [facility] CHC MED & PEDS [address] [place] [address] Lexy Benitez CNP [address] [place] [address] documented as of this encounter Visit Diagnoses Not on filedocumented in this encounter Care Teams Wheat Inspector Relationship Specialty Start Date End Date Odalis Hartman MD [address] [place] [address] PCP - General Family Medicine 07/06/18 07/18/25 Lexy Benitez CNP [address] [place] [address] PCP - General Family Medicine 07/19/25 documented as of this encounter
--- OUTSIDE RECORDS SUMMARY | 2025-08-09 13:22 | XMS_ITS | Encounter Summary ---
Author Organization [employer] Address [address] [facility] [address]t [place] [address] Care Team Providers Care Product Planner Name Role Phone Odalis Hartman MD Primary Care Provider [phone] Lexy Benitez CNP Primary Care Provider [phone] Reason for Visit * Reason Onset Date Comments PA 11/28/2024 Encounter Details Date Type Department Care Team ([facility] st Contact Info) Description 11/28/2024 Telephone [facility] CHC MED & PEDS [address] [place] [address] Odalis Hartman MD [address] [place] [address] PA Social History Tobacco Use Types Packs/Day [...] Description 10/12/2025 9:45 AM EST Office Visit [facility] CH[facility] MED & PEDS [address] [place], [place] [phone] Lexy Benitez CNP [address] [place] [address] documented as of this encounter Visit Diagnoses Not on filedocumented in this encounter Care Teams Product Planner Relationship Specialty Start Date End Date Odalis Hartman MD [address] [place] [address] PCP - General Family Medicine 07/06/18 07/18/25 Lexy Benitez CNP [address] [place], [place] [phone] PCP - General Family Medicine 07/19/25 documented as of this encounter
--- OUTSIDE RECORDS SUMMARY | 2025-08-09 13:22 | XMS_ITS | Encounter Summary ---
Author Organization [employer] Address [address] [place] [address] 7t [place] [address] Care Team Providers Care Foam Rubber Molder Name Role Phone Odalis Hartman MD Primary Care Provider [phone] Lexy Benitez CNP Primary Care Provider [phone] Reason for Visit * Reason Comments Med Refill Encounter Details Date Type Department Care Team ([facility] Contact Info) Description 04/13/2023 Refill [facility] MED & PEDS [address] [place] [address] Marva Herrera MD [address] [place] [address] Perioral dermatitis Social History Tobacco Use Types [...] as of this encounter Plan of Treatment Upcoming Encounters Date Type Department Care Team ([facility] Contact Info) Description 10/12/2025 9:45 AM EST Office Visit [facility] MED & PEDS [address] [place] [address] Lexy Benitez CNP [address] [place] [address] documented as of this encounter Visit Diagnoses Diagnosis Perioral dermatitis Rosacea documented in this encounter Care Teams Foam Rubber Molder Relationship Specialty Start Date End Date Odalis Hartman MD [address] [place] [address] PCP - General Family Medicine 07/06/18 07/18/25 Lexy Benitez CNP [address] [place] [address] PCP - General Family Medicine 07/19/25 documented as of this encounter
--- OUTSIDE RECORDS SUMMARY | 2025-08-09 13:23 | XMS_ITS | Encounter Summary ---
Author Organization [employer] Address [address] [place] [address] 7t [place] [address] Care Team Providers Care Sql Database Developer Name Role Phone Odalis Hartman MD Primary Care Provider [phone] Lexy Benitez CNP Primary Care Provider [phone] Reason for Visit * Reason Onset Date Comments Nurse Triage 10/24/2024 Encounter Details Date Type Department Care Team ([facility] st Contact Info) Description 10/24/2024 Telephone [facility]C MED & PEDS [address] [place] [address] Odalis Hartman MD [address] [place] [address] Nurse Triage Social History Tobacco Use Types [...] 4:26 PM EST [place] [id number] [place] [id number]. Pt reports episode of rapid heart beat/palpitations [...] is concerned may come to [facility] open till 8pm this evening and [...] Upcoming Encounters Date Type Department Care Team ([facility] st Contact Info) Description 10/12/2025 9:45 AM EST Office Visit [facility] MED & PEDS [address] [place] [address] Lexy Benitez CNP [address] [place], [place] [phone] documented as of this encounter Visit Diagnoses Not on filedocumented in this encounter Care Teams Sql Database Developer Relationship Specialty Start Date End Date Odalis Hartman MD [address] [place] [address] PCP - General Family Medicine 07/06/18 07/18/25 Lexy Benitez CNP [address] [place] [address] PCP - General Family Medicine 07/19/25 documented as of this encounter
--- OUTSIDE RECORDS SUMMARY | 2025-08-09 13:23 | XMS_ITS | Encounter Summary ---
Author Organization [employer] Address [address] [place] [address] Care Team Providers Care University Services Program Associate Name Role Phone Emmanuel Rahanthony FRANCIS Primary Care Provider [phone] Encounter Details Date Type Department Care Team (Latest Contact Info) Description 08/08/2025 Travel Social History Tobacco Use Types Packs/Day [...] AM EDT documented as of this encounter Functional Status * Over the [...] EST [facility] Latosha lynn [place] * Feeling down, depressed, or hopeless [...] days 08/08/2025 4:10 PM EST [facility] Latosha lynn, [place] * Poor appetite or overeating Answer [...] Author Not at all 08/08/2025 4:10 PM RIGOBERTO [facility] Latosha lynn [place] * Patient Health [...] or control worrying 0 08/08/2025 4:11 PM Cecily Bolivar MA Worrying too much about different things 0 08/08/2025 4:11 PM EST Cecily Neumann MA Trouble relaxing 0 08/08/2025 4:11 PM EST D wuLatosha Gilliland [place] Being so restless that it is hard to sit still 0 08/08/2025 4:11 PM EST Cecily Neumann MA Becoming easily annoyed or irritable 1 08/08/2025 4:11 PM EST Cecily Neumann MA Feeling afraid as if somethi ng awful might happen 0 08/08/2025 4:11 PM Cecily Bolivar MA NAV-7 Total Score 1 08/08/2025 4:11 PM Latosha Bolivar [place] * How difficult have these problems made it for you to do your work, take care of things at home, or get along with other people? Answer Date of Assessment Author Not difficult at all 08/08/2025 4:10 PM EST Joseluis laLatosha Mckeon MA documented as of this encounter Plan of Treatment Upcoming Encounters Date Type Department Care Team (Late st Contact Info) Description 10/12/2025 9:45 AM EST Office Visit [facility] MED & PEDS [address] [place] [address] Lexy Benitez, MERCHANT POLICE [address] [place] [address] documented as of this encounter Visit Diagnoses Not on filedocumented in this encounter Additional Health Concerns Assessment Noted Time PHQ-9 Depression Total Score: 2 08/08/20 25 4:10 PM EST documented as of this encounter Care Teams University Services Program Associate Relationship Specialty Start Date End Date Lexy Benitez CNP [address] [facility] [place] [address] PCP - General Family Medicine 07/19/25 documented as of this encounter
--- OUTSIDE RECORDS SUMMARY | 2025-08-09 13:23 | XMS_ITS | Clinical Summary ---
Author Organization [employer] [facility] ity Address [address] [place] [address] Care Team Providers Care Library Clerical Assistant Name Role Phone Unavailable Primary Care Provider [...]
--- OUTSIDE RECORDS SUMMARY | 2025-08-09 13:23 | XMS_ITS | Encounter Summary ---
Demographics Address [address] [place] [address] [address] [place] [address] Home Phone Work Phone Email Address Preferred Language es Marital Status Episcopal Affiliation Unknown Race Other Race Ethnic Group Unknown Author Organization [employer] Address [address] [place] [address] Care Team Providers Care Anodic Operator Name Role Phone Lexy Benitez CNP Primary Care Provider [phone] Encounter Details Date Type Department Care Team ([facility] st Contact Info) Description 08/03/2025 Results Follow-Up [facility] MED & PEDS [address] [place] [address] Marva Herrera MD [address] [place] [address] Culture, Urine, Routine Social History Tobacco Use Types Packs/Day Years [...] Description 10/12/2025 9:45 AM EST Office Visit [facility] [address] [place] [address] Lexy Benitez CNP [address] [place] [address] documented as of this encounter Visit Diagnoses Not on filedocumented in this encounter Care Teams Anodic Operator Relationship Specialty Start Date End Date Lexy Benitez CNP [address] [place] [address] PCP - General Family Medicine 07/19/25 documented as of this encounter
--- OUTSIDE RECORDS SUMMARY | 2025-08-09 13:23 | XMS_ITS | Clinical Summary ---
Author Organization [employer] Address [address] [place] [address] 7t [place] [address] Care Team Providers Care District Plant Engineer Name Role Phone Emmanuel Rahcruzitoel PENNY Primary Care Provider [phone] Allergies No known active allergies Medications omeprazole [...] OR CHEW. 90 capsule 06/13/20 24 Active meloxicam (Mobic) 7.5 MG tablet Take 1 tablet (7.5 mg) by mouth Once per day. 30 tablet 11 07/12/20 25 026 Active Tirzepatide-We ight Management (Zepbound) 7.5 MG/0.5ML solution auto-injectorI ndications:Ove rweight (BMI 25.0-29.9) Inject 0.5 mL (7.5 mg) under the skin 1 (one) time per week. 2 mL 1 08/08/20 25 Active ibuprofen 800 MG tablet Take 1 tablet (800 mg) by mouth 3 times daily. 90 tablet 07/04/20 25 025 Tirzepatide-We ight Management (Zepbound) 5 MG/0.5ML solution auto-injector Inject 0.5 mL (5 mg) under the skin every 7 (seven) days. 2 mL 2 07/05/20 25 025 Discontinued Active Problems Problem Noted Date Diagnosed Date Abdominal pain 08/03/2025 Calculus of proximal left ureter 08/03/2025 Class 1 obesity 08/03/2025 Encounter for well woman jaelyn iglesias with routine gynecological exam 08/03/2025 Lichen simplex chronicus 08/03/2025 Rupture of ovarian cyst 08/03/2025 Kidney calculus 08/03/2025 Kidney stone 01/21/2023 Gastroesophageal reflux disease without esophagi tis 01/21/2023 Encounters Date Type Department Care Team Description 08/08/2025 3:30 PM EST Office Visit [facility] MED [facility]ED[facility] [address] [place] [address] Lexy Benitez CNP Palpitation (Primary Dx); Overweight (BMI 25.0-29.9); Pericardial effusion 08/08/2025 Travel 08/03/2025 Results Follow-Up [facility] [address] [place] [address] Marva Herrera MD Culture, Urine, Routine 08/03/2025 Telephone [facility] [address] [place] [address] Lexy Benitez CNP chart prep 08/02/2025 Orders Only GENERIC EXTERNAL DATA DEPARTMENT Provider, Generic External Data 07/30/2025 Orders Only GENERIC EXTERNAL DATA DEPARTMENT Provider, Generic External Data 07/20/2025 Orders Only GENERIC EXTERNAL DATA DEPARTMENT Provider, Generic External Data 07/12/2025 9:30 AM EDT Office Visit [facility] [address] [place] [address] Odalis Hartman MD Cyst of left ovary (Primary Dx) 07/11/2025 Telephone [facility] [address] [place] [address] Odalis Hartman MD ED visit 07/11/2025 Travel 07/10/2025 Orders Only [facility] [address] [place] [address] Odalis Hartman MD Mass of left breast, unspecified quadrant (Primary Dx) 07/10/2025 Results Follow-Up [facility] [address] [place] [address] Odalis Hartman MD US Pelvis Transvaginal, CT Abdomen Pelvis w/ Contrast 07/09/2025 Orders Only GENERIC EXTERNAL DATA DEPARTMENT Provider, Generic External Data 07/05/2025 Orders Only [facility] [address] [facility] [place] [address] Odalis Hartman MD 07/04/2025 10:45 AM EDT Telemedicine [facility] [address] [facility] [place] [address] Odalis Hartman MD Obesity without serious comorbidity in pediatric patient, unspecified obesity class, unspecified obesity type (Primary Dx) 07/04/2025 Travel 06/28/2025 Telephone [facility] [address] [place] [address] Odalis Hartman MD Prior Authorization from Last [...] Mass Index 24.92 08/08/2025 3:40 PM EST Plan of Treatment Upcoming Encounters Date Type Department Care Team (Late st Contact Info) Description 10/12/2025 9:45 AM EST Office Visit [facility] [address] [place] [address] Lexy Benitez, PENNY [address] [place] [address] Health Maintenance Due Date Last Done Comments HIV Screening 1995 Hepatitis B Vaccines (2 of 3 - 3-dose series) [birth year] Family Planning (PISQ) 2009 DTaP/Tdap/Td Vaccines (1 - Tdap) 2013 HPV/Cotest 2024 Influenza Vaccine (#1) 2026 Postp oned from 05/22/2025 (Patient Refused) Alcohol/Substance Use Screening 07/12/2026 07/12/2025 COVID-19 Vaccine (3 - 2024-2 6 season) 2026 09/23/2021, 08/31/2021 Postponed from 05/22/2025 (Patient Refused) Disability Screening 07/12/2026 07/12/2025 Tobacco Screening 07/12/2026 07/12/2025 Depression Screening 08/08/2026 08/08/2025, 08/08/2025 SDOH Screening 08/08/2026 08/08/2025 Cervical Cancer Screening 02/22/2027 Pap Smear 02/22/2027 [...] Routine 08/08/2025 4 :12 PM EST Palpitation CULTURE, URINE, ROUTINE Routine 08/02/2025 8:[address] ABDOMEN PELVIS W CONTRAST Routine 07/31/2025 [...] Maintenance Results * TSH W/Reflex to FT4 (08/08/2025 4:12 PM EST) TSH reflex Free T4 2.20 0.32 - 4.0 uIU/mL [facility] Blood Venous blood specimen / Unknown 08/08/2025 4:12 PM EST 08/08/2025 5:55 PM EST [facility] LAB BLOOD ORDERABLES Dayana l Result Performing Organization Address City/[facility]/ZIP Co de Phone Number [facility] [address] [place] [phone] * Culture, Urine, Routine (08/02/2025 8:06 AM EST) Urine Urine specimen obtained by clean catch procedure / Unknown 08/02/2025 8:06 AM EST 08/02/2025 2:44 PM EST Comment:UACC Narrative [facility] - 08/03/2025 10:58 AM EST Urine Culture No growth. Specimen Source: Urine clean catch Generic External Data Provider LAB MICROBIOLOGY - GENERAL ORDERABLES Final Result Performing Organization Address [facility] Co de Phone Number [facility] [address] [place] [phone] * CT Abdomen Pelvis w/ Contrast (07/31/2025 7:44 AM EST) Only the most recent of2 resultswithin the time period is included. Anatomical Region Laterality Modality Body, Pelvis, Abdomen Computed T omography 07/31/2025 7:44 AM EST Narrative 07/31/2025 8:35 AM EST [address] [address] [address] Scan Report Signed Patient: Stacia Agudelo MR#: [id number] : 1995 Acct:[id number] Age/Sex: 30 / F ADM Date: 07/30/25 Loc: HO.ED Attending Dr: Ordering Physician: Richard Vaughn PA-C Date of Service: 07/31/25 Procedure(s): CT abdomen pelvis w IV con Accession Number(s): [id number] cc: Marav Herrera MD; Richard Vaughn PA-C Report Number: [id number]: Total DLP = 411.00 mGy-cm Reason for [...] 07/31/25 0831 DD/ 0744 TD/TT: 07/31/25 0757 Computer Networker: Procedure Note Donotuseinterpreter, Image - 07/31/[address] [place] [address] [address] Scan Report Signed Patient: Stacia Agudelo GMR#: [id number] : 1995Acct:[id number] Age/Sex: 30 FADM Date: 07/30/25 Loc: .ED Attending Dr: Ordering Physician: Richard Vaughn PA-C Date of Service: 07/31/25 Procedure(s): CT abdomen pelvis w IV con Accession Number(s): [id number] cc: Marva Herrera MD; Richard Vaughn PA-C Report Number: [id number]: Total DLP = 411.00 mGy-cm Reason for [...] 07/31/25 0831 DD/ 0744 TD/TT: 07/31/25 0757 Computer Networker: us [facility] External Provider IMG CT PROCEDURES Edited Result - Final * US Pelvis Transvaginal (07/31/2025 4:18 AM EST) Only the most recent of2 resultswithin the time period is included. Anatomical Region Laterality Modality Pelvis Ultrasound 07/31/2025 4:18 AM EST Narrative 07/31/2025 4:20 AM EST [address] [address] Ultrasound Report Signed Patient: Stacia Agudelo MR#: [id number] : 1995 Acct:[id number] Age/Sex: 30 / F ADM Date: 07/30/25 Loc: HO.ED Attending Dr: Ordering Physician: Richard Vaughn PA-C Date of Service: 07/31/25 Procedure(s): US pelvic and transvaginal Accession Number(s): [id number] cc: Marva Herrera MD; Richard Vaughn PA-C [...] in OV> 07/31/250 DD/ 7 TD/TT: 07/31/25417 Computer Networker: Procedure Note Donotuseinterpreter, Image - 07/31/2025 [place] [address] Ultrasound Report Signed Patient: Stacia Agudelo GMR#: [id number] : 1995Acct:[id number] Age/Sex: 30 / FADM Date: 07/30/25 Loc: HO.ED Attending Dr: Ordering Physician: Richard Vaughn PA-C Date of Service: 07/31/25 Procedure(s): US pelvic and transvaginal Accession Number(s): [id number] cc: Marva Herrera MD; Richard Vaughn PA-C [...] OV> 07/31/25 0420 DD/ 7 TD/TT: 07/31/25417 Computer Networker: [facility] External Provider IMG US PROCEDURES Edited Result - Final * Urinalysis w/reflex microscopic (07/30/2025 11:28 PM EST) Only the most recent of2 resultswithin the time period is included. Color Urine Yellow [facility] Appearance Urine Clear [facility] PH 7.0 5.0 - 9.0 [facility] Glucose Urine UA Negative Negative mg/dL [facility] Urine Blood Negative Negative [facility] Specific [place] - Urine 1.025 1.005 - 1.025 [facility] Urine Protein Trace Neg-Trace mg/dL [facility] Urine Ketones Negative Negative mg/dL [facility] Nitrite Urine Negative Negative [facility] Leukocyte Esterase Urine Negative Negative [facility] 07/30/2025 11:2 8 PM EST 07/30/2025 11:31 PM EST Narrative [facility] - 07/30/2025 11:51 PM EST Urine, Clean Catch Generic External Data Provider LAB URINE ORDERAB LES Final Result [facility] [address] [place] [address] [phone] * (ABNORMAL) Bacterial Vaginosis (07/20/2025 1:41 PM EDT) TRICHOMONAS VAGINALIS DETECTION BY PCR NOT DETECTED Not Detect [facility] BACTERIAL VAGINOSIS DETECTION BY PCR NEGATIVE Negative [facility] Comment:The BV organism targ ets [...] DETECTION BY PCR NOT DETECTED Not Detect [facility] Noris glab krusei PCR DETECTED(A) Not Detect [facility] 07/20/2025 1:41 PM EDT 07/20/2025 3:52 PM EDT us Generic External Data Provider LAB MICROBIOLOGY - GENERAL ORDERABLES Final Result [facility] [address] [place] [phone] * Chlamydia/N. Gonorrhoeae RNA, TMA, Urogenitial (07/20/2025 1:41 PM EDT) CT PCR NOT DETECTED Not Detect. [facility] Comment:A not detected test result [...] psychologicalconsequences. NG PCR NOT DETECTED Not Detect. [facility] Comment:A not detected test result [...] GENERAL ORDERABLES Final Result Performing Organization Address City/State/[facility] Co de Phone Number [facility] [address] [place] [phone] * US PELVIC OVARIAN DOPPLER (07/10/2025 4:05 AM EDT) Anatomical Region Laterality Modality Abdomen Ultrasound 07/10/2025 4:05 AM EDT Narrative 07/13/2025 11:15 AM EDT [place] [address] Ultrasound Report Signed Patient: Stacia Agudelo MR#: [id number] : 1995 Acct:[id number] Age/Sex: 30 / F ADM Date: 07/09/25 Loc: HO.ED Attending Dr: Ordering Physician: Richard Vaughn PA-C Date of Service: 07/10/25 Procedure(s): US pelvic ovarian doppler Accession Number(s): [id number] cc: Richard Vaughn PA-C; Odalis Hartman MD [...] OV> 07/13/25 1114 DD/ 4 TD/TT: 07/10/25404 Computer Networker: Procedure Note Donotuseinterpreter, Image - 07/13/2025 [place] [address] Ultrasound Report Signed Patient: Stacia Agudelo GMR#: [id number] : 1995Acct:[id number] Age/Sex: 30 FADM Date: 07/09/25 Loc: HO.ED Attending Dr: Ordering Physician: Richard Vaughn PA-C Date of Service: 07/10/25 Procedure(s): US pelvic ovarian doppler Accession Number(s): [id number] cc: Richard Vaughn PA-C; Odalis Harmtan MD Reason for Exam: Left Sided Pain; [...] OV> 07/13/25 1114 DD/ 4 TD/TT: 07/10/25404 Computer Networker: us [facility] External Provider IMG US PROCEDURES Edited Result - Final * CBC auto differential (07/09/2025 8:25 PM EDT) White Blood Count 7.9 4.8 - 10.8 X10*3/uL [facility] Red Blood Count 4.32 4.20 - 5.50 X10*6/uL [facility] Hemoglobin 12.6 12.0 - 16.0 g/dl [facility] Hematocrit 37.2 37.0 - 47.0 % [facility] Mean Corpuscular Volume 86.1 80.0 - 98.0 fL [facility] Mean Corpuscular Hemoglobin 29.2 27.0 - 33.0 pg [facility] Mean Corpuscular HGB Conc 33.9 31.0 - 35.0 g/dl [facility] Red Cell Distribution Width 13.6 11.0 - 16.0 % [facility] Platelet Count 182 160 - 400 X10*3/uL [facility] Mean Platelet Volume 9.9 9.4 - 12.3 fL [facility] Neutrophils Percent Auto 63.2 45 - 73 % [facility] Imm Gran Pct Auto 0.3 0.0 - 0.4 % [facility] Lymphocytes Percent Auto 27.3 20 - 40 % [facility] Monocytes Percent Auto 5.8 2 - 11 % [facility] Eosinophils Percent Auto 3.0 0 - 4 % [facility] Basophils Percent Auto 0.4 0 - 2 % [facility] NRBC Pct Auto 0.0 0.0 - 0.2 /100WBC [facility] Neutrophils Absolute Auto 5.0 2.0 - 8.3 x10*3/uL [facility] Imm Gran Abs Auto 0.02 0.00 - 0.03 X10*3/uL [facility] Lymphocytes Absolute Auto 2.2 1.2 - 4.9 X10*3/uL [facility] Monocytes Absolute Auto 0.5 0.1 - 1.2 X10*3/uL [facility] Eosinophils Absolute Auto 0.2 0.0 - 0.4 X10*3/uL [facility] Basophils Absolute Auto 0.0 0.0 - 0.2 X10*3/uL [facility] NRBC Abs Auto 0.000 0.0 - 0.012 X10*3/uL [facility] 07/09/2025 8:25 PM EDT 07/09/2025 8:29 PM EDT us Generic External Data Provider LAB BLOOD ORDERAB LES Final Result [facility] [address] [place] [phone] * hCG, Total, Quantitative (07/09/2025 8:25 PM EDT) HCG Quantitative <2 mIU/mL [facility] Comment:Weeks post LMP Appro ximate hCG(Last Menstrual Period) Range (mIU/ml)3 - 4 weeks 9 - 1304 - 5 weeks 75 - 2,6005 - 6 weeks 850 - 20,8006 - 7 weeks 4000 - 100,2007 - 12 weeks 11,500 - 289,56638 - 16 weeks 18,300 - 137,25699 - 29 weeks (2nd trimester) 1,400 - 53,73486 - 41 weeks (3rd trimester) 940 - [...] Provider LAB BLOOD ORDERAB LES Final Result [facility] [address] [place] [phone] * (ABNORMAL) Comprehensive Metabolic Panel (07/09/2025 8:25 PM EDT) Sodium 138 135 - 145 mmol/L [facility] Potassium 4.0 3.3 - 5.1 mmol/L [facility] Chloride 110(H) 96 - 108 mmol/L [facility] Carbon Dioxide 20(L) 22 - 29 mmol/L [facility] Anion Gap 12 12 - 20 [facility] Urea Nitrogen (BUN) 7(L) 9 - 16 mg/dL [facility] Creatinine, Serum 0.69 0.5 - 1.4 mg/dL [facility] Creatinine Clr Calc Pharmacy 95.5 [facility] Comment:Provided height and weight: 152.4 cm,59.874 kg.eGFR (calculated from the MDRD study equation) and eCrCl(calculated from the Cockcroft-Gault equation) are based ondifferent parameters and may not yield comparable results.If eCrCl result is absurd, please check patient'sheight/weight. Estimated Glomerular Filt Rate >60 [facility] Comment:Chronic Kidney Disea se: Estimated GFR < 60 mL/min/1.26j7Jmbanb Kidney Disease: Estimated GFR < 15 mL/min/1.73m2 Glucose 92 60 - 115 mg/dL [facility] Calcium 9.0 8.4 - 10.2 mg/dL [facility] Bilirubin, Total 0.3 0.0 - 1.0 mg/dL [facility] Aspartate Amino Transferase 21 5 - 31 U/L [facility] Alanine Aminotransferase 16 0 - 31 U/L [facility] Total Protein 6.7 6.5 - 8.0 g/dL [facility] Albumin Level 4.2 3.5 - 5.0 g/dL [facility] Alkaline Phosphatase 61 39 - 117 U/L [facility] 07/09/2025 8:25 PM EDT 07/09/2025 8:29 PM EDT us Generic External Data Provider LAB BLOOD ORDERAB LES Final Result [facility] [address] [place] [phone] * Pap Smear (02/23/2024 1:44 PM EDT) Swab Cervix uteri structure / Unknown 02/23/2024 1:44 PM EDT 02/24/2024 9:15 AM EDT Narrative [facility] - 03/20/2024 3:43 PM EDT ----- ------- Name: Stacia Agudelo Age/Sex: 28/F : 1995 Unit#: [id number] Attend Dr: ENA LUNA CNM Re02/23/24 Status: DEP REF Location: HO.HHCLNP Disch: ----- ------- SPEC : [id number] RECD: 02/24/24 STATUS: SOPHIE CONNELLY NUM: [id number] FERCHO: 02/23/24-[facility] DR: ENA LUNA CNM ENTERED: 02/24/24-1013 SP TYPE: Pap Smr OT DR: ORDERED: Pap Smear Interpretation Satisfactory for evaluation. Negative for intraepithelial lesion or malignancy. Clinical Information LMP: 01/25/2024 Previous PAP test: Unknown date/findings Material Received ThinPrep-Cervical ----- ------- Signed (signature on file) Moon Sheridan 03/20/24 1543 ----- ------- END OF REPORT Ena Luna [facility] CYTOLOGY ORDERABLES F inal Result [facility] [address] [place] [phone] * Lipid Panel, Standard (01/21/2023 10:41 AM EDT) Cholesterol, Total 158 <200 mg/dL [employer] HDL Cholesterol 58 > OR = 50 mg/dL [employer] Triglycerides 94 <150 mg/dL [employer] LDL Cholesterol 81 mg/dL (calc) [employer] Comment: Reference range: <100 Desirable range <100 mg/dL for primary prevention; <70 mg/dL for patients with CHD or diabetic patients with > or = 2 CHD risk factors. LDL-C is now calculated using the Abelardo calculation, which is a validated novel method providing better accuracy than the Friedewald equation in the estimation of LDL-C. Edgar SS et al. SUZANNE. 2013;310(23): 5634-3963 (http://education.[employer]/faq/PMY533) Chol/HDLC Ratio 2.7 <5.0 (calc) [employer] Non-HDL Cholesterol 100 <130 mg/dL (calc) [employer] Comment: For patients with diabetes plus 1 [...] ORDERABLES Final Resul t Performing Organization Address City/[facility]/ZIP Co de Phone Number [facility] [address], [facility] [place] [phone] [employer] [address] [place] [phone] * HEPATITIS C ANTIBODY (10/04/2019 4:35 PM EST) [facility] HEPATITIS C ANTIBODY NONREACTIVE NONREACTIVE [facility] Comment: Antibodies to HCV not detected; does not exclude early acute HCV infection. 10/04/2019 4:35 PM EST Sheryl Coburn HISTORICAL/NON ORDERABLE LABS Fi nal Result Performing Organization Address City/[facility]/ZIP Co de Phone Number [facility] [address] from Last 3 Months or Most Recently Relevant to Health Maintenance Insurance [facility] C3 Care Teams District Plant Engineer Relationship Specialty Start Date End Date Lexy Benitez CNP [address] [place] [address] [place] [address] PCP - General Family Medicine 07/19/25
--- OUTSIDE RECORDS SUMMARY | 2025-08-09 13:23 | XMS_ITS | Encounter Summary ---
Author Organization [employer] Address [address] [place] [address] Care Team Providers Care Windows Systems Engineer Name Role Phone Odalis Hartman MD Primary Care Provider [phone] Lexy Benitez CNP Primary Care Provider [phone] Reason for Visit * Reason Onset Date Comments Med Change Request 06/06/2024 Encounter Details Date Type Department Care Team ([facility] st Contact Info) Description 06/06/2024 Telephone [facility] MEDICINE [address] [place] [address] Odalis Hartman MD [address] [place] [address] Med Change Request Social History Tobacco Use [...] call regarding prior message. Contact pt at [phone] (chinese) * Telephone Encounter - Sukhjinder Mackenzie - [...] 9:45 AM EST Office Visit [facility] CHC MED & PEDS [address] [place] [address] Lexy Benitez CNP [address] [place] [address] documented as of this encounter Visit Diagnoses Not on filedocumented in this encounter Care Teams Windows Systems Engineer Relationship Specialty Start Date End Date Odalis Hartman MD [address] [place] [address] PCP - General Family Medicine 07/06/18 07/18/25 Lexy Benitez CNP [address] [place] [address] PCP - General Family Medicine 07/19/25 documented as of this encounter
== END 2025-08-08 16:12 | disposition home or self-care (01) ==
LOC: HO.CHCLDS 16:11
DX: R00.2 Palpitations (principal)
CPT/HCPCS: 36415; 84443

== ENCOUNTER 2025-08-12 13:30 | Emergency (ER) | payer MEDICAID, SELFPAY ==
--- OUTSIDE RECORDS SUMMARY | 2025-08-08 15:30 | XMS_ITS | Encounter Summary ---
Demographics Address [address] [place] [address] [address] [place] [address] Home Phone Work Phone Email Address Preferred Language es Marital Status Denominational Affiliation Unknown Race Other Race Ethnic Group Unknown Author Organization [employer] Address [address] [place] [address] 7t [place] [address] Care Team Providers Care Receiving Supervisor Name Role Phone Lexy Benitez CNP Primary Care Provider [phone] Reason for Referral * Imaging (Routine) - Authorized Specialty Diagnoses / Procedures Referred By Eugenio whitaker Referred To Contact Cardiology Diagnoses Palpitation Procedures Transthoracic Echo (TTE) Complete Lexy Benitez CNP [address] [place] [address] Phone: tel: fax: [address] [address] Phone: tel: fax: Referral ID Status Reason Start Date Expiration Date Visits Requested Visits Authorized [id number] Authorized Perform Procedure 5 08/08/2026 1 1 Encounter Details Date Type Department Care Team (Late st Contact Info) Description 08/08/2025 3:30 PM EST Office Visit [facility] CHC MED & PEDS [address] [place], [place] [phone] Lexy Benitez CNP [address] [employer], [place] [phone] Palpitation (Primary Dx); Overweight (BMI 25.0-29.9); Pericardial [...] -2 Score 0 08/08/2025 4:10 PM EST Meza-Cecily Figueroa MA * Little interest or pleasure in [...] Several days 08/08/2025 4:10 PM EST Meza-Co shaneLatosha [place] * Poor appetite or overeating Answer [...] Assessment Author 2 08/08/2025 4:10 PM EST Susana-Co Latosha lynn MA * Over the last [...] as of this encounter Progress Notes * eLxy Benitez CNP - 08/08/2025 3:30 PM EST Subjective Patient ID: Stacia Mackenzie is a 30 y.o. female with PMH of GERD and kidney stones who presents for ED f/u. HPI Pt was seen at [facility] ED 07/31/25 for abdominal pain with mild nausea without vomiting. Labs unremarkable. CT abdominal CT/CT abdomen pelvis w IV con IMPRESSION: Uterus is in retroversion flexion position to the right and prominent pelvic vessels. Trace of pericardial effusion. Per ED note CT abdominal/pelvis suggested pelvic congestion syndrome, she was advised conservative treatment and f/u with OBGYN and PCP. [facility] [place] [facility] [place] for 07/31/25 ED f/u. [...] - Known history of kidney stones - Sample Maker Hand reportedly sent referral to urology; asking to [...] echocardiogram. - Advise to follow up with mobile equipment servicer regarding the urology referral; if no appointment is received within a couple of weeks, confirm with mobile equipment servicer or request referral to be placed. - [...] Description 10/12/2025 9:45 AM EST Office Visit [facility] MED & PEDS [address] [place] [address] Lexy Benitez CNP [address] [place] [address] Scheduled Orders Name Type Priority Associated Diagnoses [...] Free T4 2.20 0.32 - 4.0 uIU/mL [facility] Blood Venous blood specimen / Unknown 08/08/2025 4:12 PM EST 08/08/2025 5:55 PM EST Lexy Benitez [facility] LAB BLOOD ORDERABLES Dayana l Result [facility] [address] [place] [phone] [phone] documented in this encounter Visit Diagnoses Diagnosis Palpitation- Primary Palpitations Overweight (BMI 25.0-29.9) Overweight Pericardial effusion Unspecified disease of pericardium documented in this encounter Additional Health Concerns Assessment Noted Time PHQ-9 Depression Total Score: 2 08/08/20 25 4:10 PM EST documented as of this encounter Care Teams Receiving Supervisor Relationship Specialty Start Date End Date Lexy Benitez CNP [address] [place] [address] PCP - General Family Medicine 07/19/25 documented as of this encounter
--- NOTE | 2025-08-12 14:05 | ED_ITS ---
HPI - General Adult General Chief complaint: Nausea/Vomiting/Diarrhea Stated complaint: nausea vomiting diarrhea Time Seen by Provider: 08/12/25 14:17 Source: patient and other (patient's partner) Mode of arrival: ambulatory Limitations: no limitations History of Present Illness ED Provider: Marissa Toro PA-C HPI narrative: Patient is a 30 year old assigned female at with a history of kidney stones presenting to the emergency department today with body aches, diarrhea, vomiting, and nausea. Patient states that over the last day she has felt generally unwell with body aches, diarrhea, vomiting, and nausea. Patient states that her child and partner are both sick with the same symptoms. Patient states that nothing makes it better and nothing makes it worse. Patient denies any other complaints at this time. Related Data Home Medications ?Medication ?Instructions ?Recorded ?Confirmed clobetasol 0.05 % topical ointment topical BID 4 08/02/25 omeprazole 20 mg capsule,delayed 20 mg PO DAILY 08/02/25 release advil PO 05/13/24 tirzepatide (weight loss) 5 mg/0.5 5 mg subcut QWEEK 1 08/02/25 mL subcutaneous pen injector (Zepbound) meloxicam 7.5 mg/5 mL oral 7.5 mg PO DAILY 08/02/25 suspension Previous Rx's ?Medication ?Instructions ?Recorded terconazole 0.8 % vaginal cream 1 appful vaginal BEDTI ME PRN 08/02/25 infection 3 days #20 grams ondansetron 4 mg disintegrating 4 mg PO Q8H 3 days #9 tabs 08/12/25 tablet Allergies Allergy/AdvReac Type Severity Reaction Status Date / Time No Known Allergies (No Known Allergy Verified 08/12/25 14:07 Allergies*) Review of Systems 2 Constitutional: Constitutional: Reports as per HPI Eyes: Eyes: Reports as per HPI ENT: Reports as per HPI Cardiovascular: Cardiovascular: Reports as per HPI Respiratory: Respiratory: Reports as per HPI Gastrointestinal: Gastrointestinal: Reports as per HPI Genitourinary: Genitourinary: Reports as per HPI Musculoskeletal: Musculoskeletal: Reports as per HPI Integumentary/Breasts: Skin/Breast: Reports as per HPI Neurologic: Reports as per HPI Psychiatric: Psychiatric: Reports as per HPI Endocrine: Endocrine: Reports as per HPI Hematologic/Lymphatic: Hematologic/Lymphatic: Reports as per HPI Allergic/Immunologic: Allergic/Immunologic: Reports as per HPI [facility] Past Medical History Attestation statement: The following information was validated with the patient. (all information validated with the patient's partner) Source: old records reviewed, nursing notes reviewed and other (patient's partner provided additional history and confirmed the history provided by the patient. ) Medical History History of renal calculi Flank pain Hematuria Vaginal mass Hx of migraines Kidney stones Surgical History Hx of lithotripsy Hx of lithotripsy S/P cystoscopy with ureteral stent placement Kidney calculus History of appendectomy Family History Family History Mother Diabetes Father Hypertension Daughter No problems noted. Social History Social History Household Members: Spouse Household Members Other:: daughter Housing: Apartment Alcohol intake: never Patient Tobacco Use Status: Never used Tobacco Advance Directives: No Advance Directives Information Provided: No Sexual orientation: Straight/Heterosexual Gender identity: Female Physical Exam ED Vital Signs: Vital Signs - 24 hr 08/12/25 14:06 08/12/25 15:46 08/12/25 16:52 Temperature 98 F Pulse Rate 108 H 96 Respiratory Rate 16 14 Blood Pressure 96/58 L 99/65 102/50 L Pulse Oximetry 100 100 Oxygen Delivery Method Room Air Room Air 08/12/25 16:59 Temperature 98 F Pulse Rate 86 Respiratory Rate 16 Blood Pressure 102/50 L Pulse Oximetry 98 Oxygen Delivery Method Room Air BMI result Body Mass Index 24.4 Const General: cooperative, no acute distress, alert and awake Nutritional Appearance: well nourished Orientation/consciousness: patient oriented x3 HENMT Head: Yes normal to inspection and Yes atraumatic Ears: hearing grossly normal bilaterally and external ears normal General nose exam: Normal external nose present, no nasal discharge noted and no epistaxis Face and sinus: Yes normal facial exam, No abrasion and No laceration Mouth: Normal oral and palatal mucosa present, no drooling and no muffled voice Eyes General: appearance normal, both eyes and all related structures Periorbital: periorbital findings normal Eyelids: Yes eyelids normal Conjunctivae: conjunctivae normal Pupils: Equal, round and reactive pupils present EOM: EOMs intact bilaterally Neck Neck: Yes normal visual inspection and Yes full ROM Resp Effort & Inspection: normal respiratory effort and able to speak in complete sentences Neuro General: patient oriented x3, moves all extremities and CN's II-XI intact bilaterally Cranial nerves: Yes Equal, round and reactive pupils present Cognition (Neuro): normal cognition Extrem General: Yes normal to inspection, Yes full ROM and Yes capillary refill normal Psych Appearance: grossly normal Mental Status: mental status grossly normal Affect: normal affect Attitude: cooperative Thought process: Normal thought process present Thought content: Normal thought content present Insight: Good insight present (Psych) Course Course Course Narrative: RME, this is a rapid medical exam performed by [facility] please refer to primary provider for complete H&P- 30 year old female presents for evaluation of nausea and vomiting that started this morning. Her daughter had similar symptoms a few days ago and was diagnosed with a virus. Plan for labs a viral swabs. Patient's has similar symptoms Medications Administered Discontinued Medications Generic Name Dose Route Start Last Admin Trade Name Freq PRN Reason Stop Dose Admin Sodium Chloride 1,000 mls @ 999 mls/hr 08/12/25 14:30 08/12/25 15:55 Ns IV 08/12/25 15:30 Infused .Q1H1M ROSANNA Infusion Acetaminophen 1,000 mg in 100 mls @ 400 mls/hr 08/12/25 15:01 08/12/25 15:54 Ofirmev IV 08/12/25 15:15 Infused ONCE ONE Infusion Sodium Chloride 1,000 mls @ 999 mls/hr 08/12/25 16:00 08/12/25 17:01 Ns IV 08/12/25 17:00 Infused .Q1H1M ROSANNA Infusion Ketorolac Tromethamine 15 mg 08/12/25 15:01 08/12/25 15:38 Ketorolac Tromethamine 15 Mg/Ml Vial IVPUSH 08/12/25 15:02 15 mg ONCE ONE Administration Ondansetron HCl 4 mg 08/12/25 14:19 08/12/25 15:00 Ondansetron Hcl 4 Mg/2 Ml Vial IVPUSH 08/12/25 14:20 4 mg ONCE ONE Administration Medical Decision Making Medical Decision Making [facility] Narrative: Patient is a 30 year old assigned female at with a history of kidney stones presenting to the emergency department today with body aches, diarrhea, vomiting, and nausea. Patient's physical exam was as noted in the physical exam portion of this note. Patient's blood work was unremarkable. Patient's EKG was unremarkable. Patient received IV fluids, Toradol, and Zofrnan which, upon re-evaluation, she stated it helped her symptoms some. I explained my physical exam findings as well as all test results to the patient and the patient's partner. I answered all questions asked by the patient and the patient's partner. I stressed the importance of the patient taking her medication as directed (either prescribed or as the over the counter packaging recommends). I stressed the importance of the patient following up with her primary care provider. I stressed the importance of the patient returning to the emergency department immediately if her symptoms were to worsen or if she were to develop any dizziness, shortness of breath, difficulty breathing, chest pain, blurry vision, loss of vision, nausea, vomiting, abdominal pain, fever, chills, back pain, or any other complaints. Patient verbalized agreement and understanding with this treatment plan and discharge. Differential Diagnosis Differential Diagnoses: The differential diagnosis associated with the presentation includes Viral illness Admission/Observation Consideration of admission/observation: Escalation of care including admission/observation considered Patient would have been admitted to the hospital had her work up had any findings where hospital admission was appropriate and her clinical presentation warranted hospital admission. Lab Data [facility] Lab Attestation statement: I reviewed the patient's lab results. My interpretation of these results are in the MDM Rationale portion of this note. 08/12/25 14:12 08/12/25 14:12 Labs: Lab Results 08/12/25 Range/Units 14:12 WBC 7.5 (4.8-10.8) X10*3/uL RBC 4.81 (4.20-5.50) X10*6/uL Hgb 14.3 (12.0-16.0) g/dl Hct 40.8 (37.0-47.0) % MCV 84.8 (80.0-98.0) fL MCH 29.7 (27.0-33.0) pg MCHC 35.0 (31.0-35.0) g/dl RDW 12.8 (11.0-16.0) % Plt Count 182 (160-400) X10*3/uL MPV 9.9 (9.4-12.3) fL Immature Gran % (Auto) 0.3 (0.0-0.4) % Neut % (Auto) 89.4 H (45-73) % Lymph % (Auto) 5.2 L (20-40) % [place] % (Auto) 4.5 (2-11) % Eos % (Auto) 0.3 (0-4) % Baso % (Auto) 0.3 (0-2) % Lymph # (Auto) 0.4 L (1.2-4.9) X10*3/uL [place] # (Auto) 0.3 (0.1-1.2) X10*3/uL Eos # (Auto) 0.0 (0.0-0.4) X10*3/uL Baso # (Auto) 0.0 (0.0-0.2) X10*3/uL Abs Immat Gran (auto) 0.02 (0.00-0.03) X10*3/uL Absolute Neuts (auto) 6.7 (2.0-8.3) x10*3/uL Absolute Nucleated RBC 0.000 (0.0-0.012) X10*3/uL Nucleated RBC % (auto) 0.0 (0.0-0.2) /100WBC Sodium 137 (135-145) mmol/L Potassium 4.5 (3.3-5.1) mmol/L Chloride 109 H (96-108) mmol/L Carbon Dioxide 20 L (22-29) mmol/L Anion Gap 13 (12-20) BUN 11 (9-16) mg/dL Creatinine 0.76 (0.5-1.4) mg/dL Estim Creat Clear Calc 84.6 Estimated GFR > 60 Random Glucose 91 (60-115) mg/dL Calcium 9.3 (8.4-10.2) mg/dL Total Bilirubin 0.7 (0.0-1.0) mg/dL AST 22 (5-31) U/L ALT 13 (0-31) U/L Alkaline Phosphatase 63 (39-117) U/L Troponin I High Sens < 2.7 (<3.5-17.0) ng/L Total Protein 7.5 (6.5-8.0) g/dL Albumin 4.8 (3.5-5.0) g/dL Lipase 15 (8-78) U/L Beta HCG, Quant < 2 mIU/mL Influenza Type A (PCR) NEGATIVE (Negative) Influenza Type B (PCR) NEGATIVE (Negative) RSV RNA Qual (PCR) NEGATIVE (Negative) SARS-CoV-2 RNA (RT-PCR) NEGATIVE (Negative) Independent Interpretation I performed an independent interpretation of an: EKG Interpretation: I independently interpreted this EKG and am in agreement with the below findings: Vent. Rate: 98 BPM Atrial Rate: 98 BPM P-R Int: 146 ms QRS Dur: 66 ms QT Int: 324 ms P-R-T Axes: 58 64 35 degrees QTcB Int: 413 ms Normal sinus rhythm DD/ 1451 Radiology Impression Discussion of test interpretation with radiology: I have reviewed the radiologist's reading. Independent Historian Clinical information obtained from an independent historian. History obtained from or confirmed by: Other (patient's partner provided additional history and confirmed the history provided by the patient. ) Discharge Plan Discharge Clinical Impression: Viral illness Patient Disposition: Home, Self-Care Instructions: Viral Syndrome (ED) Additional Instructions: IF you are prescribed home medications and/or you are taking over the counter medications at home- it is very important you continue to do so as prescribed / directed unless told otherwise. SI le recetan medicamentos y/o est? tomando medicamentos de venta bret, es muy importante que contin?e haci?ndolo seg?n lo recetado/indicado a menos que le indiquen lo contrario. Follow up with your primary care provider. Return to the emergency department immediately if your symptoms worsen or if you develop any dizziness, shortness of breath, difficulty breathing, chest pain, blurry vision, loss of vision, nausea, vomiting, abdominal pain, fever, chills, back pain, or any other complaints. Raul?seguimiento?con lombardi m?dico de atenci?n primaria. Acuda inmediatamente al servicio de urgencias si delores s?ntomas empeoran o si presenta falta de aliento, dificultad para respirar, dolor tor?cico, mareos, aturdimiento, dolor de espalda, dolor abdominal, fiebre, escalofr?os o cualquier otro s?ntoma. Please see the information below about our Patient Portal. If you are not yet enrolled in the [facility] Patient Portal, you will receive an enrollment email invitation following your visit to any [facility] [place] care setting. You may also self-enroll in the Patient Portal by visiting our website: [email or web address] The following information is required to access the Patient Portal: - Your [facility] Medical Record Number - Your personal home email address (must match what is in your electronic medical record, Registration staff can assist with this) - Name - Date of Capabilities of the Patient Portal: - Message some providers - View upcoming appointments - Access your health summary, medical history, and visit history - View current conditions and allergies - View procedure and lab results - View your medications, including guidelines, side effects, and precautions - Complete pre-appointment questionnaires requested by your provider - Ready summary reports of your office visits and procedures To access the Patient Portal Mobile Fide, follow these directions: - Search [facility] in the Fide Store or [employer] Store - Download the Fide - Search for [facility] - Enter your login/password Portal del paciente Si usted no esta inscrito en el portal de pacientes de [facility] y [facility], recibira oilvier invitacion de inscripcion despues de lombardi visita al [facility] o al [facility] [place] via correo electronico. Tambien puede inscribirse voluntariamente en el portal de pacientes visitando nuestra pagina web: [email or web address] La siguiente informacion sera requerida para acceder al portal: - Lombardi gregg de historia medica de [facility] - Lombardi direccion de correo electronico personal - Nombre - Fecha de nacimiento Capacidades: Las siguientes capacidades estan disponibles en el portal de pacientes: - Enviar mensajes a algunos doctores - Verificar proximas citas - Acceso a lombardi historial de radha, registro medico e historial de visitas - Jodi las condiciones actuales y alergias jodi procedimientos y resultados del laboratorio - Jodi delores medicamentos, incluyendo las pautas - Efectos secundarios y precauciones - Completar o llenar formularios / cuestionarios de - Citas solicitadas por lombardi doctor - Leer los resumenes de reportes medicos de delores visitas y procedimientos Skyler acceder a la aplicacion movil: - Briana [employer]eeealth en la Fide Store o [employer]visena Store - Descargue la aplicacion - [facility] - Ingrese lombardi nombre de usuario / Contrasena Prescriptions: New ondansetron 4 mg tablet,disintegrating 4 mg PO Q8H 3 Days Qty: 9 0RF No Action clobetasol 0.05 % ointment topical BID omeprazole 20 mg capsule,delayed release(DR/EC) 20 mg PO DAILY advil PO meloxicam 7.5 mg/5 mL suspension 7.5 mg PO DAILY terconazole 0.8 % cream 1 appful vaginal BEDTIME PRN (Reason: infection) 3 Days Qty: 20 0RF Rx Instructions: insert at bedtime for 3 days Zepbound 5 mg/0.5 mL pen injector 5 mg subcut QWEEK Referrals: Lexy Benitez NP [Primary Care Provider, Primary Care] Interventions: ED Discharge Assessment Last Done: 08/12/25 16:59 Discharge Date/Time: 08/12/25 17:14 Print Language: Kuwaiti
[2025-08-12 14:06] VITALS: BP 96/58; PULSE 108; RESP 16; TEMP 36.6; O2SAT 100; BMI 24.4
[2025-08-12 14:18] LABS: Hematocrit 40.8 % (37.0-47.0); Hemoglobin 14.3 g/dl (12.0-16.0); Imm Gran Abs Auto 0.02 X10*3/uL (0.00-0.03); Imm Gran Pct Auto 0.3 % (0.0-0.4); Lymphocytes Absolute Auto 0.4 X10*3/uL (1.2-4.9); MANUAL DIFF FLAG NO; Mean Corpuscular HGB Conc 35.0 g/dl (31.0-35.0); Mean Corpuscular Hemoglobin 29.7 pg (27.0-33.0); Mean Corpuscular Volume 84.8 fL (80.0-98.0); NRBC Abs Auto 0.000 X10*3/uL (0.0-0.012); NRBC Pct Auto 0.0 /100WBC (0.0-0.2); Platelet Count 182 X10*3/uL (160-400); Red Blood Count 4.81 X10*6/uL (4.20-5.50); White Blood Count 7.5 X10*3/uL (4.8-10.8)
--- NOTE | 2025-08-12 14:18 | ECG_ITS ---
Test Reason : VOMITTING Blood Pressure : */* mmHG Vent. Rate : 98 BPM Atrial Rate : 98 BPM P-R Int : 146 ms QRS Dur : 66 ms QT Int : 324 ms P-R-T Axes : 58 64 35 degrees QTcB Int : 413 ms Normal sinus rhythm Normal ECG When compared with ECG of 04-Dec-2024 00:42, T wave inversion no longer evident in Inferior leads Nonspecific T wave abnormality no longer evident in Anterolateral leads Referred By: Marissa Toro Electronically Signed By: TAYLOR ROMANO
--- OUTSIDE RECORDS SUMMARY | 2025-08-12 14:19 | XMS_ITS | Encounter Summary ---
Author Organization [employer] Address [address] [place] [address] Care Team Providers Care Chronic Specialist Name Role Phone Odalis Hartman MD Primary Care Provider [phone] Lexy Benitez CNP Primary Care Provider [phone] Reason for Visit * Reason Onset Date Comments Returning Call 04/12/2024 Encounter Details Date Type Department Care Team ([facility] st Contact Info) Description 04/12/2024 Telephone [facility] MEDICINE [address] [place] [address] Odalis Hartman MD [address] [place], [place] [phone] Returning Call Social History Tobacco Use Types [...] Description 10/12/2025 9:45 AM EST Office Visit [facility] CHC MED & PEDS [address] [place] [address] Lexy Benitez CNP [address] [place] [address] documented as of this encounter Visit Diagnoses Not on filedocumented in this encounter Care Teams Chronic Specialist Relationship Specialty Start Date End Date Odalis Hartman MD [address] [place] [address] PCP - General Family Medicine 07/06/18 07/18/25 Lexy Benitez CNP [address] [place] [address] PCP - General Family Medicine 07/19/25 documented as of this encounter
--- OUTSIDE RECORDS SUMMARY | 2025-08-12 14:19 | XMS_ITS | Encounter Summary ---
Author Organization [employer] Address [address] [place] [address] Care Team Providers Care Traffic Operator Name Role Phone Odalis Hartman MD Primary Care Provider [phone] Lexy Benitez CNP Primary Care Provider [phone] Reason for Visit * Reason Onset Date Comments Med Change Request 06/06/2024 Encounter Details Date Type Department Care Team ([facility] st Contact Info) Description 06/06/2024 Telephone [facility] MEDICINE [address] [place] [address] Odalis Hartman MD [address] [place] [address] Med Change Request Social History Tobacco Use [...] call regarding prior message. Contact pt at [phone] (libyan) * Telephone Encounter - Sukhjinder Mackenzie - 06/06/2024 12:07 PM EDT Tc from patient calling in regards to the Semaglutide-Weight Management (Wegovy) 0.25 MG/0.5ML solution auto-injector states it was suppose to be increased for .50 to .75 documented in this encounter Plan of Treatment Upcoming Encounters Date Type Department Care Team (Late st Contact Info) Description 10/12/2025 9:45 AM EST Office Visit [facility] CHC MED & PEDS [address] [place] [address] Lexy Benitez CNP [address] [place] [address] documented as of this encounter Visit Diagnoses Not on filedocumented in this encounter Care Teams Traffic Operator Relationship Specialty Start Date End Date Odalis Hartman MD [address] [place] [address] PCP - General Family Medicine 07/06/18 07/18/25 Lexy Benitez CNP [address] [place] [address] PCP - General Family Medicine 07/19/25 documented as of this encounter
--- OUTSIDE RECORDS SUMMARY | 2025-08-12 14:19 | XMS_ITS | Encounter Summary ---
Author Organization [employer] Address [address] [facility] [address] [place] [address] Care Team Providers Care Cable Tender Name Role Phone Odalis Hartman MD Primary Care Provider [phone] Lexy Benitez CNP Primary Care Provider [phone] Reason for Visit * Reason Onset Date Comments PA 11/28/2024 Encounter Details Date Type Department Care Team ([facility] st Contact Info) Description 11/28/2024 Telephone [facility] CHC MED & PEDS [address] [place] [address] Odalis Hartman MD [address] [place] [address] PA Social History Tobacco Use Types Packs/Day [...] Description 10/12/2025 9:45 AM EST Office Visit [facility] CHC MED & PEDS [address] [place], [place] [phone] Lexy Benitez CNP [address] [place] [address] documented as of this encounter Visit Diagnoses Not on filedocumented in this encounter Care Teams Cable Tender Relationship Specialty Start Date End Date Odalis Hartman MD [address] [place] [address] PCP - General Family Medicine 07/06/18 07/18/25 Lexy Benitez CNP [address] [place], [place] [phone] PCP - General Family Medicine 07/19/25 documented as of this encounter
--- OUTSIDE RECORDS SUMMARY | 2025-08-12 14:19 | XMS_ITS | Encounter Summary ---
Author Organization [employer] Address [address] [place] [address] 7t [place] [address] Care Team Providers Care Shrink Pit Supervisor Name Role Phone Odalis Hartman MD Primary Care Provider [phone] Lexy Benitez CNP Primary Care Provider [phone] Reason for Visit * Reason Onset Date Comments Nurse Triage 10/24/2024 Encounter Details Date Type Department Care Team ([facility] st Contact Info) Description 10/24/2024 Telephone [facility] CHC MED & PEDS [address] [place] [address] Odalis Hartman MD [address] [place] [address] Nurse Triage Social History Tobacco Use Types [...] 4:26 PM EST Triage call [place] [id number] [place] [id number]. Pt reports episode of rapid heart beat/palpitations [...] advised if is concerned may come to [facility] open till 8pm this evening and [...] Upcoming Encounters Date Type Department Care Team ([facility] st Contact Info) Description 10/12/2025 9:45 AM EST Office Visit [facility] CHC MED & PEDS [address] [place] [address] Lexy Benitez CNP [address] [place], [place] [phone] documented as of this encounter Visit Diagnoses Not on filedocumented in this encounter Care Teams Shrink Pit Supervisor Relationship Specialty Start Date End Date Odalis Hartman MD [address] [place] [phone] PCP - General Family Medicine 07/06/18 07/18/25 Lexy Benitez CNP [address] [place] [address] PCP - General Family Medicine 07/19/25 documented as of this encounter
--- OUTSIDE RECORDS SUMMARY | 2025-08-12 14:19 | XMS_ITS | Clinical Summary ---
Author Organization [email or web address] Address [address] [place] [address] 7t [place] [address] Care Team Providers Care Pharmacists Name Role Phone Emmanuel Rahcruzitoel PENNY Primary Care Provider [phone] Allergies No known active allergies Medications omeprazole [...] Description 08/08/2025 3:30 PM EST Office Visit [facility] [address] [place] [address] Lexy Benitez CNP Palpitation (Primary Dx); Overweight (BMI 25.0-29.9); Pericardial effusion 08/08/2025 Travel 08/03/2025 Results Follow-Up [facility] [address] [place] [address] Marva Herrera MD Culture, Urine, Routine 08/03/2025 Telephone [facility] [address] [place] [address] Lexy Benitez CNP chart prep 08/02/2025 Orders Only GENERIC EXTERNAL DATA DEPARTMENT Provider, Generic External Data 07/30/2025 Orders Only GENERIC EXTERNAL DATA DEPARTMENT Provider, Generic External Data 07/20/2025 Orders Only GENERIC EXTERNAL DATA DEPARTMENT Provider, Generic External Data 07/12/2025 9:30 AM EDT Office Visit [facility] [address] [place] [address] Odalis Hartman MD Cyst of left ovary (Primary Dx) 07/11/2025 Telephone [facility] [address] [place] [address] Odalis Hartman MD ED visit 07/11/2025 Travel 07/10/2025 Orders Only [facility] [address] [place] [address] Odalis Hartman MD Mass of left breast, unspecified quadrant (Primary Dx) 07/10/2025 Results Follow-Up [facility] [address] [facility] [place] [address] Odalis Hartman MD US Pelvis Transvaginal, CT Abdomen Pelvis w/ Contrast 07/09/2025 Orders Only GENERIC EXTERNAL DATA DEPARTMENT Provider, Generic External Data 07/05/2025 Orders Only [facility] [address] [facility] [place] [address] Odalis Hartman MD 07/04/2025 10:45 AM EDT Telemedicine [facility] [address] [facility] [place] [address] Odalis Hartman MD Obesity without serious comorbidity in pediatric patient, unspecified obesity class, unspecified obesity type (Primary Dx) 07/04/2025 Travel 06/28/2025 Telephone [facility] [address] [place] [address] Odalis Hartman MD Prior Authorization from Last [...] Description 10/12/2025 9:45 AM EST Office Visit [facility] [address] [place] [address] Lexy Benitez, PENNY [address] [place] [address] Health Maintenance Due Date Last Done Comments [...] CONTRAST Routine 07/31/2025 7:44 AM EST US PELVIC OVARIAN DOPPLER Routine 07/31/2025 4:18 AM EST US PELVIS TRANSVAGINAL Routine 4:18 [...] Free T4 2.20 0.32 - 4.0 uIU/mL [facility] Blood Venous blood specimen / Unknown 08/08/2025 4:12 PM EST 08/08/2025 5:55 PM EST [facility] SUPERVISOR ROLLING ROOM LAB BLOOD ORDERABLES Dayana l Result Performing Organization Address City/[facility]/ZIP Co de Phone Number [facility] [address] [place] [phone] * Culture, Urine, Routine (08/02/2025 8:06 AM EST) Urine Urine specimen obtained by clean catch procedure / Unknown 08/02/2025 8:06 AM EST 08/02/2025 2:44 PM EST Comment:UACC Narrative [facility] - 08/03/2025 10:58 AM EST Urine Culture No growth. Specimen Source: Urine clean catch Generic External Data Provider LAB MICROBIOLOGY - GENERAL ORDERABLES Final Result Performing Organization Address City/[facility] Co de Phone Number [facility] [address] [place] [phone] * CT Abdomen Pelvis w/ Contrast (07/31/2025 7:44 AM EST) Only the most recent of2 resultswithin the time period is included. Anatomical Region Laterality Modality Body, Pelvis, Abdomen Computed T omography 07/31/2025 7:44 AM EST Narrative 07/31/2025 8:35 AM EST [address] [address] [address] Scan Report Signed Patient: Stacia Agudelo MR#: [id number] : 1995 Acct:[id number] Age/Sex: 30 / F ADM Date: 07/30/25 Loc: HO.ED Attending Dr: Ordering Physician: Richard Vaughn PA-C Date of Service: 07/31/25 Procedure(s): CT abdomen pelvis w IV con Accession Number(s): [id number] cc: Marva Herrera MD; Richard Vaughn PA-C Report Number: [id number]: Total DLP = 411.00 mGy-cm Reason for [...] 07/31/25 0831 DD/ 0744 TD/TT: 07/31/25 0757 Grocery Associate: Procedure Note Donotuseinterpreter, Image - 07/31/[address] [place] [address] [address] Scan Report Signed Patient: Stacia Agudelo GMR#: [id number] : 1995Acct:[id number] Age/Sex: 30 / FADM Date: 07/30/25 Loc: HO.ED Attending Dr: Ordering Physician: Richard Vaughn PA-C Date of Service: 07/31/25 Procedure(s): CT abdomen pelvis w IV con Accession Number(s): [id number] cc: Marva Herrera MD; Richard Vaughn PA-C Report Number: [id number]: Total DLP = 411.00 mGy-cm Reason for [...] were followed. Electronically signed by: Juan Diego Maruer MD 07/31/2025 08:31 AM EST RP Dictated By: Juan Diego Castillo MD Signed By: <Electronically signed by Brian Hawley OV> 07/31/25 0831 DD/ 0744 TD/TT: 07/31/25 0757 Grocery Associate: us [facility] External Provider IMG CT PROCEDURES Edited Result - Final * US PELVIC OVARIAN DOPPLER (07/31/2025 4:18 AM EST) Only the most recent of2 resultswithin the time period is included. Anatomical Region Laterality Modality Abdomen Ultrasound 07/31/2025 4:18 AM EST Narrative 08/11/2025 1:30 PM EST [address] [address] Ultrasound Report Signed Patient: Stacia Agudelo MR#: [id number] : 1995 Acct:[id number] Age/Sex: 30 / F ADM Date: 07/30/25 Loc: HO.ED Attending Dr: Ordering Physician: Richard Vaughn PA-C Date of Service: 07/31/25 Procedure(s): US pelvic ovarian doppler Accession Number(s): [id number] cc: Marva Herrera MD; Richard Vaughn PA-C Reason for Exam: Left Pelvic/LLQ Pain/Tenderness; Nausea CLINICAL HISTORY: Left Pelvic LLQ Pain [...] signed by Gregg Novoa MD in OV> 08/11/25 1330 DD/ 7 TD/TT: 07/31/254[address] Grocery Associate: Procedure Note Donotuseinterpreter, Image - 08/11/2025 [place] [address] Ultrasound Report Signed Patient: Stacia Agudelo GMR#: [id number] : 1995Acct:[id number] Age/Sex: Date: 07/30/25 Loc: .ED Attending Dr: Ordering Physician: Richard Vaughn PA-C Date of Service: 07/31/25 Procedure(s): US pelvic ovarian doppler Accession Number(s): [id number] cc: Marva Herrera MD; Richard Vaughn PA-C Reason for Exam: Left Pelvic/LLQ Pain/Tenderness; Nausea CLINICAL HISTORY: Left Pelvic LLQ Pain [...] signed by Gregg Novoa MD in OV> 08/11/25 1330 DD/ 7 TD/TT: 07/31/25417 Grocery Associate: us [facility] External Provider IMG US PROCEDURES Final Result * US Pelvis Transvaginal (07/31/2025 4:18 AM EST) Only the most recent of2 resultswithin the time period is included. Anatomical Region Laterality Modality Pelvis Ultrasound 07/31/2025 4:18 AM EST Narrative 07/31/2025 4:20 AM EST [address] [address] Ultrasound Report Signed Patient: Stacia Agudelo MR#: [id number] : 1995 Acct:[id number] Age/Sex: 30 / F ADM Date: 07/30/25 Loc: HO.ED Attending Dr: Ordering Physician: Richard Vaughn PA-C Date of Service: 07/31/25 Procedure(s): US pelvic and transvaginal Accession Number(s): [id number] cc: Marva Herrera MD; Richard Vaughn PA-C [...] signed by Gregg Novoa MD in OV> 08/11/25 1329 DD/ 7 TD/TT: 07/31/25417 Grocery Associate: Procedure Note Donotuseinterpreter, Image - 08/11/2025 [place] [address] Ultrasound Report Signed Patient: Stacia Agudelo GMR#: [id number] : 1995Acct:[id number] Age/Sex: Date: 07/30/25 Loc: HO.ED Attending Dr: Ordering Physician: Richard Vaughn PA-C Date of Service: 07/31/25 Procedure(s): US pelvic and transvaginal Accession Number(s): [id number] cc: Marva Herrera MD; Richard Vaughn PA-C [...] signed by Gregg Novoa MD in OV> 08/11/25 1329 DD/ 7 TD/TT: 07/31/25417 Grocery Associate: us [facility] External Provider IMG US PROCEDURES Edited Result - Final * Urinalysis w/reflex microscopic (07/30/2025 11:28 PM EST) Only the most recent of2 resultswithin the time period is included. Color Urine Yellow [facility] Appearance Urine Clear [facility] PH 7.0 5.0 - 9.0 [facility] Glucose Urine UA Negative Negative mg/dL [facility] Urine Blood Negative Negative [facility] Specific [place] - Urine 1.025 1.005 - 1.025 [facility] Urine Protein Trace Neg-Trace mg/dL [facility] Urine Ketones Negative Negative mg/dL [facility] Nitrite Urine Negative Negative [facility] Leukocyte Esterase Urine Negative Negative [facility] 07/30/2025 11:2 8 PM EST 07/30/2025 11:31 PM EST Narrative [facility] - 07/30/2025 11:51 PM EST Urine, Clean Catch us Generic External Data Provider LAB URINE ORDERAB LES Final Result [facility] [address] [place] [phone] * (ABNORMAL) Bacterial Vaginosis (07/20/2025 1:41 PM EDT) Pathologist [facility] TRICHOMONAS VAGINALIS DETECTION BY PCR NOT DETECTED Not Detect [facility] BACTERIAL VAGINOSIS DETECTION BY PCR NEGATIVE Negative [facility] Comment:The BV organism targ ets [...] DETECTION BY PCR NOT DETECTED Not Detect [facility] Noris glab krusei PCR DETECTED(A) Not Detect [facility] 07/20/2025 1:41 PM EDT 07/20/2025 3:52 PM EDT us Generic External Data Provider LAB MICROBIOLOGY - GENERAL ORDERABLES Final Result [facility] [address] [place] [phone] * Chlamydia/N. Gonorrhoeae RNA, TMA, Urogenitial (07/20/2025 1:41 PM EDT) Pathologist [facility] CT PCR NOT DETECTED Not Detect. [facility] Comment:A not detected test result [...] psychologicalconsequences. NG PCR NOT DETECTED Not Detect. [facility] Comment:A not detected test result [...] LAB MICROBIOLOGY - GENERAL ORDERABLES Final Result [facility] [address] [place] [address] [phone] * CBC auto differential (07/09/2025 8:25 PM EDT) White Blood Count 7.9 4.8 - 10.8 X10*3/uL [facility] Red Blood Count 4.32 4.20 - 5.50 X10*6/uL [facility] Hemoglobin 12.6 12.0 - 16.0 g/dl [facility] Hematocrit 37.2 37.0 - 47.0 % [facility] Mean Corpuscular Volume 86.1 80.0 - 98.0 fL [facility] Mean Corpuscular Hemoglobin 29.2 27.0 - 33.0 pg [facility] Mean Corpuscular HGB Conc 33.9 31.0 - 35.0 g/dl [facility] Red Cell Distribution Width 13.6 11.0 - 16.0 % [facility] Platelet Count 182 160 - 400 X10*3/uL [facility] Mean Platelet Volume 9.9 9.4 - 12.3 fL [facility] Neutrophils Percent Auto 63.2 45 - 73 % [facility] Imm Gran Pct Auto 0.3 0.0 - 0.4 % [facility] Lymphocytes Percent Auto 27.3 20 - 40 % [facility] Monocytes Percent Auto 5.8 2 - 11 % [facility] Eosinophils Percent Auto 3.0 0 - 4 % [facility] Basophils Percent Auto 0.4 0 - 2 % [facility] NRBC Pct Auto 0.0 0.0 - 0.2 /100WBC [facility] Neutrophils Absolute Auto 5.0 2.0 - 8.3 x10*3/uL [facility] Imm Gran Abs Auto 0.02 0.00 - 0.03 X10*3/uL [facility] Lymphocytes Absolute Auto 2.2 1.2 - 4.9 X10*3/uL [facility] Monocytes Absolute Auto 0.5 0.1 - 1.2 X10*3/uL [facility] Eosinophils Absolute Auto 0.2 0.0 - 0.4 X10*3/uL [facility] Basophils Absolute Auto 0.0 0.0 - 0.2 X10*3/uL [facility] NRBC Abs Auto 0.000 0.0 - 0.012 X10*3/uL [facility] 07/09/2025 8:25 PM EDT 07/09/2025 8:29 PM EDT us Generic External Data Provider LAB BLOOD ORDERAB LES Final Result [facility] [address] [place] [phone] * hCG, Total, Quantitative (07/09/2025 8:25 PM EDT) HCG Quantitative <2 mIU/mL [facility] Comment:Weeks post LMP Appro ximate hCG(Last Menstrual Period) Range (mIU/ml)3 - 4 weeks 9 - 1304 - 5 weeks 75 - 2,6005 - 6 weeks 850 - 20,8006 - 7 weeks 4000 - 100,2007 - 12 weeks 11,500 - 289,11535 - 16 weeks 18,300 - 137,37933 - 29 weeks (2nd trimester) 1,400 - 53,81918 - 41 weeks (3rd trimester) 940 - [...] Provider LAB BLOOD ORDERAB LES Final Result [facility] [address] [place] [phone] * (ABNORMAL) Comprehensive Metabolic Panel (07/09/2025 8:25 PM EDT) Sodium 138 135 - 145 mmol/L [facility] Potassium 4.0 3.3 - 5.1 mmol/L [facility] Chloride 110(H) 96 - 108 mmol/L [facility] Carbon Dioxide 20(L) 22 - 29 mmol/L [facility] Anion Gap 12 12 - 20 [facility] Urea Nitrogen (BUN) 7(L) 9 - 16 mg/dL [facility] Creatinine, Serum 0.69 0.5 - 1.4 mg/dL [facility] Creatinine Clr Calc Pharmacy 95.5 [facility] Comment:Provided height and weight: 152.4 cm,59.874 kg.eGFR (calculated from the MDRD study equation) and eCrCl(calculated from the Cockcroft-Gault equation) are based ondifferent parameters and may not yield comparable results.If eCrCl result is absurd, please check patient'sheight/weight. Estimated Glomerular Filt Rate >60 [facility] Comment:Chronic Kidney Disea se: Estimated GFR < 60 mL/min/1.36w5Sxnjmp Kidney Disease: Estimated GFR < 15 mL/min/1.73m2 Glucose 92 60 - 115 mg/dL [facility] Calcium 9.0 8.4 - 10.2 mg/dL [facility] Bilirubin, Total 0.3 0.0 - 1.0 mg/dL [facility] Aspartate Amino Transferase 21 5 - 31 U/L [facility] Alanine Aminotransferase 16 0 - 31 U/L [facility] Total Protein 6.7 6.5 - 8.0 g/dL [facility] Albumin Level 4.2 3.5 - 5.0 g/dL [facility] Alkaline Phosphatase 61 39 - 117 U/L [facility] 07/09/2025 8:25 PM EDT 07/09/2025 8:29 PM EDT us Generic External Data Provider LAB BLOOD ORDERAB LES Final Result Performing Organization Address City/State/[facility] Co de Phone Number [facility] [address] [place] [phone] * Pap Smear (02/23/2024 1:44 PM EDT) Swab Cervix uteri structure / Unknown 02/23/2024 1:44 PM EDT 02/24/2024 9:15 AM EDT Narrative [facility] - 03/20/2024 3:43 PM EDT ----- ------- Name: Stacia Agudelo Age/Sex: 28/F : 1995 Unit#: [id number] Attend Dr: ENA LUNA CNM Re02/23/24 Status: DEP REF Location: [facility] Disch: ----- ------- SPEC : [id number] RECD: 02/24/24-914 STATUS: SOPHIE GODWIN NUM: [id number] FERCHO: 02/23/24-[address] [facility] [address]: ENA LUNA CNM ENTERED: 02/24/24-1013 SP TYPE: Pap Smr OTHR DR: ORDERED: Pap Smear Interpretation Satisfactory for evaluation. Negative for intraepithelial lesion or malignancy. Clinical Information LMP: 01/25/2024 Previous PAP test: Unknown date/findings Material Received ThinPrep-Cervical ----- ------- Signed (signature on file) Moon Sheridan 03/20/24 1543 ----- ------- END OF REPORT us Ena STARKEYM LAB CYTOLOGY ORDERABLES F inal Result Performing Organization Address City/[facility]/ZIP Co de Phone Number [facility] [address] [place] [phone] * Lipid Panel, Standard (01/21/2023 10:41 AM EDT) Cholesterol, Total 158 <200 mg/dL [facility] HDL Cholesterol 58 > OR = 50 mg/dL [facility] Triglycerides 94 <150 mg/dL [facility] LDL Cholesterol 81 mg/dL (calc) [facility] Comment: Reference range: <100 Desirable range <100 mg/dL for primary prevention; <70 mg/dL for patients with CHD or diabetic patients with > or = 2 CHD risk factors. LDL-C is now calculated using the Abelardo calculation, which is a validated novel method providing better accuracy than the Friedewald equation in the estimation of LDL-C. Edgar SS et al. SUZANNE. 2013;310(19): 2018-4009 (http://education.DreamNotes/faq/ETJ248) Chol/HDLC Ratio 2.7 <5.0 (calc) [facility] Non-HDL Cholesterol 100 <130 mg/dL (calc) [facility] Comment: For patients with diabetes plus 1 major ASCVD risk factor, treating to a non-HDL-C goal of <100 mg/dL (LDL-C of <70 mg/dL) is considered a therapeutic option. Blood Venous blood specimen / Unknown 01/21/2023 10:41 AM EDT 01/21/2023 10:42 AM EDT Narrative [facility] - 01/22/2023 7:34 AM EDT FASTING:YES FASTING: YES Odalis Hartman MD LAB BLOOD ORDERABLES Final Resul t [facility] [address], [place] [address] [facility] [address] [place] [address] * HEPATITIS C ANTIBODY (10/04/2019 4:35 PM EST) HEPATITIS C ANTIBODY NONREACTIVE NONREACTIVE [facility] Comment: Antibodies to HCV not detected; does not exclude early acute HCV infection. 10/04/2019 4:35 PM EST us Sheryl Almas HISTORICAL/NON ORDERABLE LABS Fi nal Result [facility] [address] from Last 3 Months or Most Recently Relevant to Health Maintenance Insurance [facility] C3 Care Teams Pharmacists Relationship Specialty Start Date End Date Lexy Benitez CNP [address] [place], [place] [phone] PCP - General Family Medicine 07/19/25
--- OUTSIDE RECORDS SUMMARY | 2025-08-12 14:19 | XMS_ITS | Clinical Summary ---
Author Organization [facility] ity Address [address] [place] [address] Care Team Providers Care Inventory Control/Shipping Receiving Name Role Phone Unavailable Primary Care Provider [...]
--- OUTSIDE RECORDS SUMMARY | 2025-08-12 14:19 | XMS_ITS | Encounter Summary ---
Author Organization [employer] Address [address] [place] [address] [address] [place] [address] Care Team Providers Care Beauty Therapist Name Role Phone Odalis Hartman MD Primary Care Provider [phone] Lexy Benitez CNP Primary Care Provider [phone] Reason for Visit * Reason Comments Med Refill Encounter Details Date Type Department Care Team ([facility] Contact Info) Description 04/13/2023 Refill [facility] [address] [place] [address] Marva Herrera MD [address] [place] [address] Perioral dermatitis Social History Tobacco Use Types [...] Upcoming Encounters Date Type Department Care Team ([facility] Contact Info) Description 10/12/2025 9:45 AM EST Office Visit [facility] [address] [place] [address] Lexy Benitez CNP [address] [place] [address] documented as of this encounter Visit Diagnoses Diagnosis Perioral dermatitis Rosacea documented in this encounter Care Teams Beauty Therapist Relationship Specialty Start Date End Date Odalis Hartman MD [address] [place] [phone] PCP - General Family Medicine 07/06/18 07/18/25 Lexy Benitez CNP [address] [place] [address] PCP - General Family Medicine 07/19/25 documented as of this encounter
--- OUTSIDE RECORDS SUMMARY | 2025-08-12 14:20 | XMS_ITS | Encounter Summary ---
Demographics Address [address] [place] [address] [address] [place] [address] Home Phone Work Phone Email Address Preferred Language es Marital Status Mormonism Affiliation Unknown Race Other Race Ethnic Group Unknown Author Organization [employer] Address [address] [facility] [address]t [place] [address] Care Team Providers Care Torch Cutter Name Role Phone Lexy Benitez CNP Primary Care Provider [phone] Encounter Details Date Type Department Care Team ([facility] st Contact Info) Description 08/03/2025 Results Follow-Up [facility] [address] [place] [address] Marva Herrera MD [address] [place] [address] Culture, Urine, Routine Social History Tobacco Use [...] Description 10/12/2025 9:45 AM EST Office Visit [facility] [address] [place] [address] Lexy Benitez CNP [address] [place] [address] documented as of this encounter Visit Diagnoses Not on filedocumented in this encounter Care Teams Torch Cutter Relationship Specialty Start Date End Date Lexy Benitez CNP [address] [place] [address] PCP - General Family Medicine 07/19/25 documented as of this encounter
--- OUTSIDE RECORDS SUMMARY | 2025-08-12 14:20 | XMS_ITS | Encounter Summary ---
Author Organization [employer] Address [address] [facility] [address] [place] [address] Care Team Providers Care Chief Green Officer Name Role Phone Emmanuel Rahanthony FRANCIS Primary Care Provider [phone] Encounter Details Date Type Department Care Team [...] Description 10/12/2025 9:45 AM EST Office Visit [facility] [address] [place] [address] Lexy Benitez, TENANT SELECTOR [address] [place] [address] documented as of this encounter Visit Diagnoses Not on filedocumented in this encounter Additional Health Concerns Assessment Noted Time PHQ-9 Depression Total Score: 2 08/08/20 25 4:10 PM EST documented as of this encounter Care Teams Chief Green Officer Relationship Specialty Start Date End Date Lexy Benitez CNP [address] [facility] [place] [address] PCP - General Family Medicine 07/19/25 documented as of this encounter
[2025-08-12 14:39] LABS: Alanine Aminotransferase 13 U/L (0-31); Albumin Level 4.8 g/dL (3.5-5.0); Alkaline Phosphatase 63 U/L (39-117); Anion Gap 13 (12-20); Aspartate Amino Transferase 22 U/L (5-31); Blood Urea Nitrogen 11 mg/dL (9-16); Calcium 9.3 mg/dL (8.4-10.2); Carbon Dioxide 20 mmol/L (22-29); Chloride 109 mmol/L (96-108); Creatinine Clr Calc Pharmacy 84.6; Estimated Glomerular Filt Rate > 60; Lipase 15 U/L (8-78); Potassium 4.5 mmol/L (3.3-5.1); Sodium 137 mmol/L (135-145); Total Protein 7.5 g/dL (6.5-8.0)
[2025-08-12 15:01] LABS: Resp Syncy Virus RNA Qual PCR NEGATIVE (Negative); SARS COV2 PCR INHOUSE NEGATIVE (Negative)
[2025-08-12 15:37] LABS: Troponin-I High Sensitivity < 2.7 ng/L (<3.5-17.0)
[2025-08-12 15:46] VITALS: BP 99/65; PULSE 96; RESP 14; O2SAT 100
[2025-08-12 16:52] VITALS: BP 102/50
[2025-08-12 16:59] VITALS: BP 102/50; PULSE 86; RESP 16; TEMP 36.6; O2SAT 98
== END 2025-08-12 17:14 | disposition home or self-care (01) ==
PROVIDERS: Physician Assistant; Physician Assistant Medical; Emergency Provider Emergency Medicine Emergency Medical Services
DX: B34.9 Viral infection, unspecified (principal); Z87.442 Personal history of urinary calculi
CPT/HCPCS: 36415; 80053; 83690; 84484; 84702; 85025; 87637; 93005; 96361; 96374; 96375; 99284; J0131; J1885; J2405

== ENCOUNTER → 2025-08-12 14:18 | Outpatient (BNV) | payer MEDICAID, SELFPAY | PROVIDERS: Emergency Provider Emergency Medicine Emergency Medical Services; Visit Provider Internal Medicine | DX: R11.10 Vomiting, unspecified (principal) | CPT/HCPCS: 93010 ==

== ENCOUNTER 2025-08-21 13:24 | Outpatient (REF) | payer MEDICAID, SELFPAY ==
--- NOTE | ~2025-08-21 | MM_ITS ---
EXAMINATION(S): MM DIAGNOSTIC DIGITAL BREAST TOMOSYNTHESIS, BILATERAL CLINICAL INFORMATION: Abdomen/pelvis CT on July 10, 2025 describes asymmetric left breast tissue COMPARISON: No prior mammogram images. This is a baseline mammogram study. Prior CT of abdomen/pelvis on July 10, 2025. TECHNIQUE: Digital breast tomosynthesis is performed in both the mediolateral oblique and craniocaudal views along with computer-aided detection (CAD). Synthesized 2D images are generated from the tomosynthesis. FINDINGS: BREAST COMPOSITION: The breasts are heterogeneously dense, which may obscure small masses. BILATERAL BREASTS: No significant masses, suspicious calcifications or other abnormalities are seen in either breast. In particular, no suspicious asymmetric breast tissue on the left breast. The apparent finding seen on the prior CT study was due to patient's asymmetric position. MM/MM tomosynthesis diagnostic BI IMPRESSION: BILATERAL BREASTS: Negative, no mammographic evidence of malignancy. ASSESSMENT: BI-RADS: Category 1: Negative RECOMMENDATION: Mammo at 40 or earlier if clinically needed Results were provided to the patient at time of visit by the technologist. This patient's information was entered into a reminder system with a target due date for their next mammogram. Electronically signed by: Kika Sheriff MD 08/21/2025 02:04 PM [facility]
--- OUTSIDE RECORDS SUMMARY | 2025-08-21 16:59 | XMS_ITS | Encounter Summary ---
Author Organization [employer] Address [address] [facility] [address] [place] [address] Care Team Providers Care Pipe Machine Operator Name Role Phone Odalis Hartman MD Primary Care Provider [phone] Lexy Benitez CNP Primary Care Provider [phone] Reason for Visit * Reason Onset Date Comments Returning Call 04/12/2024 Encounter Details Date Type Department Care Team ([facility] st Contact Info) Description 04/12/2024 Telephone [facility] [address] [place] [address] Odalis Hartman MD [address] [place], [place] [phone] Returning Call Social History Tobacco Use Types [...] Female 07/21/2022 10:34 AM EDT Sexual Orientation Straight 08/14/2025 1: 21 PM EST documented as of this encounter Miscellaneous Notes [...] Description 10/12/2025 9:45 AM EST Office Visit [facility] [address] [place] [address] Lexy Benitez CNP [address] [place] [address] documented as of this encounter Visit Diagnoses Not on filedocumented in this encounter Care Teams Pipe Machine Operator Relationship Specialty Start Date End Date Odalis Hartman MD [address] [place] [phone] PCP - General Family Medicine 07/06/18 07/18/25 Lexy Benitez CNP [address] [place] [address] PCP - General Family Medicine 07/19/25 documented as of this encounter
--- OUTSIDE RECORDS SUMMARY | 2025-08-21 16:59 | XMS_ITS | Clinical Summary ---
Author Organization [facility] ity Address [address] [place] [address] Care Team Providers Care Dedicated Truck Driver Name Role Phone Unavailable Primary Care Provider [...]
--- OUTSIDE RECORDS SUMMARY | 2025-08-21 16:59 | XMS_ITS | Encounter Summary ---
Demographics Address [address] [place] [address] [address] [place] [address] Home Phone Work Phone Email Address Preferred Language es Marital Status Denominational Affiliation Unknown Race Other Race Ethnic Group Unknown Author Organization [employer] Address [address] [place] [address] Care Team Providers Care Bulb Tester Name Role Phone Lexy Benitez CNP Primary Care Provider [phone] Encounter Details Date Type Department Care Team ([facility] st Contact Info) Description 08/03/2025 Results Follow-Up [facility] MED & PEDS [address] [place] [address] Marva Herrera MD [address] [place] [address] Culture, Urine, Routine Social History Tobacco Use [...] PM EST documented as of this encounter Plan of Treatment Upcoming Encounters Date Type Department Care Team (Late st Contact Info) Description 10/12/2025 9:45 AM EST Office Visit [facility] MED [facility] PEDS [address] [place] [address] Lexy Benitez CNP [address] [place] [address] documented as of this encounter Visit Diagnoses Not on filedocumented in this encounter Care Teams Bulb Tester Relationship Specialty Start Date End Date Lexy Benitez CNP [address] [place] [address] PCP - General Family Medicine 07/19/25 documented as of this encounter
--- OUTSIDE RECORDS SUMMARY | 2025-08-21 16:59 | XMS_ITS | Encounter Summary ---
Author Organization [employer] Address [address] [place] [address] [address]t [place] [address] Care Team Providers Care Freight Forwarder Name Role Phone Odalis Hartman MD Primary Care Provider [phone] Lexy Benitez CNP Primary Care Provider [phone] Reason for Visit * Reason Onset Date Comments Nurse Triage 10/24/2024 Encounter Details Date Type Department Care Team ([facility] st Contact Info) Description 10/24/2024 Telephone [facility] CHC MED & PEDS [address] [place] [address] Odalis Hartman MD [address] [place] [address] Nurse Triage Social History Tobacco Use Types [...] 10/24/2024 4:26 PM EST Triage call with [facility] [place] [id number] [place] [id number]. Pt reports episode of rapid heart beat/palpitations today. Pt reports HR was 178 at one time today and at rest HR is 105 at times. Pt denies any other symptoms of SOB, dizziness, weakness. Pt denies excess caffeine, energy drinks, stress or anxiety. Pt is not having palpitations at time of call. Pt is advised to make a diary of whenthese palpitations occur, HR number and any other sx felt at the time. Pt agrees to do this. Pt is advised if is concerned may come to [facility] open till 8pm this evening and provider can check heart rate and write any orders needed. Pt agrees to do this if needed. Home care is reviewed and Pt agrees with disposition. Protocol Used: Heart Rate and Heartbeat [...] Upcoming Encounters Date Type Department Care Team ([facility] st Contact Info) Description 10/12/2025 9:45 AM EST Office Visit [facility] MED & PEDS [address] [place] [address] Lexy Benitez CNP [address] [place] [address] documented as of this encounter Visit Diagnoses Not on filedocumented in this encounter Care Teams Freight Forwarder Relationship Specialty Start Date End Date Odalis Hartman MD [address] [place] [id number] PCP - General Family Medicine 07/06/18 07/18/25 Lexy Benitez CNP [address] [place] [address] PCP - General Family Medicine 07/19/25 documented as of this encounter
--- OUTSIDE RECORDS SUMMARY | 2025-08-21 16:59 | XMS_ITS | Encounter Summary ---
Author Organization [employer] Address [address] [facility] [address] [place] [address] Care Team Providers Care Technology Applications Teacher Name Role Phone Odalis Hartman MD Primary Care Provider [phone] Lexy Benitez CNP Primary Care Provider [phone] Reason for Visit * Reason Onset Date Comments PA 11/28/2024 Encounter Details Date Type Department Care Team ([facility] st Contact Info) Description 11/28/2024 Telephone [facility] CHC MED & PEDS [address] [place] [address] Odalis Hartman MD [address] [place] [address] PA Social History Tobacco Use Types Packs/Day [...] Description 10/12/2025 9:45 AM EST Office Visit [facility] CH[facility] MED & PEDS [address] [place] [address] Lexy Benitez CNP [address] [place] [address] documented as of this encounter Visit Diagnoses Not on filedocumented in this encounter Care Teams Technology Applications Teacher Relationship Specialty Start Date End Date Odalis Hartman MD [address] [place] [address] PCP - General Family Medicine 07/06/18 07/18/25 Lexy Benitez CNP [address] [place] [address] PCP - General Family Medicine 07/19/25 documented as of this encounter
--- OUTSIDE RECORDS SUMMARY | 2025-08-21 16:59 | XMS_ITS | Encounter Summary ---
Author Organization [employer] Address [address] [place] [address] Care Team Providers Care [place]mer Bottom Maker Name Role Phone Odalis Hartman MD Primary Care Provider Lexy Benitez CNP Primary Care Provider [phone] Reason for Visit * Reason Onset Date Comments Med Change Request 06/06/2024 Encounter Details Date Type Department Care Team ([facility] st Contact Info) Description 06/06/2024 Telephone [facility] MEDICINE [address] [place] [address] Odalis Hartman MD [address] [place] [address] Med Change Request Social History Tobacco Use [...] call regarding prior message. Contact pt at [phone] ([email or web address]) * Telephone Encounter - Sukhjinder Mackenzie - 06/06/2024 12:07 PM EDT Tc from patient calling in regards to the Semaglutide-Weight Management (Wegovy) 0.25 MG/0.5ML solution auto-injector states it was suppose to be increased for .50 to .75 documented in this encounter Plan of Treatment Upcoming Encounters Date Type Department Care Team (Late st Contact Info) Description 10/12/2025 9:45 AM EST Office Visit [facility] CHC MED & PEDS [address] [place] [address] Lexy Benitez, PENNY [address] [place] [address] documented as of this encounter Visit Diagnoses Not on filedocumented in this encounter Care Teams Bessemer Bottom Maker Relationship Specialty Start Date End Date Odalis Hartman MD [address] [place] [address] PCP - General Family Medicine 07/06/18 07/18/25 Lexy Benitez CNP [address] [place] [address] PCP - General Family Medicine 07/19/25 documented as of this encounter
--- OUTSIDE RECORDS SUMMARY | 2025-08-21 16:59 | XMS_ITS | Clinical Summary ---
Author Organization [employer] Address [address] [place] [address] [address] [place] [address] Care Team Providers Care Chrome Worker Name Role Phone Emmanuel Rahanthony FRANCIS Primary Care Provider [phone] Allergies No known active allergies Medications omeprazole [...] 1 obesity 08/03/2025 Encounter for well woman exandressa m with routine gynecological exam 08/03/2025 Lichen simplex chronicus 08/03/2025 Rupture of ovarian cyst 08/03/2025 Kidney calculus 08/03/2025 Kidney stone 01/21/2023 Gastroesophageal reflux disease without esophagi tis 01/21/2023 Encounters Date Type Department Care Team Description 08/21/2025 Orders Only [facility] [address] [place] [address] Odalis Hartman MD 08/12/2025 Orders Only GENERIC EXTERNAL DATA DEPARTMENT Provider, Generic External Data 08/08/2025 3:30 PM EST Office Visit [facility] [address] [place] [address] Lexy Benitez CNP Palpitation (Primary Dx); Overweight (BMI 25.0-29.9); Pericardial effusion 08/08/2025 Travel 08/03/2025 Results Follow-Up [facility] [address] [place] [address] Marva Herrera MD Culture, Urine, Routine 08/03/2025 Telephone [facility] [address] [place] [address] Lexy Benitez CNP chart prep 08/02/2025 Orders Only GENERIC EXTERNAL DATA DEPARTMENT Provider, Generic External Data 07/30/2025 Orders Only GENERIC EXTERNAL DATA DEPARTMENT Provider, Generic External Data 07/20/2025 Orders Only GENERIC EXTERNAL DATA DEPARTMENT Provider, Generic External Data 07/12/2025 9:30 AM EDT Office Visit [facility] [address] [place] [address] Odalis Hartman MD Cyst of left ovary (Primary Dx) 07/11/2025 Telephone [facility] [address] [place] [address] Odalis Hartman MD ED visit 07/11/2025 Travel 07/10/2025 Orders Only [facility] [address] [place] [address] Odalis Hartman MD Mass of left breast, unspecified quadrant (Primary Dx) 07/10/2025 Results Follow-Up [facility] [address] [facility] [place] [address] Odalis Hartman MD US Pelvis Transvaginal, CT Abdomen Pelvis w/ Contrast 07/09/2025 Orders Only GENERIC EXTERNAL DATA DEPARTMENT Provider, Generic External Data 07/05/2025 Orders Only [facility] [address] [place] [address] Odalis Hartman MD 07/04/2025 10:45 AM EDT Telemedicine [facility] [address] [place] [address] Odalis Hartman MD Obesity without serious comorbidity in pediatric patient, unspecified obesity class, unspecified obesity type (Primary Dx) 07/04/2025 Travel 06/28/2025 Telephone [facility] [address] [place] [address] Odalis Hartman MD Prior Authorization from Last [...] Orientation Straight 08/14/2025 1: 21 PM EST Last Filed Vital Signs Vital Sign Reading [...] 9:45 AM EST Office Visit [facility] [address] [place] [address] Lexy Benitez, PENNY [address] [place] [address] Health Maintenance Due Date Last Done Comments [...] Procedure Name Priority Date/Time Associated Diagnosis Comments BI MAMMOGRAM DIAGNOSTIC TOMOSYNTHESIS BILATERAL Routine 08/21/2025 1:30 PM EST HIGH SENSITIVITY TROPONIN I Routine 08/12/2025 2:12 PM EST HCG, TOTAL, QN Routine 08/12/2025 2:12 PM EST LIPASE Routine 08/12/2025 2:12 PM EST COMPREHENSIVE METABOLIC PANEL Routine 08/12/2025 2:12 PM EST CBC WITH AUTO DIFFERENTIAL Routine 08/12/2025 2:12 PM EST SARS COV2/INFLUENZA A/B AND RSV RNA QL NAAT Routine 08/12/2025 2:12 PM EST TSH W/REFLEX TO FT4 Routine 08/08/2025 4 [...] Recently Relevant to Health Maintenance Results * BI Mammogram Diagnostic Tomosynthesis Bilateral (08/21/2025 1:30 PM EST) Anatomical Region Laterality Modality Breast Bilateral Mammography 08/21/2025 1:30 PM EST Narrative 08/21/2025 2:08 PM EST [facility] [address] [place] [address] [place] [address] Mammography Report Signed Patient: Stacia Agudelo MR#: [id number] : 1995 Acct:[id number] Age/Sex: 30 / F ADM Date: 08/21/25 Loc: HO.MAMMO Attending Dr: Odalis Hartman MD Ordering Physician: Odalis Hartman MD Results: 1Negati ve Date of Service: 08/21/25 Follow Up: Mammo at 40 or e arlier if clinically needed Procedure(s): MM tomosynthesis diagnostic BI Accession Number(s): [id number] cc: Odalis Hartman MD; Lexy Benitez NP Reason For Exam: LT BR ASYMMETRIC TISSUE SEEN ON CT EXAMINATION(S): MM DIAGNOSTIC DIGITAL BREAST TOMOSYNTHESIS, BILATERAL CLINICAL INFORMATION: Abdomen/pelvis CT on July 10, 2025 describes asymmetric left breast tissue COMPARISON: No prior mammogram images. This is a baseline mammogram study. Prior CT of abdomen/pelvis on July 10, 2025. TECHNIQUE: Digital breast tomosynthesis is performed in both the mediolateral oblique and craniocaudal views along with computer-aided detection (CAD). Synthesized 2D images are generated from the tomosynthesis. FINDINGS: BREAST COMPOSITION: The breasts are heterogeneously dense, which may obscure small masses. BILATERAL BREASTS: No significant masses, suspicious calcifications or other abnormalities are seen in either breast. In particular, no suspicious asymmetric breast tissue on the left breast. The apparent finding seen on the prior CT study was due to patient's asymmetric position. MM/MM tomosynthesis diagnostic BI IMPRESSION: BILATERAL BREASTS: Negative, no mammographic evidence of malignancy. ASSESSMENT: BI-RADS: Category 1: Negative RECOMMENDATION: Mammo at 40 or earlier if clinically needed Results were provided to the patient at time of visit by the technologist. This patient's information was entered into a reminder system with a target due date for their next mammogram. Electronically signed by: Kika Sheriff MD 08/21/2025 02:[address] [facility] Dictated By: Kika Sheriff MD Signed By: <Electronically signed by Kika Sheriff MD in OV> 08/21/25 1404 DD/ 1330 TD/TT: 08/21/25 1344 Rolled Ham Lacer: Procedure Note Donotuseinterpreter, Image - 08/21/2025 [facility] [address] [place] [address] Mammography Report Signed Patient: Stacia Agudelo GMR#: [id number] : 1995Acct:[id number] Age/Sex: FADM Date: 08/21/25 Loc: HO.MAMMO Attending Dr: Odalis Hartman MD Ordering Physician: Odalis Hartman MDResults: 1Negati ve Date of Service: 08/21/25Follow Up: Mammo at 40 or e arlier if clinically needed Procedure(s): MM tomosynthesis diagnostic BI Accession Number(s): [id number] cc: Odalis Hartman MD; Lexy Benitez NP Reason For Exam: LT BR ASYMMETRIC TISSUE SEEN ON CT EXAMINATION(S): MM DIAGNOSTIC DIGITAL BREAST TOMOSYNTHESIS, BILATERAL CLINICAL INFORMATION: Abdomen/pelvis CT on July 10, 2025 describes asymmetric left breast tissue COMPARISON: No prior mammogram images. This is a baseline mammogram study. Prior CT of abdomen/pelvis on July 10, 2025. TECHNIQUE: Digital breast tomosynthesis is performed in both the mediolateral oblique and craniocaudal views along with computer-aided detection (CAD). Synthesized 2D images are generated from the tomosynthesis. FINDINGS: BREAST COMPOSITION: The breasts are heterogeneously dense, which may obscure small masses. BILATERAL BREASTS: No significant masses, suspicious calcifications or other abnormalities are seen in either breast. In particular, no suspicious asymmetric breast tissue on the left breast. The apparent finding seen on the prior CT study was due to patient's asymmetric position. MM/MM tomosynthesis diagnostic BI IMPRESSION: BILATERAL BREASTS: Negative, no mammographic evidence of malignancy. ASSESSMENT: BI-RADS: Category 1: Negative RECOMMENDATION: Mammo at 40 or earlier if clinically needed Results were provided to the patient at time of visit by the technologist. This patient's information was entered into a reminder system with a target due date for their next mammogram. Electronically signed by: Kika Sheriff MD 08/21/2025 02:[address] [facility] Dictated By: Kika Sheriff MD Signed By: <Electronically signed by Kika Sheriff MD in OV> 08/21/25 1404 DD/ 1330 TD/TT: 08/21/25 1344 Rolled Ham Lacer: us Odalis Hartman MD IMG BI PROCEDURES Final Result * High Sensitivity Troponin I (08/12/2025 2:12 PM EST) Pathologist [facility] TROPONIN I HIGH SENSITIVITY <2.7 <3.5 - 17.0 ng/L [facility] Comment:The Vences high sens itivity Troponin-I results should beused in conjunction with other diagnostic information suchas ECG, clinical observations and information, and patientsymptoms to aid in the diagnosis of PR. 08/12/2025 2:12 PM EST 08/12/2025 3:13 PM EST us Generic External Data Provider LAB BLOOD ORDERAB LES Final Result Performing Organization Address City/[facility]/ZIP Co de Phone Number [facility] [address] [place] [phone] * SARS-CoV-2 RNA, Influenza A/B, and RSV RNA, Ql NAAT (08/12/2025 2:12 PM EST) [facility] Influenza A PCR NEGATIVE Negative [facility] Influenza B PCR NEGATIVE Negative [facility] Resp Syncy Virus RNA Qual PCR NEGATIVE Negative [facility] SARS COV2 PCR NEGATIVE Negative [facility] Comment:All test results mus t be correlated with clinical findings.Negative results do not preclude SARS-CoV2, influenza Avirus, influenza B virus and/or RSV infectionand should not be used as the sole basis for treatment orother patient management decisions. Negative results must becombined with clinical observations, patient history, andepidemiological information.This test has not been evaluated for monitoring treatment ofinfection.This test has been authorized by the FDA under an EmergencyUse Authorization (EUA) for use by authorized laboratories.Testing performed on the [employer] GeneXpert utilizingreal-time RT-PCR.All SARS CoV2 and positive influenza A/B results arereported to [facility]. 08/12/2025 2:12 PM EST 08/12/2025 2:16 PM EST us Generic External Data Provider LAB MICROBIOLOGY - GENERAL ORDERABLES Final Result [facility] [address] [place] [address] [phone] * (ABNORMAL) CBC auto differential (08/12/2025 2:12 PM EST) Only the most recent of2 resultswithin the time period is included. White Blood Count 7.5 4.8 - 10.8 X10*3/uL [facility] Red Blood Count 4.81 4.20 - 5.50 X10*6/uL [facility] Hemoglobin 14.3 12.0 - 16.0 g/dl [facility] Hematocrit 40.8 37.0 - 47.0 % [facility] Mean Corpuscular Volume 84.8 80.0 - 98.0 fL [facility] Mean Corpuscular Hemoglobin 29.7 27.0 - 33.0 pg [facility] Mean Corpuscular HGB Conc 35.0 31.0 - 35.0 g/dl [facility] Red Cell Distribution Width 12.8 11.0 - 16.0 % [facility] Platelet Count 182 160 - 400 X10*3/uL [facility] Mean Platelet Volume 9.9 9.4 - 12.3 fL [facility] Neutrophils Percent Auto 89.4(H) 45 - 73 % [facility] Imm Gran Pct Auto 0.3 0.0 - 0.4 % [facility] Lymphocytes Percent Auto 5.2(L) 20 - 40 % [facility] Monocytes Percent Auto 4.5 2 - 11 % [facility] Eosinophils Percent Auto 0.3 0 - 4 % [facility] Basophils Percent Auto 0.3 0 - 2 % [facility] NRBC Pct Auto 0.0 0.0 - 0.2 /100WBC [facility] Neutrophils Absolute Auto 6.7 2.0 - 8.3 x10*3/uL [facility] Imm Gran Abs Auto 0.02 0.00 - 0.03 X10*3/uL [facility] Lymphocytes Absolute Auto 0.4(L) 1.2 - 4.9 X10*3/uL [facility] Monocytes Absolute Auto 0.3 0.1 - 1.2 X10*3/uL [facility] Eosinophils Absolute Auto 0.0 0.0 - 0.4 X10*3/uL [facility] Basophils Absolute Auto 0.0 0.0 - 0.2 X10*3/uL [facility] NRBC Abs Auto 0.000 0.0 - 0.012 X10*3/uL [facility] 08/12/2025 2:12 PM EST 08/12/2025 2:16 PM EST us Generic External Data Provider LAB BLOOD ORDERAB LES Final Result Performing Organization Address [facility] Co de Phone Number [facility] [address] [place] [phone] * hCG, Total, Quantitative (08/12/2025 2:12 PM EST) Only the most recent of2 resultswithin the time period is included. HCG Quantitative <2 mIU/mL [facility] Comment:Weeks post LMP Appro ximate hCG(Last Menstrual Period) Range (mIU/ml)3 - 4 weeks 9 - 1304 - 5 weeks 75 - 2,6005 - 6 weeks 850 - 20,8006 - 7 weeks 4000 - 100,2007 - 12 weeks 11,500 - 289,89677 - 16 weeks 18,300 - 137,17822 - 29 weeks (2nd trimester) 1,400 - 53,64745 - 41 weeks (3rd trimester) 940 - 60,000The Vences B- hCG assay is used for the early detection ofpregnancy; it cannot be used to diagnose any conditionunrelated to . If a B-hCG level is not supportedby the clinical evidence, results should be confirmed by analternative method (qualitative urine hCG, for example). 08/12/2025 2:12 PM EST 08/12/2025 2:16 PM EST us Generic External Data Provider LAB BLOOD ORDERAB LES Final Result Performing Organization Address City/[facility]/ZIP Co de Phone Number [facility] [address] [place] [address] [phone] * Lipase (08/12/2025 2:12 PM EST) Lipase 15 8 - 78 U/L [facility] 08/12/2025 2:12 PM EST 08/12/2025 2:16 PM EST us Generic External Data Provider LAB BLOOD ORDERAB LES Final Result [facility] [address] [place] [address] [phone] * (ABNORMAL) Comprehensive Metabolic Panel (08/12/2025 2:12 PM EST) Only the most recent of2 resultswithin the time period is included. Sodium 137 135 - 145 mmol/L [facility] Potassium 4.5 3.3 - 5.1 mmol/L [facility] Chloride 109(H) 96 - 108 mmol/L [facility] Carbon Dioxide 20(L) 22 - 29 mmol/L [facility] Anion Gap 13 12 - 20 [facility] Urea Nitrogen (BUN) 11 9 - 16 mg/dL [facility] Creatinine, Serum 0.76 0.5 - 1.4 mg/dL [facility] Creatinine Clr Calc Pharmacy 84.6 [facility] Comment:Provided height and weight: 152.4 cm,56.699 kg.eGFR (calculated from the MDRD study equation) and eCrCl(calculated from the Cockcroft-Gault equation) are based ondifferent parameters and may not yield comparable results.If eCrCl result is absurd, please check patient'sheight/weight. Estimated Glomerular Filt Rate >60 [facility] Comment:Chronic Kidney Disea se: Estimated GFR < 60 mL/min/1.55f4Ztvrqf Kidney Disease: Estimated GFR < 15 mL/min/1.73m2 Glucose 91 60 - 115 mg/dL [facility] Calcium 9.3 8.4 - 10.2 mg/dL [facility] Bilirubin, Total 0.7 0.0 - 1.0 mg/dL [facility] Aspartate Amino Transferase 22 5 - 31 U/L [facility] Alanine Aminotransferase 13 0 - 31 U/L [facility] Total Protein 7.5 6.5 - 8.0 g/dL [facility] Albumin Level 4.8 3.5 - 5.0 g/dL [facility] Alkaline Phosphatase 63 39 - 117 U/L [facility] 08/12/2025 2:12 PM EST 08/12/2025 2:16 PM EST Generic External Data Provider LAB BLOOD ORDERAB LES Final Result Performing Organization Address [facility]/ZIP Co de Phone Number [facility] [address] [place] [phone] * TSH W/Reflex to FT4 (08/08/2025 4:12 PM EST) TSH reflex Free T4 2.20 0.32 - 4.0 uIU/mL [facility] Blood Venous blood specimen / Unknown 08/08/2025 4:12 PM EST 08/08/2025 5:55 PM EST [facility] LAB BLOOD ORDERABLES Dayana l Result Performing Organization Address City/[facility]/ZIP Co de Phone Number [facility] [address] [place] [phone] * Culture, Urine, Routine (08/02/2025 8:06 AM EST) Urine Urine specimen obtained by clean catch procedure / Unknown 08/02/2025 8:06 AM EST 08/02/2025 2:44 PM EST Comment:UACC Narrative [facility] - 08/03/2025 10:58 AM EST Urine Culture No growth. Specimen Source: Urine clean catch Generic External Data Provider LAB MICROBIOLOGY - GENERAL ORDERABLES Final Result Performing Organization Address City/[facility]/ZIP Co de Phone Number [facility] [address] [place] [phone] * CT Abdomen Pelvis w/ Contrast (07/31/2025 7:44 AM EST) Only the most recent of2 resultswithin the time period is included. Anatomical Region Laterality Modality Body, Pelvis, Abdomen Computed T omography 07/31/2025 7:44 AM EST Narrative 07/31/2025 8:35 AM EST [address] [address] [address] Scan Report Signed Patient: Stacia Agudelo MR#: [id number] : 1995 Acct:[id number] Age/Sex: 30 / F ADM Date: 07/30/25 Loc: HO.ED Attending Dr: Ordering Physician: Richard Vaughn PA-C Date of Service: 07/31/25 Procedure(s): CT abdomen pelvis w IV con Accession Number(s): [id number] cc: Marva Herrera MD; Richard Vaughn PA-C Report Number: [id number]: Total DLP = 411.00 mGy-cm Reason for [...] 07/31/25 0831 DD/ 0744 TD/TT: 07/31/25 0757 Rolled Ham Lacer: Procedure Note Donotuseinterpreter, Image - 07/31/[address] [address] [address] Scan Report Signed Patient: Stacia Agudelo GMR#: [id number] : 1995Acct:[id number] Age/Sex: 30 / FADM Date: 07/30/25 Loc: HO.ED Attending Dr: Ordering Physician: Richard Vaughn PA-C Date of Service: 07/31/25 Procedure(s): CT abdomen pelvis w IV con Accession Number(s): [id number] cc: Marva Herrera MD; Richard Vaughn PA-C Report Number: [id number]: Total DLP = 411.00 mGy-cm Reason for [...] 07/31/25 0831 DD/ 0744 TD/TT: 07/31/25 0757 Rolled Ham Lacer: [facility] External Provider IMG CT PROCEDURES Edited Result - Final * US PELVIC OVARIAN DOPPLER (07/31/2025 4:18 AM EST) Only the most recent of2 resultswithin the time period is included. Anatomical Region Laterality Modality Abdomen Ultrasound 07/31/2025 4:18 AM EST Narrative 08/11/2025 1:30 PM EST [address] [address] Ultrasound Report Signed Patient: Stacia Agudelo MR#: [id number] : 1995 Acct:[id number] Age/Sex: 30 / F ADM Date: 07/30/25 Loc: HO.ED Attending Dr: Ordering Physician: Richard Vaughn PA-C Date of Service: 07/31/25 Procedure(s): US pelvic ovarian doppler Accession Number(s): [id number] cc: Marva Herrera MD; Richard Vaughn PA-C [...] OV> 08/11/25 1330 DD/ 7 TD/TT: 07/31/25417 Rolled Ham Lacer: Procedure Note Donotuseinterpreter, Image - 08/11/2025 [place] [address] Ultrasound Report Signed Patient: Stacia Agudelo GMR#: [id number] : 1995Acct:[id number] Age/Sex: 30 FADM Date: 07/30/25 Loc: HO.ED Attending Dr: Ordering Physician: Richard Vaughn PA-C Date of Service: 07/31/25 Procedure(s): US pelvic ovarian doppler Accession Number(s): [id number] cc: Marva Herrera MD; Richard Vaughn PA-C [...] OV> 08/11/25 1330 DD/ 7 TD/TT: 07/31/25417 Rolled Ham Lacer: us [facility] External Provider IMG US PROCEDURES Final Result * US Pelvis Transvaginal (07/31/2025 4:18 AM EST) Only the most recent of2 resultswithin the time period is included. Anatomical Region Laterality Modality Pelvis Ultrasound 07/31/2025 4:18 AM EST Narrative 07/31/2025 4:20 AM EST [address] [address] Ultrasound Report Signed Patient: Stacia Agudelo MR#: [id number] : 1995 Acct:[id number] Age/Sex: 30 / F ADM Date: 07/30/25 Loc: HO.ED Attending Dr: Ordering Physician: Richard Vaughn PA-C Date of Service: 07/31/25 Procedure(s): US pelvic and transvaginal Accession Number(s): [id number] cc: Marva Herrera MD; Richard Vaughn PA-C [...] MD Signed By: <Electronically signed by Gregg Noova MD in OV> 08/11/25 1329 DD/ TD/TT: 07/31/25417 Rolled Ham Lacer: Procedure Note Donotuseinterpreter, Image - 08/11/[address] [address] Ultrasound Report Signed Patient: Stacia Agudelo GMR#: [id number] : 1995Acct:[id number] Age/Sex: 30 / FADM Date: 07/30/25 Loc: HO.ED Attending Dr: Ordering Physician: Richard Vaughn PA-C Date of Service: 07/31/25 Procedure(s): US pelvic and transvaginal Accession Number(s): [id number] cc: Marva Herrera MD; Richard Vaughn PA-C [...] Novoa MD in OV> 08/11/25 1329 DD/ 0418 TD/TT: 07/31/25 0418 Rolled Ham Lacer: us [facility] External Provider IMG US PROCEDURES Edited Result - Final * Urinalysis w/reflex microscopic (07/30/2025 11:28 PM EST) Only the most recent of2 resultswithin the time period is included. Color Urine Yellow [facility] Appearance Urine Clear [facility] PH 7.0 5.0 - 9.0 [facility] Glucose Urine UA Negative Negative mg/dL [facility] Urine Blood Negative Negative [facility] Specific Maud - Urine 1.025 1.005 - 1.025 [facility] Urine Protein Trace Neg-Trace mg/dL [facility] Urine Ketones Negative Negative mg/dL [facility] Nitrite Urine Negative Negative [facility] Leukocyte Esterase Urine Negative Negative [facility] 07/30/2025 11:2 8 PM EST 07/30/2025 11:31 PM EST Narrative [facility] - 07/30/2025 11:51 PM EST Urine, Clean Catch Generic External Data Provider LAB URINE ORDERAB LES Final Result Performing Organization Address [facility] Co de Phone Number [facility] [address] [place] [phone] * (ABNORMAL) Bacterial Vaginosis (07/20/2025 1:41 PM EDT) TRICHOMONAS VAGINALIS DETECTION BY PCR NOT DETECTED Not Detect [facility] BACTERIAL VAGINOSIS DETECTION BY PCR NEGATIVE Negative [facility] Comment:The BV organism targ ets of [...] DETECTION BY PCR NOT DETECTED Not Detect [facility] Noris glab krusei PCR DETECTED(A) Not Detect [facility] 07/20/2025 1:41 PM EDT 07/20/2025 3:52 PM EDT us Generic External Data Provider LAB MICROBIOLOGY - GENERAL ORDERABLES Final Result Performing Organization Address [facility]/ZIP Co de Phone Number [facility] [address] [place] [phone] * Chlamydia/N. Gonorrhoeae RNA, TMA, Urogenitial (07/20/2025 1:41 PM EDT) CT PCR NOT DETECTED Not Detect. [facility] Comment:A not detected test result does [...] psychologicalconsequences. NG PCR NOT DETECTED Not Detect. [facility] Comment:A not detected test result does [...] LAB MICROBIOLOGY - GENERAL ORDERABLES Final Result [facility] [address] [place] [address] [phone] * Pap Smear (02/23/2024 1:44 PM EDT) Swab Cervix uteri structure / Unknown 02/23/2024 1:44 PM EDT 02/24/2024 9:15 AM EDT Xavier [facility] - 03/20/2024 3:43 PM EDT ----- ------- Name: Stacia Agudelo Age/Sex: 28/F : 1995 Unit#: [id number] Attend Dr: ENA LUNA CNM Re02/23/24 Status: DEP REF Location: HO.HHCLNP Disch: ----- ------- SPEC : [id number] RECD: 02/24/24-914 STATUS: SOPHIE CONNELLY NUM: [id number] FERCHO: 02/23/24-[address] [facility] [address]: ENA LUNA CNM ENTERED: 02/24/24-1013 SP TYPE: Pap Smr OT : ORDERED: Pap Smear Interpretation Satisfactory for evaluation. Negative for intraepithelial lesion or malignancy. Clinical Information LMP: 01/25/2024 Previous PAP test: Unknown date/findings Material Received ThinPrep-Cervical ----- ------- Signed (signature on file) Moon Sheridan 03/20/24 1543 ----- ------- END OF REPORT us Ena Luna [facility] CYTOLOGY ORDERABLES F inal Result [facility] [address] [place] [phone] * Lipid Panel, Standard (01/21/2023 10:41 AM EDT) Cholesterol, Total 158 <200 mg/dL [facility] HDL Cholesterol 58 > OR = 50 mg/dL [facility] Triglycerides 94 <150 mg/dL [facility] LDL Cholesterol 81 mg/dL (calc) [facility] Comment: Reference range: <100 Desirable range <100 mg/dL for primary prevention; <70 mg/dL for patients with CHD or diabetic patients with > or = 2 CHD risk factors. LDL-C is now calculated using the Abelardo calculation, which is a validated novel method providing better accuracy than the Friedewald equation in the estimation of LDL-C. Edgar CRUZ et al. SUZANNE. 2013;310(19): 0205-7309 (http://education.[place]ham/faq/ZQP061) Chol/HDLC Ratio 2.7 <5.0 (calc) [facility] Non-HDL Cholesterol 100 <130 mg/dL (calc) [facility] Comment: For patients with diabetes plus 1 [...] BLOOD ORDERABLES Final Resul t [facility] [address], [place] [address] [facility] [address] [place] [address] * HEPATITIS C ANTIBODY (10/04/2019 4:35 PM EST) Pathologist [facility] HEPATITIS C ANTIBODY NONREACTIVE NONREACTIVE [facility] Comment: Antibodies to HCV not detected; does not exclude early acute HCV infection. 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
--- OUTSIDE RECORDS SUMMARY | 2025-08-21 16:59 | XMS_ITS | Encounter Summary ---
Author Organization [employer] Address [address] [place] [address] 7t [place] [address] Care Team Providers Care Digital Marketing Manager Name Role Phone Odalis Hartman MD Primary Care Provider Lexy Benitez CNP Primary Care Provider [phone] Reason for Visit * Reason Comments Med Refill Encounter Details Date Type Department Care Team ([facility] Contact Info) Description 04/13/2023 Refill [facility] MED & PEDS [address] [place] [address] Marva Herrera MD [address] [place] [address] Perioral dermatitis Social History Tobacco Use Types [...] Orientation Straight 08/14/2025 1: 21 PM EST COVID-19 Exposure Response Date Recorded In the last 10 days, have yo u been in contact with someone who was confirmed or suspected to have Coronavirus/COVID-19? No / Unsure 03/17/2023 11:24 AM EDT documented as of this encounter Plan of Treatment Upcoming Encounters Date Type Department Care Team ([facility] Contact Info) Description 10/12/2025 9:45 AM EST Office Visit [facility] P[facility]S [address] [place] [address] Lexy Benitez CNP [address] [place] [address] documented as of this encounter Visit Diagnoses Diagnosis Perioral dermatitis Rosacea documented in this encounter Care Teams Digital Marketing Manager Relationship Specialty Start Date End Date Odalis Hartman MD [address] [place] [address] PCP - General Family Medicine 07/06/18 07/18/25 Lexy Benitez CNP [address] [place] [address] PCP - General Family Medicine 07/19/25 documented as of this encounter
--- OUTSIDE RECORDS SUMMARY | 2025-08-21 16:59 | XMS_ITS | Encounter Summary ---
Demographics Address [address] [place] [address] [address] [place] [address] Home Phone Work Phone Email Address Preferred Language es Marital Status Jain Affiliation Unknown Race Other Race Ethnic Group Unknown Author Organization [employer] Address [address] [place] [address] Care Team Providers Care Information Coordinator Name Role Phone Lexy Benitez CNP Primary Care Provider [phone] Encounter Details Date Type Department Care Team ([facility] Contact Info) Description 08/21/2025 Orders Only [facility] MED & PEDS [address] [place] [address] Odalis Hartman MD [address] [place] [address] Social History Tobacco Use Types Packs/Day Years [...] Upcoming Encounters Date Type Department Care Team ([facility] st Contact Info) Description 10/12/2025 9:45 AM EST Office Visit [facility] MED [facility] PEDS [address] [place], [place] [phone] Lexy Benitez, [facility] [address] [place], [place] [phone] documented as of this encounter Procedures Procedure Name Priority Date/Time Associated Diagnosis Comments BI MAMMOGRAM DIAGNOSTIC TOMOSYNTHESIS BILATERAL Routine 08/21/2025 1:30 PM EST documented in this encounter Results * BI Mammogram Diagnostic Tomosynthesis Bilateral (08/21/2025 1:30 PM EST) Anatomical Region Laterality Modality Breast Bilateral Mammography 08/21/2025 1:30 PM EST Narrative 08/21/2025 2:08 PM EST [facility] [address] [place] [address] Mammography Report Signed Patient: Stacia Agudelo MR#: [id number] : 1995 Acct:[id number] Age/Sex: 30 / F ADM Date: 08/21/25 Loc: HO.MAMMO Attending Dr: Odalis Hartman MD Ordering Physician: Odalis Hartman MD Results: 1Negati ve Date of Service: 08/21/25 Follow Up: Mammo at 40 or e arlier if clinically needed Procedure(s): MM tomosynthesis diagnostic BI Accession Number(s): [id number] cc: Odalis Hartman MD; Lexy Benitez NP [...] by: Kika Sheriff MD 08/21/2025 02:04 PM [facility] Dictated By: Kika Sheriff MD Signed By: <Electronically signed by Kika Sheriff MD in OV> 08/21/25 1404 DD/ 1330 TD/TT: 08/21/25 1344 Boating Safety Officer: Procedure Note Donotuseinterpreter, Image - 08/21/2025 [facility] [address] [place] [address] Mammography Report Signed Patient: Stacia Agudelo GMR#: [id number] : 1995Acct:[id number] Age/Sex: 30 / FADM Date: 08/21/25 Loc: HO.MAMMO Attending Dr: Odalis Hartman MD Ordering Physician: Odalis Hartman MDResults: 1Negati ve Date of Service: 08/21/25Follow Up: Mammo at 40 or e arlier if clinically needed Procedure(s): MM tomosynthesis diagnostic BI Accession Number(s): [id number] cc: Odalis Hartman MD; Lexy Benitez NP [...] by: Kika Sheriff MD 08/21/2025 02:04 PM [facility] Dictated By: Kika Sheriff MD Signed By: <Electronically signed by Kika Sheriff MD in OV> 08/21/25 1404 DD/ 1330 TD/TT: 08/21/25 1344 Boating Safety Officer: us Odalis Hartman MD IMG BI PROCEDURES Final Result documented in this encounter Visit Diagnoses Not on filedocumented in this encounter Additional Health Concerns Assessment Noted Time PHQ-9 Depression Total Score: 2 08/08/20 25 4:10 PM EST documented as of this encounter Care Teams Information Coordinator Relationship Specialty Start Date End Date Lexy Benitez CNP [address] [place] [address] PCP - General Family Medicine 07/19/25 documented as of this encounter
== END 2025-08-21 13:25 | disposition home or self-care (01) ==
LOC: HO.MAMMO 13:24
PROVIDERS: Visit Provider Student in an Organized Health Care Education/Training Program
DX: N63.20 Unspecified lump in the left breast, unspecified quadrant (principal); N64.89 Other specified disorders of breast
CPT/HCPCS: 77062; 77066

== ENCOUNTER → 2025-08-21 13:30 | Outpatient (BNV) | payer MEDICAID, SELFPAY | PROVIDERS: Visit Provider Radiology Body Imaging | DX: R92.8 Other abnormal and inconclusive findings on diagnostic imaging of breast (principal) | CPT/HCPCS: 77062; 77066 ==

== ENCOUNTER 2025-09-10 05:43 | Emergency (ER) | payer MEDICAID, SELFPAY ==
--- NOTE | 2025-09-10 | ECG_ITS ---
Test Reason : CHEST PAIN Blood Pressure : */* mmHG Vent. Rate : 90 BPM Atrial Rate : 90 BPM P-R Int : 142 ms QRS Dur : 72 ms QT Int : 348 ms P-R-T Axes : 55 59 31 degrees QTcB Int : 425 ms Normal sinus rhythm Normal ECG When compared with ECG of 12-Aug-2025 14:51, No significant change was found Referred By: Khurram Manriquez Electronically Signed By: Zoran Calvert
[2025-09-10 05:49] VITALS: BP 108/82; BP 110/70; PULSE 90; PULSE 92; RESP 15; TEMP 36.4; O2SAT 100; BMI 24.5
--- NOTE | 2025-09-10 06:03 | ED_ITS ---
HPI - Arrhythmia/Palpitations General Chief Complaint: Arrhythmia/Palpitations Stated Complaint: Hx of pericarditis woke up w/ CP & palpitations Time Seen by Provider: 09/10/25 05:46 Source: patient and EMS Mode of arrival: EMS Limitations: language barrier (Patient's 1st language is Mongolian, patient's speaks Arabic, iPad aerial photograph interpreter used) History of Present Illness ED Provider: Dr. Khurram Manriquez Related Data Home Medications ?Medication ?Instructions ?Recorded ?Confirmed clobetasol 0.05 % topical ointment topical BID 4 08/02/25 omeprazole 20 mg capsule,delayed 20 mg PO DAILY 08/02/25 release advil PO 05/13/24 tirzepatide (weight loss) 5 mg/0.5 5 mg subcut QWEEK 1 08/02/25 mL subcutaneous pen injector (Zepbound) meloxicam 7.5 mg/5 mL oral 7.5 mg PO DAILY 08/02/25 suspension Previous Rx's ?Medication ?Instructions ?Recorded terconazole 0.8 % vaginal cream 1 appful vaginal BEDTI ME PRN 08/02/25 infection 3 days #20 grams ondansetron 4 mg disintegrating 4 mg PO Q8H 3 days #9 tabs 08/12/25 tablet atenolol 25 mg tablet 25 mg PO DAILY 90 days #90 t abs 09/10/25 Allergies Allergy/AdvReac Type Severity Reaction Status Date / Time No Known Allergies (No Known Allergy Verified 09/10/25 05:55 Allergies*) Review of Systems 2 Review of Systems: Yes all other systems are reviewed and are negative [facility] Past Medical History [facility] Narrative: Social history: The patient is . She denies tobacco, alcohol and drug use. Medical History History of renal calculi Flank pain Hematuria Vaginal mass Hx of migraines Kidney stones Surgical History Hx of lithotripsy Hx of lithotripsy S/P cystoscopy with ureteral stent placement Kidney calculus History of appendectomy Family History Family History Mother Diabetes Father Hypertension Daughter No problems noted. Social History Social History Household Members: Spouse Household Members Other:: daughter Housing: Apartment Alcohol intake: never Patient Tobacco Use Status: Never used Tobacco Smoked in Last 30 Days: No Use of substances other than those prescribed or required for medical reasons: No Advance Directives: No Advance Directives Information Provided: Yes Do you have a plan to hurt others: No Plan Sexual orientation: Straight/Heterosexual Gender identity: Female Physical Exam 2 Vital Signs: Vital Signs: Last Vital Signs Temp 97.6 F 09/10/25 05:49 Pulse 75 09/10/25 07:09 Resp 20 09/10/25 07:09 BP 99/65 09/10/25 07:09 Pulse Ox 97 09/10/25 07:09 O2 Del Method Room Air 09/10/25 07:09 BMI result Body Mass Index 24.5 Vital signs were noted Exam: General: Awake, alert , appears anxious, pleasant and cooperative Head: Normocephalic, atraumatic EENT: PERRL, sclera and conjunctiva are normal, mouth with no erythema or exudates Neck: Supple, no adenopathy Lung: breath sounds symmetric, no wheezing, no rales and no rhonchi Chest: symmetric movement, nontender Heart: regular rate and rhythm, normal S1, S2 no murmurs or rubs Abdomen: soft, non-tender, nondistended, normal bowel sounds Back: no vertebral tenderness, no CVAT Extremities: no deformities, moves all extremities symmetrically, no edema Neuro: Awake, alert, oriented, normal speech, cranial nerves 2-12 intact, moves all extremities symmetrically Psych: Pleasant, cooperative Medications Administered Discontinued Medications Generic Name Dose Route Start Last Admin Trade Name Freq PRN Reason Stop Dose Admin Lorazepam 1 mg 09/10/25 06:33 09/10/25 06:42 Lorazepam 1 Mg Tablet PO 09/10/25 06:34 1 mg ONCE ONE Administration Medical Decision Making Medical Decision Making [facility] Narrative: 33-year-old female with a history of palpitations who presents emergency department for evaluation of palpitations which woke her up from sleep this morning. Patient has been having palpitations on and off for the past 2 days, she describes them as a heart racing sensation associated with lightheadedness, dizziness and a pounding chest pain sensation. Patient has been taking your father's atenolol as needed for these symptoms. Physical examination revealed that she was anxious otherwise was unremarkable. Vital signs were normal. Differential diagnosis: ?Includes but is not limited to cardiac arrhythmia, palpitations, anxiety, anemia, electrolyte abnormalities Course: 06:33 I ordered a laboratory evaluation and EKG. Patient was treated with Ativan 1 mg orally for her anxiety. 07:43 My interpretation patient's laboratory evaluation as follows: Mild normocytic anemia with an H&H of 12 and 34 with a normal MCV. Chloride elevated 112, bicarb low 17. High sensitive troponin I would below detectable limits The patient's EKG was unremarkable. Patient's presentation is consistent with palpitations, she has had these frequently and I do think that she would benefit from a beta franca. I prescribed atenolol 25 mg daily, she was given a 90 day supply. I advised her to follow up with her PCP and to make sure that she gets her complete ultrasound as an outpatient as scheduled. She was given printed and verbal instructions and discharged home. Differential Diagnosis Differential Diagnoses: The differential diagnosis associated with the presentation includes (See above) Admission/Observation Consideration of admission/observation: Escalation of care including admission/observation considered (Yes) Lab Data MDM Lab Attestation statement: I reviewed the patient's lab results. 09/10/25 06:10 09/10/25 06:10 Labs: Lab Results 09/10/25 Range/Units 06:10 WBC 7.3 (4.8-10.8) X10*3/uL RBC 4.12 L (4.20-5.50) X10*6/uL Hgb 12.2 (12.0-16.0) g/dl Hct 34.0 L (37.0-47.0) % MCV 82.5 (80.0-98.0) fL MCH 29.6 (27.0-33.0) pg MCHC 35.9 H (31.0-35.0) g/dl RDW 12.6 (11.0-16.0) % Plt Count 193 (160-400) X10*3/uL MPV 9.7 (9.4-12.3) fL Immature Gran % (Auto) 0.3 (0.0-0.4) % Neut % (Auto) 54.9 (45-73) % Lymph % (Auto) 35.9 (20-40) % [place] % (Auto) 7.5 (2-11) % Eos % (Auto) 1.0 (0-4) % Baso % (Auto) 0.4 (0-2) % Lymph # (Auto) 2.6 (1.2-4.9) X10*3/uL [place] # (Auto) 0.6 (0.1-1.2) X10*3/uL Eos # (Auto) 0.1 (0.0-0.4) X10*3/uL Baso # (Auto) 0.0 (0.0-0.2) X10*3/uL Abs Immat Gran (auto) 0.02 (0.00-0.03) X10*3/uL Absolute Neuts (auto) 4.0 (2.0-8.3) x10*3/uL Absolute Nucleated RBC 0.000 (0.0-0.012) X10*3/uL Nucleated RBC % (auto) 0.0 (0.0-0.2) /100WBC Sodium 138 (135-145) mmol/L Potassium 3.5 D (3.3-5.1) mmol/L Chloride 112 H (96-108) mmol/L Carbon Dioxide 17 L (22-29) mmol/L Anion Gap 13 (12-20) BUN 12 (9-16) mg/dL Creatinine 0.74 (0.5-1.4) mg/dL Estim Creat Clear Calc 87.0 Estimated GFR > 60 Random Glucose 82 (60-115) mg/dL Calcium 9.3 (8.4-10.2) mg/dL Total Bilirubin 0.4 (0.0-1.0) mg/dL AST 22 (5-31) U/L ALT 10 (0-31) U/L Alkaline Phosphatase 54 (39-117) U/L Troponin I High Sens < 2.7 (<3.5-17.0) ng/L Total Protein 6.6 (6.5-8.0) g/dL Albumin 4.3 (3.5-5.0) g/dL Independent Interpretation I performed an independent interpretation of an: EKG Interpretation: My independent interpretation of the patient's 12 EKG done on 09/10/2025 at 05:48 hours is as follows: Normal sinus rhythm rate of 90, normal NM interval, QRS duration QTC interval, no ST segment elevation, no ST segment depression, inverted T-wave in V1, no PACs, no PVCs-this is a normal EKG. Independent Historian Clinical information obtained from an independent historian. History obtained from or confirmed by: Spouse Prescription Management I considered prescription management with: Other I prescribed a beta franca, atenolol 25 mg daily Discharge Plan Discharge Clinical Impression: Heart palpitations Patient Disposition: Home, Self-Care Instructions: Heart Palpitations (ED) Additional Instructions: Your blood work was unremarkable. Your high sensitive troponin I (marker of heart damage) was below detectable limits. This has very reassuring suggesting that your fast heart rates were not caused by heart attack/heart damage. Your symptoms are consistent with palpitations caused by a fast heart rate. At this time I do not think that you have significant inflammation around your heart (pericarditis) or large collection of fluid around your heart. See important that you get the complete ultrasound of your heart that has scheduled for you by your doctor. Your Holter monitor tests were negative in the past, if your doctor thinks you need it, this can be repeated again. I am going to treat you with a medication that is slows down your heart rate when hopefully prevent the number of episodes of palpitations that you are experiencing. Take atenolol Prescriptions: New atenolol 25 mg tablet 25 mg PO DAILY 90 Days Qty: 90 0RF No Action ondansetron 4 mg tablet,disintegrating 4 mg PO Q8H 3 Days Qty: 9 0RF clobetasol 0.05 % ointment topical BID omeprazole 20 mg capsule,delayed release(DR/EC) 20 mg PO DAILY advil PO meloxicam 7.5 mg/5 mL suspension 7.5 mg PO DAILY terconazole 0.8 % cream 1 appful vaginal BEDTIME PRN (Reason: infection) 3 Days Qty: 20 0RF Rx Instructions: insert at bedtime for 3 days Zepbound 5 mg/0.5 mL pen injector 5 mg subcut QWEEK Print Language: Mongolian
--- NOTE | 2025-09-10 06:11 | PC.NURSE ---
pt shahriar from home reports that she has been experiencing tachycardia, palpitations, SOB, dizziness, nausea, and fever chills for the past few days. PT reports returning from [place] today and took her fathers prescribed atenolol 25mg today during an episode of tachycardia on . Currently NSR on tele. ems placed a 20g in left ac. at bedside.
[2025-09-10 06:15] LABS: MANUAL DIFF FLAG NO
[2025-09-10 06:18] LABS: Hematocrit 34.0 % (37.0-47.0); Hemoglobin 12.2 g/dl (12.0-16.0); Imm Gran Abs Auto 0.02 X10*3/uL (0.00-0.03); Imm Gran Pct Auto 0.3 % (0.0-0.4); Lymphocytes Absolute Auto 2.6 X10*3/uL (1.2-4.9); Mean Corpuscular HGB Conc 35.9 g/dl (31.0-35.0); Mean Corpuscular Hemoglobin 29.6 pg (27.0-33.0); Mean Corpuscular Volume 82.5 fL (80.0-98.0); NRBC Abs Auto 0.000 X10*3/uL (0.0-0.012); NRBC Pct Auto 0.0 /100WBC (0.0-0.2); Platelet Count 193 X10*3/uL (160-400); Red Blood Count 4.12 X10*6/uL (4.20-5.50); White Blood Count 7.3 X10*3/uL (4.8-10.8)
--- OUTSIDE RECORDS SUMMARY | 2025-09-10 06:19 | XMS_ITS | Encounter Summary ---
Author Organization [employer] Address [address] [place] [address] Care Team Providers Care Parcel Post Truck Driver Name Role Phone Odalis Hartman MD Primary Care Provider [phone] Lexy Benitez CNP Primary Care Provider [phone] Reason for Visit * Reason Onset Date Comments Returning Call 04/12/2024 Encounter Details Date Type Department Care Team ([facility] st Contact Info) Description 04/12/2024 Telephone [facility] MEDICINE [address] [place] [address] Odalis Hartman MD [address] [place], [place] [phone] Returning Call Social History Tobacco Use Types [...] Description 10/12/2025 9:45 AM EST Office Visit [facility] MED & PEDS [address] [place] [address] Lexy Benitez CNP [address] [place] [address] documented as of this encounter Visit Diagnoses Not on filedocumented in this encounter Care Teams Parcel Post Truck Driver Relationship Specialty Start Date End Date Odalis Hartman MD [address] [place] [address] PCP - General Family Medicine 07/06/18 07/18/25 Lexy Benitez CNP [address] [place] [address] PCP - General Family Medicine 07/19/25 documented as of this encounter
--- OUTSIDE RECORDS SUMMARY | 2025-09-10 06:19 | XMS_ITS | Encounter Summary ---
Author Organization [employer] Address [address] [place] [address] Care Team Providers Care Yarn Examiner Name Role Phone Lexy Benitez CNP Primary Care Provider [phone] Encounter Details Date Type Department Care Team (Latest Contact Info) Description 08/23/2025 Results Follow-Up [facility] MED & PEDS [address] [place], [place] [phone] Odalis Hartman MD [address] [place], [place] [phone] BI Mammogram Diagnostic Tomosynthesis Bilateral Social History Tobacco Use Types Packs/Day Years [...] as of this encounter Miscellaneous Notes * Result Encounter Note - Odalis Hartman MD - 08/23/2025 2:46 PM EST WNL documented in this encounter Plan of Treatment Upcoming Encounters Date Type Department Care Team (Late st Contact Info) Description 10/12/2025 9:45 AM EST Office Visit [facility] MED [facility] PEDS [address] [place] [address] Lexy Benitez CNP [address] [place] [address] documented as of this encounter Visit Diagnoses Not on filedocumented in this encounter Additional Health Concerns Assessment Noted Time PHQ-9 Depression Total Score: 2 08/08/20 4:10 PM EST documented as of this encounter Care Teams Yarn Examiner Relationship Specialty Start Date End Date Lexy Benitez CNP [address] [place] [address] PCP - General Family Medicine 07/19/25 documented as of this encounter
--- OUTSIDE RECORDS SUMMARY | 2025-09-10 06:19 | XMS_ITS | Encounter Summary ---
Author Organization [employer] Address [address] [place] [address] [address] [place] [address] Care Team Providers Care Brake Lining Driller Name Role Phone Odalis Hartman MD Primary Care Provider [phone] Lexy Benitez CNP Primary Care Provider [phone] Reason for Visit * Reason Comments Med Refill Encounter Details Date Type Department Care Team ([facility] Contact Info) Description 04/13/2023 Refill [facility] [address] [place] [address] Marva Herrera MD [address] [place] [address] Perioral dermatitis Social History Tobacco Use Types [...] Upcoming Encounters Date Type Department Care Team ([facility] Contact Info) Description 10/12/2025 9:45 AM EST Office Visit [facility] [address] [place] [address] Lexy Benitez CNP [address] [place] [address] documented as of this encounter Visit Diagnoses Diagnosis Perioral dermatitis Rosacea documented in this encounter Care Teams Brake Lining Driller Relationship Specialty Start Date End Date Odalis Hartman MD [address] [place] [address] PCP - General Family Medicine 07/06/18 07/18/25 Lexy Benitez CNP [address] [place] [address] PCP - General Family Medicine 07/19/25 documented as of this encounter
--- OUTSIDE RECORDS SUMMARY | 2025-09-10 06:19 | XMS_ITS | Clinical Summary ---
Author Organization [facility] Address [address] [place] [address] Care Team Providers Care Facilities Operations Technician Name Role Phone Unavailable Primary Care Provider [...] on file Sexual Orientation Not on file Plan of Treatment Health Maintenance Due Date Last Done Comments DTaP,Tdap,and Td Vaccines (1 - Tdap) 2013 Hepatitis B Vaccines (1 of 3 - 19+ 3-dose series) 2013 Cervical Cancer Screening: P ap Smear 2015 HPV Vaccines (1 - 3-dose SCD M series) 2021 Depression Screening 09/21/2024 COVID-19 Vaccine (2024-2 6 season) 2025 Influenza Vaccine (#1) 2025 [...]
--- OUTSIDE RECORDS SUMMARY | 2025-09-10 06:19 | XMS_ITS | Encounter Summary ---
Author Organization [employer] Address [address] [place] [address] Care Team Providers Care Applied Mathematician Name Role Phone Odalis Hartman MD Primary Care Provider [phone] Lexy Benitez CNP Primary Care Provider [phone] Reason for Visit * Reason Onset Date Comments Med Change Request 06/06/2024 Encounter Details Date Type Department Care Team ([facility] st Contact Info) Description 06/06/2024 Telephone [facility] MEDICINE [address] [place] [address] Odalis Hartman MD [address] [place] [address] Med Change Request Social History Tobacco Use [...] call regarding prior message. Contact pt at [phone] (thai) * Telephone Encounter - Sukhjinder Mackenzie - 06/06/2024 12:07 PM EDT Tc from patient calling in regards to the Semaglutide-Weight Management (Wegovy) 0.25 MG/0.5ML solution auto-injector states it was suppose to be increased for .50 to .75 documented in this encounter Plan of Treatment Upcoming Encounters Date Type Department Care Team (Late st Contact Info) Description 10/12/2025 9:45 AM EST Office Visit [facility] MED & PEDS [address] [place] [address] Lexy Benitez, PENNY [address] [place] [address] documented as of this encounter Visit Diagnoses Not on filedocumented in this encounter Care Teams Applied Mathematician Relationship Specialty Start Date End Date Odalis Hartman MD [address] [place] [id number] PCP - General Family Medicine 07/06/18 07/18/25 Lexy Benitez CNP [address] [place] [address] PCP - General Family Medicine 07/19/25 documented as of this encounter
--- OUTSIDE RECORDS SUMMARY | 2025-09-10 06:19 | XMS_ITS | Encounter Summary ---
Author Organization [employer] Address [address] [place] [address] Care Team Providers Care Garnett Machine Operator Helper Name Role Phone Odalis Hartman MD Primary Care Provider [phone] Lexy Benitez CNP Primary Care Provider [phone] Reason for Visit * Reason Onset Date Comments PA 11/28/2024 Encounter Details Date Type Department Care Team ([facility] st Contact Info) Description 11/28/2024 Telephone [facility] MED & PEDS [address] [place] [address] Odalis Hartman MD [address] [place] [address] PA Social History Tobacco Use Types Packs/Day [...] Description 10/12/2025 9:45 AM EST Office Visit [facility] MED [facility] PEDS [address] [place] [address] Lexy Benitez CNP [address] [place] [address] documented as of this encounter Visit Diagnoses Not on filedocumented in this encounter Care Teams Garnett Machine Operator Helper Relationship Specialty Start Date End Date Odalis Hartman MD [address] [place] [address] PCP - General Family Medicine 07/06/18 07/18/25 Lexy Benitez CNP [address] [place] [address] PCP - General Family Medicine 07/19/25 documented as of this encounter
--- OUTSIDE RECORDS SUMMARY | 2025-09-10 06:20 | XMS_ITS | Encounter Summary ---
Demographics Address [address] [place] [address] [address] [place] [address] Home Phone Work Phone Email Address Preferred Language es Marital Status Episcopalian Affiliation Unknown Race Other Race Ethnic Group Unknown Author Organization [employer] Address [address] [facility] [address] [place] [address] Care Team Providers Care Manager Employee Relations Name Role Phone Lexy Benitez CNP Primary Care Provider [phone] Encounter Details Date Type Department Care Team ([facility] st Contact Info) Description 08/03/2025 Results Follow-Up [facility] MED & PEDS [address] [place] [address] Marva Herrera MD [address] [place] [address] Culture, Urine, Routine Social History Tobacco Use [...] Description 10/12/2025 9:45 AM EST Office Visit [facility] MED [facility] PEDS [address] [place] [address] Lexy Benitez CNP [address] [place] [address] documented as of this encounter Visit Diagnoses Not on filedocumented in this encounter Care Teams Manager Employee Relations Relationship Specialty Start Date End Date Lexy Benitez CNP [address] [place] [address] PCP - General Family Medicine 07/19/25 documented as of this encounter
--- OUTSIDE RECORDS SUMMARY | 2025-09-10 06:20 | XMS_ITS | Clinical Summary ---
Author Organization [employer] Address [address] [place] [address] 7[address] [place] [address] Care Team Providers Care Auto Winder Name Role Phone Emmanuel Rahanthony FRANCIS Primary Care Provider [phone] Allergies No known active allergies Medications omeprazole [...] CRUSH OR CHEW. 90 capsule 4 Active meloxicam (Mobic) 7.5 MG tablet Take 1 tablet (7.5 mg) by mouth Once per day. 30 tablet 11 5 07/12/20 26 Active Tirzepatide-Ziyad ght Management (Zepbound) 7.5 MG/0.5ML solution auto-injectorIn dications:Overw eight (BMI 25.0-29.9) Inject 0.5 mL (7.5 mg) under the skin 1 (one) time per week. 2 mL 1 5 Active Active Problems Problem Noted Date Diagnosed Date Abdominal pain 08/03/2025 Calculus of proximal left ureter 08/03/2025 Class 1 obesity 08/03/2025 Encounter for well woman exa m with routine gynecological exam 08/03/2025 Lichen simplex chronicus 08/03/2025 Rupture of ovarian cyst 08/03/2025 Kidney calculus 08/03/2025 Kidney stone 01/21/2023 Gastroesophageal reflux disease without esophagi tis 01/21/2023 Encounters Date Type Department Care Team Description 09/10/2025 Orders Only GENERIC EXTERNAL DATA DEPARTMENT Provider, Generic External Data 08/23/2025 Results Follow-Up [facility] [address] [facility] [place] [address] Odalis Hartman MD BI Mammogram Diagnostic Tomosynthesis Bilateral 08/21/2025 Orders Only [facility] [address] [facility] [place] [address] Odalis Hartman MD 08/12/2025 Orders Only GENERIC EXTERNAL DATA DEPARTMENT Provider, Generic External Data 08/08/2025 3:30 PM EST Office Visit [facility] [address] [place] [address] Lexy Benitez CNP Palpitation (Primary Dx); Overweight (BMI 25.0-29.9); Pericardial effusion 08/08/2025 Travel 08/03/2025 Results Follow-Up [facility] [address] [facility] [place] [address] Marva Herrera MD Culture, Urine, Routine 08/03/2025 Telephone [facility] [address] [place] [address] Lexy Benitez CNP chart prep 08/02/2025 Orders Only GENERIC EXTERNAL DATA DEPARTMENT Provider, Generic External Data 07/30/2025 Orders Only GENERIC EXTERNAL DATA DEPARTMENT Provider, Generic External Data 07/20/2025 Orders Only GENERIC EXTERNAL DATA DEPARTMENT Provider, Generic External Data 07/12/2025 9:30 AM EDT Office Visit [facility] [address] [facility] [place] [address] Odalis Hartman MD Cyst of left ovary (Primary Dx) 07/11/2025 Telephone [facility] [address] [facility] [place] [address] Odalis Hartman MD ED visit 07/11/2025 Travel 07/10/2025 Orders Only [facility] [address] [place] [address] Odalis Hartman MD Mass of left breast, unspecified quadrant (Primary Dx) 07/10/2025 Results Follow-Up [facility] [address] [place] [address] Odalis Hartman MD US Pelvis Transvaginal, CT Abdomen Pelvis w/ Contrast 07/09/2025 Orders Only GENERIC EXTERNAL DATA DEPARTMENT Provider, Generic External Data 07/05/2025 Orders Only [facility] [address] [place] [address] Odalis Hartman MD 07/04/2025 10:45 AM EDT Telemedicine [facility] [address] [facility] [place] [address] Odalis Hartman MD Obesity without serious comorbidity in pediatric patient, unspecified obesity class, unspecified obesity type (Primary Dx) 07/04/2025 Travel 06/28/2025 Telephone [facility] [address] [place], [place] [phone] Odalis Hartman MD Prior Authorization from Last [...] housing situation today? I have michael ramakrishna 08/08/[address] you li [...] 10/12/2025 9:45 AM EST Office Visit [facility] [address] [place] [address] Lexy Benitez CNP [address] [place] [address] Health Maintenance Due Date Last Done Comments [...] Procedure Name Priority Date/Time Associated Diagnosis Comments CBC WITH AUTO DIFFERENTIAL Routine 09/10/2025 6:10 AM EST BI MAMMOGRAM DIAGNOSTIC TOMOSYNTHESIS BILATERAL Routine 08/21/2025 [...] Relevant to Health Maintenance Results * (ABNORMAL) CBC auto differential (09/10/2025 6:10 AM EST) Only the most recent of3 resultswithin the time period is included. White Blood Count 7.3 4.8 - 10.8 X10*3/uL [facility] Red Blood Count 4.12(L) 4.20 - 5.50 X10*6/uL [facility] Hemoglobin 12.2 12.0 - 16.0 g/dl [facility] Hematocrit 34.0(L) 37.0 - 47.0 % [facility] Mean Corpuscular Volume 82.5 80.0 - 98.0 fL [facility] Mean Corpuscular Hemoglobin 29.6 27.0 - 33.0 pg [facility] Mean Corpuscular HGB Conc 35.9(H) 31.0 - 35.0 g/dl [facility] Red Cell Distribution Width 12.6 11.0 - 16.0 % [facility] Platelet Count 193 160 - 400 X10*3/uL [facility] Mean Platelet Volume 9.7 9.4 - 12.3 fL [facility] Neutrophils Percent Auto 54.9 45 - 73 % [facility] Imm Gran Pct Auto 0.3 0.0 - 0.4 % [facility] Lymphocytes Percent Auto 35.9 20 - 40 % [facility] Monocytes Percent Auto 7.5 2 - 11 % [facility] Eosinophils Percent Auto 1.0 0 - 4 % [facility] Basophils Percent Auto 0.4 0 - 2 % [facility] NRBC Pct Auto 0.0 0.0 - 0.2 /100WBC [facility] Neutrophils Absolute Auto 4.0 2.0 - 8.3 x10*3/uL [facility] Imm Gran Abs Auto 0.02 0.00 - 0.03 X10*3/uL [facility] Lymphocytes Absolute Auto 2.6 1.2 - 4.9 X10*3/uL [facility] Monocytes Absolute Auto 0.6 0.1 - 1.2 X10*3/uL [facility] Eosinophils Absolute Auto 0.1 0.0 - 0.4 X10*3/uL [facility] Basophils Absolute Auto 0.0 0.0 - 0.2 X10*3/uL [facility] NRBC Abs Auto 0.000 0.0 - 0.012 X10*3/uL [facility] 09/10/2025 6:10 AM EST 09/10/2025 6:14 AM EST us Generic External Data Provider LAB BLOOD ORDERAB LES Final Result [facility] [address] [place] [phone] * BI Mammogram Diagnostic Tomosynthesis Bilateral (08/21/2025 1:30 PM EST) Anatomical Region Laterality Modality Breast Bilateral Mammography 08/21/2025 1:30 PM EST Narrative 08/21/2025 2:08 PM EST [place] [facility] [address] [place], [place] [address] Mammography Report Signed Patient: Stacia Agudelo MR#: [id number] : 1995 Acct:[id number] Age/Sex: 30 / F ADM Date: 08/21/25 Loc: HO.MAMMO Attending Dr: Odalis Hartman MD Ordering Physician: Odalis Hartman MD Results: 1Negati ve Date of Service: 08/21/25 Follow Up: Mammo at 39 or e arlier if clinically needed Procedure(s): MM tomosynthesis diagnostic BI Accession Number(s): [id number] cc: Odalis Hartman MD; Lexy Benitez NP [...] by: Kika Sheriff MD 08/21/2025 02:04 PM EST Dictated By: Kika Sheriff MD Signed By: <Electronically signed by Kika Sheriff MD in OV> 08/21/25 1404 DD/ 1330 TD/TT: 08/21/25 1344 Candy Bar Attendant: Procedure Note Donotuseinterpreter, Image - 08/21/20[facility] [address] [place] [address] Mammography Report Signed Patient: Stacia Agudelo GMR#: [id number] : 1995Acct:[id number] Age/Sex: 30 FADM Date: 08/21/25 Loc: HO.MAMMO Attending Dr: Odalis Hartman MD Ordering Physician: Odalis Hartman MDResults: 1Negati ve Date of Service: 08/21/25Follow Up: Mammo at 40 or e arlier if clinically needed Procedure(s): MM tomosynthesis diagnostic BI Accession Number(s): [id number] cc: Odalis Hartman MD; Lexy Benitez NP [...] by: Kika Sheriff MD 08/21/2025 02:04 PM EST RP Dictated By: Kika Sheriff MD Signed By: <Electronically signed by Kika Sheriff MD in OV> 08/21/25 1404 DD/ 1330 TD/TT: 08/21/25 1344 Candy Bar Attendant: us Odalis Hartman MD IMG BI PROCEDURES Final Result * High Sensitivity Troponin I (08/12/2025 2:12 PM EST) TROPONIN I HIGH SENSITIVITY <2.7 <3.5 - 17.0 ng/L [facility] Comment:The Vences high sens itivity Troponin-I results should beused in conjunction with other diagnostic information suchas ECG, clinical observations and information, and patientsymptoms to aid in the diagnosis of GA. 08/12/2025 2:12 PM EST 08/12/2025 3:13 PM EST us Generic External Data Provider LAB BLOOD ORDERAB LES Final Result [facility] [address] [place] [phone] * SARS-CoV-2 RNA, Influenza A/B, and RSV RNA, Ql NAAT (08/12/2025 2:12 PM EST) Influenza A PCR NEGATIVE Negative [facility] Influenza B PCR NEGATIVE Negative [facility] Resp Syncy Virus RNA Qual PCR NEGATIVE Negative [facility] SARS COV2 PCR NEGATIVE Negative [facility] Comment:All test results mus t be [...] use by authorized laboratories.Testing performed on the OpenDrive GeneXpert utilizingreal-time RT-PCR.All SARS CoV2 and positive influenza A/B results arereported to [facility]. 08/12/2025 2:12 PM EST 08/12/2025 2:16 PM EST Generic External Data Provider LAB MICROBIOLOGY - GENERAL ORDERABLES Final Result Performing Organization Address [facility] Co de Phone Number [facility] [address] [place] [phone] * hCG, Total, Quantitative (08/12/2025 2:12 PM EST) Only the most recent of2 resultswithin the time period is included. HCG Quantitative <2 mIU/mL [facility] Comment:Weeks post LMP Appro ximate hCG(Last Menstrual Period) Range (mIU/ml)3 - 4 weeks 9 - 1304 - 5 weeks 75 - 2,6005 - 6 weeks 850 - 20,8006 - 7 weeks 4000 - 100,2007 - 12 weeks 11,500 - 289,45405 - 16 weeks 18,300 - 137,50793 - 29 weeks (2nd trimester) 1,400 - 53,31245 - 41 weeks (3rd trimester) 940 - [...] ORDERAB LES Final Result Performing Organization Address [facility] Co de Phone Number [facility] [address] [place] [address] [phone] * Lipase (08/12/2025 2:12 PM EST) Lipase 15 8 - 78 U/L [facility] 08/12/2025 2:12 PM EST 08/12/2025 2:16 PM EST us Generic External Data Provider LAB BLOOD ORDERAB LES Final Result [facility] [address] [place] [address] [phone] * (ABNORMAL) Comprehensive Metabolic Panel (08/12/2025 2:12 PM EST) Only the most recent of2 resultswithin the time period is included. Sodium 137 135 - 145 mmol/L [facility] Potassium 4.5 3.3 - 5.1 mmol/L [facility] Chloride 109(H) 96 - 108 mmol/L [facility] Carbon Dioxide 20(L) 22 - 29 mmol/L [facility] Anion Gap 13 12 - 20 [facility] Urea Nitrogen (BUN) 11 9 - 16 mg/dL [facility] Creatinine, Serum 0.76 0.5 - 1.4 mg/dL [facility] Creatinine Clr Calc Pharmacy 84.6 [facility] Comment:Provided height and weight: 152.4 cm,56.699 kg.eGFR (calculated from the MDRD study equation) and eCrCl(calculated from the Cockcroft-Gault equation) are based ondifferent parameters and may not yield comparable results.If eCrCl result is absurd, please check patient'sheight/weight. Estimated Glomerular Filt Rate >60 [facility] Comment:Chronic Kidney Disea se: Estimated GFR < 60 mL/min/1.11s1[place] Kidney Disease: Estimated GFR < 15 mL/min/1.73m2 Glucose 91 60 - 115 mg/dL [facility] Calcium 9.3 8.4 - 10.2 mg/dL [facility] Bilirubin, Total 0.7 0.0 - 1.0 mg/dL [facility] Aspartate Amino Transferase 22 5 - 31 U/L [facility] Alanine Aminotransferase 13 0 - 31 U/L [facility] Total Protein 7.5 6.5 - 8.0 g/dL [facility] Albumin Level 4.8 3.5 - 5.0 g/dL [facility] Alkaline Phosphatase 63 39 - 117 U/L [facility] 08/12/2025 2:12 PM EST 08/12/2025 2:16 PM EST Generic External Data Provider LAB BLOOD ORDERAB LES Final Result Performing Organization Address City/[facility]/ZIP Co de Phone Number [facility] [address] [place] [phone] * TSH W/Reflex to FT4 (08/08/2025 4:12 PM EST) TSH reflex Free T4 2.20 0.32 - 4.0 uIU/mL [facility] Blood Venous blood specimen / Unknown 08/08/2025 4:12 PM EST 08/08/2025 5:55 PM EST Lexy Benitez [facility] BLOOD ORDERABLES Dayana l Result Performing Organization Address City/[facility]/ZIP Co de Phone Number [facility] [address] [place] [phone] * Culture, Urine, Routine (08/02/2025 8:06 AM EST) Urine Urine specimen obtained by clean catch procedure / Unknown 08/02/2025 8:06 AM EST 08/02/2025 2:44 PM EST Comment:UACC Narrative [facility] - 08/03/2025 10:58 AM EST Urine Culture No growth. Specimen Source: Urine clean catch Generic External Data Provider LAB MICROBIOLOGY - GENERAL ORDERABLES Final Result [facility] [address] [place] [phone] * CT Abdomen Pelvis w/ Contrast (07/31/2025 7:44 AM EST) Only the most recent of2 resultswithin the time period is included. Anatomical Region Laterality Modality Body, Pelvis, Abdomen Computed T omography 07/31/2025 7:44 AM EST Narrative 07/31/2025 8:35 AM EST [address] [address] [address] Scan Report Signed Patient: Stacia Agudelo MR#: [id number] : 1995 Acct:[id number] Age/Sex: 30 / F ADM Date: 07/30/25 Loc: .ED Attending Dr: Ordering Physician: Richard Vaughn PA-C Date of Service: 07/31/25 Procedure(s): CT abdomen pelvis w IV con Accession Number(s): [id number] cc: Marva Herrera MD; Richard Vaughn PA-C Report Number: [id number]: Total DLP = 411.00 mGy-cm Reason for [...] 07/31/25 0831 DD/ 0744 TD/TT: 07/31/25 0757 Candy Bar Attendant: Procedure Note Donotuseinterpreter, Image - 07/31/[address] [address] [address] Scan Report Signed Patient: Stacia Agudelo GMR#: [id number] : 1995Acct:[id number] Age/Sex: 30 / FADM Date: 07/30/25 Loc: HO.ED Attending Dr: Ordering Physician: Richard Vaughn PA-C Date of Service: 07/31/25 Procedure(s): CT abdomen pelvis w IV con Accession Number(s): [id number] cc: Marva Herrera MD; Richard Vaughn PA-C Report Number: [id number]: Total DLP = 411.00 mGy-cm Reason for [...] 07/31/25 0831 DD/ 0744 TD/TT: 07/31/25 0757 Candy Bar Attendant: [facility] External Provider IMG CT PROCEDURES Edited Result - Final * US PELVIC OVARIAN DOPPLER (07/31/2025 4:18 AM EST) Only the most recent of2 resultswithin the time period is included. Anatomical Region Laterality Modality Abdomen Ultrasound 07/31/2025 4:18 AM EST Narrative 08/11/2025 1:30 PM EST [address] [address] Ultrasound Report Signed Patient: Stacia Agudelo MR#: [id number] : 1995 Acct:[id number] Age/Sex: 30 / F ADM Date: 07/30/25 Loc: HO.ED Attending Dr: Ordering Physician: Richard Vaughn PA-C Date of Service: 07/31/25 Procedure(s): US pelvic ovarian doppler Accession Number(s): [id number] cc: Marva Herrera MD; Richard Vaughn PA-C [...] This document has been electronically signed by: rGegg Novoa MD on 07/31/2025 04:18:56 Dictated By: Gregg Novoa MD Signed By: <Electronically signed by Gregg Novoa MD in OV> 08/11/25 1330 DD/ 7 TD/TT: 07/31/254[address] Candy Bar Attendant: Procedure Note Donotuseinterpreter, Image - 08/11/2025 [place] [address] Ultrasound Report Signed Patient: Stacia Agudelo GMR#: [id number] : 1995Acct:[id number] Age/Sex: 30 FADM Date: 07/30/25 Loc: HO.ED Attending Dr: Ordering Physician: Richard Vaughn PA-C Date of Service: 07/31/25 Procedure(s): US pelvic ovarian doppler Accession Number(s): [id number] cc: Marva Herrera MD; Richard Vaughn PA-C [...] OV> 08/11/25 1330 DD/ 7 TD/TT: 07/31/25417 Candy Bar Attendant: [facility] External Provider IMG US PROCEDURES Final Result * US Pelvis Transvaginal (07/31/2025 4:18 AM EST) Only the most recent of2 resultswithin the time period is included. Anatomical Region Laterality Modality Pelvis Ultrasound 07/31/2025 4:18 AM EST Narrative 07/31/2025 4:20 AM EST [address] [address] Ultrasound Report Signed Patient: Stacia Agudelo MR#: [id number] : 1995 Acct:[id number] Age/Sex: 30 / F ADM Date: 07/30/25 Loc: HO.ED Attending Dr: Ordering Physician: Richard Vaughn PA-C Date of Service: 07/31/25 Procedure(s): US pelvic and transvaginal Accession Number(s): [id number] cc: Marva Herrera MD; Richard Vaughn PA-C [...] 08/11/25 1329 DD/ 0418 TD/TT: 07/31/25 0418 Candy Bar Attendant: Procedure Note Donotuseinterpreter, Image - 08/11/[address] [address] Ultrasound Report Signed Patient: Stacia Agudelo GMR#: [id number] : 1995Acct:[id number] Age/Sex: 30 / FADM Date: 07/30/25 Loc: HO.ED Attending Dr: Ordering Physician: Richard Vaughn PA-C Date of Service: 07/31/25 Procedure(s): US pelvic and transvaginal Accession Number(s): [id number] cc: Marva Herrera MD; Richard Vaughn PA-C [...] 08/11/25 1329 DD/ 0418 TD/TT: 07/31/25 0418 Candy Bar Attendant: us [facility] External Provider IMG US PROCEDURES Edited Result - Final * Urinalysis w/reflex microscopic (07/30/2025 11:28 PM EST) Only the most recent of2 resultswithin the time period is included. Color Urine Yellow [facility] Appearance Urine Clear [facility] PH 7.0 5.0 - 9.0 [facility] Glucose Urine UA Negative Negative mg/dL [facility] Urine Blood Negative Negative [facility] Specific [place] - Urine 1.025 1.005 - 1.025 [facility] Urine Protein Trace Neg-Trace mg/dL [facility] Urine Ketones Negative Negative mg/dL [facility] Nitrite Urine Negative Negative [facility] Leukocyte Esterase Urine Negative Negative [facility] 07/30/2025 11:2 8 PM EST 07/30/2025 11:31 PM EST Narrative [facility] - 07/30/2025 11:51 PM EST Urine, Clean Catch Generic External Data Provider LAB URINE ORDERAB LES Final Result Performing Organization Address [facility] Co de Phone Number [facility] [address] [place] [phone] * (ABNORMAL) Bacterial Vaginosis (07/20/2025 1:41 PM EDT) TRICHOMONAS VAGINALIS DETECTION BY PCR NOT DETECTED Not Detect [facility] BACTERIAL VAGINOSIS DETECTION BY PCR NEGATIVE Negative [facility] Comment:The BV organism targ ets [...] DETECTION BY PCR NOT DETECTED Not Detect [facility] Noris glab krusei PCR DETECTED(A) Not Detect [facility] 07/20/2025 1:41 PM EDT 07/20/2025 3:52 PM EDT us Generic External Data Provider LAB MICROBIOLOGY - GENERAL ORDERABLES Final Result Performing Organization Address [facility]/ZIP Co de Phone Number [facility] [address] [place] [phone] * Chlamydia/N. Gonorrhoeae RNA, TMA, Urogenitial (07/20/2025 1:41 PM EDT) CT PCR NOT DETECTED Not Detect. [facility] Comment:A not detected test result [...] psychologicalconsequences. NG PCR NOT DETECTED Not Detect. [facility] Comment:A not detected test result [...] LAB MICROBIOLOGY - GENERAL ORDERABLES Final Result [facility] [address] [place] [address] [phone] * Pap Smear (02/23/2024 1:44 PM EDT) Swab Cervix uteri structure / Unknown 02/23/2024 1:44 PM EDT 02/24/2024 9:15 AM EDT [facility] - 03/20/2024 3:43 PM EDT ----- ------- Name: Stacia Agudelo Age/Sex: 28/F : 1995 Unit#: [id number] Attend Dr: ENA LUNA CNM Re02/23/24 Status: DEP REF Location: HO.HHCLNP Disch: ----- ------- SPEC : [id number] RECD: 02/24/24-914 STATUS: SOPHIE CONNELLY NUM: [id number] FERCHO: 02/23/24-13[address] [facility] [address]: ENA LUNA CNM ENTERED: 02/24/24-1013 SP TYPE: Pap Smr [facility] DR: ORDERED: Pap Smear Interpretation Satisfactory for evaluation. Negative for intraepithelial lesion or malignancy. Clinical Information LMP: 01/25/2024 Previous PAP test: Unknown date/findings Material Received ThinPrep-Cervical ----- ------- Signed (signature on file) Moon Sheridan 03/20/24 1543 ----- ------- END OF REPORT us Ena Luna [facility] CYTOLOGY ORDERABLES F inal Result [facility] [address] [place] [phone] * Lipid Panel, Standard (01/21/2023 10:41 AM EDT) Cholesterol, Total 158 <200 mg/dL [facility] [place] [facility] HDL Cholesterol 58 > OR = 50 mg/dL [facility] [place] [facility] Triglycerides 94 <150 mg/dL [facility] [place] [facility] LDL Cholesterol 81 mg/dL (calc) [facility] Comment: Reference range: <100 Desirable range <100 mg/dL for primary prevention; <70 mg/dL for patients with CHD or diabetic patients with > or = 2 CHD risk factors. LDL-C is now calculated using the Edgar-Karen calculation, which is a validated novel method providing better accuracy than the Friedewald equation in the estimation of LDL-C. Edgar SS et al. SUZANNE. 2013;310(19): 2166-7571 (http://education.Discount Ramps/faq/HLV621) Chol/HDLC Ratio 2.7 <5.0 (calc) [facility] [place] [facility] Non-HDL Cholesterol 100 <130 mg/dL (calc) [facility] Comment: For patients with diabetes [...] MD LAB BLOOD ORDERABLES Final Resul t [place] [address], [place] [phone] [facility] [address] [place] [phone] * HEPATITIS C ANTIBODY (10/04/2019 4:35 PM EST) Pathologist [facility] HEPATITIS C ANTIBODY NONREACTIVE NONREACTIVE [facility] Comment: Antibodies to HCV not detected; does not exclude early acute HCV infection. 10/04/2019 4:35 PM EST us Sheryl Coburn HISTORICAL/NON ORDERABLE LABS Fi nal Result [facility] [address] from Last 3 Months or Most Recently Relevant to Health Maintenance Insurance [facility] COUNT[facility]coStart C3 Advance Directives Documents on File Type Date Recorded Patient Log Scaler Expl anation Advance Directives and Livin g Will 08/14/2025 1:22 PM Care Teams Auto Winder Relationship Specialty Start Date End Date Lexy Benitez CNP [address] [place] [address] PCP - General Family Medicine 07/19/25
--- OUTSIDE RECORDS SUMMARY | 2025-09-10 06:20 | XMS_ITS | Encounter Summary ---
Author Organization [employer] Address [address] [place] [address] [address] [place] [address] Care Team Providers Care Window Glass Cutter Off Name Role Phone Odalis Hartman MD Primary Care Provider [phone] Lexy Benitez CNP Primary Care Provider [phone] Reason for Visit * Reason Onset Date Comments Nurse Triage 10/24/2024 Encounter Details Date Type Department Care Team ([facility] st Contact Info) Description 10/24/2024 Telephone [facility] [address] [place] [address] Odalis Hartman MD [address] [place] [address] Nurse Triage Social History Tobacco Use Types [...] 10/24/2024 4:26 PM EST Triage call with [facility] [place] [id number] [place] [id number]. Pt reports episode of rapid heart beat/palpitations [...] advised if is concerned may come to [facility] open till 8pm this evening and provider [...] Upcoming Encounters Date Type Department Care Team ([facility] st Contact Info) Description 10/12/2025 9:45 AM EST Office Visit [facility] [address] [place] [address] Lexy Benitez CNP [address] [place] [address] documented as of this encounter Visit Diagnoses Not on filedocumented in this encounter Care Teams Window Glass Cutter Off Relationship Specialty Start Date End Date Odalis Hartman MD [address] [place] [phone] PCP - General Family Medicine 07/06/18 07/18/25 Lexy Benitez CNP [address] [place] [address] PCP - General Family Medicine 07/19/25 documented as of this encounter
[2025-09-10 06:30] LABS: Alanine Aminotransferase 10 U/L (0-31); Albumin Level 4.3 g/dL (3.5-5.0); Alkaline Phosphatase 54 U/L (39-117); Anion Gap 13 (12-20); Aspartate Amino Transferase 22 U/L (5-31); Blood Urea Nitrogen 12 mg/dL (9-16); Calcium 9.3 mg/dL (8.4-10.2); Carbon Dioxide 17 mmol/L (22-29); Chloride 112 mmol/L (96-108); Creatinine Clr Calc Pharmacy 87.0; Estimated Glomerular Filt Rate > 60; Potassium 3.5 mmol/L (3.3-5.1); Sodium 138 mmol/L (135-145); Total Protein 6.6 g/dL (6.5-8.0)
[2025-09-10 06:39] LABS: Troponin-I High Sensitivity < 2.7 ng/L (<3.5-17.0)
[2025-09-10 07:09] VITALS: BP 99/65; PULSE 75; RESP 20; O2SAT 97
--- NOTE | 2025-09-10 07:11 | PC.NURSE ---
Assumed care of patient at 0700. Patient on bedside gambling monitor. Patient resting in stretcher, respirations even and unlabored. No signs of distress.
--- NOTE | 2025-09-10 07:28 | PC.NURSE ---
at the bedside, performing US.
[2025-09-10 07:44] VITALS: BP 98/61; PULSE 79; RESP 18; TEMP 36.8; O2SAT 98
[2025-09-10 07:59] LABS: Resp Syncy Virus RNA Qual PCR NEGATIVE (Negative); SARS COV2 PCR INHOUSE NEGATIVE (Negative)
== END 2025-09-10 07:51 | disposition home or self-care (01) ==
PROVIDERS: Emergency Provider Emergency Medicine Emergency Medical Services
DX: R00.2 Palpitations (principal); Z03.818 Encounter for observation for suspected exposure to other biological agents ruled out; R06.02 Shortness of breath; Z79.899 Other long term (current) drug therapy
CPT/HCPCS: 36415; 80053; 84484; 85025; 87637; 93005; 99284; 99285

== ENCOUNTER → 2025-09-10 05:48 | Outpatient (BNV) | payer MEDICAID, SELFPAY | PROVIDERS: Emergency Provider Emergency Medicine Emergency Medical Services; Visit Provider Internal Medicine Cardiovascular Disease | DX: R07.9 Chest pain, unspecified (principal) | CPT/HCPCS: 93010 ==

== ENCOUNTER → 2025-09-12 09:54 | Outpatient (REF) | payer MEDICAID, SELFPAY ==
--- NOTE | 2025-09-12 09:57 | CA_ITS ---
Transthoracic Echocardiogram Patient (Last, First, Middle): Stacia Agudelo G Gender: Female Date of : 1995 Age: 30 Procedure Date: 09/12/2025 Procedure Type: Transthoracic Echocardiogram Location: OP Height: 152.4 cm Weight: 58.97 kg BSA: 1.55 m2 Heart Rate: 83 bpm BP: 100 / 64 mmHg Pumping Station Supervisor: BARRY Field MD: Lexy Benitez [employer] Affiliate Marketing Manager: Ghassan Cline MD Symptoms: PALPITATIONS Study Quality: Adequate ECG Rhythm: Sinus Conclusions: - Normal study Findings Left Ventricle Normal left ventricular size, thickness, and systolic function. The visually estimated ejection fraction is between 60-65%. Diastolic function is normal for age. Right Ventricle Normal right ventricular cavity size and systolic function. Atria Both atria are normal in size. There is no evidence of interatrial shunt. Aortic Valve Normal aortic valve structure and function. There is no aortic valve stenosis. There is no aortic valve regurgitation. Mitral Valve Normal mitral valve structure and function. There is no mitral valve regurgitation. There is no mitral valve stenosis. Pulmonic Valve The pulmonic valve is normal. There is no pulmonic valve regurgitation. Tricuspid Valve Normal tricuspid valve structure. Tricuspid regurgitation envelope is inadequate for calculation of right ventricular systolic pressure. Normal right atrial pressure. Great Vessels All visible segments of the aorta are normal in size. The visualized portions of the pulmonary artery and branches are normal. Venous The inferior vena cava is normal in size and collapses greater than 50% with inspiration. Pericardium/Pleural There is no evidence of pericardial effusion. Prior Study Comparison No prior study available for comparison. Measurements 2D Linear Measurements IVSd: 0.68 0.6-0.9/0.6-1.0 cm LVIDd: 3.99 3.9-5.3/4.2-5.9 cm LVIDd Index: 2.57 2.4-3.2/2.2-3.1 cm/m2 LVIDs: 2.95 2.0-3.6 cm LVPWd: 0.61 0.7-1.1 cm LA Diam: 2.40 2.7-3.8/3.0-4.0 cm LAIDs Index: 1.55 1.5-2.3 cm/m2 LV Mass: 86.68 67-162/88-224 g LV Mass Index: 55.92 43-95/49-115 g/m2 LVOT Diam: 2.00 3.0+(-)1.3 cm 2D Systolic Function EF 4C: 62.60 >55% EF 2C: 62.10 >55% EF BiP: 62.50 >55% Mitral Valve MV Pk E: 0.85 MV PK A: 0.54 MV Decel Time: 185.00 E/A: 1.60 E'Lateral: 13.70 E'Medial: 9.57 E/E' Med: 8.90 E/E' Lat: 6.20 PHT: 54.00 MVA PHT: 4.07 Decel [place]: 4.61 Aortic Valve AoV Pk John: 1.09 AoV Pk Grad: 5.00 SHEA: 2.65 LVOT LVOT Pk John: 0.92 LVOT Mn John: 0.67 LVOT VTI: 0.17 LVOT Pk Grad: 3.00 LVOT Mn Grad: 2.00 LVOT Diam: 2.00 LVOT Area: 3.14 Diastolic Function MV Pk E: 0.85 MV Pk A: 0.54 E/A: 1.60 E'Medial: 9.57 E/E' Med: 8.90 E' Laterial: 13.70 E/E' Lat: 6.20 Right Ventricle TVS' John: 10.10 Tricuspid Valve RA Press: 3.00 Great Vessels Aorta Sinus of Valsalva: 2.50 2.0-3.5 cm Ao Asc: 2.60 2.1-3.4 cm Ao Arch: 2.30 Ao Desc: 1.30 Pulmonary Veins Pulm Vein S/D 0.90 Pulmonary Valve PV Pk John: 0.77 Peak PV Grad: 2.00 Updated in Other Vendor System with Status of Final Ghassan Cline MD electronically signed on 09/13/2025 1:46:35 PM with status of Final
--- OUTSIDE RECORDS SUMMARY | 2025-09-12 10:44 | XMS_ITS | Encounter Summary ---
Author Organization [employer] Address [address] [facility] [address] [place] [address] Care Team Providers Care Clinical Research Specialist Name Role Phone Odalis Hartman MD Primary Care Provider [phone] Lexy Benitez CNP Primary Care Provider [phone] Reason for Visit * Reason Onset Date Comments Returning Call 04/12/2024 Encounter Details Date Type Department Care Team ([facility] st Contact Info) Description 04/12/2024 Telephone [facility] MEDICINE [address] [place] [address] Odalis Hartman MD [address] [place], [place] [phone] Returning Call Social History Tobacco Use Types [...] Care Team (Late st Contact Info) Description 09/19/2025 1:45 PM EST Office Visit [facility] MED & PEDS [address] [place] [address] Lexy Benitez CNP [address] [place] [address] 10/12/2025 9:45 AM EST Office Visit [facility] MED & PEDS [address] [place] [address] Lexy Benitez CNP [address] [place] [address] documented as of this encounter Visit Diagnoses Not on filedocumented in this encounter Care Teams Clinical Research Specialist Relationship Specialty Start Date End Date Odalis Hartman MD [address] [place] [phone] PCP - General Family Medicine 07/06/18 07/18/25 Lexy Benitez CNP [address] [place] [address] PCP - General Family Medicine 07/19/25 documented as of this encounter
--- OUTSIDE RECORDS SUMMARY | 2025-09-12 10:44 | XMS_ITS | Encounter Summary ---
Author Organization [employer] Address [address] [facility] 7t [place] [address] Care Team Providers Care Slot Floor Attendant Name Role Phone Odalis Hartman MD Primary Care Provider [phone] Lexy Benitez CNP Primary Care Provider [phone] Reason for Visit * Reason Onset Date Comments PA 11/28/2024 Encounter Details Date Type Department Care Team ([facility] st Contact Info) Description 11/28/2024 Telephone [facility] MED & PEDS [address] [place] [address] Odalis Hartman MD [address] [place] [address] PA Social History Tobacco Use Types Packs/Day [...] Description 09/19/2025 1:45 PM EST Office Visit [facility] MED & PEDS [address] [place] [address] Lexy Benitez CNP [address] [place] [address] 10/12/2025 9:45 AM EST Office Visit [facility] MED & PEDS [address] [place] [address] Lexy Benitez CNP [address] [place] [address] documented as of this encounter Visit Diagnoses Not on filedocumented in this encounter Care Teams Slot Floor Attendant Relationship Specialty Start Date End Date Odalis Hartman MD [address] [place] [phone] PCP - General Family Medicine 07/06/18 07/18/25 Lexy Benitez CNP [address] [place] [address] PCP - General Family Medicine 07/19/25 documented as of this encounter
--- OUTSIDE RECORDS SUMMARY | 2025-09-12 10:44 | XMS_ITS | Encounter Summary ---
Author Organization [employer] Address [address] [facility] 7t [place] [address] Care Team Providers Care Vending Machine Refiller Name Role Phone Lexy Benitez CNP Primary Care Provider [phone] Encounter Details Date Type Department Care Team ([facility] st Contact Info) Description 09/10/2025 Orders Only GENERIC EXTERNAL DATA [...] housing situation today? I have michaelace durbin 08/08/[address] you [...] Description 09/19/2025 1:45 PM EST Office Visit [facility] MED & PEDS [address] [place] [address] Ricki Benitezel, [facility] [address] [place] [address] 10/12/2025 9:45 AM EST Office Visit [facility] MED & PEDS [address] [place] [address] Benitez Rahanthony [facility] [address] [place] [address] documented as of this encounter Procedures Procedure Name Priority Date/Time Associated Diagnosis Comments SARS COV2/INFLUENZA A/B AND RSV RNA QL NAAT Routine 09/10/2025 6:30 AM EST HIGH SENSITIVITY TROPONIN I Routine 09/10/2025 6:10 AM EST CBC WITH AUTO DIFFERENTIAL Routine 09/10/2025 6:10 AM EST COMPREHENSIVE METABOLIC PANEL Routine 09/10/2025 6:10 AM EST documented in this encounter Results * SARS-CoV-2 RNA, Influenza A/B, and RSV RNA, Ql NAAT (09/10/2025 6:30 AM EST) Influenza A PCR NEGATIVE Negative [facility] Influenza B PCR NEGATIVE Negative [facility] Resp Syncy Virus RNA Qual PCR NEGATIVE Negative [facility] SARS COV2 PCR NEGATIVE Negative [facility] Comment:All test results mus t [...] use by authorized laboratories.Testing performed on the [employer] GeneXpert utilizingreal-time RT-PCR.All SARS CoV2 and positive influenza A/B results arereported to [facility]. 09/10/2025 6:30 AM EST 09/10/2025 6:32 AM EST Generic External Data Provider LAB MICROBIOLOGY - GENERAL ORDERABLES Final Result Performing Organization Address [facility] Co de Phone Number [facility] [address] [place] [phone] * High Sensitivity Troponin I (09/10/2025 6:10 AM EST) [facility] TROPONIN I HIGH SENSITIVITY <2.7 <3.5 - 17.0 ng/L [facility] Comment:The Vences high sens itivity Troponin-I results should beused in conjunction with other diagnostic information suchas ECG, clinical observations and information, and patientsymptoms to aid in the diagnosis of [place]. 09/10/2025 6:10 AM EST 09/10/2025 6:14 AM EST Generic External Data Provider LAB BLOOD ORDERAB LES Final Result Performing Organization Address [facility] Co de Phone Number [facility] [address] [place] [phone] * (ABNORMAL) Comprehensive Metabolic Panel (09/10/2025 6:10 AM EST) [facility] Sodium 138 135 - 145 mmol/L [facility] Potassium 3.5 3.3 - 5.1 mmol/L [facility] Chloride 112(H) 96 - 108 mmol/L [facility] Carbon Dioxide 17(L) 22 - 29 mmol/L [facility] Anion Gap 13 12 - 20 [facility] Urea Nitrogen (BUN) 12 9 - 16 mg/dL [facility] Creatinine, Serum 0.74 0.5 - 1.4 mg/dL [facility] Creatinine Clr Calc Pharmacy 87.0 [facility] Comment:Provided height and weight: 152.4 cm,56.9 kg.eGFR (calculated from the MDRD study equation) and eCrCl(calculated from the Cockcroft-Gault equation) are based ondifferent parameters and may not yield comparable results.If eCrCl result is absurd, please check patient'sheight/weight. Estimated Glomerular Filt Rate >60 [facility] Comment:Chronic Kidney Disea se: Estimated GFR < 60 mL/min/[id number] Kidney Disease: Estimated GFR < 15 mL/min/1.73m2 Glucose 82 60 - 115 mg/dL [facility] Calcium 9.3 8.4 - 10.2 mg/dL [facility] Bilirubin, Total 0.4 0.0 - 1.0 mg/dL [facility] Aspartate Amino Transferase 22 5 - 31 U/L [facility] Alanine Aminotransferase 10 0 - 31 U/L [facility] Total Protein 6.6 6.5 - 8.0 g/dL [facility] Albumin Level 4.3 3.5 - 5.0 g/dL [facility] Alkaline Phosphatase 54 39 - 117 U/L [facility] 09/10/2025 6:10 AM EST 09/10/2025 6:14 AM EST us Generic External Data Provider LAB BLOOD ORDERAB LES Final Result [facility] [address] [place] [address] [phone] * (ABNORMAL) CBC auto differential (09/10/2025 6:10 AM EST) White Blood Count 7.3 4.8 - 10.8 X10*3/uL [facility] Red Blood Count 4.12(L) 4.20 - 5.50 X10*6/uL [facility] Hemoglobin 12.2 12.0 - 16.0 g/dl [facility] Hematocrit 34.0(L) 37.0 - 47.0 % [facility] Mean Corpuscular Volume 82.5 80.0 - 98.0 fL [facility] Mean Corpuscular Hemoglobin 29.6 27.0 - 33.0 pg [facility] Mean Corpuscular HGB Conc 35.9(H) 31.0 - 35.0 g/dl [facility] Red Cell Distribution Width 12.6 11.0 - 16.0 % [facility] Platelet Count 193 160 - 400 X10*3/uL [facility] Mean Platelet Volume 9.7 9.4 - 12.3 fL [facility] Neutrophils Percent Auto 54.9 45 - 73 % [facility] Imm Gran Pct Auto 0.3 0.0 - 0.4 % [facility] Lymphocytes Percent Auto 35.9 20 - 40 % [facility] Monocytes Percent Auto 7.5 2 - 11 % [facility] Eosinophils Percent Auto 1.0 0 - 4 % [facility] Basophils Percent Auto 0.4 0 - 2 % [facility] NRBC Pct Auto 0.0 0.0 - 0.2 /100WBC [facility] Neutrophils Absolute Auto 4.0 2.0 - 8.3 x10*3/uL [facility] Imm Gran Abs Auto 0.02 0.00 - 0.03 X10*3/uL [facility] Lymphocytes Absolute Auto 2.6 1.2 - 4.9 X10*3/uL [facility] Monocytes Absolute Auto 0.6 0.1 - 1.2 X10*3/uL [facility] Eosinophils Absolute Auto 0.1 0.0 - 0.4 X10*3/uL [facility] Basophils Absolute Auto 0.0 0.0 - 0.2 X10*3/uL [facility] NRBC Abs Auto 0.000 0.0 - 0.012 X10*3/uL [facility] 09/10/2025 6:10 AM EST 09/10/2025 6:14 AM EST us Generic External Data Provider LAB BLOOD ORDERAB LES Final Result Performing Organization Address City/State/[facility] Co de Phone Number [facility] [address] [place] [phone] [phone] documented in this encounter Visit Diagnoses Not on filedocumented in this encounter Additional Health Concerns Assessment Noted Time PHQ-9 Depression Total Score: 2 08/08/20 25 4:10 PM EST documented as of this encounter Care Teams Vending Machine Refiller Relationship Specialty Start Date End Date Lexy Benitez CNP [address] [place] [address] PCP - General Family Medicine 07/19/25 documented as of this encounter
--- OUTSIDE RECORDS SUMMARY | 2025-09-12 10:44 | XMS_ITS | Encounter Summary ---
Author Organization [employer] Address [address] [facility] [address] [place] [address] Care Team Providers Care Pad Assembler Name Role Phone Lexy Benitez CNP Primary Care Provider [phone] Encounter Details Date Type Department Care Team (Latest Contact Info) Description 08/23/2025 Results Follow-Up [facility] MED & PEDS [address] [place], [place] [phone] Odalis Hartman MD [address] [place], [place] [phone] BI Mammogram Diagnostic Tomosynthesis Bilateral Social History [...] Description 09/19/2025 1:45 PM EST Office Visit [facility] MED & PEDS [address] [place] [address] Lexy Benitez CNP [address] [place] [address] 10/12/2025 9:45 AM EST Office Visit [facility] MED & PEDS [address] [place] [address] Lexy Benitez CNP [address] [place] [address] documented as of this encounter Visit Diagnoses Not on filedocumented in this encounter Additional Health Concerns Assessment Noted Time PHQ-9 Depression Total Score: 2 08/08/20 25 4:10 PM EST documented as of this encounter Care Teams Pad Assembler Relationship Specialty Start Date End Date Lexy Benitez CNP [address] [place] [address] PCP - General Family Medicine 07/19/25 documented as of this encounter
--- OUTSIDE RECORDS SUMMARY | 2025-09-12 10:44 | XMS_ITS | Clinical Summary ---
Author Organization [facility] Address [address] [place] [address] Care Team Providers Care Software Development Manager Name Role Phone Unavailable Primary Care Provider [...]
--- OUTSIDE RECORDS SUMMARY | 2025-09-12 10:44 | XMS_ITS | Encounter Summary ---
Author Organization [employer] Address [address] [facility] [address] [place] [address] Care Team Providers Care Wet Pan Mixer Name Role Phone Odalis Hartman MD Primary Care Provider [phone] Lexy Benitez CNP Primary Care Provider [phone] Reason for Visit * Reason Onset Date Comments Med Change Request 06/06/2024 Encounter Details Date Type Department Care Team ([facility] st Contact Info) Description 06/06/2024 Telephone [facility] MEDICINE [address] [place] [address] Odalis Hartman MD [address] [place] [address] Med Change Request Social History Tobacco Use [...] call regarding prior message. Contact pt at [phone] (macedonian) * Telephone Encounter - Sukhjinder Mackenzie - 06/06/2024 12:07 PM EDT Tc from patient calling in regards to the Semaglutide-Weight Management (Wegovy) 0.25 MG/0.5ML solution auto-injector states it was suppose to be increased for .50 to .75 documented in this encounter Plan of Treatment Upcoming Encounters Date Type Department Care Team (Late st Contact Info) Description 09/19/2025 1:45 PM EST Office Visit [facility] MED & PEDS [address] [place] [address] Lexy Benitez, DISTRICT SALES LEADER [address] [place] [address] 10/12/2025 9:45 AM EST Office Visit [facility] MED & PEDS [address] [place] [address] Lexy Benitez CNP [address] [place] [address] documented as of this encounter Visit Diagnoses Not on filedocumented in this encounter Care Teams Wet Pan Mixer Relationship Specialty Start Date End Date Odalis Hartman MD [address] [place] [address] PCP - General Family Medicine 07/06/18 07/18/25 Lexy Benitez CNP [address] [place] [address] PCP - General Family Medicine 07/19/25 documented as of this encounter
--- OUTSIDE RECORDS SUMMARY | 2025-09-12 10:44 | XMS_ITS | Encounter Summary ---
Author Organization [employer] Address [address] [place] [address] 7t [place] [address] Care Team Providers Care Automatic Spinning Lathe Operator Name Role Phone Odalis Hartman MD Primary Care Provider [phone] Lexy Benitez CNP Primary Care Provider [phone] Reason for Visit * Reason Onset Date Comments Nurse Triage 10/24/2024 Encounter Details Date Type Department Care Team ([facility] st Contact Info) Description 10/24/2024 Telephone [facility] MED & PEDS [address] [place] [address] Odalis Hartman MD [address] [place] [address] Nurse Triage Social History Tobacco Use Types [...] 10/24/2024 4:26 PM EST Triage call with [facility] [place] [id number] [place] [id number]. Pt reports episode of rapid heart beat/palpitations [...] advised if is concerned may come to [facility] open till 8pm this evening [...] [facility] [address] [place] [address] Lexy Benitez CNP [address] [place] [address] 10/12/2025 9:45 AM EST Office Visit [facility] MED & PEDS [address] [place] [address] Lexy Benitez CNP [address] [place] [address] documented as of this encounter Visit Diagnoses Not on filedocumented in this encounter Care Teams Automatic Spinning Lathe Operator Relationship Specialty Start Date End Date Odalis Hartman MD [address] [place] [address] PCP - General Family Medicine 07/06/18 07/18/25 Lxey Benitez CNP [address] [place] [address] PCP - General Family Medicine 07/19/25 documented as of this encounter
--- OUTSIDE RECORDS SUMMARY | 2025-09-12 10:44 | XMS_ITS | Encounter Summary ---
Author Organization [employer] Address [address] [facility] 7t [place] [address] Care Team Providers Care Bank Cashier Name Role Phone Odalis Hartman MD Primary Care Provider [phone] Lexy Benitez CNP Primary Care Provider [phone] Reason for Visit * Reason Comments Med Refill Encounter Details Date Type Department Care Team ([facility] Contact Info) Description 04/13/2023 Refill [facility] MED & PEDS [address] [place] [address] Marva Herrera MD [address] [place] [address] Perioral dermatitis Social History Tobacco Use Types [...] Upcoming Encounters Date Type Department Care Team ([facility] Contact Info) Description 09/19/2025 1:45 PM EST Office Visit [facility] MED & PEDS [address] [place] [address] Lexy Benitez CNP [address] [place] [address] 10/12/2025 9:45 AM EST Office Visit [facility] MED & PEDS [address] [place] [address] Lexy Benitez CNP [address] [place] [address] documented as of this encounter Visit Diagnoses Diagnosis Perioral dermatitis Rosacea documented in this encounter Care Teams Bank Cashier Relationship Specialty Start Date End Date Odalis Hartman MD [address] [place] [address] PCP - General Family Medicine 07/06/18 07/18/25 Lexy Benitez CNP [address] [place] [address] PCP - General Family Medicine 07/19/25 documented as of this encounter
--- OUTSIDE RECORDS SUMMARY | 2025-09-12 10:45 | XMS_ITS | Clinical Summary ---
Author Organization [employer] Address [address] [place] [address] [address] [place] [address] Care Team Providers Care Police Commanding Officer Name Role Phone Emmanuel Rahanthony FRANCIS Primary Care Provider [phone] Allergies No known active allergies Medications omeprazole [...] Provider, Generic External Data 08/23/2025 Results Follow-Up [facility] [address] [place] [address] Odalis Hartman MD BI Mammogram Diagnostic Tomosynthesis Bilateral 08/21/2025 Orders Only [facility] [address] [place] [address] Odalis Hartman MD 08/12/2025 Orders Only GENERIC EXTERNAL DATA DEPARTMENT Provider, Generic External Data 08/08/2025 3:30 PM EST Office Visit [facility] [address] [place] [address] Lexy Benitez CNP Palpitation (Primary Dx); Overweight (BMI 25.0-29.9); Pericardial effusion 08/08/2025 Travel 08/03/2025 Results Follow-Up [facility] [address] [place] [address] Marva Herrera MD Culture, Urine, Routine 08/03/2025 Telephone [facility] [address] [place] [address] Lexy Benitez CNP chart prep 08/02/2025 Orders Only GENERIC EXTERNAL DATA DEPARTMENT Provider, Generic External Data 07/30/2025 Orders Only GENERIC EXTERNAL DATA DEPARTMENT Provider, Generic External Data 07/20/2025 Orders Only GENERIC EXTERNAL DATA DEPARTMENT Provider, Generic External Data 07/12/2025 9:30 AM EDT Office Visit [facility] [address] [facility] [place] [address] Odalis Hartman MD Cyst of left ovary (Primary Dx) 07/11/2025 Telephone [facility] [address] [place] [address] Odalis Hartman MD ED visit 07/11/2025 Travel 07/10/2025 Orders Only [facility] [address] [place] [address] Odalis Hratman MD Mass of left breast, unspecified quadrant (Primary Dx) 07/10/2025 Results Follow-Up [facility] [address] [place] [address] Odalis Hartman MD US Pelvis Transvaginal, CT Abdomen Pelvis w/ Contrast 07/09/2025 Orders Only GENERIC EXTERNAL DATA DEPARTMENT Provider, Generic External Data 07/05/2025 Orders Only [facility] [address] [place] [address] Odalis Hartman MD 07/04/2025 10:45 AM EDT Telemedicine [facility] [address] [facility] [place] [address] Odalis Hartman MD Obesity without serious comorbidity in pediatric patient, unspecified obesity class, unspecified obesity type (Primary Dx) 07/04/2025 Travel 06/28/[address] [facility] [address] [place], [place] [phone] Odalis Hartman MD Prior Authorization from Last [...] Description 09/19/2025 1:45 PM EST Office Visit [facility] [address] [place] [address] Lexy Benitez CNP [address] [place] [address] 10/12/2025 9:45 AM EST Office Visit [facility] [address] [place] [address] Lexy Benitez CNP 505 [facility] [place] [address] Health Maintenance Due Date Last Done Comments [...] TROPONIN I Routine 09/10/2025 6:10 AM EST COMPREHENSIVE METABOLIC PANEL Routine 09/10/2025 6:10 AM EST CBC WITH [...] Recently Relevant to Health Maintenance Results * SARS-CoV-2 RNA, Influenza A/B, and RSV RNA, Ql NAAT (09/10/2025 6:30 AM EST) Only the most recent of2 resultswithin the time period is included. Influenza A PCR NEGATIVE Negative [facility] Influenza B PCR NEGATIVE Negative [facility] Resp Syncy Virus RNA Qual PCR NEGATIVE Negative [facility] SARS COV2 PCR NEGATIVE Negative [facility] Comment:All test results mus t [...] use by authorized laboratories.Testing performed on the 51 Auto GeneXpert utilizingreal-time RT-PCR.All SARS CoV2 and positive influenza A/B results arereported to [facility]. 09/10/2025 6:30 AM EST 09/10/2025 6:32 AM EST Generic External Data Provider LAB MICROBIOLOGY - GENERAL ORDERABLES Final Result Performing Organization Address City/[facility] Co de Phone Number [facility] [address] [place] [address] [phone] * High Sensitivity Troponin I (09/10/2025 6:10 AM EST) Only the most recent of2 resultswithin the time period is included. Pathologist [facility] TROPONIN I HIGH SENSITIVITY <2.7 <3.5 - 17.0 ng/L [facility] Comment:The Vences high sens itivity Troponin-I results should beused in conjunction with other diagnostic information suchas ECG, clinical observations and information, and patientsymptoms to aid in the diagnosis of NH. 09/10/2025 6:10 AM EST 09/10/2025 6:14 AM EST Generic External Data Provider LAB BLOOD ORDERAB LES Final Result Performing Organization Address [facility]/ZIP Co de Phone Number [facility] [address] [place] [phone] * (ABNORMAL) CBC auto differential (09/10/2025 6:10 AM EST) Only the most recent of3 resultswithin the time period is included. White Blood Count 7.3 4.8 - 10.8 X10*3/uL [facility] Red Blood Count 4.12(L) 4.20 - 5.50 X10*6/uL [facility] Hemoglobin 12.2 12.0 - 16.0 g/dl [facility] Hematocrit 34.0(L) 37.0 - 47.0 % [facility] Mean Corpuscular Volume 82.5 80.0 - 98.0 fL [facility] Mean Corpuscular Hemoglobin 29.6 27.0 - 33.0 pg [facility] Mean Corpuscular HGB Conc 35.9(H) 31.0 - 35.0 g/dl [facility] Red Cell Distribution Width 12.6 11.0 - 16.0 % [facility] Platelet Count 193 160 - 400 X10*3/uL [facility] Mean Platelet Volume 9.7 9.4 - 12.3 fL [facility] Neutrophils Percent Auto 54.9 45 - 73 % [facility] Imm Gran Pct Auto 0.3 0.0 - 0.4 % [facility] Lymphocytes Percent Auto 35.9 20 - 40 % [facility] Monocytes Percent Auto 7.5 2 - 11 % [facility] Eosinophils Percent Auto 1.0 0 - 4 % [facility] Basophils Percent Auto 0.4 0 - 2 % [facility] NRBC Pct Auto 0.0 0.0 - 0.2 /100WBC [facility] Neutrophils Absolute Auto 4.0 2.0 - 8.3 x10*3/uL [facility] Imm Gran Abs Auto 0.02 0.00 - 0.03 X10*3/uL [facility] Lymphocytes Absolute Auto 2.6 1.2 - 4.9 X10*3/uL [facility] Monocytes Absolute Auto 0.6 0.1 - 1.2 X10*3/uL [facility] Eosinophils Absolute Auto 0.1 0.0 - 0.4 X10*3/uL [facility] Basophils Absolute Auto 0.0 0.0 - 0.2 X10*3/uL [facility] NRBC Abs Auto 0.000 0.0 - 0.012 X10*3/uL [facility] 09/10/2025 6:10 AM EST 09/10/2025 6:14 AM EST us Generic External Data Provider LAB BLOOD ORDERAB LES Final Result [facility] [address] [place] [address] [phone] * (ABNORMAL) Comprehensive Metabolic Panel (09/10/2025 6:10 AM EST) Only the most recent of3 resultswithin the time period is included. Sodium 138 135 - 145 mmol/L [facility] Potassium 3.5 3.3 - 5.1 mmol/L [facility] Chloride 112(H) 96 - 108 mmol/L [facility] Carbon Dioxide 17(L) 22 - 29 mmol/L [facility] Anion Gap 13 12 - 20 [facility] Urea Nitrogen (BUN) 12 9 - 16 mg/dL [facility] Creatinine, Serum 0.74 0.5 - 1.4 mg/dL [facility] Creatinine Clr Calc Pharmacy 87.0 [facility] Comment:Provided height and weight: 152.4 cm,56.9 kg.eGFR (calculated from the MDRD study equation) and eCrCl(calculated from the Cockcroft-Gault equation) are based ondifferent parameters and may not yield comparable results.If eCrCl result is absurd, please check patient'sheight/weight. Estimated Glomerular Filt Rate >60 [facility] Comment:Chronic Kidney Disea se: Estimated GFR < 60 mL/min/1.19r9Sbipdq Kidney Disease: Estimated GFR < 15 mL/min/1.73m2 Glucose 82 60 - 115 mg/dL [facility] Calcium 9.3 8.4 - 10.2 mg/dL [facility] Bilirubin, Total 0.4 0.0 - 1.0 mg/dL [facility] Aspartate Amino Transferase 22 5 - 31 U/L [facility] Alanine Aminotransferase 10 0 - 31 U/L [facility] Total Protein 6.6 6.5 - 8.0 g/dL [facility] Albumin Level 4.3 3.5 - 5.0 g/dL [facility] Alkaline Phosphatase 54 39 - 117 U/L [facility] 09/10/2025 6:10 AM EST 09/10/2025 6:14 AM EST us Generic External Data Provider LAB BLOOD ORDERAB LES Final Result Performing Organization Address City/State/[facility] de Phone Number [facility] [address] [place] [phone] * BI Mammogram Diagnostic Tomosynthesis Bilateral (08/21/2025 1:30 PM EST) Anatomical Region Laterality Modality Breast Bilateral Mammography 08/21/2025 1:30 PM EST Narrative 08/21/2025 2:08 PM EST [address] [place] [address] Mammography Report Signed Patient: Stacia Agudelo MR#: [id number] : 1995 Acct:[id number] Age/Sex: 30 / F ADM Date: 08/21/25 Loc: HO.MAMMO Attending Dr: Odalis Hartman MD Ordering Physician: Odalis Hartman MD Results: 1Negati ve Date of Service: 08/21/25 Follow Up: Mammo at 39 or e arlier if clinically needed Procedure(s): MM tomosynthesis diagnostic BI Accession Number(s): [id number] cc: Odalis Hartman MD; Lexy Benitez NP [...] by: Kika Sheriff MD 08/21/2025 02:04 PM [facility] Dictated By: Kika Sheriff MD Signed By: <Electronically signed by Kika Sheriff MD in OV> 08/21/25 1404 DD/ 1330 TD/TT: 08/21/25 1344 Director Medical: Procedure Note Donotuseinterpreter, Image - 08/21/2025 [facility] [address] [place] [address] Mammography Report Signed Patient: Stacia Agudelo GMR#: [id number] : 1995Acct:[id number] Age/Sex: 30 / FADM Date: 08/21/25 Loc: HO.MAMMO Attending Dr: Odalis Hartman MD Ordering Physician: Odalis Hartman MDResults: 1Negati ve Date of Service: 08/21/25Follow Up: Mammo at 40 or e arlier if clinically needed Procedure(s): MM tomosynthesis diagnostic BI Accession Number(s): [id number] cc: Odalis Hartman MD; Lexy Benitez NP [...] 08/21/25 1404 DD/ 1330 TD/TT: 08/21/25 1344 Director Medical: Odalis Hartman MD IM BI PROCEDURES Final Result * hCG, Total, Quantitative (08/12/2025 2:12 PM EST) Only the most recent of2 resultswithin the time period is included. HCG Quantitative <2 mIU/mL [facility] Comment:Weeks post LMP Appro ximate hCG(Last Menstrual Period) Range (mIU/ml)3 - 4 weeks 9 - 1304 - 5 weeks 75 - 2,6005 - 6 weeks 850 - 20,8006 - 7 weeks 4000 - 100,2007 - 12 weeks 11,500 - 289,60241 - 16 weeks 18,300 - 137,22822 - 29 weeks (2nd trimester) 1,400 - 53,57269 - 41 weeks (3rd trimester) 940 - [...] ORDERAB LES Final Result Performing Organization Address [facility]/ZIP Co de Phone Number [facility] [address] [place] [phone] * Lipase (08/12/2025 2:12 PM EST) Lipase 15 8 - 78 U/L [facility] 08/12/2025 2:12 PM EST 08/12/2025 2:16 PM EST Generic External Data Provider LAB BLOOD ORDERAB LES Final Result Performing Organization Address [facility] Co de Phone Number [facility] [address] [place] [phone] * TSH W/Reflex to FT4 (08/08/2025 4:12 PM EST) TSH reflex Free T4 2.20 0.32 - 4.0 uIU/mL [facility] Blood Venous blood specimen / Unknown 08/08/2025 4:12 PM EST 08/08/2025 5:55 PM EST us Alexxis Benitez LUBRICATION TECHNICIAN LAB BLOOD ORDERABLES Dayana l Result Performing Organization Address City/[facility] Co de Phone Number [facility] [address] [place] [phone] * Culture, Urine, Routine (08/02/2025 8:06 AM EST) Urine Urine specimen obtained by clean catch procedure / Unknown 08/02/2025 8:06 AM EST 08/02/2025 2:44 PM EST Comment:UACC Narrative [facility] - 08/03/2025 10:58 AM EST Urine Culture No growth. Specimen Source: Urine clean catch Generic External Data Provider LAB MICROBIOLOGY - GENERAL ORDERABLES Final Result Performing Organization Address [facility] de Phone Number [facility] [address] [place] [phone] * CT Abdomen Pelvis w/ Contrast (07/31/2025 7:44 AM EST) Only the most recent of2 resultswithin the time period is included. Anatomical Region Laterality Modality Body, Pelvis, Abdomen Computed T omography 07/31/2025 7:44 AM EST Narrative 07/31/2025 8:35 AM EST [address] [address] [address] Scan Report Signed Patient: Stacia Agudelo MR#: [id number] : 1995 Acct:[id number] Age/Sex: 30 / F ADM Date: 07/30/25 Loc: HO.ED Attending Dr: Ordering Physician: iRchard Vaughn PA-C Date of Service: 07/31/25 Procedure(s): CT abdomen pelvis w IV con Accession Number(s): [id number] cc: Marva Herrera MD; Richard Vaughn PA-C Report Number: [id number]: Total DLP = 411.00 mGy-cm Reason for [...] 07/31/25 0831 DD/ 0744 TD/TT: 07/31/25 0757 Director Medical: Procedure Note Donotuseinterpreter, Image - 07/31/[address] [place] [address] [address] Scan Report Signed Patient: Stacia Agudelo GMR#: [id number] : 1995Acct:[id number] Age/Sex: Date: 07/30/25 Loc: HO.ED Attending Dr: Ordering Physician: Richard Vaughn PA-C Date of Service: 07/31/25 Procedure(s): CT abdomen pelvis w IV con Accession Number(s): [id number] cc: Marva Herrera MD; Richard Vaugnh PA-C Report Number: [id number]: Total DLP = 411.00 mGy-cm Reason for [...] 07/31/25 0831 DD/ 0744 TD/TT: 07/31/25 0757 Director Medical: [facility] External Provider IMG CT PROCEDURES Edited Result - Final * US PELVIC OVARIAN DOPPLER (07/31/2025 4:18 AM EST) Only the most recent of2 resultswithin the time period is included. Anatomical Region Laterality Modality Abdomen Ultrasound 07/31/2025 4:18 AM EST Narrative 08/11/2025 1:30 PM EST [address] [address] Ultrasound Report Signed Patient: Stacia Agudelo MR#: [id number] : 1995 Acct:[id number] Age/Sex: 30 / F ADM Date: 07/30/25 Loc: HO.ED Attending Dr: Ordering Physician: Richard Vaughn PA-C Date of Service: 07/31/25 Procedure(s): US pelvic ovarian doppler Accession Number(s): [id number] cc: Marva Herrera MD; Ricahrd Vaughn PA-C Reason for Exam: Left Pelvic/LLQ [...] signed by Gregg Novoa MD in OV> 08/11/250 DD/ 7 TD/TT: 07/31/25417 Director Medical: Procedure Note Donotuseinterpreter, Image - 08/11/[address] [address] Ultrasound Report Signed Patient: Stacia Agudelo GMR#: [id number] : 1995Acct:[id number] Age/Sex: 30 FADM Date: 07/30/25 Loc: HO.ED Attending Dr: Ordering Physician: Richard Vaughn PA-C Date of Service: 07/31/25 Procedure(s): US pelvic ovarian doppler Accession Number(s): [id number] cc: Marva Herrera MD; Richard Vaughn PA-C [...] signed by Gregg Novoa MD in OV> 08/11/251329 DD/ 7 TD/TT: 07/31/25 0418 Director Medical: us [facility] External Provider IMG US PROCEDURES Final Result * US Pelvis Transvaginal (07/31/2025 4:18 AM EST) Only the most recent of2 resultswithin the time period is included. Anatomical Region Laterality Modality Pelvis Ultrasound 07/31/2025 4:1 8 AM EST Narrative 07/31/2025 4:20 AM EST [address] [address] Ultrasound Report Signed Patient: Stacia Agudelo MR#: [id number] : 1995 Acct:[id number] Age/Sex: 30 / F ADM Date: 07/30/25 Loc: HO.ED Attending Dr: Ordering Physician: Richard Vaughn PA-C Date of Service: 07/31/25 Procedure(s): US pelvic and transvaginal Accession Number(s): [id number] cc: Marva Herrera MD; Richard Vaughn PA-C [...] OV> 08/11/25 1329 DD/ 7 TD/TT: 07/31/25417 Director Medical: Procedure Note Donotuseinterpreter, Image - 08/11/2025 [place] [address] Ultrasound Report Signed Patient: Stacia Agudelo GMR#: [id number] : 1995Acct:[id number] Age/Sex: M Date: 07/30/25 Loc: .ED Attending Dr: Ordering Physician: Richard Vaughn PA-C Date of Service: 07/31/25 Procedure(s): US pelvic and transvaginal Accession Number(s): [id number] cc: Marva Herrera MD; Richard Vaughn PA-C [...] OV> 08/11/25 1329 DD/ 7 TD/TT: 07/31/25417 Director Medical: us [facility] External Provider IMG US PROCEDURES Edited Result - Final * Urinalysis w/reflex microscopic (07/30/2025 11:28 PM EST) Only the most recent of2 resultswithin the time period is included. Color Urine Yellow [facility] Appearance Urine Clear [facility] PH 7.0 5.0 - 9.0 [facility] Glucose Urine UA Negative Negative mg/dL [facility] Urine Blood Negative Negative [facility] Specific [place] - Urine 1.025 1.005 - 1.025 [facility] Urine Protein Trace Neg-Trace mg/dL [facility] Urine Ketones Negative Negative mg/dL [facility] Nitrite Urine Negative Negative [facility] Leukocyte Esterase Urine Negative Negative [facility] 07/30/2025 11:2 8 PM EST 07/30/2025 11:31 PM EST Narrative [facility] - 07/30/2025 11:51 PM EST Urine, Clean Catch Generic External Data Provider LAB URINE ORDERAB LES Final Result [facility] [address] [place] [phone] * (ABNORMAL) Bacterial Vaginosis (07/20/2025 1:41 PM EDT) TRICHOMONAS VAGINALIS DETECTION BY PCR NOT DETECTED Not Detect [facility] BACTERIAL VAGINOSIS DETECTION BY PCR NEGATIVE Negative [facility] Comment:The BV organism targ ets of [...] DETECTION BY PCR NOT DETECTED Not Detect [facility] Noris glab krusei PCR DETECTED(A) Not Detect [facility] 07/20/2025 1:41 PM EDT 07/20/2025 3:52 PM EDT us Generic External Data Provider LAB MICROBIOLOGY - GENERAL ORDERABLES Final Result [facility] [address] [place] [phone] * Chlamydia/N. Gonorrhoeae RNA, TMA, Urogenitial (07/20/2025 1:41 PM EDT) CT PCR NOT DETECTED Not Detect. [facility] Comment:A not detected test result does [...] psychologicalconsequences. NG PCR NOT DETECTED Not Detect. [facility] Comment:A not detected test result does [...] LAB MICROBIOLOGY - GENERAL ORDERABLES Final Result [facility] [address] [place] [phone] * Pap Smear (02/23/2024 1:44 PM EDT) Swab Cervix uteri structure / Unknown 02/23/2024 1:44 PM EDT 02/24/2024 9:15 AM EDT Narrative [facility] - 03/20/2024 3:43 PM EDT ----- ------- Name: Stacia Agudelo Age/Sex: 28/F : 1995 Unit#: [id number] Attend Dr: ENA LUNA CNM Re02/23/24 Status: DEP REF Location: HO.HHCLNP Disch: ----- ------- SPEC : [id number] RECD: 02/24/24 STATUS: SOPHIE CONNELLY NUM: [id number] FERCHO: 02/23/24-[address]: ENA LUNA CNM ENTERED: 02/24/24-1013 SP TYPE: Pap Smr OTHR DR: ORDERED: Pap Smear Interpretation Satisfactory for evaluation. Negative for intraepithelial lesion or malignancy. Clinical Information LMP: 01/25/2024 Previous PAP test: Unknown date/findings Material Received ThinPrep-Cervical ----- ------- Signed (signature on file) Moon Sheridan 03/20/24 1543 ----- ------- END OF REPORT us Ena STARKEY LAB CYTOLOGY ORDERABLES F inal Result [facility] [address] [place] [phone] * Lipid Panel, Standard (01/21/2023 10:41 AM EDT) Cholesterol, Total 158 <200 mg/dL [facility] HDL Cholesterol 58 > OR = 50 mg/dL [facility] Triglycerides 94 <150 mg/dL [facility] LDL Cholesterol 81 mg/dL (calc) [facility] Comment: Reference range: <100 Desirable range <100 mg/dL for primary prevention; <70 mg/dL for patients with CHD or diabetic patients with > or = 2 CHD risk factors. LDL-C is now calculated using the Abelardo calculation, which is a validated novel method providing better accuracy than the Friedewald equation in the estimation of LDL-C. Edgar SS et al. SUZANNE. 2013;310(21): 0052-4676 (http://education.[employer]/faq/EZS386) Chol/HDLC Ratio 2.7 <5.0 (calc) [facility] Non-HDL Cholesterol 100 <130 mg/dL (calc) [facility] Comment: For patients with diabetes plus 1 [...] ORDERABLES Final Resul t Performing Organization Address City/[facility]/ZIP Co de Phone Number [facility] [address], [place] [phone] [facility] [address] [place] [phone] * HEPATITIS C ANTIBODY (10/04/2019 4:35 PM EST) HEPATITIS C ANTIBODY NONREACTIVE NONREACTIVE [facility] Comment: Antibodies to HCV not detected; does not exclude early acute HCV infection. 10/04/2019 4:35 PM EST Sheryl Coburn HISTORICAL/NON ORDERABLE LABS Fi nal Result [facility] [address] [place] [address] from Last 3 Months or Most Recently Relevant to Health Maintenance Insurance C3 Advance Directives Documents on File Type Date Recorded Patient [employer]er Expl anation Advance Directives and Livin g Will 08/14/2025 1:22 PM Care Teams Police Commanding Officer Relationship Specialty Start Date End Date Lexy Benitez CNP [address] [place] [phone] PCP - General Family Medicine 07/19/25
--- OUTSIDE RECORDS SUMMARY | 2025-09-12 10:45 | XMS_ITS | Encounter Summary ---
Demographics Address [address] [place] [address] [address] [place] [address] Home Phone Work Phone Email Address Preferred Language es Marital Status Gnosticist Affiliation Unknown Race Other Race Ethnic Group Unknown Author Organization [employer] Address [address] [facility] [address] [place] [address] Care Team Providers Care Business Office Director Name Role Phone Lexy Benitez CNP Primary Care Provider [phone] Encounter Details Date Type Department Care Team ([facility] st Contact Info) Description 08/03/2025 Results Follow-Up [facility] [address] [place] [address] Marva Herrera MD [address] [place] [address] Culture, Urine, Routine Social History Tobacco Use [...] 1:45 PM EST Office Visit [facility] [address] [place] [address] Lexy Benitez CNP [address] [place] [address] 10/12/2025 9:45 AM EST Office Visit [facility] [address] [place] [address] Lexy Benitez CNP [address] [place] [address] documented as of this encounter Visit Diagnoses Not on filedocumented in this encounter Care Teams Business Office Director Relationship Specialty Start Date End Date Lexy Benitez CNP [address] [place] [address] PCP - General Family Medicine 07/19/25 documented as of this encounter
== END ==
LOC: HO.CARD 09:54
DX: R00.2 Palpitations (principal)
CPT/HCPCS: 93306

== ENCOUNTER → 2025-09-12 09:57 | Outpatient (BNV) | payer MEDICAID, SELFPAY | PROVIDERS: Visit Provider Internal Medicine Cardiovascular Disease | DX: R00.2 Palpitations (principal) | CPT/HCPCS: 93306 ==